=== PATIENT | female | born 1985 | race Caucasian/White ===

== ENCOUNTER 2019-09-18 12:24 | Emergency (ER) | payer BC, SELFPAY ==
[2019-09-18 12:31] VITALS: BP 122/66; PULSE 93; RESP 24; TEMP 36.8; O2SAT 99
--- NOTE | 2019-09-18 12:44 | ED.GENADULT ---
HPI - General Adult General Chief complaint: Upper Respiratory Infection Stated complaint: sore throat and head kennedi Time Seen by Provider: 09/18/19 12:44 Source: patient Mode of arrival: ambulatory Limitations: no limitations History of Present Illness HPI narrative: 34-year-old female patient presents to the [facility] with complaints of cold symptoms for the past 4 weeks. Patient states she does have a history of asthma and has went through an inhaler already and is currently out. Patient states that she is currently also 14 weeks . Patient states that she did call her OB today and they state that they could not treat her for her cold symptoms and recommended that she go to an urgent care to be seen. Patient states that she did follow-up with her primary doctor about 3 weeks ago but he was refusing to treat her because she was . Patient's primary doctor did refer her to a auto glass worker which she has not yet seen. Patient states that she is an active smoker but is trying to cut down. Patient denies any fevers that she is aware of but states she has had a cough, sore throat with some shortness of breath at times. Related Data Home Medications Medication Instructions Recorded Confirmed metoclopramide HCl [Reglan] 10 mg PO Q6H PRN 09/18/19 09/18/19 ondansetron HCl [Zofran] 4 mg PO Q6H 09/18/19 09/18/19 ranitidine HCl [Zantac Maximum 150 mg PO DAILY 09/18/19 09/18/19 Strength] Allergies Allergy/AdvReac Type Severity Reaction Status Date / Time nickel Allergy Mild Rash Verified 09/18/19 12:38 acetaminophen AdvReac Unknown N/V, Verified 09/18/19 12:38 DIZZINESS oxycodone AdvReac Unknown N/V, Verified 09/18/19 12:38 DIZZINESS tramadol AdvReac Unknown N/V, Verified 09/18/19 12:38 DIZZINESS Review of Systems Review of Systems: Narrative: CONSTITUTIONAL: Denies fever, chills, or sweats. EYES: Denies visual changes, redness, or discharge. ENT: Denies rhinorrhea, congestion, positive sore throat, denies otalgia. CARDIOVASCULAR: Denies chest pain, palpitations, or edema. RESPIRATORY: Positive cough with dyspnea. GASTROINTESTINAL: Denies abdominal pain, nausea, vomiting, or diarrhea. GENITOURINARY: Denies dysuria or hematuria. SKIN: Denies rash or itching. MUSCULOSKELETAL: Denies back pain, joint pain, or myalgia. NEUROLOGIC: Denies headache, numbness, or weakness. PSYCHIATRIC: Denies anxiety or depression. PMFSH Comments At the time of my signature I agree with nursing past medical history, surgical, social, and family history. There is no relevant family history pertinent to the presenting complaint. Exam Narrative: Exam Narrative: GENERAL: Well-appearing, well-nourished, and in no acute distress. HEAD: Normocephalic, atraumatic. EYES: PERRLA and EOMI. ENT: Nares with erythema and edema noted bilaterally, no rhinorrhea or epistaxis. Mucous membranes moist. Posterior pharynx with some erythema and 2+ tonsil enlargement. No exudates or lesions present. NECK: Supple. No lymphadenopathy CHEST: Patient does have some inspiratory and expiratory wheezing noted to the right lower lobe. No respiratory distress. No tripoding noted. Patient able is able to talk in clear complete sentences. HEART: Regular rate and rhythm. No murmur heard. Normal peripheral pulses. ABDOMEN: Soft, nontender, nondistended, normal active bowel sounds. EXTREMITIES: Normal range of motion. No edema. SKIN: Warm, dry, no rash. NEURO: No focal deficits. Alert and oriented x3. Course Reevaluation(s) Reevaluation #1: Reevaluated patient after her DuoNeb was completed. Patient states that she is feeling much better. Patient's lung sounds are clear to bilateral upper lower lobes. Discussed with patient that her strep today is negative. Discussed with patient she most likely has an his asthma about his exacerbation from a virus recently. Discussed with patient I am going to go ahead and discharge her home with a few DuoNeb vials t
[2019-09-18] MEDS: ALBUTEROL SULFATE NEB 2.5 MG/3 ML INH INHALATION (12:59)
[2019-09-18] MEDS: IPRATROPIUM BR 0.02% INH SOLN 0.5 MG/2.5 ML VIAL INHALATION (13:00)
== END 2019-09-18 13:53 | disposition home or self-care (01) ==
PROVIDERS: Emergency Provider Nurse Practitioner Family
DX: O99.512 Diseases of the respiratory system complicating pregnancy, second trimester (principal); Z3A.14 14 weeks gestation of pregnancy; J06.9 Acute upper respiratory infection, unspecified; R05 Cough; J45.31 Mild persistent asthma with (acute) exacerbation
CPT/HCPCS: 87081; 87880; 94640; 99213; G0463

== ENCOUNTER 2019-10-21 10:59 | Outpatient (CLI) | payer BC, SELFPAY ==
--- NOTE | ~2019-10-21 | US_ITS ---
EXAMINATION: US OB /maternal detail DATE: 10/21/2019 12:53 INDICATION: Second trimester anatomic survey TECHNIQUE: Real-time ultrasound of the pelvis was performed. COMPARISON: None. FINDINGS: There is a single living fetus in variable presentation. The placenta is anterior and covers the inte rnal cervical os. heart rate is 150 beats per minute (bpm). cardiac activity and m ovement are noted. The amniotic fluid index is normal. The outflow tracts of the heart and kidneys are not demonstrated. The following anatomy was emily ntified as normal: 4 chamber heart 3 vessel cord cord insertion urinary bladder stomach spine diaphragm ventricles cisterna magna cerebellum The following biometric data were obtained: Biparietal diameter (BPD): 4.3 cm; head circumference (HC): 16.3 cm; abdominal circumference (AC): 16 .4 cm; femur length (FL): 3.0 cm. The head circumference to abdominal circumference ratio is greater than two standard deviations below the mean. These measurements are concordant. Estimated weight is 349 g +/- 52 g, which correlates with the >97th percentile when 03/21/2020 i s used as estimated date of delivery. As single measurements, these parameters are each equal to the following estimated gestational ages w ith ranges of +/- 2 standard deviations: BPD: 19 weeks 1 days +/- 1 weeks 5 days. HC: 19 weeks 1 days +/- 1 weeks 3 days. AC: 21 weeks 4 days +/- 2 weeks 0 days. FL: 19 weeks 3 days +/- 1 weeks 6 days. estimated gestational age based solely on measurements from this exam is 19 weeks 6 days +/- 1 weeks 3 days. IMPRESSION: 1. Single living fetus in variable presentation. 2. Estimated weight is 349 g +/- 52 g, which correlates with the >97th percentile when 0 is used as estimated date of delivery. 3. Complete placenta previa. These findings were discussed with Demi in Dr. Vivar's office at 13 03 hours on 10/21/2019. Reviewed, dictated and finalized at location B. IMPRESSION: 1. Single living fetus in variable presentation. 2. Estimated weight is 349 g +/- 52 g, which correlates with the >97th pe rcentile when 03/21/2020 is used as estimated date of delivery. 3. Complete placenta previa. These findings were discussed with Demi in Dr. Vivar's office at 1303 hours on 10/21/2019.
== END 2019-10-21 11:00 | disposition home or self-care (01) ==
PROVIDERS: Visit Provider Obstetrics & Gynecology Gynecology
DX: Z36.89 Encounter for other specified antenatal screening (principal); O44.02 Complete placenta previa NOS or without hemorrhage, second trimester
CPT/HCPCS: 76805

== ENCOUNTER 2019-11-21 10:51 | Outpatient (CLI) | payer BC, SELFPAY ==
--- NOTE | ~2019-11-21 | US_ITS ---
EXAMINATION: US OB follow up DATE: 11/21/2019 11:33 INDICATION: Placenta previa, second trimester TECHNIQUE: Real-time ultrasound of the pelvis was performed. The interpreting radiologist was not pre sent for the study. COMPARISON: 10/21/2019 FINDINGS: There is a single living fetus in transverse lie. The placenta completely covers the inter nal cervical os. cardiac activity and movement are noted. heart rate is 157 beats p er minute (bpm). The amniotic fluid index is subjectively normal. The following biometric data were obtained: Biparietal diameter (BPD): 5.9 cm; head circumference (HC): 22.1 cm; abdominal circumference (AC): 19 .7 cm; femur length (FL): 4.3 cm. These measurements are concordant. Estimated weight is 679 g +/- 101 g, which correlates with the greater than 97th percentile whe n 03/21/2020 is used as estimated date of delivery. As single measurements, these parameters are each equal to the following estimated gestational ages w ith ranges of +/- 2 standard deviations: BPD: 24 weeks 2 days ( 22 weeks 1 days - 26 weeks 4 days). HC: 24 weeks 1 days ( 22 weeks 1 days - 26 weeks 2 days). AC: 24 weeks 3 days ( 22 weeks 2 days - 26 weeks 4 days). FL: 24 weeks 0 days ( 22 weeks 0 days - 26 weeks 1 days). estimated gestational age based solely on measurements from this exam is 24 weeks 2 days +/- 1 weeks 5 days. IMPRESSION: 1. Persistent complete placenta previa. 2. Estimated weight is 679 g +/- 101 g, which correlates with the greater than 97th percentile when 03/21/2020 is used as estimated date of delivery. Reviewed, dictated and finalized at location A.
== END 2019-11-21 10:52 | disposition home or self-care (01) ==
LOC: ANHIMG 10:58
PROVIDERS: Visit Provider Obstetrics & Gynecology Gynecology
DX: O44.02 Complete placenta previa NOS or without hemorrhage, second trimester (principal); O36.62X0 Maternal care for excessive fetal growth, second trimester, not applicable or unspecified
CPT/HCPCS: 76816

== ENCOUNTER 2019-12-21 14:19 | Observation (INO) | payer BC, SELFPAY ==
[2019-12-21] VITALS (7 sets, daily range): BP systolic 97–126; BP diastolic 60–71; PULSE 91–104
--- NOTE | ~2019-12-21 | US_ITS ---
EXAMINATION: US OB limited EXAM DATE: 12/21/2019 15:42 INDICATION: Second trimester, placenta previa with vaginal bleeding.. TECHNIQUE: Pelvic obstetrical transabdominal sonogram was performed by a technologist. There are mu ltiple grayscale and Doppler images available for interpretation. Comparison is made to prior examina tion from 11/21/2019. FINDINGS: There is a single fetus identified in transverse presentation with a heart rate of 154 beat s per minute. The placenta is completely covering the internal cervical os. There is no sonographic evidence of retroplacental hemorrhage identified. The amniotic fluid index is 23.2 centimeters, which is elevated (The 5th -- 95th percentile range is 9.5-22.6). IMPRESSION: 1. Single fetus in transverse presentation with heart rate 154 beats per minute. 2. Complete placental previa without sonographic evidence of retroplacental hemorrhage. 3. Polyhydramnios, CHARLIE 23.2 cm. Reviewed, dictated and finalized at location A. IMPRESSION: 1. Single fetus in transverse presentation with heart rate 154 beats per minut e. 2. Complete placental previa without sonographic evidence of retroplacental he morrhage. 3. Polyhydramnios, CHARLIE 23.2 cm.
[2019-12-21 15:07] LABS: INR 0.9; Prothrombin Time 11.8 Seconds (11.1-14.7)
[2019-12-21 15:08] LABS: Partial Thromboplastin Time 26.9 SECONDS (22.3-36.8)
[2019-12-21 15:16] LABS: Hemoglobin 10.8 g/dL (12.0-15.0); Mean Corpuscular HGB Conc 32.7 g/dl (32-36); Mean Corpuscular Hemoglobin 30.2 pg (26-34); Mean Corpuscular Volume 92.2 fl (80-100); Mean Platelet Volume 11.1 fl (7.4-10.4); Platelet Count Result 255 k/mm3 (150-375); Red Blood Count 3.58 M/mm3 (4.2-5.4); Red Cell Distribution Width 13.6 % (11.5-14.5); White Blood Count 11.5 K/mm3 (4.5-10.0)
--- NOTE | 2019-12-21 17:04 | OBADM ---
This patient, Dior Hart, admitted to the OB room OB Post 116 for observation. Patient/family oriented to hospital policies and general routines including ID bracelet, bed and alarms, visiting hours, pain management, procedures, bathroom and other care routines, personal items, smoking policy, room service/diet, and visiting hours. Patient/Family are encouraged to report perceived risks to care and to ask questions if they do not understand what they are told or what they should do.
[2019-12-21] MEDS: BETAMETHASONE SOD PHOS/ACETATE 30 MG/5 ML VIAL 12 MG IM (17:50)
[2019-12-21 18:04] LABS: Glucose 1 Hour PP 50gm Dose 154 mg/dL
--- NOTE | 2020-01-08 09:56 | PM.OBTRLD ---
OB - Triage/Final Diagnosis Evaluation Laboratory results: Laboratory Tests 12/21/19 12/21/19 12/21/19 14:41 14:49 14:49 WBC 11.5 H RBC 3.58 L Hgb 10.8 L Hct 33.0 L MCV 92.2 MCH 30.2 MCHC 32.7 RDW 13.6 Plt Count 255 MPV 11.1 H PT 11.8 INR 0.9 APTT 26.9 Glucose 1 Hr 50 gm Blood Type O Positive Antibody Screen Negative KB Hemoglobin 12/21/19 12/21/19 14:49 17:42 WBC RBC Hgb Hct MCV MCH MCHC RDW Plt Count MPV PT INR APTT Glucose 1 Hr 50 gm 154 H Blood Type Antibody Screen KB Hemoglobin Negative Final Diagnosis (1) Placenta previa in second trimester: Code(s): O44.02 - Complete placenta previa NOS or without hemorrhage, second trimester Status: Acute (2) Third trimester bleeding: Code(s): O46.93 - Antepartum hemorrhage, unspecified, third trimester Status: Acute
== END 2019-12-21 18:09 | disposition home health service (06) ==
PROVIDERS: Admitting Provider Obstetrics & Gynecology Gynecology; Visit Provider Obstetrics & Gynecology
DX: O44.12 Complete placenta previa with hemorrhage, second trimester (principal); Z3A.00 Weeks of gestation of pregnancy not specified; O40.2XX0 Polyhydramnios, second trimester, not applicable or unspecified
CPT/HCPCS: 36415; 76815; 82947; 85027; 85460; 85610; 85730; 86850; 86900; 86901; 96372; G0378; G0379; J0702

== ENCOUNTER 2019-12-22 17:40 | Outpatient (CLI) | payer BC, SELFPAY ==
[2019-12-22] MEDS: BETAMETHASONE SOD PHOS/ACETATE 30 MG/5 ML VIAL 12 MG IM (17:56)
== END 2019-12-22 18:00 | disposition home or self-care (01) ==
LOC: ANHOBOP 17:49 → ANHLDR 17:50
PROVIDERS: Visit Provider Obstetrics & Gynecology Gynecology
DX: O36.8990 Maternal care for other specified fetal problems, unspecified trimester, not applicable or unspecified (principal); Z3A.00 Weeks of gestation of pregnancy not specified
CPT/HCPCS: 96372; 99199; J0702

== ENCOUNTER 2020-02-09 08:21 | Observation (INO) | payer BC, MEDICAID, SELFPAY ==
[2020-02-09] VITALS (27 sets, daily range): BP systolic 105–132; BP diastolic 61–82; PULSE 74–116; TEMP 36.6–37.2; O2SAT 98–100; BMI 30.4
--- NOTE | ~2020-02-09 | US_ITS ---
EXAMINATION: US OB follow up DATE: 02/09/2020 10:23 INDICATION: Bleeding. Third trimester. TECHNIQUE: Real-time ultrasound of the pelvis was performed. COMPARISON: Ultrasound 12/21/2019, 07/27/2019 FINDINGS: There is a single living fetus in transverse lie. The placenta covers the internal cervical os. Feta l heart rate is 130 beats per minute (bpm). The amniotic fluid index is 17.9 cm, which is normal. The following biometric data were obtained: Biparietal diameter (BPD): 9.0 cm; head circumference (HC): 32.9 cm; abdominal circumference (AC): 32 .7 cm; femur length (FL): 7.0 cm. These measurements are concordant. Estimated weight is 2954 g +/- 443 g, which correlates with 96th percentile when 03/21/20 is use d as estimated date of delivery. As single measurements, these parameters are each equal to the following estimated gestational ages: BPD: 36 weeks 3 days. HC: 37 weeks 3 days. AC: 36 weeks 4 days. FL: 35 weeks 6 days. estimated gestational age based solely on measurements from this exam is 36 weeks 4 days +/- 2 weeks 4 days. IMPRESSION: 1. Single living fetus in transverse lie. 2. Large for gestational age. Estimated weight is 2954 g +/- 443 g, which correlates with 96th percentile when 03/21/20 is used as estimated date of delivery. Note that the first ultrasound on demonstrated an estimated gestational age of 803/16/2020. 3. Placenta previa. Reviewed, dictated and finalized at location A. IMPRESSION: 1. Single living fetus in transverse lie. 2. Large for gestational age. Estimated weight is 2954 g +/- 443 g, whic h correlates with 96th percentile when 03/21/20 is used as estimated date of del tor. Note that the first ultrasound on 07/27/2019 demonstrated an estimated g estational age of 803/16/2020. 3. Placenta previa.
[2020-02-09 09:11] LABS: Basophils Percent Auto 0.2 % (0.2-1.2); Eosinophils Absolute Auto 0.2 K/mm3 (0-0.3); Eosinophils Percent Auto 2.4 % (0-4.4); Hematocrit 30.5 % (37.0-47.0); Hemoglobin 9.9 g/dL (12.0-15.0); Immature Granulocyte Absolute 0.06 K/mm3 (0.00-0.031); Immature Granulocyte Percent A 0.6 % (0-0.5); Lymphocytes Absolute Auto 2.03 K/mm3 (0.9-3.2); Lymphocytes Percent Auto 20.9 % (18.3-44.2); Mean Corpuscular HGB Conc 32.5 g/dl (32-36); Mean Corpuscular Volume 89.4 fl (80-100); Mean Platelet Volume 11.4 fl (7.4-10.4); Monocytes Absolute Auto 0.8 K/mm3 (0.1-0.6); Monocytes Percent Auto 7.7 % (2.6-8.5); Neutrophils Absolute Auto 6.6 K/mm3 (1.3-6.7); Neutrophils Percent Auto 68.2 % (45.5-73.1); Platelet Count Result 258 k/mm3 (150-375); Red Blood Count 3.41 M/mm3 (4.2-5.4); Red Cell Distribution Width 13.3 % (11.5-14.5); White Blood Count 9.7 K/mm3 (4.5-10.0)
[2020-02-09 09:21] LABS: INR 0.9; Prothrombin Time 12.1 Seconds (11.1-14.7)
[2020-02-09 09:22] LABS: Partial Thromboplastin Time 25.8 SECONDS (22.3-36.8)
[2020-02-09 09:52] LABS: Fibrinogen 311 mg/dl (215-510)
[2020-02-09] MEDS: NIFEdipine 10 MG CAPSULE 20 MG PO ×3 (10:22→21:38)
--- NOTE | 2020-02-09 10:34 | OBADM ---
This patient, Dior Hart, admitted to the OB room Labor/Delivery/Recovery 120 for observation. Patient/family oriented to hospital policies and general routines including ID bracelet, bed and alarms, visiting hours, pain management, procedures, bathroom and other care routines, personal items, smoking policy, room service/diet, and visiting hours. Patient/Family are encouraged to report perceived risks to care and to ask questions if they do not understand what they are told or what they should do.
--- NOTE | 2020-02-09 11:32 | PC.NURSE ---
1125--Pt up to bathroom. reports no bleeding
--- NOTE | 2020-02-09 11:38 | PC.NURSE ---
1005--US at bedside
--- NOTE | 2020-02-09 11:38 | PC.NURSE ---
0850--Pt arrives with towel between legs and walnut-sized blood clot. Dr. Leos notified and enroute.
--- NOTE | 2020-02-09 14:21 | PC.NURSE ---
1420--Dr. Leos updated-no new orders received.
[2020-02-10] VITALS (8 sets, daily range): BP systolic 106–122; BP diastolic 51–72; PULSE 78–92; TEMP 36.6–36.9
[2020-02-10] MEDS: NIFEdipine 10 MG CAPSULE 20 MG PO ×3 (03:39→16:02)
[2020-02-10 07:07] LABS: Rapid Plasma Reagin Non-Reactive (NonReactive)
--- NOTE | 2020-02-10 08:12 | PM.IMHP ---
H&P: HPI History of Present Illness Chief complaint: bleeding Narrative: Dior Hart is a 34 year old female @ 34 weeks admittd for bleeding with placenta previa. Patient reported bleeding with wiping and then increased over nite. with clots PMFSH Past Medical History Medical History (Updated 01/08/20 @ 09:57 by Addy Leos MD) Placenta previa in second trimester Third trimester bleeding Meds Home Medications and Allergies Home Medications Medication Instructions Recorded Confirmed Type albuterol sulfate [ProAir HFA] 2 puff INHALATION QID PRN #18 gm 09/18/19 02/09/20 Rx famotidine [Pepcid] 20 mg PO DAILY 02/09/20 02/09/20 History pantoprazole 40 mg PO DAILY 02/09/20 02/09/20 History Allergies Allergy/AdvReac Type Severity Reaction Status Date / Time nickel Allergy Mild Rash Verified 09/18/19 12:38 Vital Signs Vital Signs - 24 hr 02/09/20 08:46 02/09/20 08:51 02/09/20 08:56 Temperature Pulse Rate Blood Pressure Pulse Oximetry 100 99 99 02/09/20 09:00 02/09/20 09:01 02/09/20 09:06 Temperature 36.6 C Pulse Rate 116 H Blood Pressure 132/68 Pulse Oximetry 98 99 02/09/20 09:11 02/09/20 09:16 02/09/20 09:21 Temperature Pulse Rate 99 Blood Pressure 111/70 Pulse Oximetry 99 99 99 02/09/20 10:22 02/09/20 11:21 02/09/20 11:31 Temperature Pulse Rate 92 74 87 Blood Pressure 113/70 117/69 116/67 Pulse Oximetry 02/09/20 11:46 02/09/20 12:01 02/09/20 12:16 Temperature Pulse Rate 88 86 86 Blood Pressure 114/65 115/75 121/65 Pulse Oximetry 02/09/20 12:31 02/09/20 16:26 02/09/20 16:31 Temperature Pulse Rate 79 91 88 Blood Pressure 121/67 126/78 118/82 Pulse Oximetry 02/09/20 16:46 02/09/20 17:01 02/09/20 17:16 Temperature Pulse Rate 88 85 89 Blood Pressure 132/72 124/61 105/70 Pulse Oximetry 02/09/20 17:31 02/09/20 18:19 02/09/20 19:32 Temperature 36.6 C Pulse Rate 95 94 Blood Pressure 115/71 121/76 Pulse Oximetry 02/09/20 21:36 02/09/20 22:01 02/09/20 23:01 Temperature 37.2 C Pulse Rate 84 87 83 Blood Pressure 118/71 117/77 113/67 Pulse Oximetry 02/10/20 00:01 02/10/20 00:44 02/10/20 01:01 Temperature 36.9 C Pulse Rate 87 84 Blood Pressure 113/58 L 112/51 L Pulse Oximetry 02/10/20 02:55 02/10/20 03:37 02/10/20 04:01 Temperature 36.8 C Pulse Rate 81 78 Blood Pressure 106/59 L 106/54 L Pulse Oximetry Exam : Other: blood clot in vault no active bleeding. cvx closed by visualizaition. Reactive baby AGA no decels contractions every 3-7 minutes. H&P: Results Labs Labs: Short CBC 02/09/20 Range/Units 09:06 WBC 9.7 (4.5-10.0) K/mm3 Hgb 9.9 L (12.0-15.0) g/dL Hct 30.5 L (37.0-47.0) % Plt Count 258 (150-375) k/mm3 Assessment and Plan Assessment and plan (1) Third trimester bleeding: Code(s): O46.93 - Antepartum hemorrhage, unspecified, third trimester Status: Acute Assessment and Plan: patient started on Procardia q 6 for contractions. s/p steroids from first bleeding episode. start iron supplements. complete bedrest. ultrasound for Tony and placenta (2) Placenta previa in second trimester: Code(s): O44.02 - Complete placenta previa NOS or without hemorrhage, second trimester Status: Acute
--- NOTE | 2020-02-10 11:58 | PM.OBPNVD ---
OB - PN: Subj Subjective Date/time seen: 02/10/20 11:58 S: doing okay no bleeding noted contraction less with procardia tolerating okay noticed mild headache with last dose. OB - PN: Obj Data Labs CBC & Chem 7: 02/09/20 09:06 Labs: Laboratory Results - last 24 hr 02/09/20 09:06 RPR Non-reactive OB - PN A/P Assessment and Plan (1) Third trimester bleeding: Code(s): O46.93 - Antepartum hemorrhage, unspecified, third trimester Status: Acute Assessment and Plan: placenta previa stable continue with procardia for contractions.d/c home on pelvic and bedrest. f/u 02/12/20 for ultrasound. (2) Placenta previa in second trimester: Code(s): O44.02 - Complete placenta previa NOS or without hemorrhage, second trimester Status: Acute Time Spent With Patient Time: Total time spent is greater than 50% in coordination of care (as documented) at patient's floor/unit and/or counseling patient: Exam GI: Other: Gravid nontender
== END 2020-02-10 16:58 | disposition home or self-care (01) ==
LOC: ANHLDR 08:48 → ANHOBPP 11:14
PROVIDERS: Admitting Provider Obstetrics & Gynecology; Visit Provider Obstetrics & Gynecology
DX: O44.13 Complete placenta previa with hemorrhage, third trimester (principal); Z3A.34 34 weeks gestation of pregnancy
CPT/HCPCS: 36415; 76816; 85025; 85384; 85610; 85730; 86592; 86850; 86900; 86901; A9270; G0378; G0379

== ENCOUNTER 2020-02-14 08:55 | Outpatient (CLI) | payer BC, SELFPAY ==
[2020-02-14 09:40] VITALS: BP 123/78; PULSE 81
[2020-02-14 09:54] LABS: Hematocrit 28.5 % (37.0-47.0); Hemoglobin 9.2 g/dL (12.0-15.0); Mean Corpuscular HGB Conc 32.3 g/dl (32-36); Mean Corpuscular Hemoglobin 28.6 pg (26-34); Mean Corpuscular Volume 88.5 fl (80-100); Mean Platelet Volume 10.9 fl (7.4-10.4); Platelet Count Result 249 k/mm3 (150-375); Red Blood Count 3.22 M/mm3 (4.2-5.4); Red Cell Distribution Width 13.2 % (11.5-14.5); White Blood Count 10.8 K/mm3 (4.5-10.0)
[2020-02-14 10:46] LABS: HIV 1/2 Ab P24 Ag Result Negative (Negative)
[2020-02-14 10:50] VITALS: BP 123/78; PULSE 81
== END 2020-02-14 11:00 | disposition home or self-care (01) ==
LOC: ANHOBOP 09:05 → ANHOBPP 09:05
PROVIDERS: Obstetrics & Gynecology; Visit Provider Obstetrics & Gynecology Gynecology
DX: O99.413 Diseases of the circulatory system complicating pregnancy, third trimester (principal); Z3A.00 Weeks of gestation of pregnancy not specified
CPT/HCPCS: 36415; 59025; 85027; 86703; 99199; G0432

== ENCOUNTER 2020-05-15 01:58 | Outpatient (CLI) | payer BC, SELFPAY ==
[2020-05-15 18:25] LABS: SARS-CoV-2 RNA PCR Negative
== END 2020-05-15 01:59 | disposition home or self-care (01) ==
LOC: ANHCOVIDDT 01:58
PROVIDERS: Visit Provider Obstetrics & Gynecology Gynecology
DX: Z01.812 Encounter for preprocedural laboratory examination (principal); Z20.828 Contact with and (suspected) exposure to other viral communicable diseases
CPT/HCPCS: 87635; C9803; U0003

== ENCOUNTER 2020-05-18 02:40 | Day surgery (SDC) | payer BC, SELFPAY ==
[2020-05-05 15:37] VITALS: BMI 27.3
[2020-05-18] VITALS (11 sets, daily range): BP systolic 110–146; BP diastolic 65–92; PULSE 53–87; RESP 12–20; TEMP 36.3; O2SAT 94–100
[2020-05-18] MEDS: ACETAMINOPHEN 500 MG TABLET 1000 MG PO (06:41)
[2020-05-18] MEDS: LACTATED RINGERS 1,000 ML 30 ML IV CONT ×2 (06:55→09:27)
[2020-05-18] MEDS: KETOROLAC 15 MG/ML VIAL (*BKC) IV PUSH (07:00)
--- NOTE | 2020-05-18 07:03 | P.PNAN_ITS ---
Anes - Initial Pre Proc Eval Procedure: Operation Date: 05/18/20 07:30 Proposed Procedures p Laparoscopic Bilateral Tubal Ligation With Fallopian Rings - Krista Vivar MD Date/Time: 05/18/20 07:03 Surgeon: Krista Vivar MD Pre Op Diagnosis: Desires Sterilization Patient Data Age: 34 Gender: F Height: 1.7 m Weight: 81.4 kg Allergies Allergy/AdvReac Type Severity Reaction Status Date / Time nickel Allergy Mild Rash Verified 05/05/20 15:23 Home Medications Medication Instructions Recorded Confirmed Type albuterol sulfate [ProAir HFA] 2 puff INHALATION QID PRN #18 gm 09/18/19 05/18/20 Rx famotidine [Pepcid] 20 mg PO DAILY 02/09/20 05/18/20 History pantoprazole 40 mg PO DAILY 02/09/20 05/18/20 History duloxetine 60 mg PO DAILY 05/05/20 05/18/20 History Patient hx anesthesia problems: none Family hx anesthesia problems: none [facility] Past Medical History Medical History (Updated 05/18/20 @ 07:04 by Slim Ortega MD) Asthma Chronic GERD Overweight (BMI 25.0-29.9) Placenta previa in second trimester Smoker Third trimester bleeding Social History Social History Smoking packs per day: 0.5 Smoking cigarettes per day: 10.0 Years smoked: 16 Smoking pack-years: 8.00 Smoking status: Current every day smoker Tobacco type: cigarettes Second hand tobacco smoke exposure: Yes Alcohol intake: former Substance use: former Substance use type: marijuana Last use: 2016 Living arrangements: with family Spiritual care concerns: No Anes - Eval Final PreProcedure Day of Procedure 05/18/20 07:03 Patient weight: overweight Heart: regular rate and rhythm Lungs: clear to auscultation and normal air movement Airway: Mallampati scale class II Neurological: alert and oriented Last oral intake: >/= 8 hours ASA classification: II Emergent: no Anesthetic plan: proceed Anesthesia type and monitoring: general ETT Informed Consent: The patient's anesthetic plan and its attendant risks and benefits were discussed with the patient/family/POA. Questions were solicited and answers provided to the satisfaction of the patient/family/POA.
--- NOTE | 2020-05-18 07:21 | PM.HPGS ---
History of Present Illness History of Present Illness Consent: Risks, benefits, and alternatives have been discussed and questions answered. Patient agrees to proceed with procedure. Chief complaint: Desires Sterilization Narrative: Dior Hart is a 34 year old female who has completed her childbearing and wishes to proceed with sterilization. Reviewed risks of infection, bleeding, injury to internal organs, and tubal failure with increased ectopic risk. Patient voiced understanding and agrees to proceed. [facility] Past Medical History Medical History (Updated 05/18/20 @ 07:25 by Krista Vivar MD) Anxiety Asthma delivery delivered x 2 Chronic GERD Depression (normal spontaneous vaginal delivery) x 1 Overweight (BMI 25.0-29.9) Smoker Spontaneous x 4 Social History Social History Smoking packs per day: 0.5 Smoking cigarettes per day: 10.0 Years smoked: 16 Smoking pack-years: 8.00 Smoking status: Current every day smoker Tobacco type: cigarettes Second hand tobacco smoke exposure: Yes Alcohol intake: former Substance use: former Substance use type: marijuana Last use: 2016 Living arrangements: with family Spiritual care concerns: No Meds Home Medications and Allergies Home Medications Medication Instructions Recorded Confirmed Type albuterol sulfate [ProAir HFA] 2 puff INHALATION QID PRN #18 gm 09/18/19 05/18/20 Rx famotidine [Pepcid] 20 mg PO DAILY 02/09/20 05/18/20 History pantoprazole 40 mg PO DAILY 02/09/20 05/18/20 History duloxetine 60 mg PO DAILY 05/05/20 05/18/20 History Allergies Allergy/AdvReac Type Severity Reaction Status Date / Time nickel Allergy Mild Rash Verified 05/05/20 15:23 Vital Signs Vital Signs - 24 hr 05/18/20 06:46 Temperature 97.3 F L Pulse Rate 87 Respiratory Rate 20 Blood Pressure 120/83 Pulse Oximetry 98 Exam Const: General: healthy appearing and alert Orientation/consciousness: patient oriented x3 Resp: Effort & Inspection: normal respiratory effort Auscultation: clear to auscultation bilaterally Cardio: Rate: regular rate Rhythm: regular rhythm GI: GI Palp: Yes Soft to palpation, No Tenderness to palpation present (GI) and No Palpable mass present : External Female Exam: normal external appearance Speculum Exam - Vagina: normal appearance of the vagina and normal vaginal discharge Speculum Exam - Cervix: normal appearance of the cervix Bimanual exam- vagina & uterus: uterine size normal and consistency normal Bimanual Exam- Adnexa, other: normal adnexae and No adnexal tenderness Neuro: General: patient oriented x3 Assessment and Plan Assessment and plan (1) Encounter for sterilization: Code(s): Z30.2 - Encounter for sterilization Status: Acute Assessment and Plan: plan to proceed with laparoscopic BTL with falope rings
--- NOTE | 2020-05-18 07:25 | WPDHPUPDATE1 ---
History and Physical Update Update Date/Time: 05/18/20 07:25 History and Physical has been reviewed, including an updated exam of the patient. There are NO changes in the patient's condition. Risks, benefits, and alternatives have been discussed and questions answered. Patient agrees to proceed with procedure.
--- NOTE | 2020-05-18 08:28 | P.OP_ITS ---
Procedure Note - Detailed Date of procedure: 05/18/20 Pre-op diagnosis: Desires Sterilization Post-op diagnosis: same Procedure performed: laparoscopic BTL with falope rings Description of procedure: The patient was taken to the operating room and placed under general anesthesia in the dorsal lithotomy position. She was prepped and draped in the usual sterile fashion. The bladder is drained with a red rubber catheter and the bivalve speculum placed. The cervix is grasped on the posterior lip with a tenaculum and the acorn manipulator placed and the speculum is removed. The attention is turned to the abdomen where a vertical skin in cision is made at the base of the umbilicus. The abdomen is tented with towel clamps and the Veress needle is placed. Opening patient pressure is 4mmHg and the water drop test is normal. Pneumoperitoneum was obtained to a patient pressure of 15mmHg. The Veress needle is removed the 5mm trocar is placed with the Optiview and intra-abdominal placement was confirmed with the laparoscoped. The pelvis is inspected with the stated findings. The 2nd trocar is placed 2cm above the symphysis pubis under direct visualization. The blunt probe was used to bring the tubes into view and the ring applicator is used to place a ring on each tube. A good loop of tube is noted within the ring on each side and picture documentation is taken. The pneumoperitoneum is reduced and the instruments are removed. Vaginal instruments are removed. Sponge instrument and needle counts are correct per the OR staff. Anesthesia: GETA Surgeon: Krista Vivar MD Estimated blood loss (mL): 5 Drains: No Packing: No Pathology: none sent Complications: No immediate complications Condition: stable Disposition: PACU Findings: normal appearing tubes, ovaries, and uterus; omental scarring to anterior abdominal wall to left of umbilicus
[2020-05-18] MEDS: fentaNYL CITRATE INJ (*CRX) 100 MCG/2 ML VIAL 25 MCG IV PUSH ×4 (08:31→08:45)
[2020-05-18] MEDS: HYDROmorphone HCL INJ (*CRX) 1 MG/ML SYR 0.25 MG IV PUSH ×2 (08:55→09:07)
[2020-05-18] MEDS: oxyCODONE HCL (*CRX) 5 MG TAB IR PO (09:58)
== END 2020-05-18 10:49 | disposition home or self-care (01) ==
PROVIDERS: Visit Provider Obstetrics & Gynecology Gynecology
PROC: (CPT 58671; principal; 2020-05-18 07:30)
DX: Z30.2 Encounter for sterilization (principal); J45.909 Unspecified asthma, uncomplicated; K21.9 Gastro-esophageal reflux disease without esophagitis; F17.210 Nicotine dependence, cigarettes, uncomplicated
CPT/HCPCS: 58671; A4264; A9270; J0330; J1100; J1170; J1885; J2250; J2405; J2704; J3010; J7120

== ENCOUNTER 2022-10-05 12:01 | Emergency (ER) | payer BC, SELFPAY ==
[2022-10-05 12:07] VITALS: BP 134/85; PULSE 93; RESP 16; TEMP 36.6; O2SAT 98
--- NOTE | 2022-10-05 12:15 | ED.URI ---
HPI - URI/Sore Throat General Chief Complaint: Upper Respiratory Infection Stated Complaint: Cough/Headache Time Seen by Provider: 10/05/22 12:02 Source: patient and RN notes reviewed History of Present Illness HPI Narrative: Patient is a 37-year-old female who presents to urgent care with complaints of sore throat, hoarseness, cough, headache, shortness of breath, wheezing and subjective fevers. Patient states symptoms started 2 weeks ago and she has also had nausea. Patient has missed work due to her illness. States she has been taking Tylenol, ibuprofen and using her albuterol inhaler. Patient states that her asthma has gotten worse since her insurance has denied her Dulera inhaler. No other acute complaints. No acute distress noted. Patient aware of the plan of care. Some parts of this dictation were generated by voice recognition software and may contain typographical and/or grammatical inaccuracies. Related Data Home Medications Medication Instructions Recorded Confirmed albuterol sulfate 90 mcg/actuation See Rx Instructions .Route 10/05/22 10/05/22 aerosol inhaler .COMPLEX PRN sob zolpidem 10 mg tablet 10 mg PO HS 10/05/22 10/05/22 Allergies Allergy/AdvReac Type Severity Reaction Status Date / Time nickel Allergy Mild Rash Verified 10/05/22 12:38 Review of Systems Review of Systems: CONSTITUTIONAL: Denies fever, chills, or sweats. EYES: Denies visual changes, redness, or discharge. ENT: Reports of congestion, hoarseness and sore throat CARDIOVASCULAR: Denies chest pain, palpitations, or edema. RESPIRATORY: Reports of nonproductive cough, wheezing and intermittent dyspnea GASTROINTESTINAL: Denies abdominal pain, nausea, vomiting, or diarrhea. GENITOURINARY: Denies dysuria or hematuria. SKIN: Reports of rash to the face MUSCULOSKELETAL: Denies back pain, joint pain, or myalgia. NEUROLOGIC: Reports of headache All other systems reviewed are negative, except as documented in HPI. [facility] Past Medical History Medical History (Updated 10/05/22 @ 12:42 by PATRICIO Bailey) Anxiety Asthma delivery delivered x 2 Chronic GERD Depression (normal spontaneous vaginal delivery) x 1 Overweight (BMI 25.0-29.9) Smoker Spontaneous x 4 Social History Social History Smoking packs per day: 0.5 Smoking cigarettes per day: 10.0 Years smoked: 16 Smoking pack-years: 8.00 Smoking status: Current every day smoker Tobacco type: cigarettes Second hand tobacco smoke exposure: Yes Alcohol intake: former Substance use: former Substance use type: marijuana Last use: 2016 Living arrangements: with family Spiritual care concerns: No Comments At the time of my signature, I reviewed and agree with the nursing past medical, surgical, social, and family history. There is no relevant family history pertinent to the patient complaint. Exam Narrative: GENERAL: This is a well-nourished, well-developed patient, in no apparent distress. HEAD: normocephalic, atraumatic. EYES: PERRL. Sclera clear/white. Vision is grossly intact. EARS: External ears normal, auditory canals clear and without drainage, mild bilateral eustachian tube dysfunction. TMs normal without perforation. Hearing grossly intact. NOSE: External nose normal with no obvious nasal discharge, nares without redness, clear rhinorrhea. THROAT: Mucous membranes moist, mild erythema to posterior pharynx with moderate postnasal drainage. Notable hoarseness NECK: Neck supple, non-tender without lymphadenopathy CARDIOVASCULAR: Regular rate and rhythm RESPIRATORY: Tight inspiratory and expiratory wheezes SKIN: warm, intact with no suspicious lesions or rash, good texture and turgor. NEURO: awake, alert, and oriented to person, place and time. There were no obvious focal neurologic abnormalities. EXTREMITIES: No clubbing, cyanosis, or edema. Course Course Chris
[2022-10-05] MEDS: ALBUTEROL SULFATE NEB 2.5 MG/3 ML INH INHALATION (12:31)
[2022-10-05] MEDS: IPRATROPIUM BR 0.02% INH SOLN 0.5 MG/2.5 ML VIAL INHALATION (12:32)
== END 2022-10-05 13:00 | disposition home or self-care (01) ==
PROVIDERS: Emergency Provider Nurse Practitioner Family; PCP Nurse Practitioner Family
DX: J45.20 Mild intermittent asthma, uncomplicated (principal); L01.00 Impetigo, unspecified; J32.9 Chronic sinusitis, unspecified; F41.9 Anxiety disorder, unspecified; F17.210 Nicotine dependence, cigarettes, uncomplicated
CPT/HCPCS: 87081; 87880; 94640; 99213; G0463

== ENCOUNTER 2022-12-13 11:31 | Outpatient (CLI) | payer BC, SELFPAY ==
--- NOTE | ~2022-12-13 | US_ITS ---
EXAMINATION: US pelvic complete DATE: 12/13/2022 11:57 INDICATION: Menorrhagia Comparison:No prior studies for comparison. TECHNIQUE: Multiple transabdominal sonographic images of the pelvis performed. FINDINGS: The uterus measures 9.2 x 4.4 x 6.3 cm. The endometrial complex measures 5 mm. The right ovary measures 2.5 x 2.2 x 2.3 cm and the left ovary measures 2.9 x 2.7 x 2.3 cm. There ar e small follicles in each ovary. Normal doppler signal in both ovaries. There is no free fluid in the pelvis. There are no abnormal masses seen on either side. IMPRESSION: 1. Unremarkable pelvic ultrasound. Reviewed, dictated and finalized at location L.
== END 2022-12-13 11:32 ==
PROVIDERS: PCP Nurse Practitioner Family; Visit Provider Obstetrics & Gynecology Gynecology
DX: N93.8 Other specified abnormal uterine and vaginal bleeding (principal)
CPT/HCPCS: 76856

== ENCOUNTER 2023-10-23 17:02 | Outpatient (CLI) | payer BC, SELFPAY ==
--- NOTE | ~2023-10-23 | CT_ITS ---
EXAMINATION: CT knee RT wo con DATE: 10/23/2023 17:45 INDICATION: Right knee pain. TECHNIQUE: Computed tomography (CT) of the right knee was performed without intravenous contrast. Aut omated exposure control and iterative reconstruction technique were employed. The dose-length product was 673.68 mGy-cm. COMPARISON: Right knee radiographs 10/18/2023 FINDINGS: Bone alignment is normal. No fracture. There is mild tricompartmental osteoarthritis charac terized by tiny osteophytes. No joint space narrowing. No knee joint effusion. There is hypodensity i n medial head of gastrocnemius muscle. IMPRESSION: 1. Mild right knee osteoarthritis. 2. Hypodensity in medial head of gastrocnemius muscle, likely a muscle strain. Reviewed, dictated and finalized at location E.
== END 2023-10-23 17:03 | disposition home or self-care (01) ==
PROVIDERS: PCP Nurse Practitioner Family; Visit Provider Nurse Practitioner Family
DX: M17.11 Unilateral primary osteoarthritis, right knee (principal)
CPT/HCPCS: 73700

== ENCOUNTER 2024-03-12 10:46 | Outpatient (CLI) | payer BC, SELFPAY ==
[2024-03-12 19:29] LABS: Hematocrit 41.9 % (37.0-47.0); Hemoglobin 13.1 g/dL (12.0-15.0); Mean Corpuscular HGB Conc 31.3 g/dl (32-36); Mean Corpuscular Hemoglobin 29.5 pg (26-34); Mean Corpuscular Volume 94.4 fl (80-100); Mean Platelet Volume 11.7 fl (7.4-10.4); Platelet Count Result 235 k/mm3 (150-375); Red Blood Count 4.44 M/mm3 (4.2-5.4); White Blood Count 6.1 K/mm3 (4.5-10.0)
[2024-03-12 19:34] LABS: Alanine Aminotransferase 13 U/L (6-35); Albumin Level 3.9 g/dL (3.5-5.1); Alkaline Phosphatase 62 U/L (38-126); Anion Gap 6 mmol/L (4-12); Aspartate Amino Transferase 33 U/L (14-36); Bilirubin,Total 0.4 mg/dL (0.2-1.3); Blood Urea Nitrogen 15 mg/dL (7-17); Calcium 8.3 mg/dL (8.4-10.2); Carbon Dioxide 26 mmol/L (22-30); Chloride 106 mmol/L (98-107); Cholesterol 149 mg/dL (0-200); Estimated Glomerular Filt Rate > 60; Glucose 101 mg/dL (65-110); HDL Direct 38 mg/dL; Potassium 4.1 mmol/L (3.4-5.0); Sodium 138 mmol/L (137-145); Triglycerides 38 mg/dL (<150)
[2024-03-12 19:46] LABS: LDL Cholesterol Direct 89 mg/dL
[2024-03-12 20:22] LABS: Hemoglobin A1C 5.4 % (<5.7)
[2024-03-12 21:28] LABS: Vitamin D 25 Hydroxy 14.3 ng/mL
[2024-03-12 21:48] LABS: Thyroid Stimulating Hormone Reflex 0.967 uIU/mL (0.465-4.68)
== END 2024-03-12 10:47 | disposition home or self-care (01) ==
PROVIDERS: PCP Nurse Practitioner Family; Visit Provider Nurse Practitioner Family
DX: H90.41 Sensorineural hearing loss, unilateral, right ear, with unrestricted hearing on the contralateral side (principal); H93.11 Tinnitus, right ear
CPT/HCPCS: 36415; 80053; 80061; 82306; 82607; 83036; 84443; 85027; 92557; 92567

== ENCOUNTER 2024-05-13 00:57 | Day surgery (SDC) | payer BC, SELFPAY ==
[2024-05-01 18:27] VITALS: BMI 25.5
--- NOTE | 2024-05-01 18:36 | PC.NURSE ---
Report to the Outpatient Waiting Room, entrance under the green pavilion located off [facility], at time 0615 on date 05/13/24. Planned Procedure Time: 0815.? Time changes happen often and if your time is changed the preop area will call you the afternoon before. - You and your visitor will be asked to self-screen and do not enter if you have any COVID symptoms. Please call surgeon if you need to reschedule. - A mask is optional within the hospital at this time. Patients may have clear liquids (water, carbonated beverages, clear teas, apple juice) until 3 hours prior to surgery with a maximum of 20 ounces. - No food from midnight until time of surgery and no smoking - Infants may have breast milk until 4 hours before surgery, formula 6 hours prior to surgery. - Children will be allowed to drink immediately following surgery.? If applicable, please bring a bottle or sippy cup to assist with drinking. Juice, water, soda, and popsicles are readily available.? For infants on formula, please bring formula the day of surgery.? Pacifiers are allowed. Take only the following medications with a SIP of water on the morning of surgery: ___n/a__ bring inhaler DO NOT STOP ANY OF YOUR OTHER PRESCRIPTION MEDICATIONS PRIOR TO SURGERY EXCEPT THE FOLLOWING Medications to discontinue per physician n/a Date to take last dose Please no make-up, nail sami, hairspray, perfume, deodorant, or body powder the day of surgery.? No jewelry (including any body piercings) or valuables the day of surgery, leave them at home.? Please take a shower or bath the night before, or the morning of, surgery with an antibacterial soap.? Wear comfortable, loose fitting clothing.? Children are encouraged to wear pajamas. - Jewelry must be removed prior to entering the operating room.? Rings and piercings that are not removed may be cut off. - The hospital will not accept responsibility for valuables.? - Please leave all valuables, including medications, at home the day of surgery. If you are going home after surgery, a licensed regional tanker truck driver must drive you home.? - NO public transportation without another adult if you receive anesthesia. - We recommend that an adult stay with you for 24 hours following discharge. - We also recommend that you do not drive, make important decision, drink alcoholic beverages, or take any drugs that were not prescribed by your health care provider for at least 24 hours after your discharge time. For Pediatric surgeries, we recommend two adults accompany the child home. Follow any additional instructions given to you from your surgeon. Telephone instructions given to _patient_and asked if any additional questions and then verbalized understanding. Patient advised to call surgeon office or pre surgery nurse liaison [phone] if any additional questions.
--- NOTE | 2024-05-13 07:19 | P.HP_ITS ---
History of Present Illness History of Present Illness Consent: Risks, benefits, and alternatives have been discussed and questions answered. Patient agrees to proceed with procedure. Chief complaint: menorrhagia Narrative: Dior Hart is a 38 year old female with prolonged bleeding episodes. Patient bled for 17 days. Some days were heavy and some days were collected. Patient has had irregular bleeding over the past 3 months. It was recommended to undergo D&C hysteroscopy to further evaluate. Risks infection, bleeding, perforation, and possible pathology are discussed. Patient voices understanding and agrees to proceed. Review of Systems Review of Systems: not repeated day of surgery; patient states no changes in status [facility] Past Medical History Medical History (Updated 05/13/24 @ 07:22 by Krista Vivar MD) Anxiety Asthma Chronic GERD Depression Eczema Insomnia (normal spontaneous vaginal delivery) x 1 Smoker Spontaneous x 4 Surgical History Surgical History (Updated 05/13/24 @ 07:22 by Krista Vivar MD) H/O tubal ligation History of X2 History of nasal surgery Family History Family History Father Alcoholism Cancer Cerebrovascular accident Mother Cancer Hypertension Social History Social History Smoking packs per day: 0.5 Smoking cigarettes per day: 10.0 Years smoked: 16 Smoking pack-years: 8.00 Smoking status: Current every day smoker Tobacco type: cigarettes Second hand tobacco smoke exposure: Yes Additional smoking assessment comments: 4-6 cigarettes per day Alcohol intake: former Substance use: former Substance use type: marijuana Last use: 2017 Do You Feel Safe in your Home?: Yes Lack of Transportation: No Lack of Food: Never True Current Housing: I Have Housing Concerned About Future Housing: No Difficulty Paying Gas/Electric Bills: No Difficulty Paying for Meds: No Currently Unemployed: No Education: High School Diploma/GED Difficulty w/ Childcare or Family Care: No Living arrangements: with family Occupation/Education: occupation Additional occupation/education comments: [employer] Spiritual care concerns: No Agree to blood products: Yes Meds Home Medications and Allergies Home Medications Medication Instructions Recorded Confirmed Type albuterol sulfate 2.5 mg/3 mL 2.5 mg (3 mL) inhalation Q6H #75 mL 10/05/22 05/01/24 Rx (0.083 %) solution for nebulization albuterol sulfate 90 mcg/actuation 2 puff inhalation PRN PRN sob 10/05/22 05/01/24 History aerosol inhaler Allergies Allergy/AdvReac Type Severity Reaction Status Date / Time nickel Allergy Mild Rash Verified 05/01/24 18:38 oxycodone AdvReac Intermediate Nausea Verified 05/01/24 18:39 tramadol AdvReac Intermediate Nausea Verified 05/01/24 18:38 Exam Const: General: healthy appearing and alert Orientation/consciousness: patient oriented x3 Resp: Effort & Inspection: normal respiratory effort : External Female Exam: normal external appearance Speculum Exam - Vagina: normal appearance of the vagina and normal vaginal discharge Speculum Exam - Cervix: normal appearance of the cervix Bimanual exam- vagina & uterus: uterine size normal and consistency normal Bimanual Exam- Adnexa, other: normal adnexae and No adnexal tenderness Neuro: General: patient oriented x3 Assessment and Plan Assessment and plan (1) Menorrhagia: Code(s): N92.0 - Excessive and frequent menstruation with regular cycle Status: Acute Assessment and Plan: plan to proceed with D&C hysteroscopy
--- NOTE | 2024-05-13 07:19 | WPDHPUPDATE1 ---
History and Physical Update Update Date/Time: 05/13/24 07:19 History and Physical has been reviewed, including an updated exam of the patient. There are NO changes in the patient's condition. Risks, benefits, and alternatives have been discussed and questions answered. Patient agrees to proceed with procedure.
--- NOTE | 2024-05-13 07:26 | P.PNAN_ITS ---
Anes - Initial Pre Proc Eval Procedure: Operation Date: 05/13/24 08:15 Proposed Procedures p Hysteroscopy Dilation and Curettage - Krista Vivar MD Date/Time: 05/13/24 07:26 Surgeon: Krista Vivar MD Pre Op Diagnosis: menorrhagia Patient Data Age: 38 Gender: F Height: 1.7 m Weight: 73.94 kg Allergies Allergy/AdvReac Type Severity Reaction Status Date / Time nickel Allergy Mild Rash Verified 05/01/24 18:38 oxycodone AdvReac Intermediate Nausea Verified 05/01/24 18:39 tramadol AdvReac Intermediate Nausea Verified 05/01/24 18:38 Home Medications Medication Instructions Recorded Confirmed Type albuterol sulfate 2.5 mg/3 mL 2.5 mg (3 mL) inhalation Q6H #75 mL 10/05/22 05/01/24 Rx (0.083 %) solution for nebulization albuterol sulfate 90 mcg/actuation 2 puff inhalation PRN PRN sob 10/05/22 05/01/24 History aerosol inhaler Patient hx anesthesia problems: none Family hx anesthesia problems: none Results Review: All pre-operative results and documents have been reviewed as part of the pre- operative evaluation. PMFSH Past Medical History Medical History Anxiety Asthma Chronic GERD Depression Eczema Insomnia (normal spontaneous vaginal delivery) x 1 Smoker Spontaneous x 4 Surgical History Surgical History H/O tubal ligation History of X2 History of nasal surgery Family History Family History Father Alcoholism Cancer Cerebrovascular accident Mother Cancer Hypertension Social History Social History Smoking packs per day: 0.5 Smoking cigarettes per day: 10.0 Years smoked: 16 Smoking pack-years: 8.00 Smoking status: Current every day smoker Tobacco type: cigarettes Second hand tobacco smoke exposure: Yes Additional smoking assessment comments: 4-6 cigarettes per day Alcohol intake: former Substance use: former Substance use type: marijuana Last use: 2017 Do You Feel Safe in your Home?: Yes Lack of Transportation: No Lack of Food: Never True Current Housing: I Have Housing Concerned About Future Housing: No Difficulty Paying Gas/Electric Bills: No Difficulty Paying for Meds: No Currently Unemployed: No Education: High School Diploma/GED Difficulty w/ Childcare or Family Care: No Living arrangements: with family Occupation/Education: occupation Additional occupation/education comments: [employer] Spiritual care concerns: No Agree to blood products: Yes Anes - Eval Final PreProcedure Day of Procedure 05/13/24 07:26 Patient weight: overweight Heart: regular rate and rhythm Lungs: clear to auscultation Airway: Mallampati scale class II Neurological: alert and oriented Last oral intake: >/= 8 hours ASA classification: II Emergent: no Anesthetic plan: proceed Anesthesia type and monitoring: general GIVS and standard monitoring Results Review: All pre-operative results and documents have been reviewed as part of the pre- operative evaluation. Informed Consent: The patient's anesthetic plan and its attendant risks and benefits were discussed with the patient/family/POA. Questions were solicited and answers provided to the satisfaction of the patient/family/POA.
[2024-05-13 07:29] VITALS: BP 102/60; PULSE 76; TEMP 36.7; O2SAT 97; BMI 25.8
[2024-05-13] MEDS: LACTATED RINGERS 1,000 ML 30 ML IV CONT (07:31)
[2024-05-13] MEDS: ACETAMINOPHEN 500 MG TABLET 1000 MG PO (07:31)
[2024-05-13 07:32] LABS: BEDSIDEPREGUCG Negative (Negative)
--- NOTE | 2024-05-13 08:29 | W.PM.PROC2 ---
Procedure Note - Detailed Date of Procedure 05/13/24 Pre-op Diagnosis menorrhagia Post-op Diagnosis Same Procedure Performed D&C hysteroscopy Surgeon Krista Vivar MD Anesthesia MAC Findings uterus sounds to 8cm and appears grossly normal Description of Procedure The patient was taken to the operating room and placed under anesthesia in the dorsal lithotomy position. She was prepped and draped in the usual sterile fashion. [place] speculum was placed in the vagina and the cervix grasped on the anterior lip with a tenaculum. The uterus is sounded to 8cm. The diagnostic hysteroscope was placed and with no abnormalities noted it is removed. The uterus is sharply curetted with a sharp OO curette until a good uterine cry was noted all areas. All instruments are removed. The patient was awakened from anesthesia and taken to recovery in stable condition. Sponge, needle, and instrument counts are correct per the OR staff. Estimated Blood Loss 5 Drains No Packing No Pathology Yes ( Endometrial curettings) Complications No immediate complications Condition Stable Disposition PACU
[2024-05-13 08:32] VITALS: BP 102/75; PULSE 56; RESP 20
[2024-05-13 09:00] VITALS: BP 118/67; PULSE 50; RESP 20
[2024-05-13 09:25] VITALS: BP 110/76; PULSE 52; RESP 20
== END 2024-05-13 09:40 | disposition home or self-care (01) ==
PROVIDERS: PCP Nurse Practitioner Family; Visit Provider Obstetrics & Gynecology Gynecology
PROC: 0U5B8ZZ Destruction of Endometrium, Via Natural or Artificial Opening Endoscopic (ICD-10-PCS; CPT 58563; principal; 2024-05-13 08:15)
DX: N92.0 Excessive and frequent menstruation with regular cycle (principal); J45.909 Unspecified asthma, uncomplicated; Z79.51 Long term (current) use of inhaled steroids; F17.210 Nicotine dependence, cigarettes, uncomplicated
CPT/HCPCS: 58558; 88305; A9270; J1100; J2003; J2250; J2405; J2704; J3010; J7030; J7120

== ENCOUNTER 2024-07-13 14:06 | Emergency (ER) | payer BC, SELFPAY ==
[2024-07-13 14:11] VITALS: BP 126/69; PULSE 73; RESP 18; TEMP 36.7; O2SAT 100
--- NOTE | 2024-07-13 14:18 | ED.URI ---
HPI - URI/Sore Throat General Chief Complaint: Upper Respiratory Infection Stated Complaint: headache/congestion/nausea/fever History of Present Illness HPI Narrative: Patient presents with nasal congestion bilateral ear pain and postnasal drainage. Patient is not taking thing [id number] for symptoms. She denies any shortness of breath no chest pain no fever no body aches. Patient states all 3 of her kids have has similar symptoms and have all recovered in the past 7-10 days. Related Data Allergies Allergy/AdvReac Type Severity Reaction Status Date / Time nickel Allergy Mild Rash Verified 05/01/24 18:38 oxycodone AdvReac Intermediate Nausea Verified 05/01/24 18:39 tramadol AdvReac Intermediate Nausea Verified 05/01/24 18:38 Review of Systems Review of Systems: CONSTITUTIONAL: Denies chills, or sweats. Reports fever and generalized body aches EYES: Denies visual changes, redness, or discharge. ENT: Denies otalgia. Reports nasal congestion runny nose and sore throat CARDIOVASCULAR: Denies chest pain, palpitations, or edema. RESPIRATORY: Denies dyspnea. Reports occasional cough GASTROINTESTINAL: Denies abdominal pain, nausea, vomiting, or diarrhea. GENITOURINARY: Denies dysuria or hematuria. SKIN: Denies rash or itching. MUSCULOSKELETAL: Denies back pain, joint pain, or myalgia. Reports generalized body aches NEUROLOGIC: Denies headache, numbness, or weakness. PSYCHIATRIC: Denies anxiety or depression. FORMERLY [facility] Past Medical History Medical History Anxiety Asthma Chronic GERD Depression Eczema Insomnia (normal spontaneous vaginal delivery) x 1 Smoker Spontaneous x 4 Surgical History Surgical History H/O tubal ligation History of X2 History of nasal surgery Family History Family History Father Alcoholism Cancer Cerebrovascular accident Mother Cancer Hypertension Social History Social History Smoking packs per day: 0.5 Smoking cigarettes per day: 10.0 Years smoked: 16 Smoking pack-years: 8.00 Smoking status: Current every day smoker Tobacco type: cigarettes Second hand tobacco smoke exposure: Yes Additional smoking assessment comments: 4-6 cigarettes per day Alcohol intake: former Substance use: former Substance use type: marijuana Last use: 2017 Do You Feel Safe in your Home?: Yes Lack of Transportation: No Lack of Food: Never True Current Housing: I Have Housing Concerned About Future Housing: No Difficulty Paying Gas/Electric Bills: No Difficulty Paying for Meds: No Currently Unemployed: No Education: High School Diploma/GED Difficulty w/ Childcare or Family Care: No Living arrangements: with family Occupation/Education: occupation Additional occupation/education comments: [employer] care concerns: No Agree to blood products: Yes Comments At time of signature, agree with nursing past medical, surgical, social and family history. There is no relevant family history pertinent to the presenting complaint Exam Narrative: The patient is a well-developed, well-nourished in no acute distress. SKIN: Skin is warm and dry without erythema, swelling or exudate. There is good turgor. No tenting. HEAD: Atraumatic. Normocephalic. No temporal or scalp tenderness. EYES: Moist and bright. Sclera and conjunctivae normal. No discharge. PERRLA. Extraocular motions intact. Gross visual acuity intact. EARS: Pinna is normal shape and contour. Clear external auditory canals. TM pearly bauman with good cone of light, no erythema or suppuration. Bilateral cerumen noted no gross hearing deficit. NOSE: pink, moist mucosa with good air movement. Clear rhinorrhea without nasal flaring. Septum midline. Mouth: moist mucous membranes. THROAT; mild erythema noted to posterior oropharynx with moderate postnasal drainage. Without exudate or ulceration.. Uvula midline. Normal movement of soft palate. NECK: Supple and nontender with full range of motion without discomfort. No meningeal signs. LUNGS: Equal and bilateral breath sounds without wheezes, rales or rhonchi. CHEST: The chest wall is without retractions or use of accessory muscles. HEART: Has a regular rate and rhythm without murmur, gallops, click or rub. ABDOMEN: Soft, nontender with positive active bowel sounds. No rebound tenderness. EXTREMITIES: Without cyanosis, clubbing or edema. Equal 2+ distal pulses and 2 second capillary refill noted. NEUROLOGIC: alert, active, . The patient moves all extremities with normal muscle strength. Normal muscle tone is noted. Normal coordination is noted. NO focal neurological findings noted. Course Course Level of Care: Express Care Visit Vital Signs Vital signs: Vital Signs Temperature 36.7 C 07/13/24 14:11 Pulse Rate 73 07/13/24 14:11 Respiratory Rate 18 07/13/24 14:11 Blood Pressure 126/69 07/13/24 14:11 Pulse Oximetry 100 07/13/24 14:11 Oxygen Delivery Room Air 07/13/24 14:11 Temperature 36.7 C 07/13/24 14:11 Pulse Rate 73 07/13/24 14:11 Respiratory Rate 18 07/13/24 14:11 Blood Pressure 126/69 07/13/24 14:11 Pulse Oximetry 100 07/13/24 14:11 Oxygen Delivery Room Air 07/13/24 14:11 Discharge Plan Discharge Clinical Impression: Upper respiratory infection, Viral infection Patient Disposition: Home, Self-Care Condition: Stable Instructions: Cold Symptoms (ED) Additional Instructions: *Throw away your current toothbrush and begin using a new toothbrush in 48 hours in order to prevent re-infection. If anyone else's toothbrush is stored near yours, they should also throw away their current toothbrush and begin using a new one. *Sanitize all reusable water bottles. *Do not share items with others. *Wash your hands often. Supportive care/Soothing measures/Pain relief: *Avoid cigarette smoke (including secondhand smoke) *Avoid acidic foods and beverages *Eat a soft diet for the next 3-4 days *Salt water gargles may alleviate some of the throat discomfort. Most recipes call for ? to ? teaspoon of salt per 8 ounces (approximately 240 mL) of warm water. *You can take tylenol or ibuprofen per the package instructions for pain/fever. *Sipping cold or warm beverages (eg, tea with honey or lemon) *Eat cold or frozen desserts (eg, ice cream, popsicles) *Sucking on ice *Sucking on hard candy Viruses are everywhere and can spread like wildfire. Sx can last up to 3-4 weeks. Treatment is aimed toward your specific symptoms. You must treat your symptoms in order to feel better while the virus runs it's course. Increase fluids especially water. Do not share items with others. You can take Tylenol or ibuprofen per the package instructions for pain/fever. Wash your hands as often as possible. Purchase and begin using an over the counter antihistamine/decongestant combo such as Zyrtec D, Carlie D, Claritin D as well as Flonase nasal spray per the package instructions. Salt water gargles may alleviate some of your throat discomfort. Go to the ER if your symptoms become worse of if ANY new symptoms develop Patient Language: Lao Prescriptions: New prednisone 20 mg tablet 40 mg PO DAILY 5 Days Qty: 10 0RF fluticasone propionate [Flonase Allergy Relief] 50 mcg/actuation spray,suspension 2 spray NASAL BID Qty: 9.9 0RF Rx Instructions: administer into each nostril Zyrtec 10 mg capsule 10 mg PO DAILY 14 Days Qty: 14 0RF No Action albuterol sulfate 2.5 mg /3 mL (0.083 %) solution for nebulization 2.5 mg inhalation Q6H Qty: 75 0RF Breztri Aerosphere 160-9-4.8 mcg/actuation HFA aerosol inhaler 2 inh inhalation BID Qty: 10.7 5RF Rx Instructions: rinse mouth after each use albuterol sulfate 90 mcg/actuation HFA aerosol inhaler 2 puff inhalation PRN PRN (Reason: sob) Qty: 8.5 1RF Rx Instructions: as prescribed Follow-up/Referrals: Rand Ballard APRN [Primary Care Provider] - Stand Alone Forms: Work/School Release IP
--- OUTSIDE RECORDS SUMMARY | 2024-07-17 18:30 | XMS_ITS | Referral Summary ---
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 This disclosure is being madepursuant to the Care Everywhere program and may not contain all information available regarding this patient. Last updated [employer] Allergies Active Allergy Reactions Criticality Noted Date Comments Oxycodone-Acetaminophen Unknown 01/10/2020 Tramadol Unknown 01/10/2020 Medications * Be aware that medications may not be up to date on this document. Alwaysverify current medications with the patient. Medication Sig Dispensed Refills Start Date End Date Status ondansetron (ZOFRAN) 4 MG tablet Take 4 mg by mouth every 6 hours as needed for Nausea/Vomiting Active omeprazole (PRILOSEC) 20 MG capsuleIndications:He artburn Take 20 mg by mouth daily before breakfast Reasons: Heartburn Active Vit-Fe Fumarate-FA ( VITAMIN) 28-0.8 MG tabletIndications:Pre gnancy Take 1 tablet by mouth once daily Reasons: Active albuterol HFA (RELION VENTOLIN) 108 (90 BASE) MCG/ACT inhalerIndications:As thma Inhale 2 puffs by mouth every 6 hours as needed Reasons: Asthma Active NIFEdipine (PROCARDIA) 20 MG capsuleIndications:Pr emature Labor Take 20 mg by mouth every 4 hours as needed Reasons: Early Labor Active Active Problems Problem Noted Date Diagnosed Date Previous delivery affecting , antepartum 01/22/2020 Assessment & Plan (01/22/2020 2:52 PM CDT): Incomplete records available for consultation. No operative report from the delivery in 2019 available. notes report a T incision on the skin however the uterine incision is not specified. Maternal Medicine recommendations: 1. please submit a copy of the operative report from 2019 delivery for review Placenta previa without hemorrhage, antepartum 0 01/10/2020 Assessment & Plan (01/22/2020 3:21 PM CDT): There is a complete posterior placenta previa confirmed on today's ultrasound. The placental thickness overlying the internal cervical os is greater than 10 mm. I discussed that this placenta previa is unlikely to resolve prior to delivery. For this complication of this is an indication for late delivery by . We discussed the increased risk of antepartum hemorrhage leading to an unscheduled/ earlier than anticipated delivery. Placental thickness overlying the cervix has also been used as a predictor of antepartum bleeding. A thickness greater than 10 millimeters, which is the case for Dior, was associated with a higher rate of antepartum bleeding compared to a thickness less than 10 millimeters. We discussed the potential for her to warrant antepartum inpatient care if she has further significant vaginal bleeding. We also discussed our maternal transport system. We also discussed the potential for there to be placenta accreta. The ultrasound today demonstrate only 1 finding with increased concern for placenta accreta--it is unclear at this time if this is a true or false-positive finding. For now I believe the estimated a priori baseline risk of placenta accreta should be approximately 11 percent given her prior history. Given that she has already received a course of corticosteroids for lung maturity she is not a candidate for late (after 34 weeks) corticosteroids. Should she be found to be at risk for eminent delivery prior to 34 week she is a candidate for a rescue course of corticosteroids for lung maturity. Maternal Medicine recommendations: 1. pelvic precautions 2. 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 hospital for delivery should be determined and should have adequate resources due to high potential for antepartum and immediate maternal hemorrhage 1. please let our Maternal- Medicine consult group know if you require or desire assistance with performing the repeat delivery 4. IS a candidate for a single rescue course of corticosteroids if signs of imminent delivery are present prior to 34 weeks 5. NOT a candidate for corticosteroids at 34 weeks or later 6. Repeat ultrasound evaluation of placenta in 3 weeks 7. Recommend delivery between 36-37 weeks by repeat Polyhydramnios, antepartum complication 01/10/20 20 Assessment & Plan (01/22/2020 3:01 PM CDT): Please correlate with the results of glucose tolerance test. If the glucose tolerance test is abnormal she should be treated as a gestational diabetic and at a minimum should follow a diabetic diet and monitor blood glucose values. Social History Tobacco Use Types Packs/Day Years Used Date Smoking Tobacco: Every Day Cigarettes 0.3 15 Smokeless Tobacco: Never Alcohol Use Standard Drinks/Week Comments Not Currently 0 (1 standard drink = 0.6 oz pur e alcohol) Sex and Gender Information Value Date Recorded Sex Assigned at Not on file Gender Identity Not on file Sexual Orientation Not on file Last Filed Vital Signs Vital Sign Reading Time Taken Comments Blood Pressure 120/75 02/12/2020 11:34 AM CDT Pulse 104 02/12/2020 11:34 AM CDT Temperature 36.6 ??C (97.9 ??F) 02/12/2020 11:34 AM C DT Respiratory Rate - - Oxygen Saturation - - Inhaled Oxygen Concentration - - Weight 87.8 kg (193 lb 9.6 oz) 02/12/2020 11:34 AM CDT Height 170.2 cm (5' 7 ) 01/22/2020 11:19 AM CDT Body Mass Index 30.32 01/22/2020 11:19 AM CDT Plan of Treatment Not on file Dior Hart Personal/Family Self 1985
--- OUTSIDE RECORDS SUMMARY | 2024-07-17 18:30 | XMS_ITS | Patient Health Record ---
Author Organization [facility] Address [address] [place] [address] Care Team Providers Care Pipe Stem Sawyer Name Role Phone Rand Brasher Primary Care Provider Brittany Rosa Murray Unavailable [phone] Mary Mcgrath Unavailable Unavailable Allergies Allergen (clinical drug ingredient) Drug/Non Drug Allergy documented on EMR Reaction Allergy Type Onset Date Status percocets (uncoded) nausea and vomiting Allergy Active tramadol Tramadol (uncoded) nausea and vomiting Allergy Active Results Component Value Reference Range Notes Spirometry Reviewed date: Interpretation:Normal Performing Lab: Notes/Report: Normal SpiroPreBronchodilator_FVC 3.19 SpiroPostBronchodilator_FEF25_75 2.13 SpiroPreBronchodilator_FEF25_75 2.23 SpiroPreBronchodilator_FEV1 2.47 SpiroPrecentPredictionPost_FEF25_75 67.4 SpiroPrecentPredictionPost_FEV1 110.4 SpiroPrecentPredictionPost_FEV1_OVER_FVC 83.4 SpiroPrecentPredictionPost_FVC 134.1 SpiroPrecentPredictionPre_FEF25_75 70.6 SpiroPrecentPredictionPre_FEV1 102.9 SpiroPrecentPredictionPre_FEV1_OVER_FVC 88.2 SpiroPrecentPredictionPre_FVC 118.1 SpiroPredicted_FEF25_75 3.16 SpiroPreBronchodilator_FEV1_OVER_FVC 77.44 SpiroPreBronchodilator_PEF 4.7 SpiroPostBronchodilator_FVC 3.62 SpiroPostBronchodilator_FEV1 2.65 SpiroPostBronchodilator_FEV1_OVER_FVC 73.23 SpiroPostBronchodilator_PEF 4.3 SpiroPredicted_FVC 2.7 SpiroPredicted_FEV1 2.4 SpiroPredicted_FEV1_OVER_FVC 87.76 SpiroPredicted_PEF 5.41 Reason For Referral No Information Medications Medication SIG (Take, Route, Frequency, Duration) Notes Start Date End Date Status Zolpidem Tartrate 10 MG TAKE 1 TABLET BY MOUTH AT BEDTIME Oral for 90 Days Not-Taking Triamcinolone Acetonide 0.1 % 1 application Externally Two times a Week for 30 days 05/29/2024 Active Zolpidem Tartrate 10 MG Oral for 90 Days Not-Taking Breztri Aerosphere 160-9-4.8 MCG/ACT 2 puffs Inhalation Twice a day for 30 days Active Singulair 10 MG 1 tablet Orally Once a day for 90 days Active ZyrTEC Allergy 10 MG 1 tablet Orally Onc e a day Active Vitamin D3 1.25 MG (44876 UT) TAKE 1 CAPSULE BY MOUTH ONCE WEEKLY Oral for 84 Days Active buPROPion HCl ER (SR) 150 MG Oral for 30 Days Active Albuterol Sulfate HFA 108 (90 Base) MCG/ACT 2 puffs as needed Inhalation every 4 hrs for 30 days Active Dupixent 300 MG/2ML as directed Subcutaneous 05/23/2024 Active Zolpidem Tartrate 10 MG Oral for 90 Days Active Social History Tobacco Use: Social History Observation Description Date Details (start date - stop date) Current Smoker NA - NA Tobacco Control (Standard) Question Answer Notes Tobacco use: Current smoker Problems Problem Type SNOMED Code ICD Code Onset Dates Problem Status W/U Status Risk Notes Problem Chronic allergic conjunctivitis (28109810) Other chronic allergic conjunctivitis (H10.45) Active confirmed Problem Allergic rhinitis caused by pollen (disorder) (80204521) Allergic rhinitis due to pollen (J30.1) Active confirmed Problem Allergic rhinitis (74565093) Other allergic rhinitis (J30.89) Active confirmed Problem Uncomplicated severe persistent asthma (333744224) Severe persistent asthma, uncomplicated (J45.50) Active confirmed Problem Allergic rhinitis caused by animal hair and dander (235832577530955) Allergic rhinitis due to animal (cat) (dog) hair and dander (J30.81) Active confirmed Problem Acute severe exacerbation of severe persistent asthma (983910950) Severe persistent asthma with (acute) exacerbation (J45.51) Active confirmed Vital Signs Oximetry 99 % 06/18/2024 Blood pressure diastolic 74 mm Hg 06/18/2024 Height 67 in 06/18/2024 Blood pressure systolic 116 mm Hg 06/18/2024 Weight 173.0 lbs 06/18/2024 BMI 27.09 kg/m2 06/18/2024 Encounters Encounter Location Date Provider Diagnosis [facility] [address] [place] [id number] 04/10/2024 Rosa Dorsey Allergic rhinitis du e to pollen J30.1 ; Severe persistent asthma with (acute) exacerbation J45.51 ; Allergic rhinitis due to animal (cat) (dog) hair and dander J30.81 ; Other allergic rhinitis J30.89 and Other chronic allergic conjunctivitis H10.45 [facility] [address] [place] [phone] 05/21/2024 Rosa Dorsey Allergic rhinitis du e to pollen J30.1 ; Severe persistent asthma, uncomplicated J45.50 ; Allergic rhinitis due to animal (cat) (dog) hair and dander J30.81 ; Other allergic rhinitis J30.89 and Other chronic allergic conjunctivitis H10.[address] [address] 06/18/2024 Rosa Dorsey Allergic rhinitis du e to pollen J30.1 ; Severe persistent asthma, uncomplicated J45.50 ; Allergic rhinitis due to animal (cat) (dog) hair and dander J30.81 ; Other allergic rhinitis J30.89 and Other chronic allergic conjunctivitis H10.[address] [address] 05/09/2024 Rosa Dorsey [address] [address] 05/09/2024 Rosa Dorsey [address] [address] 05/28/2024 Rosa Dorsey [facility] [address] [place] [address] 06/17/2024 Rosa Sunita Assessments Encounter Date Diagnosis (ICD Code) Assessment Notes Treatment Notes Treatment Clinical Notes Section Notes 04/10/2024 Allergic rhinitis due to pollen (ICD-10 - J30.1) Given the history and symptoms, skin testing was performed to common aeroallergens to determine atopic status. Dior clearly suffers from atopic disease based upon our skin testing and clinical history. Accordingly, we have introduced a new, aggressive medication regimen, discussed nasal washes and allergy-specific avoidance measures. We also discussed adjunctive therapies including subcutaneous, specific allergen immunotherapy as relates to the treatment and prevention of atopic disease. She is currently considering the risks, benefits and alternatives to this care. Risks: bleeding, infection, allergic reaction, anaphylaxis; Benefits: reduced need for medications, improved symptoms, disease modification. Alternatives: watch/wait, change medication regimen, improve allergy avoidance measures. Follow-up in 1 month for interval evaluation and management 04/10/2024 Severe persistent asthma with (acute) exacerbation (ICD-10 - J45.51) Persistent asthma and ACT 5. Spirometry today is normal. Given history of prednisone 2-3 times in the last year despite Breztri recommend restarting Dupixent. History is consistent with large local reactions and plan to restart Dupixent and give injections in the abdomen. No improvement with Tezspire and Nucala. For now, continue Breztri and prn albuterol. Instructed to start prednisone prescribed by her PCP. A copy of this consultation report was sent to the requesting physician. 05/21/2024 Allergic rhinitis due to pollen (ICD-10 - J30.1) Dior clearly suffers from atopic disease based upon our skin testing and clinical history. Accordingly, we have introduced a new, aggressive medication regimen, discussed nasal washes and allergy-specific avoidance measures. We also discussed adjunctive therapies including subcutaneous, specific allergen immunotherapy as relates to the treatment and prevention of atopic disease. She is currently considering the risks, benefits and alternatives to this care. Risks: bleeding, infection, allergic reaction, anaphylaxis; Benefits: reduced need for medications, improved symptoms, disease modification. Alternatives: watch/wait, change medication regimen, improve allergy avoidance measures. 05/21/2024 Severe persistent asthma, uncomplicated (ICD-10 - J45.50) Persistent asthma and ACT 6. Spirometry normal last month. Given history of prednisone 2-3 times in the last year despite Breztri recommend restarting Dupixent. History is consistent with large local reactions and plan to restart Dupixent and give injections in the abdomen. No improvement with Tezspire and Nucala. For now, continue Breztri and prn albuterol. We discussed Dupixent including side effects of conjunctivitis and instruction to avoid live vaccines while receiving the medication. She tolerated the injections today and no local reactions 06/18/2024 Allergic rhinitis due to pollen (ICD-10 - J30.1) Dior clearly suffers from atopic disease based upon our skin testing and clinical history. Accordingly, we have introduced a new, aggressive medication regimen, discussed nasal washes and allergy-specific avoidance measures. We also discussed adjunctive therapies including subcutaneous, specific allergen immunotherapy as relates to the treatment and prevention of atopic disease. Plan to start a biologic first 06/18/2024 Severe persistent asthma, uncomplicated (ICD-10 - J45.50) Persistent asthma and ACT 15. Spirometry normal at last check. Given history of prednisone 2-3 times in the last year despite Breztri she started Dupixent. No improvement in the past with Tezspire and Nucala. Due to continued large local reactions similar to what occcurred 2 years ago, plan to switch to Xolair or Fasenra. Labs ordered as above for further evaluation. For now, continue Breztri and prn albuterol. 06/18/2024 Allergic rhinitis due to animal (cat) (dog) hair and dander (ICD-10 - J30.81) Follow allergen avoidance, meds and consider SCIT as an adjunctive treatment to current regimen 05/21/2024 Allergic rhinitis due to animal (cat) (dog) hair and dander (ICD-10 - J30.81) Follow allergen avoidance, meds and consider SCIT as an adjunctive treatment to current regimen 04/10/2024 Allergic rhinitis due to animal (cat) (dog) hair and dander (ICD-10 - J30.81) Follow allergen avoidance, meds and consider SCIT as an adjunctive treatment to current regimen 04/10/2024 Other allergic rhinitis (ICD-10 - J30.89) Follow allergen avoidance, meds and consider SCIT as an adjunctive treatment to current regimen 05/21/2024 Other allergic rhinitis (ICD-10 - J30.89) Follow allergen avoidance, meds and consider SCIT as an adjunctive treatment to current regimen 06/18/2024 Other allergic rhinitis (ICD-10 - J30.89) Follow allergen avoidance, meds and consider SCIT as an adjunctive treatment to current regimen 06/18/2024 Other chronic allergic conjunctivitis (ICD-10 - H10.45) Given ocular signs and symptoms I encouraged allergy avoidance measures and meds as above. If symptoms persist, consider adding additional medications including intraocular antihistamine/mast cell stabilizer, PRN 05/21/2024 Other chronic allergic conjunctivitis (ICD-10 - H10.45) Given ocular signs and symptoms I encouraged allergy avoidance measures and meds as above. If symptoms persist, consider adding additional medications including intraocular antihistamine/mast cell stabilizer, PRN 04/10/2024 Other chronic allergic conjunctivitis (ICD-10 - H10.45) Given ocular signs and symptoms I encouraged allergy avoidance measures and meds as above. If symptoms persist, consider adding additional medications including intraocular antihistamine/mast cell stabilizer, PRN 05/21/2024 Other 06/18/2024 Other Plan Of Treatment Pending Test Test Name Order Date -Immunoglobulin E, Total 06/18/2024 -CBC With Differential/Platelet 06/18/20 24 Insurance Providers Payer Name Payer Address Payer Phone Subscriber Number Group Number Insured Name Patient Relationship to Insured Coverage Start Date Coverage End Date [facility] [address] [place] [address] [id number] Dior Hart Self - patient is the insured Medical (General) History Medical History History ICD Code Unspecified contact dermatitis, unspecif ied cause L25.9 Insomnia, unspecified G47.00 Depression, unspecified F32.A Severe persistent asthma, uncomplicated J45.50 Surgical History Surgery Date(Month/Year) Septoplasty 09/22/2018 02/18/2022 tubal ligation
--- OUTSIDE RECORDS SUMMARY | 2024-07-17 18:30 | XMS_ITS ---
Author Organization [facility] Address [address] [place] [address] Care Team Providers Care Dye Expert Name Role Phone Rand Brasher Primary Care Provider Brittany vailable Rosa Dorsey Unavailable [phone] Mary Mcgrath Unavailable Unavailable REASON FOR VISIT DUPIXENT Encounters Encounter Location Date Provider Diagnosis [facility] [address] [place] [address] 07/02/2024 Rosa Dorsey Plan Of Treatment No Information Progress Notes * Jessica DEL ANGELaDOB: 6 (38 yo F)Acc No.[id number]:07/02/2024 DUPIXENT in-office dosing Patient:?Dior DEL ANGEL Provider:?Rosa Dorsey MD :1985???Age:38 Y???Sex:Female D ate:07/02/2024 Address:[address] [place] [id number] Pcp:TICO Caballero Subjective: * Chief Complaints: * ???1. DUPIXENT. * Medical History:? Objective: * Vitals:? Assessment: Plan: * Treatment: * Billing Information: * Visit Code:? * Procedure Codes:? * Electronic signature of Cyn Dorsey MD on 07/17/2024 at 06:29 PM [employer]HE[employer]ATION Sign off status: Pending * Provider:?Rosa Dorsey MD Date:?09/2023 Generated for Kole miranda/Van/Vladislav on:?07/17/2024 06:29 PM RADIOGRAPHER CARDIAC CATHETERIZATION
--- OUTSIDE RECORDS SUMMARY | 2024-07-17 18:30 | XMS_ITS | Data Portability ---
Author Organization [place] [employer] Main Office Address [address] [place] [address] Care Team Providers Care Mounter Automatic Name Role Phone RAND RINCON Primary Care Provider RAND RINCON Referring Provider [phone] RAND RINCON Primary Care Provider FILEMON BENSON Locomotive Switch Operator [phone] Assessment Encounter Date Assessment Date Assessment LastModified by Organization Details LastModified Time 03/30/2023 03/30/2023 D/w pt about her findings and further plan of care. Will do x-ray. Pt declined for HCG. Meds as directed. Ice pack as directed prn. JAVIER explained in detail. Advised to avoid any strenuous activities/lifti ng-pushing until cleared. Educated pt about alarming symptoms to monitor at home and call us back or get checked in ED. F/u as directed. [email or web address] Not available 03/30/2023 16:33:01 04/04/2023 04/04/2023 The patient gave verbal consent using TelePhonic services and the consent is documented in the medical record prior to using the service. The patient has been informed of what a TeleMedicine visit is. Patient is located at home. Provider is located at office. Names and roles of persons in addition to the patient and provider participating in telemedicine services include staff. The patient had a 11 minute TeleMedicine consultation via phone call to discuss the following: [email or web address] Not available 04/04/2023 14:39:46 04/25/2023 04/25/2023 D/w pt about her findings and further plan of care. Paperwork filled out and given to pt. Pt doesn't want any paperwork to be filled for her 03/30/23 visit. F/u with PCP as directed. [email or web address] Not available 04/25/2023 14:47:39 11/01/2023 11/01/2023 38 yo patient presents today for right posterior calf pain that has been going on since 10/14/23. She denies any injury. She states the pain feels like a burning/pulling muscle strain. She presented to the urgent care where xrays were taken and she was told there was no fracture. Her PCP ordered a CT scan which showed a strain of the gastroc. She was told to return to work today but does not feel like she can, as she works at [employer] and has to lift at least 50 pounds. For treatment she has tried crutches, heat, tylenol, and ibuprofen. Review of systems per patient questionnaire. Imaging: Xrays and CT were reviewed showing no acute bony abnormality or fracture. Physical exam: Pain with palpitation over proximal posterior calf. No pain elsewhere around lower leg or knee. No issues with knee ROM. Sensation intact. We will start with a course or physical therapy and meloxicam for anti-inflammator y therapy. She can also try using Voltaren gel on the area. We will give her work restrictions of no lifting over 10 lbs until we see her back after therapy in 4-6 weeks. [email or web address] Not available 11/01/2023 13:25:50 12/27/2023 12/27/2023 38-year-old female presents for follow-up of her right calf strain. She reports feeling better, currently rates her pain as 2/10. She has been taking meloxicam and using Voltaren. She stopped going to PT because of the expense. Overall she is doing okay and wants to return to work. She still has some soreness over the calf. Full knee range of motion. She has 5/5 strength. She is able to go up on her tiptoes without difficulty. Neurovascular intact. At this point, she is cleared to return to full duty. She may be activities as tolerated. She says she can take breaks as needed. She may continue taking anti-inflammator ies, follow up as needed. [email or web address] Not available 12/28/2023 14:26:27 Plan of Treatment Reminders Order Date Submit Date Provider Last Modified By Organization Details Last Modified Time Details Appointments None recorded. Lab None recorded. Referral physical therapist referral 2023 024 [facility], [address] [place], [address], 4 16:50:38 Procedures None recorded. Surgeries None recorded. Imaging XR, foot, 3 or more view 2022 023 56 [facility], [address] , [place], [address], 3 09:26:08 Medication Orders phentermin e 37.5 mg tablet 2022 023 [id number], [address], [place], [place], [id number], 3 16:27:11 diclofenac sodium 75 mg tablet,del ayed release 2022 023 [id number], [address], [place], [place], [id number], 3 16:27:07 ondansetro n 4 mg disintegra ting tablet [address] [facility]240, [address], [place], [place], [id number], 3 14:25:58 Paxlovid 300 mg (150 mg x 2)-100 mg tablets in a dose pack 2022 023 [facility], [address], [place], [place], [id number], 3 14:26:00 Medrol (Dipesh) 4 mg tablets in a dose pack 2022 023 [email or web address] [facility] #[facility], [address], [place], [place], [id number], 3 14:25:50 benzonatat e 200 mg capsule 2022 023 [email or web address] [facility] #74594, [address], [place], [place], [id number], 3 14:25:37 Mobic 15 mg tablet 2023 024 [email or web address] [facility] #82523, [address], [place], [place], [id number], 4 13:14:51 Patient TargetsNo targets recorded. Patient Instructions Encounter Date Encounter Id Patient Instructions Last Modified By Organization Details Last Modified Time 04/04/2023 [id number] D/w pt about her findings and further plan of care. Meds as directed. OTC symptomatic Rx explained in detail. Very good liquid intake explained. Proper hand hygiene explained. Educated about alarming symptoms to monitor at home and call us back Or get checked in ED if any concerns. F/u as directed. [email or web address] Not available 04/04/2023 15:18:40 Due to the COVID-19 (Novel Coronavirus) pandemic, it is within this context (and with the understanding that this method of patient encounter is in the patient? s best interest as well as the health and safety of other patients and the public) that ? telehealth? is being provided for this patient encounter rather than a [id number] visit. This patient encounter is appropriate at this time. This patient has been advised of the potential risks and limitations of this mode of treatment (including, but not limited to, the absence of in-person examination) and has agreed to be treated in a remote fashion despite these risks. Any and all of the patient? s/patient? s family? s questions on this issue have been answered, and I have made no promises or guarantees to the patient. The patient has also been advised to contact this office for worsening conditions or problems, and seek emergency medical treatment and/or call 911 if the patient deems either necessary. HPI and/or vitals, if listed, were provided by the patient. [email or web address] Not available 04/04/2023 14:39:17 Reason for Referral Physical Therapist Referral for Pain of right knee joint Referring Physician: Brenda Loredo, Orthopedic Surgery, Encounter Date: 11/01/2023 Results Created Date Observation Date Name Description Value Unit Range Abnormal Flag Note LastModifiedBy Organization Detail LastModifiedTime 11/01/19 24 10/23/2023 CT, knee, w/o contr ast No observ ation record ed. [email or web address] Not Available 09/2023 13:59:37 11/02/19 24 10/18/2023 XR, knee No observ ation record ed. [email or web address] Not Available 2023 13:04:42 11/02/19 24 10/23/2023 CT, knee, w/o contr ast No observ ation record ed. [email or web address] Not Available 2023 13:05:18 Result Notes None recorded. Problems Name Problem SNOMED Code Status Onset Date Resolution Date Notes Provider Name and Address Organization Details Recorded Time Chronic back pain 595039203 Active 2018 Not Available [facility] 3 18:03:48 Persisten t insomnia 710254831 Completed 201806/03/2021 Not Available [facility] 3 18:03:48 Insomnia 512959071 Active 2021 Not Available [facility] 3 18:03:48 Insomnia 916374995 Completed 201603/23/2020 Not Available [facility] 3 18:03:48 Asthma 377973544 Active 2016 Not Available [facility] 3 18:03:48 Anxiety disorder 793711251 Completed 201806/03/2021 Not Available [facility] 3 18:03:48 Gastroeso phageal reflux disease 710185975 Active 2016 Not Available [facility] 3 18:03:48 Overweigh t 372586304 Active 2019 Not Available [facility] 3 18:03:48 Allergic contact dermatiti s 053075250 Active 2019 Not Available [facility] 3 18:03:48 Seasonal allergic rhinitis 308610137 Active 2019 Not Available [facility] 3 18:03:48 Migraine 24869971 Active 2021 Not Available [facility] 3 18:03:48 Allergic bronchiti s 100371701 Active 2017 Not Available [facility] 3 18:03:48 Obese 763480288 Active 2021 Not Available [facility] 3 18:03:48 Obesity 624283777 Completed 201803/23/2020 Not Available [facility] 3 18:03:49 Loss of voice 07695934 Active 2019 Not Available [facility] 3 18:03:49 Pain of right knee joint 06915236734 4100 Active 2021 Not Available [facility] 3 18:03:49 Anxiety 85166447 Active 2020 Not Available [facility] 3 18:03:49 Upper respirato ry infection 62463862 Completed 201602/15/2018 Rand Rincon NP [address], [address] , [facility] 3 12:04:06 Postpartu m depressio n 08541664 Active 2019 Not Available [facility] 3 18:03:49 Chronic cough 43227804 Active 2019 Not Available [facility] 3 18:03:49 Exacerbat ion of moderate persisten t asthma 910089315 Active 2021 Not Available [facility] 3 18:03:49 Chronic insomnia 170718289 Active 2019 Not Available [facility] 3 18:03:49 57862596 Completed 201903/23/2020 Not Available [facility] 3 18:03:49 Herpes labialis 5032406 Active 2022 Rand Rincon NP [address], [address], [place], [address] , [place] [facility] 3 11:45:29 Upper respirato ry infection 87536123 Active 2022 Rand Rincon NP [address], [address], [place], [address] , [place] [facility] 3 12:04:06 Acute sinusitis 69973377 Active 2022 Rand Rincon NP [address], [address], [place], [address] , [place] [facility] 3 15:55:56 Allergic rhinitis 36805753 Active 2022 Rand Rincon NP [address], [address], [place], [address] , [place] [facility] 3 14:14:10 Cough 24845564 Active 2022 Rand Rincon NP [address], [address], [place], [address] , [place] [facility] 3 07:53:47 Cigarette smoker 10472749 Active 2022 Alvin Moon MD [address], [address], [place], [address] , [place] [facility] 3 15:06:10 Hyperglyc emia 53909413 Active 2022 Rand Rincon NP [address], [address], [place], [address] , [place] [facility] 3 10:14:21 Nausea and vomiting 52057981 Active 2022 Rand Rincon NP [address], [address], [place], [address] , [place] [facility] 3 10:31:38 Deviated nasal septum 836963093 Active 2022 Roverto Benjamin MD [address], [address], [place], [address] , [place] [facility] 3 11:55:29 Hypertrop hy of nasal turbinate s 50282515 Active 2022 Roverto Benjamin MD [address], [address], [place], [address] , [facility] [place] [facility] 3 11:55:38 Vocal cord dysfuncti on 041810520 Active 2022 Perri Gonzalez RN null, [place] - [facility] 3 11:55:39 Singers' nodes 03323470 Active 2022 Roverto Benjamin MD [address], [address], [place], [address] , [facility] [place] [facility] 3 11:55:49 Chronic sinusitis 16124797 Active 2022 Perri Gonzalez RN null, [facility] 3 17:32:32 Pain in right foot 48490986480 9107 Active 2022 Alvin Moon MD [address], [address], [place], [address] , [facility] [place] [facility] 3 16:22:26 Contusion of right foot 18769051410 951491 Active 2022 Alvin Moon MD [address], [place], [address] , [facility] [place] [facility] 3 16:33:36 COVID-19 502705603 Active 2022 Alvin Moon MD [address], [address], [place], [address] , [facility] 3 15:17:43 Fatigue 11201094 Active 2022 Alvin Moon MD [address], [place], [address] , [facility] [place] [facility] 3 17:09:11 Notes:Medical History: Anxie ty/Depression Rhinitis to cat and dog with postnasal drip Eosinophils 294/uL IgE 523 IU/mL Mild persistent asthma Nicotine dependence Alpha-1 antitrypsin PiMM Obesity ALISON RLS Vit D deficiency Low back pain Problem Notes None recorded. Procedures Surgical History Date Name Laterality Status Provider Name and Address Organization Details Recorded Time 10/08/19 Nebulizer Treatment completed Rand Rincon NP [address] [facility], [address], [place], [address], [facility] 10/07/2022 11:57:53 delivery completed Not Available [facility] 09/28/2022 18:02:50 reduction of nasal turbinate completed Perri Gonzalez RN [facility] 03/08/2023 10:30:15 SEPTOPLASTY (SURG) completed Perri Gonzalez RN [facility] 03/01/2023 13:00:16 Imaging Results Imaging Date Name Status LastModified by Organiz ation Details LastModified Time 10/23/2023 CT, knee, w/o contrast completed [email or web address] Information not available 11/01/2023 13:59:37 10/18/2023 XR, knee completed [email or web address] Information no t available 11/02/2023 13:04:42 10/23/2023 CT, knee, w/o contrast completed [email or web address] Information not available 11/02/2023 13:05:18 Procedure Notes None recorded. Medical Equipment None Reported. Allergies Allergen ID Allergen Name Allergen Category Reaction Reaction Severity Criticality Documentation Date Start Date Code Code System Note Provider Name and Address Organization Details Recorded Time 77161 tramadol medicatio n vomiting Not available Not available 09/28/2022 00162 RxNorm Not Available [facility] 3 18:05:04 15462 acetamino phen / oxycodone medicatio n vomiting Not available Not available 09/28/2022 41424 3 RxNorm Not Available [facility] 3 18:05:05 Medications Name Sig Start Date Stop Date Status Note LastModified by Organization Details LastModified Time cyclobenza avni 10 mg tablet TAKE 1 TABLET BY MOUTH EVERY NIGHT AT BEDTIME NEEDED 10/20 completed Not Available Not Available Not Available amoxicilli n 500 mg capsule TAKE 1 CAPSULE BY MOUTH EVERY 12 HOURS FOR 10 DAYS active Not Available Not Available No t Available buspirone 5 mg tablet TK 1 T PO BID 03/24 completed Not Available Not Available Not Available prednisone 10 mg tablet Take 1 tablet every day by oral route as directed for 7 days. active Not Available Not Available No t Available ipratropiu m 0.5 mg-albuter ol 3 mg (2.5 mg base)/3 mL nebulizati on soln USE 3 ML VIA NEBULIZE R FOUR TIMES DAILY NEEDED 2022 active Not Available Not Available Not Avai lable clindamyci n HCl 300 mg capsule TAKE 1 CAPSULE BY MOUTH THREE TIMES A DAY 04/09 completed Not Available Not Available Not Available albuterol sulfate 2.5 mg/3 mL (0.083 %) solution for nebulizati on USE 1 VIAL VIA NEBULIZE R EVERY 6 HOURS 12/11 completed Not Available Not Available Not Available desoximeta sone 0.05 % topical cream APPLY TOPICALL Y TO THE AFFECTED AREA TWICE DAILY NEEDED active Not Available Not Available No t Available divalproex 250 mg tablet,del ayed release TAKE 1 TABLET BY MOUTH EVERY DAY AT BEDTIME FOR 14 DAYS 06/29 completed Not Available Not Available Not Available trazodone 50 mg tablet Take 1 tab po qhs as directed . 10/02 completed Not Available Not Available Not Available cetirizine 10 mg tablet TAKE 1 TABLET BY MOUTH EVERY DAY 2022 active Not Available Not Available Not Avai lable L-Lysine 500 mg tablet Take 1 tablet twice a day by oral route. 08/26 completed Not Available Not Available Not Available Stool Softener 100 mg capsule TK ONE C PO BID 03/24 completed Not Available Not Available Not Available azithromyc in 250 mg tablet TAKE 2 TABLETS BY MOUTH FOR 1 DAY THEN TAKE 1 TABLET BY MOUTH DAILY FOR 4 DAYS 01/24 completed Not Available Not Available Not Available nifedipine 20 mg capsule TK 1 C PO Q 4 H 03/23 completed Not Available Not Available Not Available fluconazol e 150 mg tablet active Not Available Not Available Not Available benzonatat e 200 mg capsule TAKE 1 CAPSULE BY MOUTH THREE TIMES DAILY NEEDED FOR COUGH 04/25 completed Not Available Not Available Not Available ranitidine 300 mg tablet TK 1 T PO QD 11/17 completed Not Available Not Available Not Available albuterol sulfate 1.25 mg/3 mL solution for nebulizati on INHALE 3 ML (1 VIAL) 3 TIMES A DAY BY INHALATI ON ROUTE VIA NEBULIZE R NEEDED. active Not Available Not Available No t Available cephalexin 250 mg capsule TAKE ONE CAPSULE BY MOUTH EVERY 6 HOURS 09/25 completed Not Available Not Available Not Available hydrocodon e 5 mg-acetami nophen 325 mg tablet TAKE 1 TABLET BY MOUTH EVERY 6 HOURS NEEDED FOR PAIN 03/23 completed Not Available Not Available Not Available ondansetro n HCl 8 mg tablet TAKE ONE HALF TO 1 TABLET BY MOUTH EVERY 6 HOURS 04/09 completed Not Available Not Available Not Available metronidaz ole 0.75 % (37.5 mg/5 gram) vaginal gel INSERT 1 APPLICAT ORFUL VAGINALL Y AT BEDTIME FOR 5 DAYS 01/24 completed Not Available Not Available Not Available ondansetro n HCl 4 mg tablet TK 1 T PO Q 6 H PRN 03/23 completed Not Available Not Available Not Available prednisone 20 mg tablet TAKE 2 TABLETS BY MOUTH EVERY DAY FOR 5 DAYS THEN TAKE 1 TABLET BY MOUTH EVERY DAY FOR 5 DAYS active Not Available Not Available No t Available Ferrex 150 mg iron capsule 08/26 completed Not Available Not Available Not Available terconazol e 0.8 % vaginal cream INSERT 1 APPLICAT ORFUL VAGINALL Y AT BEDTIME FOR 3 DAYS 09/25 completed Not Available Not Available Not Available phentermin e 15 mg capsule TAKE 1 CAPSULE BY MOUTH EVERY DAY active Not Available Not Available No t Available hydroxyzin e pamoate 50 mg capsule TAKE 1 CAPSULE BY MOUTH THREE TIMES DAILY NEEDED 10/31 completed Not Available Not Available Not Available promethazi ne 6.25 mg-codeine 10 mg/5 mL syrup Take 5 mL every 6 hours by oral route as needed. 01/24 completed Not Available Not Available Not Available metronidaz ole 500 mg tablet active Not Available Not Available Not Available hydroxyzin e HCl 50 mg tablet Take 1 tablet 3 times a day by oral route as needed. 10/07 completed Not Available Not Available Not Available phentermin e 37.5 mg tablet Take 1 tablet every day by oral route in the morning. 2022 active Not Available Not Available Not Avai lable acyclovir 400 mg tablet TAKE 1 TABLET BY MOUTH TWICE DAILY NEEDED FOR 10 DAYS 10/20 completed Not Available Not Available Not Available sulfametho xazole 800 mg-trimeth oprim 160 mg tablet TAKE 1 TABLET BY MOUTH TWICE A DAY FOR 2 WEEKS 09/25 completed Not Available Not Available Not Available omeprazole 40 mg capsule,de layed release Take 1 capsule every day by oral route. 02/15 completed Not Available Not Available Not Available tramadol 50 mg tablet active Not Available Not Available Not Available triamcinol one acetonide 0.1 % topical cream active Not Available Not Available Not Available amoxicilli n 500 mg tablet TAKE 1 TABLET BY MOUTH EVERY 12 HOURS FOR 10 DAYS 09/12 completed Not Available Not Available Not Available acyclovir 800 mg tablet active Not Available Not Available Not Available ondansetro n 8 mg disintegra ting tablet 04/09 completed Not Available Not Available Not Available ketorolac 0.5 % eye drops Instill 1 drop every day by ophthalm ic route PRN for 25 days. active Not Available Not Available No t Available terconazol e 80 mg vaginal suppositor y INSERT 1 SUPPOSIT ORY INTO VAGINA AT BEDTIME FOR THREE NIGHTS 04/09 completed Not Available Not Available Not Available meloxicam 7.5 mg tablet TK ONE T PO QD PC PRN ONLY 10/02 completed Not Available Not Available Not Available Mobic 15 mg tablet Take 1 tablet every day by oral route. 2023 active Not Available Not Available Not Avai lable famotidine 20 mg tablet Take 1 tablet twice a day by oral route. 11/24 completed Not Available Not Available Not Available prednisolo ne acetate 1 % eye drops,susp ension active Not Available Not Available Not Available trazodone 100 mg tablet Take 1 tablet(s ) every day by oral route at bedtime for 30 days. 08/26 completed Not Available Not Available Not Available benzonatat e 100 mg capsule Take 2 capsules 3 times a day by oral route as needed. 10/20 completed Not Available Not Available Not Available doxycyclin e monohydrat e 100 mg capsule TAKE 1 CAPSULE BY MOUTH TWICE DAILY 10/20 completed Not Available Not Available Not Available hydrocodon e 7.5 mg-acetami nophen 325 mg tablet TAKE 1 TABLET BY MOUTH EVERY 4 HOURS NEEDED active Not Available Not Available No t Available cephalexin 500 mg capsule TAKE ONE CAPSULE BY MOUTH THREE TIMES A DAY FOR SEVEN DAYS 04/09 completed Not Available Not Available Not Available pantoprazo le 40 mg tablet,del ayed release Take 1 tablet every day by oral route in the morning for 90 days. active Take [address] Not Available Not Available Not Available oseltamivi r 75 mg capsule active Not Available Not Available Not Available nystatin 100,000 unit/gram topical cream DAB ON AFFECTED AREA TWO TIMES A DAY 09/25 completed Not Available Not Available Not Available buspirone 10 mg tablet Take 1 tablet every 12 hours by oral route as needed for 30 days. active Not Available Not Available No t Available polymyxin B sulfate 10,000 unit-trime thoprim 1 mg/mL eye drops INSTILL 2 DROPS INTO RIGHT EYE EVERY 6 HOURS 02/20 completed Not Available Not Available Not Available Qvar 40 mcg/actuat ion Metered Aerosol oral inhaler Inhale 2 puffs twice a day by inhalati on route for 30 days. active Not Available Not Available No t Available nicotine 21 mg/24 hr daily transderma l patch active Not Available Not Available Not Available betamethas one dipropiona te 0.05 % topical cream APPLY TO AFFECTED AREA TWO TIMES A DAY 09/25 completed Not Available Not Available Not Available omeprazole 20 mg capsule,de layed release Take 1 capsule every day by oral route. 01/06 completed Not Available Not Available Not Available diclofenac sodium 75 mg tablet,del ayed release Take 1 tablet every 12 hours by oral route as needed for 15 days. active Not Available Not Available No t Available hydrocorti sone 2.5 % topical cream TAMMY THIN LAYER EXT AA BID active Not Available Not Available No t Available montelukas t 10 mg tablet TAKE 1 TABLET BY MOUTH EVERY DAY 01/24 completed Not Available Not Available Not Available mupirocin 2 % topical ointment APPLY TOPICALL Y TO THE AFFECTED AREA TWICE DAILY 04/25 completed Not Available Not Available Not Available zolpidem 5 mg tablet TAKE ONE TABLET BY MOUTH AT BEDTIME NEEDED active Not Available Not Available No t Available permethrin 1 % topical liquid active Not Available Not Available Not Available ergocalcif monie (vitamin D2) 1,250 mcg (50,000 unit) capsule TK 1 C PO WEEKLY active Not Available Not Available No t Available clobetasol 0.05 % topical ointment APPLY A THIN LAYER TO AFFECTED AREAS ON THE BODY TWICE A DAY NEEDED. AVOID FACE. 10/20 completed Not Available Not Available Not Available alclometas one 0.05 % topical ointment 10/07 completed Not Available Not Available Not Available azelastine 137 mcg (0.1 %) nasal spray [place] 2 sprays twice a day by intranas al route. 01/24 completed Not Available Not Available Not Available Cheratussi n AC 10 mg-100 mg/5 mL oral liquid TAKE 10ML BY MOUTH EVERY 6 TO 8 HOURS PRN FOR 10 DAYS 08/23 completed Not Available Not Available Not Available ibuprofen 600 mg tablet TAKE ONE TABLET BY MOUTH TWO TIMES A DAY FOR THREE DAYS 03/23 completed Not Available Not Available Not Available zolpidem 10 mg tablet TAKE 1 TABLET BY MOUTH AT BEDTIME active Not Available Not Available No t Available methylpred nisolone 4 mg tablets in a dose pack FOLLOW PACKAGE DIRECTIO NS active Not Available Not Available No t Available albuterol sulfate HFA 90 mcg/actuat ion aerosol inhaler INHALE 2 PUFFS BY MOUTH EVERY 4 TO 6 HOURS NEEDED active Not Available Not Available No t Available ondansetro n 4 mg disintegra ting tablet DISSOLVE 1 TABLET ON THE TONGUE EVERY 6 TO 8 HOURS FOR 5 DAYS NEEDED 04/25 completed Not Available Not Available Not Available cefdinir 300 mg capsule Take 1 capsule every 12 hours by oral route. 04/25 completed Not Available Not Available Not Available fluticason e propionate 50 mcg/actuat ion nasal spray,susp ension SHAKE LQ AND U 2 SPRAYS NASALLY QD UTD FOR 30 DAYS 01/24 completed Not Available Not Available Not Available sertraline 50 mg tablet Take 1 tablet every day by oral route in the morning for 30 days. active Not Available Not Available No t Available doxycyclin e hyclate 100 mg tablet Take 1 tablet twice a day by oral route for 10 days. 08/26 completed Not Available Not Available Not Available loratadine 10 mg tablet TK 1 T PO QD UTD 03/23 completed Not Available Not Available Not Available ipratropiu m bromide 0.02 % solution for inhalation INHALE 1 VIAL VIA NEBULIZE R 4 TIMES A DAY NEEDED. active Not Available Not Available No t Available naproxen 500 mg tablet TAKE 1 TABLET BY MOUTH EVERY 12 HOURS. DO NOT TAKE ANY OTHER NSAIDS WITH THIS MEDICATI ON 10/07 completed Not Available Not Available Not Available metoclopra mide 10 mg tablet TK 1 T PO Q 6 H PRN 03/23 completed Not Available Not Available Not Available amoxicilli n 875 mg-potassi um clavulanat e 125 mg tablet TAKE 1 TABLET BY MOUTH TWICE DAILY FOR 7 DAYS active Not Available Not Available No t Available amoxicilli n 500 mg-potassi um clavulanat e 125 mg tablet TAKE 1 TABLET BY MOUTH EVERY 12 HOUR FOR 10 DAYS. 09/15 completed Not Available Not Available Not Available etonogestr el 0.12 mg-ethinyl estradiol 0.015 mg/24 hr vaginal ring INSERT ONE RING VAGINALL Y LEAVE IN THREE WEEKS REMOVE FOR ONE WEEK 10/02 completed Not Available Not Available Not Available bupropion HCl XL 150 mg 24 hr tablet, extended release TAKE 1 TABLET BY MOUTH EVERY DAY 02/20 completed Not Available Not Available Not Available Junel FE 08/19 (28) 1 mg-20 mcg (21)/75 mg (7) tablet TAKE 1 TABLET BY MOUTH EVERY DAY 09/25 completed Not Available Not Available Not Available nitrofuran toin monohydrat e/macrocry stals 100 mg capsule active Not Available Not Available N ot Available duloxetine 30 mg capsule,de layed release TK ONE C PO QD 03/24 completed Not Available Not Available Not Available duloxetine 60 mg capsule,de layed release TK ONE C PO QD 03/24 completed Not Available Not Available Not Available vareniclin e tartrate 0.5 mg (11)-1 mg (42) tablets in a dose pack 0.5 mg PO qd x3 days, then 0.5 mg PO bid x4 days and then to 1 mg po daily dose 10/31 completed Not Available Not Available Not Available Chantix 1 mg tablet TAKE 1 TABLET BY MOUTH TWICE A DAY 08/26 completed Not Available Not Available Not Available quetiapine 50 mg tablet TAKE 1 TABLET BY MOUTH EVERY DAY AT BEDTIME 10/20 completed Not Available Not Available Not Available Symbicort 160 mcg-4.5 mcg/actuat ion HFA aerosol inhaler INHALE 2 PUFFS BY MOUTH TWICE DAILY 10/31 completed Not Available Not Available Not Available Symbicort 80 mcg-4.5 mcg/actuat ion HFA aerosol inhaler INHALE 2 PUFFS BY MOUTH TWICE A DAY active Not Available Not Available No t Available omeprazole 20 mg tablet,del ayed release TAKE 1 TABLET BY MOUTH EVERY DAY. 02/15 completed Not Available Not Available Not Available ProChamber 03/24 completed Not Available Not Available Not Available Dulera 200 mcg-5 mcg/actuat ion HFA aerosol inhaler Inhale 2 puffs twice a day by inhalati on route. 11/24 completed Not Available Not Available Not Available Dulera 100 mcg-5 mcg/actuat ion HFA aerosol inhaler INHALE 2 PUFFS BY MOUTH TWICE A DAY 10/02 completed Not Available Not Available Not Available Vitamin D3 50 mcg (2,000 unit) capsule Take 1 capsule every day by oral route. 09/09 completed Not Available Not Available Not Available 28 mg iron-800 mcg tablet 04/09 completed Not Available Not Available Not Available Latuda 20 mg tablet TAKE 1 TABLET BY MOUTH EVERY DAY AT DINNER TIME WITH AT LEAST 350 CALORIES 10/20 completed Not Available Not Available Not Available TRUEplus Lancets 30 gauge 03/24 completed Not Available Not Available Not Available My Way 1.5 mg tablet U UTD 03/24 completed Not Available Not Available Not Available True Metrix Glucose Test Strip 03/24 completed Not Available Not Available Not Available Breo Ellipta 200 mcg-25 mcg/dose powder for inhalation INHALE 1 PUFF BY MOUTH EVERY DAY 05/27 completed Not Available Not Available Not Available Trelegy Ellipta 100 mcg-62.5 mcg-25 mcg powder for inhalation INHALE 1 PUFF BY MOUTH EVERY DAY 05/27 completed Not Available Not Available Not Available Wixela Inhub 500 mcg-50 mcg/dose powder for inhalation INHALE 1 PUFF BY MOUTH TWICE DAILY 10/20 completed Not Available Not Available Not Available Nucala 100 mg/mL subcutaneo us auto-injec tor active Not Available Not Available Not Available Rinvoq 15 mg tablet,ext ended release active Not Available Not Available Not Available Dupixent 300 mg/2 mL subcutaneo us pen injector active Not Available Not Available Not Available Dupixent Pen 03/08 completed Not Available Not Available Not Available Breztri Aerosphere 160 mcg-9mcg-4 .8mcg/actu ation HFA aerosol inhaler INHALE 2 PUFFS BY MOUTH TWICE DAILY active Not Available Not Available No t Available Trelegy Ellipta 200 mcg-62.5 mcg-25 mcg powder for inhalation INHALE 1 PUFF BY MOUTH EVERY DAY 05/27 completed Not Available Not Available Not Available Paxlovid 300 mg (150 mg x 2)-100 mg tablets in a dose pack TK 2 NIRMATRE LVIR TS AND 1 RITONAVI R T TOGETHER PO 04/25 completed Not Available Not Available Not Available Tezspire 210 mg/1.91 mL (110 mg/mL) subcutaneo us pen injector active Not Available Not Available Not Available Vitals Date Recorded Body height Body mass index (BMI) Body weight Body temperature Heart rate Respiratory rate Oxygen saturation Oxygen saturation in Arterial blood by Pulse oximetry Systolic blood pressure Diastolic blood pressure Provider Name and Address Organization Details Last Updated DateTime 3 170.18 cm 30.4 kg/m2 43789.6 2 g 97.3 [degF] 88 /min 16 /min 99 % 99 % 122 mm[Hg] 84 mm[Hg] Keven Solis [employer] [facility] [employer] 3 16:19:01 Date Recorded Body height Body mass index (BMI) Body weight Body temperature Heart rate Respiratory rate Oxygen saturation Oxygen saturation in Arterial blood by Pulse oximetry Systolic blood pressure Diastolic blood pressure Provider Name and Address Organization Details Last Updated DateTime 3 170.18 cm 31 kg/m2 13633.6 4 g 97.2 [degF] 86 /min 16 /min 98 % 98 % 126 mm[Hg] 80 mm[Hg] Keven Solis [employer] [facility] [employer] [facility] 3 14:31:46 Date Recorded Body height Body mass index (BMI) Body weight Provider Name and Address Organization Details Last Updated DateTime 11/01/2023 170.18 cm 28.8 kg/m2 83721 g KARYNA Daniels [facility] [employer] 11/01/2023 11:17:28 Date Recorded Body height Body mass index (BMI) Body weight Provider Name and Address Organization Details Last Updated DateTime 12/27/2023 170.18 cm 27.9 kg/m2 11468.44 g Madhuri Hartmann, [facility] [employer] [facility] 12/27/2023 14:34:22 Social History Question Answer Notes LastModified by Organizat ion Details LastModified Time Tobacco Smoking Status Current Every Day Smoker Rand Lange RN null, [facility] [employer] 01/24/2023 10:05:35 Do You Have An Advance Directive? No [id number] Information not available 09/28/2022 What Is Your Level Of Alcohol Consumption? None MIGRATION.47334 [id number] Information not available 09/28/2022 Do You Wear A Helmet When Biking? No MIGRATION.25585 93822 Information not available 09/28/2022 Is Blood Transfusion Acceptable In An Emergency? Yes Information not available 10/20/2022 What Is Your Level Of Caffeine Consumption? Heavy MIGRATION.[id number] Information not available 09/28/2022 What Is Your Code Status? Full Code Information not available 10/20/2022 In The 14 Days Before Symptom Onset, Have You Had Close Contact With A Laboratory-confi rmed COVID-19 While That Case Was Ill? No MIGRATION.[id number] Information not available 09/28/2022 In The 14 Days Before Symptom Onset, Have You Had Close Contact With A Person Who Is Under Investigation For COVID-19 While That Person Was Ill? No MIGRATION.82502 [id number] Information not available 09/28/2022 Are You Currently Employed? Yes Information not available 10/20/2022 What Type Of Diet Are You Following? REGULAR MIGRATION.[id number] Information not available 09/28/2022 What Is The Highest Grade Or Level Of School You Have Completed Or The Highest Degree You Have Received? [id number] MIGRATION.95099 85711 Information not available 09/28/2022 What Is Your Occupation? [employer] Information not available 10/20/2022 Have There Been Any Changes To Your Family Or Social Situation? No MIGRATION.56551 46164 Information not available 09/28/2022 What Is The Fluoride Status Of Your Home? Unknown MIGRATION.69081 [id number] Information not available 09/28/2022 Do You Use Insect Repellent Routinely? No MIGRATION.71647 [id number] Information not available 09/28/2022 Where Do You Live? [facility] MIGRATION.15782 68899 Information not available 09/28/2022 Do You Have A Medical Power Of Stretcher And Drier? No MIGRATION.77891 40023 Information not available 09/28/2022 What Was The Date Of Your Most Recent Tobacco Screening? 11/01/2023 [email or web address] Information not available 11/01/2023 How Many Children Do You Have? 3 Information not available 10/20/2022 Do You Have Any Pets? Yes Dogs MIGRATION.12915 75559 Information not available 09/28/2022 What Is Your Relationship Status? Single MIGRATION.11122 83114 Information not available 09/28/2022 Do You Use Your Seat Belt Or Car Seat Routinely? Yes MIGRATION.61854 92560 Information not available 09/28/2022 Do You Have Smoke And Carbon Monoxide Detectors In Your Home? Yes MIGRATION.48309 28822 Information not available 09/28/2022 At What Age Did You Start Smoking Tobacco? 16 MIGRATION.36869 08960 Information not available 09/28/2022 Are You Passively Exposed To Smoke? No MIGRATION.04232 28720 Information not available 09/28/2022 Are There Any Smokers In Your House? No MIGRATION.38549 91645 Information not available 09/28/2022 How Much Tobacco Do You Smoke? 0.5 PPD Information not available 01/24/2023 Do You Participate In Social Media? Yes MIGRATION.57509 11491 Information not available 09/28/2022 Do You Feel Stressed (tense, Restless, Nervous, Or Anxious, Or Unable To Sleep At Night)? [id number] MIGRATION.08004 92880 Information not available 09/28/2022 Do You Use Any Illicit Or Recreational Drugs? No MIGRATION.56125 04531 Information not available 09/28/2022 Do You Use Sunscreen Routinely? No MIGRATION.61783 60646 Information not available 09/28/2022 How Many Years Have You Smoked Tobacco? 20 MIGRATION.53867 22290 Information not available 09/28/2022 Have You Recently Traveled Abroad? No MIGRATION.49187 41562 Information not available 09/28/2022 Do You Have Any Dietary Restrictions? No MIGRATION.46368 36108 Information not available 09/28/2022 Do You Or Have You Ever Used Any Other Forms Of Tobacco Or Nicotine? No MIGRATION.16117 14051 Information not available 09/28/2022 Sex: Female Functional Status Question Answer Note LastModified by Organizat ion Details LastModified Time What is your exercise level? Occasional Asthma Information not available 01/24/2023 Mental Status None recorded. Family History Relationship Description Onset Age of this Age Resolved Age Notes LastModified by Organization Details LastModified Time Father No current problems or disability [email or web address] Not available 03/08 10:29:46 Mother No current problems or disability [email or web address] Not available 03/08 10:29:46 Notes:both sides of family h ave cancer in the family Medical History Condition Response BLINDNESS N RHEUMATIC FEVER N BLADDER PROBLEMS N KIDNEY STONES N MRSA N OTHER # 1 Y POLIO N LUNG DISEASE/DISORDER N HISTORY OF DRUG ABUSE N RADIATION / CHEMOTHERAPY N COPD N Other # 2 N BLOOD DISEASES N SURGERY N EAR OR HEARING PROBLEMS N MUMPS N SHINGLES N BOWEL PROBLEMS N DEPRESSION (INCLUDING POST ) N FEMALE PROBLEMS / INFECTIONS N STROKE/TIA N THYROID DISEASE N ULCERS N BENIGN PROSTATIC HYPERPLASIA N MEASLES N CERVICALGIA N TB SKIN TEST N HYPOTENSION N MYOCARDIAL INFARCTION N PARAPELGIA N OBESITY N GERD/NAUSEA N ANEURYSM N URINARY/BLADDER/KIDNEY PROBLEMS N CORONARY ARTERY DISEASE (CAD) N MENIERE'S DISEASE N ADDICTION CONCERNS N ENDOMETRIOSIS N USE OF BLOOD THINNERS N SKIN PROBLEMS N EMPHYSEMA N GASTROINTESTINAL DISORDER N MUSCLE,JOINT OR BONE PROBLEMS N GASTROINTESTINAL BLEEDING N BLOOD CLOTS N ASTHMA Y CATARACTS N ERECTILE DYSFUNCTION N GI PROBLEMS N CHF N Low Testosterone N NEUROPATHY N INFERTILITY N AIDS/HIV N FRACTURES N CHEMOTHERAPY / RADIATION N VISION/EYE PROBLEMS N LIVER DISEASE N MALE HYPOGONADISM N HYPERTENSION N TOURETTE'S N ANXIETY DISORDER N BLOOD TRANSFUSION N ANEMIA/BLOOD DISORDER N CHRONIC EAR INFECTIONS N BRONCHITIS N TUBERCULOSIS N GLAUCOMA N FOOT PROBLEM N DIVERTICULITIS N SLEEP APNEA N CHICKENPOX N ALLERGIES/HAYFEVER N INFECTIOUS DISEASE N PROSTATE N HEART ARRHYTHMIA N INSOMNIA N HIGH CHOLESTEROL / HYPERLIPIDEMIA N EYE PROBLEMS N HYPERTHYROIDISM N EATING DISORDER N EDEMA N CHRONIC PAIN SYNDROME N CAROTID BLOCKAGE N CONSTIPATION N BACK / NECK PROBLEMS N HAVE YOU BEEN HOSPITALIZED OR SEEN IN TH E ER IN THE PAST YEAR ? N ATHEROSCLEROSIS N BREAST PROBLEMS N DIALYSIS N ECZEMA N FIBROMYALGIA N OSTEOPOROSIS N ARTHRITIS N NO SIGNIFICANT PAST MEDICAL HISTORY N APPENDICITIS N DIABETES, TYPE Y BAD TEETH N HEARTBURN / REFLUX N ADD/ADHD N AUTISM SPECTRUM DISORDER (ASD) N HEPATITIS / LIVER DISEASE N PULMONARY DISEASE N GOUT N SLEEP DISORDER N ALZHEIMER'S DISEASE N PAIN N DEMENTIA N HERPES N SEIZURES/EPILEPSY N HEADACHES/MIGRAINES N VASCULAR DISEASE N PACEMAKER N DIZZINESS N HEART DISEASE/HEART PROBLEMS N KIDNEY DISEASE N SCARLET FEVER N MULTIPLE SCLEROSIS N DEVELOPMENTAL OR BEHAVIORAL DISORDERS N MENTAL DISORDER/ILLNESS N CANCER: SPECIFY N CARDIAC ARRHYTHMIA N PNEUMONIA N ATRIAL FIBRILLATION N Gall Stones N PULMONARY EMBOLISM N AUTOIMMUNE DISEASE N Gynecological History Statement/Question Response Flow Moderate Date of LMP 12/10/2022 STIs/STDs Y Dislike of Light during Menstrual Headac he Y Do your menstrual headaches get severe Y Duration of Flow (days) 4 Most Recent Mammogram Current Control Method None Age at Menarche 12 Breast Problems None How many live births 2 Date of Last Colonoscopy Frequency of Cycle (Q days) Most Recent Bone Density Sexually Active? Y Do you get headaches during your period N Menses Monthly Y Date of Last Pap Smear Discharge None Obstetrics History GPAL:G 3 P 3 0 0 0 Type Value Full Term 3 Total 3 Immunizations Vaccine Type Date Status Note Provider Nam e and Address Organization Details Recorded Time Tdap 07/31/2014 completed Not Available [facility] 09/28/2022 18:05:01 Influenza, split virus, quadrivalent, PF 05/24/2022 completed Not Available [facility] 18:05:01 Past Encounters Encounter ID Performer Location Encounter Start Date Encounter Closed Date Diagnosis/Indication Diagnosis SNOMED-CT Code Diagnosis ICD10 Code [id number] [facility] [place] [address] [place] [address] 03/24/2021 00:00:00 03/24/2021 12:23:45 [id number] [facility]_[address] [address] 05/20/2021 00:00:00 05/20/2021 16:32:35 [id number] [facility] Pulmonolo gy [address] [address] 06/07/2021 00:00:00 06/07/2021 14:54:54 [id number] [facility] [address] [address] 09/09/2021 00:00:00 09/09/2021 17:27:56 [id number] [facility] [place] [address] [place] [address] 09/17/2021 00:00:00 09/17/2021 10:47:41 [id number] [facility] [place] [address] [place] [address] 10/20/2021 00:00:00 10/20/2021 12:55:52 [id number] [facility] [place] [address] [place] [address] 11/24/2021 00:00:00 11/24/2021 11:17:03 [id number] [facility] [place] [address] [place] [address] 02/24/2022 00:00:00 02/24/2022 17:24:58 [id number] [facility] [place] [address] [place] [address] 05/24/2022 00:00:00 05/24/2022 14:36:30 [id number] [facility] [place] [address] [place] [address] 06/21/2022 00:00:00 06/21/2022 11:11:36 [id number] [facility] [place] [address] [place] [address] 06/29/2022 00:00:00 06/29/2022 18:11:23 [id number] [facility] [address] [place] [address] 11/04/2021 00:00:00 11/04/2021 18:12:52 [id number] [facility] [address] [place] [address] [place] [address] 12/02/2021 00:00:00 12/02/2021 10:27:08 [id number] [facility] [address] [place] Maria Elena [address] [address] 01/10/2022 00:00:00 01/10/2022 14:17:19 [id number] [facility] [address] [address] 03/29/2022 00:00:00 03/29/2022 11:16:07 [id number] Rand Rincon NP [address] [address] 10/07/2022 11:12:38 10/07/2022 12:20:34 Asthma 521270941 J45.909 Herpes labialis 1047079 B00.1 Upper resp iratory infection 62669936 J06.9 [id number] Rand Rincon NP [address] [address] 10/20/2022 15:23:50 10/20/2022 16:04:56 Acute sinusitis 52549511 J01.90 Exacerbati on of moderate persistent asthma 726651700 J45.41 [id number] Rand Rincon NP [address] [address] 01/24/2023 09:48:04 01/24/2023 10:46:07 Hyperglycemia 40327833 R73.9 Nausea and vomiting 1693 1999 R11.2 [id number] Roverto Benjamin MD [facility] [place] [address] [place] [address] 01/24/2023 11:06:10 01/24/2023 12:06:45 Deviated nasal septum 038698233 J34.2 Hypertroph y of nasal turbinates 38586126 J34.3 Singers' nodes 45993331 J38.2 [id number] Roverto Benjamin MD [facility] [place] [address] [place] [address] 03/09/2023 10:56:46 03/09/2023 15:25:05 Deviated nasal septum 535449127 J34.2 [id number] Alvin Moon MD [address] [address] 03/30/2023 16:11:45 03/30/2023 16:34:21 Pain in right foot 7012044711 67625 M79.671 Obese 012683299 E66.9 Contusion of right foot 1920928453 5058333 S90.31XA [id number] Alvin Moon MD [address] [address] 04/04/2023 14:37:30 04/04/2023 17:14:20 COVID-19 959568570 U07.1 Nausea and vomiting 1693 2000 R11.2 Cough 98758252 R05.9 Fatigue 21466982 R53.83 [id number] Alvin Moon MD [address] [address] 04/25/2023 14:24:16 04/25/2023 14:51:49 History of SARS-CoV-2 2911835595 86254415 Z86.16 Obese 894908228 E66.9 Seasonal a llergic rhinitis 331674656 J30.2 Chronic back pain 779604 002 G89.29 [id number] Brenda Loredo NP [facility] [place] [address] [place] [address] 11/01/2023 10:56:15 11/01/2023 11:42:16 Pain of right knee joint 4949401709 07327 M25.683 [id number] Aly Santana MD [facility] [place] [address] [place] [address] 12/27/2023 14:22:46 12/27/2023 14:51:41 Pain of right knee joint 3757279937 06086 M25.561 Health Concerns Section Related Observation LastModified by Organization Detai ls LastModified Time None Recorded Concern Status LastModified by Organization Details LastModified Time None Recorded Advance Directives Directive N: Payers Encounter Date Sequence Insurance Name Policy Number Policy Le Covered Member ID Le Member ID Guarantor Name 03/30/2023 1 [place] [id number] Dior Hart [id number] Dioreden Hart 04/04/2023 1 [place] [id number] Dior Hart [id number] Dior Hart 04/25/2023 1 [place] [id number] Dior Hart [id number] Dior Hart 11/01/2023 1 [place] [id number] Dior Hart [id number] Dior Hart 12/27/2023 1 [place] [id number] Dior Hart [id number] Dior Hart Notes Date Note Type Note Provider Name and Address Organization Details Recorded Time 03/30/2023 text/html ACV: C/o Rt distal foot area pain for last 2 days. Pt was walking in her living room and her kids had few Lego pieces on the floor and she accidentally stepped on it and since than, she has this pain. Pt is not able to walk on it. Denies any other injury/fall. Pt works at [employer] and he needs to do constant standing, walking and lifting upto 50 lbs boxes all day. So she is requesting couple days off work note. No other area pain. Pt is needing refill on Phentermine. Pt denies any problem with it. Alvin Moon MD [address] [place] [address], [place], [address], [facility] [employer] [facility] 03/30/2023 16:34:00 04/04/2023 text/html Telephone visit.ACV. C/o cough, congestion, headache, chills, nausea, vomiting, fatigue since yesterday night. Pt says her 3 kids at home are sick since last week and they were positive for covid. Pt did her test today and she is also positive. Pt had 2 doses of vaccine, last couple years ago. Denies any chance of . Pt is requesting work off note. Alvin Moon MD [address], [facility] [address], [place], [address], [employer] [facility] [employer] 04/04/2023 17:11:51 04/25/2023 text/html ACV: Pt has a paperwork from her work to be filled out due to her covid illness. Doing overall well now and she is back to her normal. No more concern with it. No other concern. Pt was seen on 04/04/23 via telephone visit and she had covid +. So pt was given Rx meds and pt was advised to be off work for next 5 days due to her illness. Pt was advised to RTW from 04/10/23. Alvin Moon MD [address], [facility] [address], [place], [address], [employer] 04/25/2023 14:49:22 OBGyn Episode No OBEpisode recorded.
--- OUTSIDE RECORDS SUMMARY | 2024-07-17 18:30 | XMS_ITS | Data Portability ---
Author Organization [facility] Address [address] [place] [address] Assessment No assessment recorded. Plan of Treatment Reminders Order Date Submit Date Provider Last Modified By Organization Details Last Modified Time Details Appointments None recorded . Lab animal allergen panel, serum 2014 015 dbogue [facility], [address], [address], [place], [address], 16:47:31 grass allergen panel, serum 2014 015 dbogue [facility], [address], [place], [address], 16:47:31 mold allergen panel, serum 2014 015 dbogue [facility], [address], [address], [place], [address], 16:47:31 tree allergen panel, serum 2014 015 dbogue [facility], [address] [facility], [place], [address], 16:47:31 dog dander ige, serum 2014 015 dbogue [facility], [address], [place], [address], 16:47:31 dog fennel ige, serum 2014 015 [employer] [facility], [address], [address], [place], [address], 5 16:47:31 core respirat ory allergen s panel, serum 2014 015 dbogue [facility], [address], [address], [place], [address], 5 16:47:31 Referral orthoped ic referral - has apt monday10/05/[address] Gould 2015 Precious dyer Not available 6 10:45:06 Procedures None recorded . Surgeries None recorded . Imaging x-ray, finger(s ) - RIght hand 5th finger. Dyer pop 1 week ago when dog leash wrapped around finger and pulled. 2014 Manolo dyer Not available 5 09:48:17 Medication Orders Ventolin HFA 90 mcg/actu ation aerosol inhaler 2014 015 karuna [facility]armacy #[id number], [address] [place], [address], 5 16:47:31 hydrocod one 7.5 mg-aceta minophen 325 mg tablet 2014 Manolo [email or web address] [facility]/Pharmacy #[id number], [address] [place], [address], 6 16:44:44 Zithroma x Z-Dipesh 250 mg tablet 2015 016 [facility] #[id number], [address] [place], [address], 6 16:27:05 prometha zine 6.25 mg-codei ne 10 mg/5 mL syrup 2015 016 [employer] [facility]armacy #[id number], [address] [place], [address], 6 16:27:05 Bactrim DS 800 mg-160 mg tablet 2015 016 [email or web address] [facility]armacy #[id number], [address] [place], [address], 6 15:35:54 hydrocod one 7.5 mg-aceta minophen 325 mg tablet 2015 016 [email or web address] [facility]armacy #[id number], [address] [place], [address], 6 15:35:54 acyclovi r 800 mg tablet 2015 016 dbogue [facility]armacy #[id number], [address] [place], [address], 6 16:10:50 acyclovi r 400 mg tablet 2015 016 dbogue [facility] #[id number], [address] [place], [address], 6 16:10:50 Patient TargetsNo targets recorded. Patient Instructions Encounter Date Encounter Id Patient Instructions Last Modified By Organization Details Last Modified Time 05/29/2015 [id number] wheezing or bronchoconstricti on: care instructions dbogue Not available 05/29/2015 16:47:31 08/04/2015 [id number] controlling your asthma: care instructions dbogue Not available 08/04/2015 17:23:35 learning about asthma dbogue Not available 08/04/2015 17:23:35 carpal tunnel syndrome: care instructions dbogue Not available 08/04/2015 17:23:35 carpal tunnel syndrome: exercises dbogue Not available 08/04/2015 17:23:35 upper respirator y infection (cold): care instructions [email or web address] Not available 08/05/2015 09:43:59 cough: care instructions dbogue Not available 08/04/2015 17:23:34 Reason for Referral Orthopedic Referral for Frac ture of great toe Left great toe fracture has apt monday10/05/[address] Gould Referring Physician: Rand Ballard, Family Medicine, Encounter Date: 10/01/2015 Problems Name Problem SNOMED Code Status Onset Date Resolution Date Notes Provider Name and Address Organization Details Recorded Time Gingivostomati tis 29901951 Active Rand Ball[place] null, [place] - [facility] 5 16:48:50 Standard chest X-ray abnormal 565945057 Active [place] [facility] 5 10:41:07 Bronchitis 01904225 Active Rand Elio [place] [facility] 5 10:28:37 Pediculosis capitis 76466397 Active [place] [facility] 5 13:53:01 Fracture of rib 50501236 Active [place] [facility] 5 17:38:23 Contusion 480061915 Active Rand Elio [place] [facility] 5 17:38:23 Asthma 815785886 Active [place] [facility] 6 17:23:34 Pain in finger 23649797 Active [place] [facility] 5 16:47:31 Wheezing 63884324 Active [place] [facility] 5 16:47:31 Carpal tunnel syndrome 61246815 Active [place] [facility] 6 17:23:34 Abscess 056040279 Active Eder Pepper [place] [facility] 6 17:07:56 Fracture of great toe 007282559 Active [place] [facility] 6 16:12:08 On examination - herpes labialis-cold sore Active [place] [facility] 6 16:10:50 Complaining of - cough Active [place] [facility] 6 17:23:34 Tobacco user 578842754 Active [place] [facility] 6 16:20:43 Acute exacerbation of chronic asthmatic bronchitis 219112599 Active Rand henderson [facility] 5 16:36:18 Acute asthma 430385171 Active Rand henderson, [facility] 5 10:28:37 Upper respiratory infection 67529137 Active Rand henderson, [facility] 6 17:23:34 Problem Notes None recorded. Procedures Surgical History Date Name Laterality Status Provider Name and Address Organization Details Recorded Time 09/16/2015 I&D completed Eder Pepper [facility] 17:04:01 Imaging Results None recorded. Procedure Notes None recorded. Medical Equipment None Reported. Allergies No known drug allergies Medications Name Sig Start Date Stop Date Status Note LastModified by Organization Details LastModified Time amoxicillin 500 mg capsule active Not Available Not Available Not Available nicotine 14 mg/24 hr daily transdermal patch active Not Available Not Available Not Available ipratropium 0.5 mg-albutero l 3 mg (2.5 mg base)/3 mL nebulizatio n soln active Not Available Not Available Not Available albuterol sulfate 2.5 mg/3 mL (0.083 %) solution for nebulizatio n INHALE I VIAL BY NEBULIZAT ION ROUTE EVERY 4 TO 6 HOURS NEEDED active Not Available Not Available No t Available trazodone 50 mg tablet active Not Available Not Available Not Available cetirizine 10 mg tablet active Not Available Not Available Not Available azithromyci n 250 mg tablet TAKE 2 TABLETS (500 MG) BY ORAL ROUTE ONCE DAILY FOR 1 DAY THEN 1 TABLET (250 MG) BY ORAL ROUTE ONCE DAILY FOR 4 DAYS active Not Available Not Available No t Available fluconazole 150 mg tablet active Not Available Not Available Not Available benzonatate 200 mg capsule Take 1 capsule 3 times a day by oral route. 2013 active Not Available Not Available Not Avai lable ranitidine 300 mg tablet active Not Available Not Available Not Available albuterol sulfate 1.25 mg/3 mL solution for nebulizatio n active Not Available Not Available Not Available hydrocodone 5 mg-acetamin ophen 325 mg tablet Take 1 tablet twice a day by oral route as needed. active Not Available Not Available No t Available ondansetron HCl 8 mg tablet active Not Available Not Available Not Available metronidazo le 0.75 % (37.5 mg/5 gram) vaginal gel active Not Available Not Available Not Available prednisone 20 mg tablet Take 2 tabs po bid for 3 days, then 1 tab po bid for 3 days, then 1 tab daily for 2 days. active Not Available Not Available No t Available prednisone 5 mg tablet 01/01 completed Not Available Not Available Not Available promethazin e 6.25 mg-codeine 10 mg/5 mL syrup Take 5 mL every day by oral route as needed. active Not Available Not Available No t Available acyclovir 400 mg tablet TAKE 1 TABLET(S) TWICE A DAY BY MOUTH. active Not Available Not Available No t Available sulfamethox azole 800 mg-trimetho prim 160 mg tablet Take 1 tablet every 12 hours by oral route. active Not Available Not Available No t Available hydrocodone 10 mg-acetamin ophen 325 mg tablet active Not Available Not Available No t Available tramadol 50 mg tablet Take 1 tablet every 6 hours by oral route. active Not Available Not Available No t Available triamcinolo ne acetonide 0.1 % topical cream active Not Available Not Available Not Available acyclovir 800 mg tablet TAKE 2 TABLET(S) TWICE A DAY BY MOUTH FOR 2 DAYS. active Not Available Not Available No t Available ketorolac 0.5 % eye drops active Not Available Not Available Not Available prednisolon e acetate 1 % eye drops,suspe nsion active Not Available Not Available Not Available malathion 0.5 % lotion APPLY TO DRY HAIR , RUB GENTLY UNTIL SCALP IS MOISTENED DRY , SHAPOO 8-12 HRS , MAY REPEAT 7 - 9 DAYS active Not Available Not Available No t Available hydrocodone 7.5 mg-acetamin ophen 325 mg tablet Take 1 tablet every 6 hours by oral route as needed. active Not Available Not Available No t Available nystatin 100,000 unit/gram topical cream active Not Available Not Available Not Available polymyxin B sulfate 10,000 unit-trimet hoprim 1 mg/mL eye drops active Not Available Not Available Not Available Qvar 40 mcg/actuati on Metered Aerosol oral inhaler Inhale 2 puffs twice a day by inhalatio n route. active Not Available Not Available No t Available nicotine 21 mg/24 hr daily transdermal patch Apply 1 patch every day by transderm al route for 42 days. active Not Available Not Available No t Available betamethaso ne dipropionat e 0.05 % topical cream active Not Available Not Available Not Available zolpidem 5 mg tablet active Not Available Not Available No t Available permethrin 1 % topical liquid APPLY A SUFFICIEN T AMOUNT OF SHAMPOO BY TOPICAL ROUTE ONCE ALLOW TO REMAIN ON HAIR FOR 10 MINUTES BEFORE RINSING OFF WITH WATER active Not Available Not Available No t Available ergocalcife rol (vitamin D2) 1,250 mcg (50,000 unit) capsule Take 1 capsule every week by oral route for 28 days. active Not Available Not Available No t Available Cheratussin AC 10 mg-100 mg/5 mL oral liquid TAKE 10ML BY MOUTH EVERY 6 TO 8 HOURS PRN FOR 10 DAYS active Not Available Not Available No t Available prednisone 5 mg tablets in a dose pack Take by oral route as directed 01/01 completed Not Available Not Available Not Available methylpredn isolone 4 mg tablets in a dose pack Take Medrol dose by oral route as directed. active Not Available Not Available No t Available ipratropium bromide 0.02 % solution for inhalation active Not Available Not Available N ot Available metoclopram emily 10 mg tablet active Not Available Not Available Not Available amoxicillin 875 mg-potassiu m clavulanate 125 mg tablet active Not Available Not Available Not Available amoxicillin 500 mg-potassiu m clavulanate 125 mg tablet active Not Available Not Available Not Available Ventolin HFA 90 mcg/actuati on aerosol inhaler INHALE 1-2 PUFFS INHALED EVERY 4 HOURS NEEDED FOR SHORTNESS OF BREATH active Not Available Not Available No t Available azithromyci n 500 mg tablet 01/01 completed Not Available Not Available Not Available bupropion HCl XL 150 mg 24 hr tablet, extended release active Not Available Not Available Not Available Chantix 0.5 mg tablet TAKE 1 TABLET BY MOUTH EVERY DAY FOR 3 DAYS. active Not Available Not Available No t Available Chantix 1 mg tablet TAKE 1 TABLET BY MOUTH TWICE A DAY active Not Available Not Available No t Available omeprazole 20 mg tablet,dhruv yed release active Not Available Not Available Not Available Dulera 100 mcg-5 mcg/actuati on HFA aerosol inhaler active Not Available Not Available Not Available 28 mg iron-800 mcg tablet active Not Available Not Available N ot Available Vitals Date Recorded Body weight Oxygen saturation Oxygen saturation in Arterial blood by Pulse oximetry Body height Body mass index (BMI) Body temperature Heart rate Systolic blood pressure Diastolic blood pressure Provider Name and Address Organization Details Last Updated DateTime 5 15457.0 90004 g 98 % 98 % 170.18 cm 22 kg/m2 97.8 [degF] 104 /min 108 mm[Hg] 70 mm[Hg] Mallory Hernandez [place] - [facility] 5 16:26:20 Date Recorded Body weight Heart rate Body mass index (BMI) Body height Oxygen saturation Oxygen saturation in Arterial blood by Pulse oximetry Body temperature Systolic blood pressure Diastolic blood pressure Provider Name and Address Organization Details Last Updated DateTime 6 92740.3 84115 g 83 /min 22 kg/m2 170.18 cm 100 % 100 % 97.6 [degF] 100 mm[Hg] 62 mm[Hg] Mallory Hernandez MA [facility] 6 16:44:43 Date Recorded Respiratory rate Heart rate Oxygen saturation Oxygen saturation in Arterial blood by Pulse oximetry Body mass index (BMI) Body height Body temperature Body weight Systolic blood pressure Diastolic blood pressure Provider Name and Address Organization Details Last Updated DateTime 6 16 /min 96 /min 99 % 99 % 21.1 kg/m2 170.18 cm 97.7 [degF] 96096.9 6995 g 100 mm[Hg] 60 mm[Hg] Lindsay crane [place] - [facility] 6 16:27:05 Date Recorded Oxygen saturation Oxygen saturation in Arterial blood by Pulse oximetry Body height Body temperature Body weight Heart rate Body mass index (BMI) Systolic blood pressure Diastolic blood pressure Provider Name and Address Organization Details Last Updated DateTime 6 95 % 95 % 170.18 cm 97.2 [degF] 22631.3 44667 g 117 /min 21.2 kg/m2 100 mm[Hg] 60 mm[Hg] Mallory Hernandez [place] - [facility] 6 15:26:28 Date Recorded Oxygen saturation Oxygen saturation in Arterial blood by Pulse oximetry Heart rate Body mass index (BMI) Body temperature Body height Body weight Systolic blood pressure Diastolic blood pressure Provider Name and Address Organization Details Last Updated DateTime 6 100 % 100 % 113 /min 21.8 kg/m2 98.1 [degF] 170.18 cm 95560.7 58804 g 104 mm[Hg] 60 mm[Hg] Mallory Hernandez MA [facility] 6 15:35:53 Social History Question Answer Notes LastModified by Organizat ion Details LastModified Time Tobacco Smoking Status Current Some Day Smoker Xena Pantoja LPN null, [place] - [facility] 03/26/2015 16:51:33 Do You Have An Advance Directive? No Information not available 03/26/2015 What Is Your Level Of Alcohol Consumption? Occasional 5/6 Shots [email or web address] Information not available 06/20/2014 What Is Your Level Of Caffeine Consumption? Occasional Information not available 03/26/2015 How Much Tobacco Do You Chew? None Information not available 03/26/2015 What Type Of Diet Are You Following? REGULAR [email or web address] Information not available 06/20/2014 Which Illicit Or Recreational Drugs Have You Used? Denies Information not available 03/26/2015 Are There Any Guns Present In Your Home? No Information not available 03/26/2015 Hard Of Hearing Or Deaf In One Or Both Ears? No Information not available 03/26/2015 Legally Blind In One Or Both Eyes? No Information not available 03/26/2015 Performs Monthly Self-breast Exam? Yes Information not available 03/26/2015 Seat Belts Used Routinely Yes Information not available 03/26/2015 Smoke Alarm In Home Yes Information not available 03/26/2015 How Much Tobacco Do You Smoke? 1 PPW 4-5 A Day Information not available 03/26/2015 General Stress Level High Information not available 06/20/2014 Do You Use Sunscreen Routinely? No Information not available 03/26/2015 Sex: Unknown Functional Status Question Answer Note LastModified by Organization D etails LastModified Time What is your exercise level? None [email or web address] Information not available 06/20/2014 Mental Status None recorded. Family History Relationship Description Onset Age of this Age Resolved Age Notes LastModified by Organization Details LastModified Time Mother History of hypertension [email or web address] Not available 09/2014 16:31:41 Mother Migraine Not available 09/30/2014 16:31:41 Father Alcohol abuse [email or web address] Not available 2014 16:31:41 Father Essential hypertension [email or web address] Not available 09/2014 16:31:41 Father Viral hepatitis C [email or web address] Not available 09/2014 16:31:41 Father Liver finding [email or web address] Not available 2014 16:31:41 Medical History Condition Response Coronary Artery Disease N Other N Atrial Fibrillation N High Blood Pressure N Thyroid Problems N Kidney or Bladder Problems N Depression Y COPD N Blood Clots N GI Problems N Skin Problems N Anemia N Heart Attack (SC) N Diabetes N Anxiety Disorder N Muscle, Joint, or Bone Problems N Seizures/Epilepsy N Acid Reflux (GERD) Y Cancer N Stroke N Allergies N Asthma Y High Cholesterol N Hepatitis N Liver Disease N Headaches N Osteoporosis N Heart Failure N Gynecological History Statement/Question Response Duration of Flow (days) 5 Current Control Method None Flow Moderate LMP Approximate Frequency of Cycle (Q days) 20 Obstetrics History GPAL:G 0 P 0 0 0 0 Past Encounters Encounter ID Performer Location Encounter Start Date Encounter Closed Date Diagnosis/Indication Diagnosis SNOMED-CT Code Diagnosis ICD10 Code [id number] Rand Bolton (Adult Med) [address] [place] [address] 06/20/2014 14:24:59 06/20/2014 17:27:06 Acute asthma 337876734 Upper resp iratory infection 95792033 [id number] Rand Bolton (Adult Med) [address] [place] [address] 08/01/2014 15:32:39 08/01/2014 17:01:28 Acute exacerbation of chronic asthmatic bronchitis 260737495 [id number] PASCUAL Harding (Adult Med) [address] [place] [address] 09/30/2014 16:20:19 09/30/2014 17:02:08 Gingivostomatitis 51801404 [id number] Rand Bolton (Adult Med) [address] [place] [address] 10/31/2014 14:38:54 10/31/2014 15:54:55 Acute asthma 449645518 [id number] PASCUAL Harding [facility] (Adult Med) [address] [place] [address] 01/01/2015 16:00:46 01/01/2015 17:06:17 Acute exacerbation of chronic asthmatic bronchitis 804348238 [id number] Carlotta Tianna Bolton (Adult Med) [address] [place] [address] 03/26/2015 16:23:22 03/27/2015 08:28:33 Fracture of rib 13742665 Contusion 847224780 [id number] Rand Bolton (Adult Med) [address] [place] [address] 05/29/2015 16:08:03 06/01/2015 09:48:16 Pain in finger 67225247 M79.644 Wheezing 11745103 R06.2 [id number] Rand Bolton (Adult Med) [address] [place] [address] 08/04/2015 16:31:19 08/05/2015 17:00:04 Complaining of - cough 840903894 R05 Upper resp iratory infection 05796089 J06.9 Asthma 430377434 J45.90 9 Carpal mary grace nelsy syndrome 47246495 G56.01 [id number] Eder Shantelle Bolton (Adult Med) [address] [place] [address] 09/16/2015 15:30:16 09/17/2015 13:54:07 Abscess 504601473 L02.214 [id number] Rand Bolton (Adult Med) [address] [place] [address] 10/01/2015 15:15:39 10/02/2015 10:45:06 Fracture of great toe 756875507 S92.405A [id number] Rand Bolton (Adult Med) [address] [place] [address] 11/10/2015 15:29:20 11/10/2015 16:36:27 On examination - herpes labialis-cold sore 481451749 B00.1 Health Concerns Section Related Observation LastModified by Organization Detai ls LastModified Time None Recorded Concern Status LastModified by Organization Details LastModified Time None Recorded Advance Directives Directive N: Payers Encounter Date Sequence Insurance Name Policy Number Policy Le Covered Member ID Le Member ID Guarantor Name 05/29/2015 1 [facility] PRIOR TO 01/28/2021 (MEDICAID REPLACEMENT - HMO) Dior Hart [id number] Dior Hart 08/04/2015 1 [facility] PRIOR TO 01/28/2021 (MEDICAID REPLACEMENT - HMO) Dior Hart [id number] Dior Hart 09/16/2015 1 [facility] PRIOR TO 01/28/2021 (MEDICAID REPLACEMENT - HMO) Dior Hart [id number] Dior Hart 10/01/2015 1 [facility] PRIOR TO 01/28/2021 (MEDICAID REPLACEMENT - HMO) Dior Hart [id number] Dior Hart 11/10/2015 1 [facility] PRIOR TO 01/28/2021 (MEDICAID REPLACEMENT - HMO) Dior Hart [id number] Dior Hart Notes Date Note Type Note Provider Name and Address Organization Details Recorded Time 05/29/2015 text/html Hurt right hand 5th finger when dog leash wrapped around finger. Had swelled and turned blue next morning. Did hear a pop when incident happened. Unable to bend distal end of right hand pinky. Believes she is allergic to dogs. Right eyelid flare up, wheezing on and off. Would like allergy testing. DARRYL Mclaughlin 05/29/2015 16:47:53 08/04/2015 text/html Right arm pain shooting from first 3 fingers right hand up middle of wrist to elbow. Pain worse with pressure to middle of wrist joint. Better if pressure applied to base of thumb. DARRYL Mclaughlin 08/04/2015 17:23:46 08/04/2015 text/html InsomniaReported bypatient.Quality:symp toms worse in the evening (coughing so much she can't sleep.) Duration:present for 1 weekNotes:Since being sick- asthma flare with recent water/floodingUpper Respiratory SymptomsReported bypatient.[facility] Quality:productive cough Onset/Timing:gradual Modifying Factors:OTC medicationNotes:Using nebulizer and inhaler nightly and daily. 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 DARRYL Mclaughlin SILynne 08/04/2015 17:23:46 09/16/2015 text/html Rash/Skin LesionReported bypatient.Location:[facility] Quality:painful;red;lo calized;single Duration:has noted for <1 week Onset/Timing:abrupt onset Eder Pepper DARRYL henderson [facility] 09/16/2015 17:08:08 10/01/2015 text/html Patient wasn't w earing shoes when wind caught house door and slammed on her Left great toe last night. Pain and bruising instantly. Pain 10/10 now and unable to bend left great toe. Went to ER and xray confirmed fracture. Toes are ken taped currently and has apt with Dr. Gould on monday. Ultram per ER is making stomach sick- patient up vomiting from it. DARRYL Mclaughlin SI 10/01/2015 16:12:19 11/10/2015 text/html Several cold sor es for past 6 weeks. when one goes away, the next comes. 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 Vivar. Was on acyclovir in the past, but believed it was causing hair to fall out, so patient eventually stopped it. Has tried otc options but nothing working well to prevent cold sores. Painful. Ugly. and embarrasing. DARRYL Mclaughlin SI 11/10/2015 16:11:00 OBGyn Episode No OBEpisode recorded.
--- OUTSIDE RECORDS SUMMARY | 2024-07-17 18:30 | XMS_ITS ---
Author Organization [facility] Address [address] [place] [address] Care Team Providers Care Food Sampler Name Role Phone Rand Brasher Primary Care Provider Brittany Rosa Murray Unavailable [phone] Mary Mcgrath Unavailable Unavailable Allergies Allergen (clinical drug ingredient) Drug/Non Drug Allergy documented on EMR Reaction Allergy Type Onset Date Status percocets (uncoded) nausea and vomiting Allergy Active tramadol Tramadol (uncoded) nausea and vomiting Allergy Active REASON FOR VISIT Asthma follow-up - large local reactions with Dupixent Medications Medication SIG (Take, Route, Frequency, Duration) Notes Start Date End Date Status Zolpidem Tartrate 10 MG Oral for 90 Days Not-Taking Breztri Aerosphere 160-9-4.8 MCG/ACT 2 puffs Inhalation Twice a day for 30 days Active Singulair 10 MG 1 tablet Orally Once a day for 90 days Active ZyrTEC Allergy 10 MG 1 tablet Orally Onc e a day Active Albuterol Sulfate HFA 108 (90 Base) MCG/ACT 2 puffs as needed Inhalation every 4 hrs for 30 days Active Zolpidem Tartrate 10 MG TAKE 1 TABLET BY MOUTH AT BEDTIME Oral for 90 Days Not-Taking Triamcinolone Acetonide 0.1 % 1 application Externally Two times a Week for 30 days 05/29/2024 Active Vitamin D3 1.25 MG (50725 UT) TAKE 1 CAPSULE BY MOUTH ONCE WEEKLY Oral for 84 Days Active Dupixent 300 MG/2ML as directed Subcutaneous 05/23/2024 Active Zolpidem Tartrate 10 MG Oral for 90 Days Active buPROPion HCl ER (SR) 150 MG Oral for 30 Days Active Social History Tobacco Use: Social History Observation Description Date Details (start date - stop date) Current Smoker NA - NA Tobacco Control (Standard) Question Answer Notes Tobacco use: Current smoker Vital Signs Blood pressure systolic 116 mm Hg 06/18/20 24 Blood pressure diastolic 74 mm Hg 024 Height 67 in 06/18/2024 Weight 173.0 lbs 06/18/2024 BMI 27.09 kg/m2 06/18/2024 Oximetry 99 % 06/18/2024 Encounters Encounter Location Date Provider Diagnosis [facility] [address] [place] [address] 06/18/2024 Rosa Sunita Allergic rhinitis du e to pollen J30.1 ; Severe persistent asthma, uncomplicated J45.50 ; Allergic rhinitis due to animal (cat) (dog) hair and dander J30.81 ; Other allergic rhinitis J30.89 and Other chronic allergic conjunctivitis H10.45 Assessments Encounter Date Diagnosis (ICD Code) Assessment Notes Treatment Notes Treatment Clinical Notes Section Notes 06/18/2024 Allergic rhinitis due to pollen (ICD-10 [...] persist, consider adding additional medications including intraocular antihistamine/mas t cell stabilizer, PRN 06/18/2024 Other Plan Of Treatment Medication Medication Name Sig Start Date Stop Date Notes Breztri Aerosphere 160-9-4.8 MCG/ACT 2 puffs Inhalation Twice a day for 30 days Singulair 10 MG 1 tablet Orally Once a day for 90 days ZyrTEC Allergy 10 MG 1 tablet Orally Once a day Albuterol Sulfate HFA 108 (9 0 Base) MCG/ACT 2 puffs as needed Inhalation every 4 hrs for 30 days Treatment Notes Assessment Notes Allergic rhinitis due to pollen Dior clearly suffers from atopic disease based upon our skin testing and clinical history. Accordingly, we have introduced a new, aggressive medication regimen, discussed nasal washes and allergy-specific avoidance measures. We also discussed adjunctive therapies including subcutaneous, specific allergen immunotherapy as relates to the treatment and prevention of atopic disease. Plan to start a biologic first Severe persistent asthma, uncomplicated Persistent asthma and ACT 15. Spirometry normal [...] For now, continue Breztri and prn albuterol. Allergic rhinitis due to ani mal (cat) (dog) hair and dander Follow allergen avoidance, meds and consider SCIT as an adjunctive treatment to current regimen Other allergic rhinitis Follow allergen avoidance, meds and consider SCIT as an adjunctive treatment to current regimen Other chronic allergic conjunctivitis Gi adriane ocular signs and symptoms I encouraged allergy avoidance measures and meds as above. If symptoms persist, consider adding additional medications including intraocular antihistamine/mast cell stabilizer, PRN Pending Test Test Name Order Date -Immunoglobulin E, Total 06/18/2024 -CBC With Differential/Platelet 06/18/20 24 Next Appt Details Follow Up: 6 Months, Reason: Evaluation and Management Progress Notes * Shaneka DEL ANGELB: 6 (38 yo F)Acc No.[id number]:06/18/2024 Progress Notes Patient:Dior CORRALES Provider:?Rosa Dorsey MD :1985???Age:38 Y???Sex:Female D ate:06/18/2024 Address:[address] [place], [place] [id number] [facility] Subjective: * Chief Complaints: * ???Asthma follow-up - large local reactions with Dupixent * HPI: ???*Introduction:?I had the pleasure of seeing?Dior Del Angel, a 38 year old with allergic rhinitis, asthma/COPD presenting for evaluation of reactions to Dupixent. She is alone for today's visit.? She was last evaluated 05-21-2024. Since last visit, asthma is under good control.? She started Dupixent and developed a large local reaction several inches in size.? Reaction occurred a few hours after receiving the injection and lasted about 2 weeks.? No systemic symptoms.? Pictures are attached to the chart.? Similar reaction 2 years ago with Dupixent. Dior has a long history of asthma which was diagnosed in her 20s.? She is currently taking Breztri.? She last required steroids .? Over the years, she has been treated with multiple inhalers including Trelegy, Advair, Symbicort and Dulera. She prefers Dulera but not covered by insurance. She was treated with Dupixent 2 years ago with improvement in asthma after the first dose. She initially tolerated Dupixent well for a few months, but then developed large local reactions on her arm sometimes baseball size. No history of urticaria respiratory symptoms or angioedema associated with Dupixent. She was receiving Dupixent in her arm. She then tried Tezspire and Nucala for a few months and discontinued because no change in asthma control. ImmunoCAPs in the past showed sensitivity to dust mite, mold, dog and cats. She has requierd steroids 3-4 times in the last year. She requires ER visits about once a year. No history of hospitalization for asthma. 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 She has not been evaluated by speech therapy. Sinus surgery was performed in the past for deviated septum. She has a history of eczema on her hands and follows with Dr. Lorin Ruiz. Improvement in eczema with Dupixent. They discussed starting another biologic but Dior was concerned about side effects. She works in the [employer] and performs heavy lifting. Dogs are outside the house in the garage. Today, she reports no fevers, chills, night sweats or other constitutional symptoms.? * ROS:?ALLERGY:?runny nose?Yes.?scratchy throat?Yes.?itchy eyes?Yes.?ear fullness?Yes.?sinus congestion?Yes.?Positive?per the HPI and history, otherwise unremarkable.?SPECIAL SENSES:?Positve for?none.?cataracts?No.?glaucoma?No.?loss of hearing?Yes.?itching in ears?Yes.?ringing in ears?Yes.?loss of balance?No.?loss of smell?No.?dry eyes?No.?excessive tearing?No.?itching eyes?Yes.?loss of taste?No.?conjunctivitis?No.?ear infections?No.?CONSTITUTIONAL:?weight gain?Yes.?loss of appetite?No.?fever?Yes,No.?weakness?Yes.?weight loss?Yes.?fatigue?Yes.?night sweats?Yes.?Positive for?none.?ENT:?cold?Yes.?cough?Yes.?epistaxis?No.?hearing loss?Yes.?change in voice?Yes.?sore throat?Yes.?ringing in ears?Yes.?sinus pain?Yes.?Positive?per the HPI and history, otherwise unremarkable.?RESPIRATORY:?shortness of breath?Yes.?chest pain?Yes.?chest congestion?Yes.?cough?Yes.?Positive?per the HPI and history, otherwise unremakable.?OPHTHALMOLOGY:?diminished vision?No.?eye irritation?Yes.?drainage from eyes?Yes.?blurring of vision?Yes.?seasonal eye sx?Yes.?Positive for?per the HPI and history, otherwise unremarkable.?itching?Yes.?sensitivity to light?Yes.?discharge?Yes.?watering?Yes.?swelling of the eyelids?Yes.?redness?Yes.?ENDOCRINOLOGY:?fatigue?Yes.?polydipsia?Yes.?polyuria?No.?weight loss?Yes.?sleep disturbance?Yes.?cold intolerance?Yes.?heat intolerance?Yes.?diabetes?No.?Positive for?none.?CARDIOLOGY:?chest pain?Yes.?palpitations?No.?leg edema?No.?dizziness?Yes.?shortness of breath?Yes.?Positive for?none.?GASTROENTEROLOGY:?dysphagia?No.?abdominal pain?No.?nausea?No.?vomiting?No.?constipation?Yes.?diarrhea?No.?blood in stool?No.?indigestion?Yes.?hemorrhoids?No.?Positive for?none.?UROLOGY:?difficulty urinating?No.?blood in urine?No.?frequent urination?Yes.?urinary incontinence?No.?recurrent UTI?No.?Positive for?none.?DERMATOLOGY:?rash?Yes.?mole?Yes.?lumps?No.?dry or sensitive skin?Yes.?hives (urticaria)?No.?acne?No.?skin cancer?No.?Positive for?per the HPI and history, otherwise unremakable.?NEUROLOGY:?headache?Yes.?tingling numbness?No.?seizures?No.?insomnia?Yes.?memory loss?Yes.?dizziness?Yes.?gait abnormality?No.?Positive for?none.?HEMATOLOGY/LYMPH:?Positive for?none.?MUSCULOSKELETAL:?joint swelling?No.?joint pain?Yes.?leg cramps?Yes.?joint stiffness?Yes.?sciatica?Yes.?osteoporosis?No.?fracture?Yes.?carpal tunnel?No.?gout?No.?Positive for?none.?PSYCHOLOGY:?high stress level?Yes.?depression?Yes.?sleep disturbances?Yes.?suicidal ideation?No.?eating disorder?No.?mental or physical abuse?No.?anxiety?Yes.?Positive for?none.?FEMALE REPRODUCTIVE:?heavy periods?Yes.?hot flashes?Yes.?abnormal vaginal discharge?Yes.?sexually active?No.?infertility?No.?frequent yeat infections?No.?pelvic pain?No.?breast pain?Yes.?nipple discharge No.?Are you ??No.?Are you planning on a future pregancy??No.?All other review of systems per the HPI and history, otherwise unremarkable. * Medical History:? * Surgical History:?Septoplast y 09/22/2018c-section 02/18/2022tubal ligation * Hospitalization/Major Diagno stic Procedure:?Denies Past Hospitalization * Family History:?Father: Yes, diagnosed with Cancer, Hypertension.?Mother: Yes, diagnosed with Cancer, Hypertension.?Paternal Grand Father: No.?Paternal Grand Mother: No.?Maternal Grand Father: No.?Maternal Grand Mother: No.?Siblings: Yes.?Children: Yes.? * Social History:?Marital Status?What is your marital status??single ???Alcohol Screening?Do you ever drink alcoholic beverages??Yes ?Number of drinks per occasion:?2 ?Frequency??Every other month ???Smoking?Have you ever smoked tobacco:?current smoker ?Additional Findings: Tobacco User?Light cigarette smoker ((1-9 cigs/day) ?How old were you when you started smoking??14 ?How often do you smoke cigarettes??every day ?How soon after you wake up do you smoke your first cigarette??after 60 minutes ?How many cigarettes do you smoke per day??5 or less ?Are you interested in quitting??Thinking about quitting ?Are you a :?light tobacco smoker ???Recreational drug use?Have you ever used recreational drugs??Yes ?What kind of drugs??marijuana ???Details on consumption of certain products?Do you regularly consume products with artificial coloring??Yes ?Have you ever noticed worsening of your rash with these food items??No ???Exercise?What kind(s) of exercise do you perform regularly??walking,age-appropriate participation in physical activites ?How often do you perform this exercise??weekly ???Are any of the following personal care products containing fragrance, dye or preservatives used regularly?Shampoo:?Yes ?Conditioner:?Yes ?Soap:?Yes ?Laundry Detergent:?Yes ?Fabric Softener:?Yes ?Deodorant:?Yes ?Perfume, cologne, after shave:?Yes ?Air freshners or other scented products:?Yes ?Hair coloring dyes or rinses:?Yes ?Other:?No ???Occupation?Are you currenly employed??Yes ?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 number of years?4 ?Do you believe that your current or previous occupation has any bearing on your illness??Yes ?How much work have you missed due to breathing difficulty within the past year??more than 1 month ?Please describe the effect of your illness on your job?decreased enjoyment,loss of work,loss of income ?Do you have any pending or planned legal action against your current or former employer which pertains to your medical illness??No ?Do you anticipate that your evaluation will be used in any legal action against your current employer or former employer??No ?Have you had any job with high exposure to fumes, chemicals, dust or other noxious substances??Yes ?Are you currently a student??No ???Environmental History?Living environment:?with relatives ?Where [place] the [place] ?Age of home:?1950 ?How long have you lived there??5 years or more ?How many people live in the home??6 ???Home description?Basement:?Yes ?Any water damage in basement??No ?Smokers in the home??No ?Smokers outside the home??Yes ?Air Conditioning??Yes ?Central Air??Yes ?Forced air heating??No ?Fireplace??No ?Wood burning stove??No ?Do you vacuum the home??Yes ?Air purification systems??No ?Pillow and mattress dust-proof encasings??Yes ?Do you use a humidifier??No ?Do you own any pets??Yes ?What kind(s)? (click all that apply)?cats,dog ?Where do your pets sleep??other room in home,garage ?Fabric softeners used??Yes ?Plants in the home??Yes ?How many??1 ?Where are they kept??kitchen ?Is there carpeting in your bedroom??Yes ?Age of carpet??10 ?Do you have dadj-ny-wloi carpeting??Yes ?What is the age of your carpeting??10 ?What is the age of your mattress (years)??1 ?What material(s) are used to manufacture your bedding and pillow??other ?What is the age of your pillow (years)??1 ?Do you sleep with quilts or blankets or a duvet??Yes ?What material??natural fiber (e.g. cotton),other ?How many cats??1 ?How many dogs??8 ???Tobacco Control (Standard)?Tobacco use:?Current smoker * Medications:?TakingSingulair 10 MG Tablet 1 tablet Orally Once a day ZyrTEC Allergy 10 MG Tablet 1 tablet Orally Once a day Breztri Aerosphere 160-9-4.8 MCG/ACT Aerosol 2 puffs Inhalation Twice a day Albuterol Sulfate HFA 108 (90 Base) MCG/ACT Aerosol Solution 1 puff as needed Inhalation every 4 hrs buPROPion HCl ER (SR) 150 MG Tablet Extended Release 12 Hour Oral Vitamin D3 1.25 MG (14287 UT) Capsule TAKE 1 CAPSULE BY MOUTH ONCE WEEKLY Oral Zolpidem Tartrate 10 MG Tablet Oral Dupixent 300 MG/2ML Solution Prefilled Syringe as directed Subcutaneous Triamcinolone Acetonide 0.1 % Cream 1 application Externally Two times a Week Taking Singulair 10 MG Tablet 1 tablet Orally Once a day Taking ZyrTEC Allergy 10 MG Tablet 1 tablet Orally Once a day Taking Breztri Aerosphere 160-9-4.8 MCG/ACT Aerosol 2 puffs Inhalation Twice a day Taking Albuterol Sulfate HFA 108 (90 Base) MCG/ACT Aerosol Solution 1 puff as needed Inhalation every 4 hrs Taking buPROPion HCl ER (SR) 150 MG Tablet Extended Release 12 Hour Oral Taking Vitamin D3 1.25 MG (41979 UT) Capsule TAKE 1 CAPSULE BY MOUTH ONCE WEEKLY Oral Taking Zolpidem Tartrate 10 MG Tablet Oral Taking Dupixent 300 MG/2ML Solution Prefilled Syringe as directed Subcutaneous Taking Triamcinolone Acetonide 0.1 % Cream 1 application Externally Two times a Week Not-Taking/PRNZolpidem Tartrate 10 MG Tablet TAKE 1 TABLET BY MOUTH AT BEDTIME Oral Zolpidem Tartrate 10 MG Tablet Oral Medication List reviewed and reconciled with the patientNot-Taking/PRN Zolpidem Tartrate 10 MG Tablet TAKE 1 TABLET BY MOUTH AT BEDTIME Oral Not-Taking/PRN Zolpidem Tartrate 10 MG Tablet Oral Medication List reviewed and reconciled with the patient * Allergies:?percocets: nausea and vomitingTramadol: nausea and vomitingno[Allergies Verified] Objective: * Vitals:?BP:116/74mm Hg, HR:7 7/min, Pulse Oximetry:99%, ACT:15, Ht: 67 in, Wt: 173.0 lbs, BMI:27.09Index. * Examination: ???General examination: ?General appearance:?pleasant, well-developed, well-nourished.?HEENT:?conjunctiva are clear bilaterally, no tenderness to palpation of the sinuses, TM's without evidence of acute infection, turbinates 2+ swollen and pale inferiorly bilaterally, clear rhinorrhea is present, no polyps noted, no septal perforation, posterior oropharynx is clear, no exudates, no tongue swelling, and uvula is midline.?Oral cavity:?normal, no lesions.?Neck, thyroid :?supple, non-tender, no anterior cervical lymphadenopathy.?Breasts :?not performed.?Heart:?RRR, S1-S2, no murmurs, no rubs, no gallops.?Lungs:?normal, clear to auscultation in all lung del real.?Neurologic exam:?unremarkable.?Skin:?normal, no rash, dermatographism, urticaria, angioedema.?Peripheral pulses:?normal (2+) bilaterally.?Back:?normal.?Extremities:?normal ROM, no clubbing, no cyanosis, no edema.?Genitalia:?not performed.? Assessment: * Assessment: 1.?Severe persistent asthma, uncomplicated - J45.50 (Primary)???2.?Allergic rhinitis due to pollen - J30.1???3.?Allergic rhinitis due to animal (cat) (dog) hair and dander - J30.81???4.?Other allergic rhinitis - J30.89?? 5.?Other chronic allergic conjunctivitis - H10.45??? Plan: * Treatment: 2.?Allergic rhinitis due to pollen? Notes: Dior clearly suffers from atopic disease based upon our skin testing and clinical history. Accordingly, we have introduced a new, aggressive medication regimen, discussed nasal washes and allergy-specific avoidance measures. We also discussed adjunctive therapies including subcutaneous, specific allergen immunotherapy as relates to the treatment and prevention of atopic disease. Plan to start a biologic first?? 3.?Allergic rhinitis due to animal (cat) (dog) hair and dander? Notes: Follow allergen avoidance, meds and consider SCIT as an adjunctive treatment to current regimen?? 4.?Other allergic rhinitis? Notes: Follow allergen avoidance, meds and consider SCIT as an adjunctive treatment to current regimen?? 5.?Other chronic allergic co njunctivitis? Notes: Given ocular signs and symptoms I encouraged allergy avoidance measures and meds as above. If symptoms persist, consider adding additional medications including intraocular antihistamine/mast cell stabilizer, PRN ?? * Procedure Codes:?48261 PT-FO CUSED [facility] RISK [id number] DOC MEDS VERIFIED W/PT OR RE * Preventive Medicine:? ??Counseling:?Medication instruction:?Watch for side effects of prescribed medications, Nasal steroid/antihistamine instruction: avoid septum.?Education:?GENERAL EDUCATION: Our staff spent an additional 30 minutes in direct contact with the patient educating them on their current diagnoses and proper treatment and prevention of symptoms and the proper use of medications.?Education 2:?ARC EDUCATION: Our staff discussed the appropriate allergen avoidance measures and medication utilization including upper airway hygiene with daily nasal washes given the patient's clinical status and diagnoses. SCIT EDUCATION: Discussed allergy immunotherapy including the relative risks, benefits and alternatives to this treatment as an adjunctive measure to current therapy, Allergy Immunotherapy: Risks: bleeding, infection, allergic reaction, anaphylaxis = severe allergic reaction that can cause ; Benefits: reduced need for medications, improved symptoms, disease modification. Alternatives: watch/wait, change medication regimen, improve allergy avoidance measures, Our staff discussed the warning signs of anaphylaxis and the indications to use self-injectable epinephrine and seek urgent or emergent care.?Patient education material?sent to portal??Yes ?Care goal follow up plan?BMI management provided?Yes ?Above Normal BMI Follow-up?Dietary management education, guidance, and counseling * Follow Up:?6 Months (Reason: Evaluation and Management) * Billing Information: * Visit Code:? 66395 Office Visit, Est Pt., Level 4. Modifiers: 25 * Procedure Codes:? 62392 PT-FOCUSED HLTH RISK ASSMT. G8427 DOC MEDS VERIFIED W/PT OR RE. * OPALEONTOLOGIST Sign off status: Completed true * Provider:?Rosa Dorsey MD Date:?05/31 Generated for Kole miranda/Van/eTransmitting on:?07/17/2024 06:29 PM MICROPALEONTOLOGIST History and Physical Notes * HPI (History of Present Illness) Category Sub-Category Detail Notes Category Not es *Introduction I had the pleasure o f seeing Dior Del Angel, a 38 year old with allergic rhinitis, asthma/COPD presenting for evaluation of reactions to Dupixent. She is alone for today's visit. She was last evaluated 05-21-2024. Since last visit, asthma is under good control. She started Dupixent and developed a large local reaction several inches in size. Reaction occurred a few hours after receiving the injection and lasted about 2 weeks. No systemic symptoms. Pictures are attached to the chart. Similar reaction 2 years ago with Dupixent. Dior has a long history of asthma which was diagnosed in her 20s. She is currently taking Breztri. She last required steroids . Over the years, she has been treated with multiple inhalers including Trelegy, Advair, Symbicort and Dulera. She prefers Dulera but not covered by insurance. She was treated with Dupixent 2 years ago with improvement in asthma after the first dose. She initially tolerated Dupixent well for a few months, but then developed large local reactions on her arm sometimes baseball size. No history of urticaria respiratory symptoms or angioedema associated with Dupixent. She was receiving Dupixent in her arm. She then tried Tezspire and Nucala for a few months and discontinued because no change in asthma control. ImmunoCAPs in the past showed sensitivity to dust mite, mold, dog and cats. She has requierd steroids 3-4 times in the last year. She requires ER visits about once a year. No history of hospitalization for asthma. 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 She has not been evaluated by speech therapy. Sinus surgery was performed in the past for deviated septum. She has a history of eczema on her hands and follows with Dr. Lorin Ruiz. Improvement in eczema with Dupixent. They discussed starting another biologic but Dior was concerned about side effects. She works in the [employer] and performs heavy lifting. Dogs are outside the house in the garage. Today, she reports no fevers, chills, night sweats or other constitutional symptoms Examination Category Sub-Category Detail Notes Category Not es General examination HEENT: conjunctiva are clear bilaterally, no tenderness to palpation of the sinuses, TM's without evidence of acute infection, turbinates 2+ swollen and pale inferiorly bilaterally, clear rhinorrhea is present, no polyps noted, no septal perforation, posterior oropharynx is clear, no exudates, no tongue swelling, and uvula is midline Neck, thyroid : supple, non-tender, no anterior cervical lymphadenopathy Heart: RRR, S1-S2, no murmu rs, no rubs, no gallops Lungs: normal, clear to aus cultation in all lung del real Abdomen: Extremities: normal ROM, no clubb ing, no cyanosis, no edema General appearance: pleasant, well-devel oped, well-nourished Skin: normal, no rash, ben matographism, urticaria, angioedema Neurologic exam: unremarkable Oral cavity: normal, no lesions Breasts : not performed Peripheral pulses: normal (2+) bilatera lly Back: normal Genitalia: not performed
--- OUTSIDE RECORDS SUMMARY | 2024-07-17 18:30 | XMS_ITS ---
Author Organization [facility] Address [address] [place] [address] Care Team Providers Care Clock And Watch Hands Dipper Name Role Phone Rand Brasher Primary Care Provider Brittany vailable Rosa Dorsey Unavailable [phone] Mary Mcgrath Unavailable Unavailable REASON FOR VISIT Message Encounters Encounter Location Date Provider Diagnosis [facility] [address] [place] [address] 06/17/2024 Rosa Dorsey Plan Of Treatment No Information Progress Notes * Shaneka DEL ANGELB: 6 (38 yo F)Acc No.[id number]:06/17/2024 Patient:?Dior DEL ANGEL :1985???Age:38 Y???Sex:Female Address:[address] [place] [address], [id number] * true * Date:? Generated for Printi ng/Van/eTransmitting on:?07/17/2024 06:29 PM ARMED GUARD
--- OUTSIDE RECORDS SUMMARY | 2024-07-17 18:30 | XMS_ITS | Clinical Summary ---
Author Organization [facility] [employer] Address [address] [place] [address] Care Team Providers Care Block Handler Name Role Phone Unavailable Primary Care Provider Unavailabl e Source Comments [facility] [employer],non-owned Affiliates and Associated Physician Practices is amultiple site organization consisting of ambulatory clinics and hospital sitesin [place], [place], [place] and [place]. This disclosure is being madepursuant to the Care Everywhere program and may not contain all information available regarding this patient. Last updated 18.[employer] Allergies Active Allergy Reactions Criticality Noted Date [...] should report any vaginal bleeding to her sternman and present to the nearest Hospital with [...] diabetic diet and monitor blood glucose values. Family History Medical History Relation Name Comments Hypertension Father Hypertension Mother Thyroid Disease Sister 1 Relation Name Status Comments Brother 1 Alive Brother 2 Alive Brother 3 Alive Father Alive Maternal Grandfather Maternal Grandmother Mother Alive Paternal Grandfather Paternal Grandmother Sister 1 Alive Sister 2 Alive Social History Tobacco Use Types Packs/Day Years [...] 01/22/2020 11:19 AM CDT Plan of Treatment Health Maintenance Due Date Last Done Comments PAP SMEAR 1985 PNEUMOCOCCAL VACCINE (1 of 2 - PCV) 1991 HIV SCREENING 2000 HEPATITIS C SCREENING 08/23/2003 DTAP/TDAP/TD VACCINES (1 - Tdap) 2004 HEPATITIS B VACCINE (1 of 3 - 19+ 3-dose series) 2004 DEPRESSION SCREENING 07/31/2023 COVID-19 VACCINE (2023-2 5 season) 2024 INFLUENZA VACCINE (#1) 2024 ZOSTER VACCINE (1 of 2) 2035 HIB VACCINE Aged Out No longer eligi ble based on patient's age to complete this topic HPV VACCINE Aged Out No longer eligi ble based on patient's age to complete this topic MENINGOCOCCAL VACCINE Aged Out No dean robyn eligible based on patient's age to complete this topic Dior Hart Personal/Family Self 1985
--- OUTSIDE RECORDS SUMMARY | 2024-07-17 18:31 | XMS_ITS | Encounter Summary ---
Author Organization [facility] Care Team Providers Care Infusion Therapy Nurse Name Role Phone Rand Ballard APRN, CNP Primary Care Pro vider Encounter Details Date Type Department Care Team (Latest Contact Info) Description 05/22/2023 Travel Social History Tobacco Use Types Packs/Day Years Used Date Smoking Tobacco: Never Assessed Comments Unknown Sex and Gender Information Value Date Recorded Sex Assigned at Not on file Legal Sex Female 9:58 PM CDT Gender Identity Not on file Sexual Orientation Not on file COVID-19 Exposure Response Date Recorded In the last 10 days, have yo u been in contact with someone who was confirmed or suspected to have Coronavirus/COVID-19? No / Unsure 05/22/2023 9:16 AM CDT documented as of this encounter Plan of Treatment Not on file documented as of this encounter Visit Diagnoses Not on filedocumented in this encounter Care Teams Infusion Therapy Nurse Relationship Specialty Start Date End Date Rand Blalard APRN, CNP [address] [place] [address] PCP - General Certified Nurse Practitioner 04/18/23 documented as of this encounter
--- OUTSIDE RECORDS SUMMARY | 2024-07-17 18:31 | XMS_ITS | Encounter Summary ---
Author Organization [facility] Address [address] [place] [address] Care Team Providers Care Performing Artist Name Role Phone Unavailable Primary Care Provider Unavailabl e Reason for Referral * Consult, Test & Treat (Routine) - Closed Specialty Diagnoses / Procedures Referred By Contac t Referred To Contact Diagnoses Previous delivery affecting , antepartum (HCC) Polyhydramnios, antepartum, single or unspecified fetus (HCC) Procedures MATERNAL MEDICINE CONSULT Krista Vivar MD [address] [place] [address] [place] [address] Referral ID Status Reason Start Date Expiration Date Visits Re quested Visits Authorized [id number] Closed 02/10/2020 02/09/2021 1 1 Reason for Visit * Reason Comments Ultrasound Consultation Encounter Details Date Type Department Care Team (Late Contact Info) Description 02/12/2020 10:30 AM CDT - 02/12/2020 11:59 PM CDT Hospital Encounter [facility]aternal [facility] [address] [place], [place] [id number] Sherwin Pina MD [facility] [address] Discharge Disposition: Home or Self Care Social History Tobacco Use Types Packs/Day Years Used Date Smoking Tobacco: Every Day Cigarettes 0.3 15 Smokeless Tobacco: Never Alcohol Use Standard Drinks/Week Comments Not Currently 0 (1 standard drink = 0.6 oz pur e alcohol) Comments Yes Sex and Gender Information Value Date Recorded Sex Assigned at Not on file Gender Identity Not on file Sexual Orientation Not on file documented as of this encounter Last Filed Vital Signs Vital Sign Reading Time Taken Comments Blood Pressure 120/75 02/12/2020 11:34 AM CDT Pulse 104 02/12/2020 11:34 AM CDT Temperature 36.6 ??C (97.9 ??F) 02/12/2020 11:34 AM C DT Respiratory Rate - - Oxygen Saturation - - Inhaled Oxygen Concentration - - Weight 87.8 kg (193 lb 9.6 oz) 02/12/2020 11:34 AM CDT Height - - Body Mass Index 30.32 01/22/2020 11:19 AM CDT documented in this encounter Medications at Time of Discharge Medication Sig Dispensed Refills Start Date End Date albuterol HFA (RELION VENTOLIN) 108 (90 BASE) MCG/ACT inhalerIndications:Asthm a Inhale 2 puffs by mouth every 6 hours as needed Reasons: Asthma NIFEdipine (PROCARDIA) 20 MG capsuleIndications:Arleth ture Labor Take 20 mg by mouth every 4 hours as needed Reasons: Early Labor omeprazole (PRILOSEC) 20 MG capsuleIndications:Heart burn Take 20 mg by mouth daily before breakfast Reasons: Heartburn ondansetron (ZOFRAN) 4 MG tablet Take 4 mg by mouth every 6 hours as needed for Nausea/Vomiting Vit-Fe Fumarate-FA ( VITAMIN) 28-0.8 MG tabletIndications:Pregna ncy Take 1 tablet by mouth once daily Reasons: documented as of this encounter Progress Notes * Linda Basilio RN - 02/12/2020 10:30 AM CDT Patient here for follow up visit with Dr. Pina for placental previa with hx of vertical scar.. Patient reports positive movement. Denies leakage of fluid. Patient went to hospital on Mondayfor contractions and bleeding. Patient reports she was started on procardia 20mg q 4 hours until delivery. Patient states Dr. Vivar Plans on delivery 03/09/20 unless MFM recommends sooner. Patient denies headache, epigastric pain and visual changes. VS per flowsheet. Please see note/letter per . Linda Basilio RN 02/12/2020 11:38 AM documented in this encounter Consult Notes * Sherwin Pina MD - 02/12/2020 10:30 AM CDTAssociated Order(s): AMB CONSULT TO MATERNAL MEDICNE Maternal- Medicine Follow-Up Consultation Note Patient: Laila Del Angel Referral physician: Dr. Krista Vivar (OBGYN) Date: 02/12/2020 GA: 34w5d Estimated Date of Delivery: 03/20/20 Reason for Consultation: complete placenta previa, h/o with T-incision Dear Dr. Vivar, I had the pleasure of seeing Laila Del Angel in consultation today at our [facility] office at [facility] in [place], [place]. As you may recall, Laila is a 34 year old at 34w5d who was referred to our office for complete placenta previa. Her last delivery was complicated by section for breech presentation. Laila reports that the low-transverse hysterotomy had to be extended up in the midline for an inverted T-incision to effect delivery. She was recently admitted at [facility] for her 2nd bleed in this . She reports shewas given procardia for contractions and was discharged home after a couple of days. She is still taking Procardia 20 mg q4 hours. Today, she reports still feeling regular contractions, but that has been occurring for a month. No VB today. No LOF. +FM. - - OB History Para Term AB Living 3 2 1 1 2 SAB TAB Ectopic Multiple Live Births 2 # Outcome Date GA Lbr Eb/2nd Weight Sex Delivery Anes PTL Lv 3 Current 2 Term 2019 38w0d 3317 g (7 lb 5 oz) M CS-LVertical FADI Comments: Pt states low transverse & low vertical d/t MD couldn't get baby out he was stuck in right rib cage area Complications: Breech presentation 1 2010 36w3d 2472 g (5 lb 7.2 oz) M Vag-Spont FADI Obstetric Comments G2: breech presentation known prior to delivery. Never offered version. Went into labor and had Past Surgical History: Procedure Laterality Date ??? Section 2019 breech delivery Allergies Allergen Reactions ??? Tramadol Unknown ??? Percocet [Oxycodone-Acetaminophen] Unknown Current Outpatient Medications on File Prior to Encounter Medication Sig Dispense Refill ??? albuterol HFA (RELION VENTOLIN) 108 (90 BASE) MCG/ACT inhaler Inhale 2 puffs by mouth every 6 hours as needed Reasons: Asthma ??? NIFEdipine (PROCARDIA) 20 MG capsule Take 20 mg by mouth every 4 hours as needed Reasons: EarlyLabor ??? omeprazole (PRILOSEC) 20 MG capsule Take 20 mg by mouth daily before breakfast Reasons: Heartburn ??? ondansetron (ZOFRAN) 4 MG tablet Take 4 mg by mouth every 6 hours as needed for Nausea/Vomiting ??? Vit-Fe Fumarate-FA ( VITAMIN) 28-0.8 MG tablet Take 1 tablet by mouth once daily Reasons: No current facility-administered medications on file prior to encounter. - Review of Systems: General ROS: Negative - Exam: BP 120/75 Pulse 104 Temp 97.9 ??F (36.6 ??C) (Temporal) Wt 193 lb 9.6 oz (87.8 kg) BMI 30.32 kg/m2 General: Alert, cooperative, No acute distress HEENT - Normocephalic, atraumatic; EOMI Lungs - Non-labored respirations Heart: Regular rate Abd - Soft and nontender; gravid Neuro - CN 2-12 Grossly intact, no gross deficits Skin: Dry and intact Psych: appropriate mood and affect Ultrasound (today, 02/12/20): Cruz, Cephalic, complete previa, no sonographic evidence of PAS,BPP 10/10, LGA size (EFW: 3070g, >97%ile), CHARLIE 29 Please see separate report for further details Assessment: IUP at 34w5d gestation 1. Complete placenta previa without sonographic evidence of placenta accreta spectrum; 2 sentinel bleeds so far in , most recent was 02/09/2020 2. H/o - inverted T-incision (low transverse then extended superior in the midline to effect delivery); likely through the contractile portion of the uterus 3. Mild polyhydramnios 4. LGA size Counseling - Discussed the findings of mild polyhydramnios, LGA size and the persistent placenta previa.No sonographic evidence of abnormal placental invasion but there is a baseline risk of ~10% based on the presence of a previa with a history of 1 prior . Reviewed the increased risk of hemorrhage, possible need for blood products, and hysterectomy, which she is aware of. Advised that if she has any labor, worrisome symptoms, or new vaginal bleeding that delivery is recommended given her gestational age and prior administration of ANCS. Also advised to report any vaginal bleeding to her glass embosser and present to the nearest Hospitalwith an obstetric levy She voiced understanding of the recommendations and agreed with the plan of care. I believe all herquestions were answered. Recommendations: - Recommended delivery at 36.0-36.6 weeks gestation or sooner as indicated - should be delivered at any time now given her current gestation for any new vaginal bleeding or evidence of labor (advised against any conservative management at this time) - not a candidate for late steroids - warnings reviewed extensively -hospital for delivery should have adequate resources ([facility]) due to high potential for antepartum and immediate maternal hemorrhage -please let our Maternal- Medicine consult group know if you require or desire assistance withperforming the repeat delivery at [facility] She will continue to see you for routine care and emergencies, including delivery as indicated. If you have any questions or concerns in the interim, please contact myself, our office or oneof my partners. Thank you again for referring Laila Del Angel to our office for consultation. Note that more than 50% of today's 40 minute follow-up consultation was devoted to [id number] counseling and coordination of care, separate from any additional procedures. Sincerely, Sherwin Pina MD Division of Maternal- Medicine Department of Obstetrics, Gynecology, and Women's Health [facility] documented in this encounter Plan of Treatment Not on file documented as of this encounter Procedures Procedure Name Priority Date/Time Associated Diagnosis Comments SONOGRAM - COMPLETE Routine 02/12/2020 1 0:51 AM CDT Previous delivery affecting , antepartum (HCC) Polyhydramnios, antepartum, single or unspecified fetus (HCC) documented in this encounter Results * SONOGRAM - COMPLETE (02/12/2020 10:51 AM CDT) Anatomical Region Laterality Modality Other 02/12/2020 10:5 1 AM CDT Narrative 02/12/2020 3:34 PM CDT ? [facility] Maternal Medicine ? Maternal & Care Center ?PHONE: ??FAX: Pat. Name: ?LAILA DEL ANGEL. No: ?[id number] Study Date: ?? 02/12/2020 ??10:51am , Age: ? 1985, 34 Pregnancies: ?? 7, Para 2, Ab 4 Height: ? 67 in Weight: ? 186 lb LMP: ?06/14/2019 GA by LMP: ?34w5d GA by Base: ?? 34w5d ?? ZEKE: 03/20/2020 GA by US: ? 36w2d ?? ZEKE: 03/09/2020 GA Selected: ??34w5d (From [facility]) ZEKE: ?03/20/2020 Referring MD: Krista Vivar MD Chain Saw Mechanic: ??Rand Cook RDMS, ALEXANDRA CPT4: ? [id number] BMI: ?29.13 Hist/Ind: ? Complete placenta previa ?Hx T-incision ?Vaginal bleeding 02/09/2020 MEASUREMENTS & AGE ? GROWTH EVALUATION Measurement ??GA ? Range ? Srce %for GA Ratios ----- ---- ------- BPD ??9.0 cm 36w3d (82i3g-45r9r) Hadl BPD 89% FL/BPD 0.77 (0.71 - 0.87) HC ??33.2 cm 37w6d (28a0d-94o9w) Hadl HC ??89% FL/AC ??0.21 (0.20 - 0.24) AC ??33.5 cm 37w3d (18f0m-32y3d) Hadl AC ??98% HC/AC ??0.99 (0.94 - 1.13) FL ?? 7.0 cm 35w5d (40t4g-41s7t) Hadl FL ??66% CI ? 0.76 (0.70 - 0.86) HL ?? 6.1 cm 35w3d (40c6a-72b1c) Pepe HL ??62% GA for sonogram 36w2d (25u5x-83b0f) ?? Weight Estimate: based on (BPD,HC,AC,FL) Hadlock ?Weight: 3070 gm (2622-3519gm) Had ? : 6lbs, 12oz ? Normal: 2533 gm (1899- 3166gm) Had ? Wt% ? 95% for 34w5d Heart Rate: 148 bpm Amniotic Fluid Index: 29.8cm (08.0-24.9)* Q1: 8.2cm ??Q2: 5.3cm ??Q3: 9.1cm ??Q4: 7.3cm ?? Biophysical Profile: 05/09 Breathin ?? Tone: 2 ?? NST: 2 Movement: ??2 ?? AFV: ??2 EVAL, PLACENTA Presentation: cephalic Placenta: posterior Previa: complete previa Heart Rate: 148 bpm Amniotic Fluid Volume: polyhydramnios Anatomy!Normal!Abnormal!Suboptimal!Prev. Seen!Comments Cranium ?! ?! ?! ?! ? x ?! Mdl (CSP/Thal! ?! ?! ?! ? x ?! Ventricles ?? ! ?! ?! ?! ? x ?! Choroid Plexu! ?! ?! ?! ? x ?! Cerebellum ?? ! ?! ?! ?! ? x ?! Cisterna M. ??! ?! ?! ?! ? x ?! Profile ?! ?! ?! ?! ? x ?! Nasal Bone ?? ! ?! ?! ?! ? x ?! Lip ?! ?! ?! ?! ? x ?! Spine ?! ?! ?! ?! ? x ?! Lungs ?! ?! ?! ?! ? x ?! 4 Chamber Hea! ?! ?! ?! ? x ?! LVOT ? ! ?! ?! ? x ?! ?! RVOT ? ! ?! ?! ? x ?! ?! 3 Vessel View! ?! ?! ?! ? x ?! Cross-over ?? ! ?! ?! ?! ? x ?! Ductal Arch ??! ?? x ??! ?! ?! ?! Aortic Arch ??! ?! ?! ?! ? x ?! Caval View ?? ! ?? x ??! ?! ?! ?! Situs ?! ?! ?! ?! ? x ?! Diaphragm ?! ?! ?! ?! ? x ?! Stomach ?! ?? x ??! ?! ?! ? x ?! Bowel ?! ?! ?! ?! ? x ?! Kidneys ?! ?? x ??! ?! ?! ? x ?! Bladder ?! ?? x ??! ?! ?! ? x ?! 3 Vessel Cord! ?! ?! ?! ? x ?! Cord In! ?! ?! ?! ? x ?! Upper Extremi! ?! ?! ?! ? x ?! Hands ?! ?! ?! ?! ? x ?! Lower Extreme! ?! ?! ?! ? x ?! Feet ? ! ?! ?! ?! ? x ?! External Jaina! ?! ?! ?! ? x ?! Placental Cor! ?! ?! ?! ? x ?! CLINICAL SUMMARY Study Number: 3 ?? A single fetus is seen in cephalic presentation. ??The measurements today are consistent with greater than expected growth. ??The ZEKE is based on LMP and prior ultrasound examination. ??The amniotic fluid volume is increased. ?? NST Reviewed: baseline 130 bpm, moderate variability, appropriate accels, no decelerations; Reactive NST [place]: Ctxs q4-8 minutes A complete, posterior placenta previa is again seen today. There is a clear delineation between the placenta and the uterus. ??There are no bridging vessels and no placental lakes are appreciated. IMPRESSION: Single, live, intrauterine at 34w5d ?? LGA size with appropriate interval growth Mild polyhydramnios Reassuring testing No major malformations seen today Complete, posterior placenta previa without sonographic evidence of placenta accreta spectrum RECOMMEND: Follow- up ultrasound as clinically indicated Delivery at 36.0-36.6 WGA for complete previa with history of prior inverted T incision on the uterus (or sooner as clinically indicated) Please be advised that these recommendations are being made in the best interest of our patients during the COVID 19 Pandemic. Thank you for allowing us the opportunity to care for your patient. ?? Chet Pina MD <Electronic Signature> ??02/12/2020 03:11pm Krista Vivar MD [facility] ORDERABLES documented in this encounter Visit Diagnoses Diagnosis Previous delivery affecting , antepartum (HCC) Previous delivery, antepartum condition or complication Placenta previa without hemorrhage, antepartum (HCC) Placenta previa without hemorrhage, antepartum Polyhydramnios, antepartum, single or unspecified fetus (HCC) Placenta previa in third trimester (HCC) Polyhydramnios in third trimester complication, single or unspecified fetus (HCC) Excessive growth affecting management of in third trimester, single or unspecified fetus (HCC) 34 weeks gestation of (HCC) state, incidental documented in this encounter
--- OUTSIDE RECORDS SUMMARY | 2024-07-17 18:31 | XMS_ITS | Patient Health Summary ---
Author Organization [facility] [employer] Address [address] [place] [address] Care Team Providers Care Third Helper Name Role Phone Unavailable Primary Care Provider Unavailabl e Note from [facility],non-owned Affiliates and Associated Physician Practices is amultiple site organization consisting of ambulatory clinics and hospital sitesin [place], [place], [place] and [place]. This disclosure is being madepursuant to the Care Everywhere program and may not contain all information available regarding this patient. Last updated 18.[facility] Allergies * Oxycodone-Acetaminophen(Unknown) * Tramadol(Unknown) Medications * Be aware that medications may not be up to date on this document. Alwaysverify current medications with the patient. * ondansetron (ZOFRAN) 4 MG tablet Take 4 mg by mouth every 6 hours as needed for Nausea/Vomiting * omeprazole (PRILOSEC) 20 MG capsule Take 20 mg by mouth daily before breakfast Reasons: Heartburn * Vit-Fe Fumarate-FA ( VITAMIN) 28-0.8 MG tablet Take 1 tablet by mouth once daily Reasons: * albuterol HFA (RELION VENTOLIN) 108 (90 BASE) MCG/ACT inhaler Inhale 2 puffs by mouth every 6 hours as needed Reasons: Asthma * NIFEdipine (PROCARDIA) 20 MG capsule Take 20 mg by mouth every 4 hours as needed Reasons: Early Labor Active Problems Problem Noted Date Diagnosed Date Previous delivery affecting , antepartum 01/22/2020 Placenta previa without hemorrhage, antepartum 0 01/10/2020 Polyhydramnios, antepartum complication 01/10/20 20 Social History Tobacco Use Types Packs/Day Years [...] Mass Index 30.32 01/22/2020 11:19 AM CDT Procedures * SONOGRAM - COMPLETE(Performed 02/12/2020) Performed for Previous delivery affecting , antepartum (HCC), Polyhydramnios, antepartum, single or unspecified fetus (HCC) * SONOGRAM - COMPLETE(Performed 01/22/2020) Performed for Placenta previa without hemorrhage, antepartum (HCC), Polyhydramnios, antepartum, single or unspecified fetus (HCC) * SONOGRAM - COMPLETE(Performed 01/10/2020) Performed for Polyhydramnios, antepartum, single or unspecified fetus (HCC), Placenta previa without hemorrhage, antepartum (HCC) Results * SONOGRAM - COMPLETE (02/12/2020 10:51 AM CDT) Only the most recent of3 resultswithin the time period is included. Anatomical Region Laterality Modality Other 02/12/2020 10:5 1 AM CDT Narrative 02/12/2020 3:34 PM CDT ? [facility] ? M[facility] & Care Center ?PHONE: ??FAX: Pat. Name: ?LAILA DEL ANGEL Kristy. No: ?[id number] Study Date: ?? 02/12/2020 ??10:51am , Age: ? 1985, 34 Pregnancies: ?? 7, Para 2, Ab 4 Height: ? 67 in Weight: ? 186 lb LMP: ?06/14/2019 GA by LMP: ?34w5d GA by Base: ?? 34w5d ?? ZEKE: 03/20/2020 GA by US: ? 36w2d ?? ZEKE: 03/09/2020 GA Selected: ??34w5d (From [facility]) ZEKE: ?03/20/2020 Referring MD: Krista Vivar MD Furnace Packer: ??Rand Cook, HUMBLE, RDFOZIA CPT4: ? [id number] BMI: ?29.13 Hist/Ind: ? Complete placenta previa ?Hx T-incision ?Vaginal bleeding 02/09/2020 MEASUREMENTS & AGE ? GROWTH EVALUATION Measurement ??GA ? Range ? Srce %for GA Ratios ----- ---- ------- BPD ??9.0 cm 36w3d (75d7t-54x0n) Hadl BPD 89% FL/BPD 0.77 (0.71 - 0.87) HC ??33.2 cm 37w6d (75h7i-74t7j) Hadl HC ??89% FL/AC ??0.21 (0.20 - 0.24) AC ??33.5 cm 37w3d (70o1i-78w9i) Hadl AC ??98% HC/AC ??0.99 (0.94 - 1.13) FL ?? 7.0 cm 35w5d (60t3i-80s8f) Hadl FL ??66% CI ? 0.76 (0.70 - 0.86) HL ?? 6.1 cm 35w3d (64u0a-84n0t) Pepe HL ??62% GA for sonogram 36w2d (70s8s-96t3j) ?? Weight Estimate: based on (BPD,HC,AC,FL) Hadlock [...] ?! ?! ?! ? x ?! External Jania! ?! ?! ?! ? x ?! Placental [...] variability, appropriate accels, no decelerations; Reactive NST [place]: Ctxs q4-8 minutes A complete, posterior placenta [...] <Electronic Signature> ??02/12/2020 03:11pm Krista Vivar MD [facility] ORDERABLES
--- OUTSIDE RECORDS SUMMARY | 2024-07-17 18:31 | XMS_ITS | Encounter Summary ---
Author Organization [facility] Address [address] [place] [address] Care Team Providers Care Executive Personal Assistant Name Role Phone Unavailable Primary Care Provider Unavailabl e Reason for Referral * Consult, Test & Treat (Routine) - Closed Specialty Diagnoses / Procedures Referred By Contac t Referred To Contact Diagnoses Placenta previa without hemorrhage, antepartum (HCC) Polyhydramnios, antepartum, single or unspecified fetus (HCC) Procedures MATERNAL MEDICINE CONSULT Krista Vivar MD [address] [facility] [address] [place] [address] Referral ID Status Reason Start Date Expiration Date Visits Re quested Visits Authorized [id number] Closed 01/21/2020 01/20/2021 1 1 Reason for Visit * Reason Comments Ultrasound Consultation Encounter Details Date Type Department Care Team (Latest Contact Info) Description 01/22/2020 10:30 AM CDT - 01/22/2020 11:59 PM CDT Hospital Encounter [facility] Maternal & Care [address] [place] [address] Cyndee Leslie MD [address] [place] [id number] Discharge Disposition: Home or Self Care Social [...] Sign Reading Time Taken Comments Blood Pressure 116/73 01/22/2020 11:19 AM CDT Pulse 92 01/22/2020 11:19 AM CDT Temperature 36.9 ??C (98.5 ??F) 01/22/2020 11:19 AM C DT Respiratory Rate - - Oxygen Saturation - - Inhaled Oxygen Concentration - - Weight 88.1 kg (194 lb 3.2 oz) 01/22/2020 11:19 AM CDT Height 170.2 cm (5' 7 ) 01/22/2020 11:19 AM CDT Body Mass Index 30.42 01/22/2020 11:19 AM CDT documented in this encounter Medications at Time of Discharge Medication Sig Dispensed Refills Start Date End Date albuterol HFA (RELION VENTOLIN) 108 (90 BASE) MCG/ACT inhalerIndications:Asthm a Inhale 2 puffs by mouth every 6 hours as needed Reasons: Asthma omeprazole (PRILOSEC) 20 MG capsuleIndications:Heart burn Take 20 mg by mouth daily before breakfast Reasons: Heartburn ondansetron (ZOFRAN) 4 MG tablet Take 4 mg by mouth every 6 hours as needed for Nausea/Vomiting Vit-Fe Fumarate-FA ( VITAMIN) 28-0.8 MG tabletIndications:Pregna ncy Take 1 tablet by mouth once daily Reasons: documented as of this encounter Progress Notes * Linda Basilio RN - 01/22/2020 10:30 AM CDT New patient here for consult with Dr. Leslie to placenta previa & polyhydramnios. Patient reports she is scheduled on 03/09/20 for a repeat C/S. Patient reports positive movement. Denies cramping, contractions, bleeding, and leakage of fluid. Patient denies headache, epigastric pain and v isual changes. VS per flow sheet. See note/letter per Dr. Leslie. Linda Basilio RN 01/22/2020 2:12 PM documented in this encounter Consult Notes * Cyndee Leslie MD - 01/22/2020 10:30 AM CDTAssociated Order(s): AMB CONSULT TO MATERNAL MEDICNE Images from the original note were not included. Dear Dr. Vivar, I had the pleasure of seeing your patient, Laila Del Angel for consultation today. Maternal Medicine Consult Note Date of Consult: 01/22/2020 Physician Requesting Consult: Krista Vivar MD Name: Laila Del Angel Age: [age] year old Race: Reason for requesting consultation: Laila Del Angel is a 34 year [id number], female at 31w5d weeks gestation by Estimated Date of Delivery: 03/20/20. I have been asked by Dr. Vivar to consult for previous delivery and placentaprevia. HPI: Failed 1 hr GCT which was given during an ED visit, at [facility], for VB [2-3 weeks ago]. That episode preserved 1st and only a vaginal bleeding. She reports that she only stayed in the emergency department for a few hours. She was given corticosteroids for lung maturity and discharged to home. She returned the next day to complete the course of steroids. She did not require blood transfusion. She recently performed a 3 hr glucose tolerance test but has not yet received the results. She has discussed having a tubal ligation performed at the time of her repeat with her managed care coordinator. summary: Allergies Allergen Reactions ??? Tramadol Unknown ??? Percocet [Oxycodone-Acetaminophen] Unknown Past Medical History: Diagnosis Date ??? Asthma in adult since age 20 years ??? Polyhydramnios, antepartum complication 01/10/2020 ??? depression 2010 meds for 2 yrs. Past Surgical History: Procedure Laterality Date ??? Section 2019 breech delivery Social History Socioeconomic History ??? Marital status: Single Spouse name: Not on file ??? Number of children: 2 ??? Years of education: Not on file ??? Highest education level: Not on file Occupational History ??? Not on file Social Needs ??? Financial resource strain: Not on file ??? Food insecurity Worry: Not on file Inability: Not on file ??? Transportation needs Medical: Not on file Non-medical: Not on file Tobacco Use ??? Smoking status: Current Every Day Smoker Packs/day: 0.25 Years: 15.00 Pack years: 3.75 Types: Cigarettes ??? Smokeless tobacco: Never Used Substance and Sexual Activity ??? Alcohol use: Not Currently ??? Drug use: Not Currently ??? Sexual activity: Yes Partners: Male Lifestyle ??? Physical activity Days per week: Not on file Minutes per session: Not on file ??? Stress: Not on file Relationships ??? Social connections Talks on phone: Not on file Gets together: Not on file Attends confucianist service: Not on file Active member of club or organization: Not on file Attends meetings of clubs or organizations: Not on file Relationship status: Not on file ??? Intimate partner violence Fear of current or ex partner: Not on file Emotionally abused: Not on file Physically abused: Not on file Forced sexual activity: Not on file Other Topics Concern ??? Not on file Social History Narrative ??? Not on file Family History Problem Relation Name Age of Onset ??? Hypertension Father ??? Hypertension Mother ??? Thyroid Disease Sister OB History Para Term AB Living 3 [...] offered version. Went into labor and had Reports that she had some minor complications of superficial skin closing after her delivery. 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 albuterol HFA (RELION VENTOLIN) 108 (90 BASE) MCG/ACT inhaler Inhale 2 puffs by mouth every 6 hours as needed Reasons: Asthma ??? omeprazole (PRILOSEC) 20 MG capsule Take 20 mg by mouth daily before breakfast Reasons: Heartburn ??? ondansetron (ZOFRAN) 4 MG tablet Take 4 mg by mouth every 6 hours as needed for Nausea/Vomiting ??? Vit-Fe Fumarate-FA ( VITAMIN) 28-0.8 MG tablet Take 1 tablet by mouth once daily Reasons: Review of Systems: Constitutional: Negative for fevers Eyes: Negative for visual changes Respiratory: Negative for shortness of breath Cardiovascular: Negative for chest pain Gastrointestinal: reports heart burn Genital:Negative for abnormal vaginal discharge Urinary: Negative for dysuria Hematologic/lymphatic: Negative for vaginal bleeding Musculoskeletal:Negative for significant back pain Neurological: headaches since stopping heavy caffeine drinks; dizzyness Endocrine: recent epsiode of sweating and feeling like she was gong to pass out Integument: Denies skin changes Obstetric: movement appreciated, denies leakage of fluid , no cramping but some abd tightening Exam: BP 116/73 (BP SITE: LEFT ARM) Pulse 92 Temp 98.5 ??F (36.9 ??C) (Temporal) Ht 5' 7 (1.702 m) Wt 194 lb 3.2 oz (88.1 kg) BMI 30.42 kg/m2 Gen: no acute distress Mental: appropriate mood, behavior and speech Cranial Nerves 2-12 intact Chest: nonlabored breathing Abdomen: gravid, no epigastric tenderness Trunk: no costovertebral angle tenderness Extremities: no pedal edema; symmetric extremities Skin: No rash observed; inverted T skin incision Labs: Alb/Glu/K/N/L Albumin: Trace Glucose: Negative Urine Ketones: Negative. US: (See detailed report) Impression: IUP at 31w5d Patient Active Problem List Diagnosis Date Noted ??? Previous delivery affecting , antepartum 01/22/2020 Priority: Not Prioritized ??? Placenta previa without hemorrhage, antepartum 01/10/2020 Priority: Not Prioritized ??? Polyhydramnios, antepartum complication 01/10/2020 Priority: Not Prioritized RECOMMENDATIONS: Previous delivery affecting , antepartum Incomplete records available for consultation. No operative report from the delivery in 2019 available. notes report a T incision on the skin however the uterine incision is not specified. Maternal Medicine recommendations: 1. please submit a copy of the operative report from 2019 delivery for review Placenta previa without hemorrhage, antepartum There is a complete posterior placenta previa [...] 10 millimeters, which is the case for Patel ocampo, was associated with a higher rate of [...] corticosteroids for lung maturity. Maternal Medicine recommendations: 2. pelvic precautions 3. should report any vaginal bleeding to her managed care coordinator and present to the nearest Hospital with an obstetric levy 4. hospital for delivery should be determined and should have adequate resources due to high potential for antepartum and immediate maternal hemorrhage 1. please let our Maternal- Medicine consult group know if you require or desire assistance with performing the repeat delivery 5. IS a candidate for a single rescue course of corticosteroids if signs of imminent delivery are present prior to 34 weeks 6. NOT a candidate for corticosteroids at 34 weeks or later 7. Repeat ultrasound evaluation of placenta in 3 weeks 8. Recommend delivery between 36-37 weeks by repeat Polyhydramnios, antepartum complication Please correlate with the results of glucose tolerance test. If the glucose tolerance test is abnormal she should be treated as a gestational diabetic and at a minimum should follow a diabetic diet and monitor blood glucose values. I recommend a follow-up consultation in 2-3 weeks. Laila is to follow up with her primary Obstetrical care provider for her routine care and acute OB concerns, including delivery as clinically indicated. Once again, we appreciate the opportunity to assist you in the care of Ms. Del Angel. If issues arise for which I can be of help before her next visit here, please contact me directly, or contact one of my partners if I am unavailable. She will continue seeing you for care. Sincerely, Cyndee Leslie MD Division of Maternal- Medicine Department of Obstetrics, Gynecology, and Women's Health [facility] of Medicine documented in this encounter Plan of Treatment Not on file documented as of this encounter Procedures Procedure Name Priority Date/Time Associated Diagnosis Comments SONOGRAM - COMPLETE Routine 01/22/2020 1 0:47 AM CDT Placenta previa without hemorrhage, antepartum (HCC) Polyhydramnios, antepartum, single or unspecified fetus (HCC) documented in this encounter Results * SONOGRAM - COMPLETE (01/22/2020 10:47 AM CDT) Anatomical Region Laterality Modality Other 01/22/2020 10:4 7 AM CDT Narrative 01/22/2020 7:21 PM CDT ? [facility] ?PHONE: ??FAX: Pat. Name: ?LAILA DEL ANGEL. No: ?[id number] Study Date: ?? 01/22/2020 ??10:47am , Age: ? 1985, 34 Pregnancies: ?? 7, Para 2, Ab 4 Height: ? 67 in Weight: ? 186 lb LMP: ?06/14/2019 GA by LMP: ?31w5d GA by Base: ?? 31w5d ?? ZEKE: 03/20/2020 GA Selected: ??31w5d ([facility]) ZEKE: ?03/20/2020 Referring MD: Krista Vivar MD Video Player Mechanic: ??Rand Cook, JANICEMS, RDCS CPT4: ? 30004,22021,03020 BMI: ?29.13 Hist/Ind: ? Placenta previa on outside scan ?Hx vertical scar ?Polyhydramnios on outside scan Cervix: ??Length: 4 cm ??Approach: transvaginal ??Funneling: not present Heart Rate: 153 bpm Amniotic Fluid Index: 26.6cm (08.7-24.1)* Q1: 9.3cm ??Q2: 5.7cm ??Q3: 4.9cm ??Q4: 6.6cm ?? Biophysical Profile: 03/07 Breathin ?? Tone: 2 ?? Movement: ??2 ?? AFV: ??2 EVAL, PLACENTA Presentation: breech Placenta: posterior Previa: complete previa Heart Rate: 153 bpm Amniotic Fluid Volume: polyhydramnios Anatomy!Normal!Abnormal!Suboptimal!Prev. Seen!Comments Cranium ?! ?! ?! ?! ? x ?! Mdl (CSP/Thal! ?! ?! ?! ? x ?! Ventricles ?? ! ?? x ??! ?! ?! ?! Choroid Plexu! ?! ?! ?! ? [...] ?! ? x ?! Ductal Arch ??! ?! ?! ? x ?! ?! Aortic Arch ??! ?! ?! ?! ? x ?! Caval View ?? ! ?! ?! ? x ?! ?! Situs ?! ?! ?! ?! [...] ! ?! ?! ?! ? x ?! Placental Cor! ?! ?! ?! ? x ?! CLINICAL SUMMARY Study Number: 2 ?? A follow up exam was performed due to placental previa. ?? Assessment of the placenta was performed a truck transabdominally and transvaginally. ??The placenta is posterior. ??There is a complete posterior previa. ??The placental thickness overlying the internal cervical os is greater than 28 mm, which is significant. ??Color Doppler evaluation demonstrates only 1 area of a bridging vessel between what appears to be the anterior lip of the cervix and the bladder. ??This vessel has a maternal pulse rate and does not appear to connect to the retroplacental space. ??There is no interruption of the bladder line nor loss of the retroplacental space appreciated. ?? There are no concerning placental lakes observed. IMPRESSION: Single, live, IUP 31w5d. ?? Reassuring testing. ?? Mild polyhydramnios No major malformations demonstrated within the limitations of today's exam survey incomplete to date Complete posterior previa Reassuring transvaginal cervical length At risk for antepartum hemorrhage given placental thickness over the internal cervical os Only 1 ultrasound finding with increased concern for placenta ask accreta spectrum See separate consultation note. RECOMMEND: Please correlate amniotic fluid levels with diabetes screening result No indication for weekly testing for the sole indication of mild polyhydramnios Re-evaluate placenta and growth in 2 to 3 weeks Attempt completion of survey at next exam Thank you for the opportunity to participate in the care of your patient. Cyndee Leslie MD <Electronic Signature> ??01/22/2020 07:21pm Krista Vivar MD [facility] ORDERABLES documented in this encounter Visit Diagnoses Diagnosis Placenta previa without hemorrhage, antepartum (HCC) Placenta previa without hemorrhage, antepartum Polyhydramnios, antepartum, single or unspecified fetus (HCC) Maternal care for scar from previous delivery, unspecified prior delivery type (HCC) Placenta previa, third trimester (HCC) Polyhydramnios in third trimester complication, single or unspecified fetus (HCC) 31 weeks gestation of (HCC) state, incidental * Assessment & Plan Note - Cyndee Leslie MD - 01/22/2020 3:00 PM CDT Associated Problem(s): Polyhydramnios, antepartum complication (HCC) Please correlate with the results of glucose tolerance test. If the glucose tolerance test is abnormal she should be treated as a gestational diabetic and at a minimum should follow a diabetic diet and monitor blood glucose values. * Assessment & Plan Note - Cyndee Leslie MD - 01/22/2020 2:52 PM CDT Associated Problem(s): Placenta previa without hemorrhage, antepartum (HCC) There is a complete posterior placenta previa [...] 10 millimeters, which is the case for Patel ocampo, was associated with a higher rate of [...] should report any vaginal bleeding to her managed care coordinator and present to the nearest Hospital with [...] Recommend delivery between 36-37 weeks by repeat * Assessment & Plan Note - Cyndee Leslie MD - 01/22/2020 2:51 PM CDT Associated Problem(s): Previous delivery affecting , antepartum (HCC) Incomplete records available for consultation. No operative report from the delivery in 2019 available. notes report a T incision on the skin however the uterine incision is not specified. Maternal Medicine recommendations: 1. please submit a copy of the operative report from 2019 delivery for review documented in this encounter
--- OUTSIDE RECORDS SUMMARY | 2024-07-17 18:31 | XMS_ITS | Encounter Summary ---
Author Organization [facility] Address [address] [place] [address] Care Team Providers Care Saute Chef Name Role Phone Unavailable Primary Care Provider Unavailabl e Encounter Details Date Type Department Care Team (Late st Contact Info) Description 01/10/2020 10:30 AM CDT - 01/10/2020 11:59 PM CDT Hospital Encounter [facility] Maternal & Care [address] [place] [id number] Emerson Fajardo MD Buchanan, Christopher Q, MD [address] [place] [address] Discharge Disposition: Home or Self Care Social History Tobacco Use Types Packs/Day Years Used Date Smoking Tobacco: Never Assessed Comments Yes Sex and Gender Information Value Date Recorded Sex Assigned at Not on file Gender Identity Not on file Sexual Orientation Not on file documented as of this encounter Last Filed Vital Signs Vital Sign Reading Time Taken Comments Blood Pressure - - Pulse - - Temperature 36.3 ??C (97.3 ??F) 01/10/2020 10:37 AM C DT Respiratory Rate - - Oxygen Saturation - - Inhaled Oxygen Concentration - - Weight - - Height - - Body Mass Index - - documented in this encounter Plan of Treatment Not on file documented as of this encounter Procedures Procedure Name Priority Date/Time Associated Diagnosis Comments SONOGRAM - COMPLETE Routine 01/10/2020 1 0:47 AM CDT Polyhydramnios, antepartum, single or unspecified fetus (HCC) Placenta previa without hemorrhage, antepartum (HCC) documented in this encounter Results * SONOGRAM - COMPLETE (01/10/2020 10:47 AM CDT) Anatomical Region Laterality Modality Other 01/10/2020 10:4 7 AM CDT Narrative 01/10/2020 11:46 AM CDT ? [facility] ?PHONE: ??FAX: Pat. Name: ?LAILA DEL ANGEL Pat. No: ?[id number] Study Date: ?? 01/10/2020 ??10:47am , Age: ? 1985, 34 Pregnancies: ?? 7, Para 2, Ab 4 Height: ? 67 in Weight: ? 186 lb LMP: ?Unknown GA by LMP: ?30w0d GA by US: ? 31w4d ?? ZEKE: 03/09/2020 GA Selected: ??30w0d (LMP) ZEKE: ?03/20/2020 Referring MD: Krista Vivar MD Intern Retail: ??Rand Cook, HUMBLE, ALEXANDRA CPT4: ? [id number] BMI: ?29.13 Hist/Ind: ? Placenta previa on outside scan ?Hx vertical scar ?Polyhydramnios on outside scan MEASUREMENTS & AGE ? GROWTH EVALUATION Measurement ??GA ? Range ? Srce %for GA Ratios ----- ---- ------- BPD ??7.9 cm 31w6d (17r0m-01d8f) Hadl BPD 87% FL/BPD 0.77 (0.71 - 0.87) HC ??29.1 cm 32w1d (31o2c-85w4o) Hadl HC ??76% FL/AC ??0.21 (0.20 - 0.24) AC ??28.6 cm 32w4d (12d0u-02a6e) Hadl AC ??97% HC/AC ??1.02 (0.97 - 1.16) FL ?? 6.1 cm 31w5d (43n0z-35v1c) Hadl FL ??80% CI ? 0.76 (0.70 - 0.86) HL ?? 5.5 cm 32w1d (10j1q-20k4z) Pepe HL ??86% Cere 4.0 cm 32w1d (31d7e-51u1s) Hill Cere90% GA for sonogram 31w4d (96s3h-44k6u) ?? Weight Estimate: based on (BPD,HC,AC,FL) Hadlock ?Weight: 1929 gm (1647-2210gm) Had ? : 4lbs, 4oz ? Normal: 1559 gm (1169- 1949gm) Had ? Wt% ? 97% for 30w0d Cervix: ??Length: 4.6 cm ??Approach: transvaginal ??Funneling: not present Heart Rate: 150 bpm Amniotic Fluid Index: 21.6cm (09.0-23.4) Q1: 4.8cm ??Q2: 5.1cm ??Q3: 6.5cm ??Q4: 5.2cm ?? EVAL, PLACENTA Presentation: transverse MaternalSide: head maternal right Umbilical Cord: 3 Vessels Previa: complete previa Heart Rate: 150 bpm Amniotic Fluid Volume: normal Anatomy!Normal!Abnormal!Suboptimal!Prev. Seen!Comments Cranium ?! ?? x ??! ?! ?! ?! Mdl (CSP/Thal! ?? x ??! ?! ?! ?! Ventricles ?? ! ?! ?! ? x ?! ?! Choroid Plexu! ?? x ??! ?! ?! ?! Cerebellum ?? ! ?? x ??! ?! ?! ?! Cisterna M. ??! ?? x ??! ?! ?! ?! Nuchal Fold ??! ?! ?! ? x ?! ?! Profile ?! ?? x ??! ?! ?! ?! Nasal Bone ?? ! ?? x ??! ?! ?! ?! Lip ?! ?? x ??! ?! ?! ?! Spine ?! ?? x ??! ?! ?! ?! Lungs ?! ?? x ??! ?! ?! ?! 4 Chamber Hea! ?? x ??! ?! ?! ?! LVOT ? ! ?! ?! ? x ?! ?! RVOT ? ! ?! ?! ? x ?! ?! 3 Vessel View! ?? x ??! ?! ?! ?! Cross-over ?? ! ?? x ??! ?! ?! ?! Ductal Arch ??! ?! ?! ? x ?! ?! Aortic Arch ??! ?? x ??! ?! ?! ?! Caval View ?? ! ?! ?! ? x ?! ?! Situs ?! ?? x ??! ?! ?! ?! Diaphragm ?! ?? x ??! ?! ?! ?! Stomach ?! ?? x ??! ?! ?! ?! Bowel ?! ?? x ??! ?! ?! ?! Kidneys ?! ?? x ??! ?! ?! ?! Bladder ?! ?? x ??! ?! ?! ?! 3 Vessel Cord! ?? x ??! ?! ?! ?! Cord In! ?? x ??! ?! ?! ?! Upper Extremi! ?? x ??! ?! ?! ?! Hands ?! ?? x ??! ?! ?! ?! Lower Extreme! ?? x ??! ?! ?! ?! Feet ? ! ?? x ??! ?! ?! ?! External Jania! ?! ?! ?! ?!Female Placental Cor! ?? x ??! ?! ?! ?! CLINICAL SUMMARY Study Number: 1 ?? A single fetus is seen in transverse presentation. ??The measurements today are consistent with greater than expected size for the ZEKE provided. ??The ZEKE is based on LMP and a prior ultrasound. ??The amniotic fluid volume is within normal limits. ?? The anatomy was limited by movement and gestational age. A complete placenta previa is noted today. ??There is a clear distinction between the placenta and myometrial tissue throughout. ?? There are no placental lakes or bridging vessels seen today. ??There is no sonographic evidence of placenta accreta today. IMPRESSION: Single, live, intrauterine at 30w0d ?? LGA size for reported ZEKE Amniotic fluid volume: within normal limits ?? Complete placenta previa No sonographic evidence of placenta accreta spectrum No major malformations were seen within the limitations of ultrasound ?? Normal ??transvaginal cervical length ?? RECOMMEND: Ultrasound in 2-3 weeks to reassess the placenta and complete the anatomic survey MFM consultation at that time (previously requested) Please be advised that these recommendations are being made in the best interest of our patients during the COVID 19 Pandemic. Thank you for allowing us they opportunity to care for your patient. ?? Chet Pina MD <Electronic Signature> ??01/10/2020 11:46am Krista Vivar MD [facility] ORDERABLES documented in this encounter Visit Diagnoses Diagnosis Polyhydramnios, antepartum, single or unspecified fetus (HCC)- Primary Placenta previa without hemorrhage, antepartum (HCC) Placenta previa without hemorrhage, antepartum Excessive growth affecting management of in third trimester, single or unspecified fetus (HCC) Placenta previa antepartum in third trimester (HCC) 30 weeks gestation of (HCC) state, incidental Polyhydramnios, antepartum complication (HCC) Polyhydramnios, antepartum complication documented in this encounter
--- OUTSIDE RECORDS SUMMARY | 2024-07-17 18:31 | XMS_ITS | Encounter Summary ---
Author Organization [facility] Address [address] [facility] [place] [address] Phone Care Team Providers Care Heel Sander Name Role Phone Charles Rincon FE, [place] Primary Care Pro vider Reason for Visit * Auth/Cert (Routine) Specialty Diagnoses / Procedures Referred By Mleba santoyo Referred To Contact Referral ID Status Reason Start Date Expiration Date Visits Re quested Visits Authorized [id number] 1 1 Encounter Details Date Type Department Care Team (Latest Contact Info) Description 05/23/2023 9:30 AM CDT [facility] [address] [place] [address] Haydee Urbano LCSW [address] [place] [address] Adjustment disorder (Primary Dx); Anxiety Discharge Disposition: Discharged to home or Selfcare Social History Tobacco Use Types Packs/Day Years [...] AM CDT documented as of this encounter Patient Instructions * Patient Instructions* Haydee Urbano LCSW - 05/23/2023 9:30 AM CDT Images from the original note were not included. Suicide Hotlines - Crisis Intervention 20/02 Intervention Team [facility] Crisis Intervention Team?[phone] ([place]) [facility] Crisis Intervention Team?.. [phone] ([place]) [facility] Can be used by individual, PD, Hospitals, family, friend etc. for in-home assessment of concerns for someone's mental health Local Numbers - Behavioral Health Response (BHR)?[phone] / [phone] ([place]) [facility]?.117-835- HELP (0978) ([place]) CARES Line (Medicaid patients up to age 21)???[phone] If non-Medicaid patient, still need tocall Cares Line and if screened out will be sent to Katya or Thom for follow up Crisis Intervention Team National Numbers - National Suicide Prevention Hotline: ?.988 or 8-812-107-TALK (1697) Sexual Assault Hotline?9-844-564-HOPE (7597) Domestic Violence Hotline?.5-760-218-SAFE (7537) [facility] Lifeline? Trans Lifeline?1-147- 540-8827 LGBTQ Partner Abuse & Sexual Assault Line?.1-982.624.6520 Crisis Text Line?Text help to 800411 Warm Lines [place] Warmline?0-701-061-79 [facility] Warmline? 9a-9p/7 days a week [facility]ionate [facility] Warmline?..8-773-300-9921 MENTAL HEALTH EMERGENCY- Assessment for Crisis/or/ED's with Inpatient Units Behavioral Health Urgent Care [facility] Behavioral Health Urgent Care [phone] (5yrs old to Adult) [address] [address] Monday - Monday 9:00am - 7:00pm *Last patient seen at 6:00pm Walk-In Crisis or Telehealth for age 18+ Crisis Walk In: Call for Help's Living Room: Monday-Monday 8:30am-5pm [address] [place] [address] Crisis Telehealth: Monday, Monday, Monday 8:30am-5:00pm and Monday, 12:00pm-8:00pm. Must have good internet connection. To access telehealth go to ???Talk to Someone Now?? or call [phone] ext. 109. No cost and no insurance necessary. Emergency Department diversion program. [facility] (Intake Adult Acute) [phone] [place] [address]. https://[facility].org/services/gdrzeclxch-ibuhmr-iyj-wellness [facility] [phone] (Intake Adult 18+-Used by clinician to alert that patient will be coming in through the emergency room) [address] [place] [address] Behavioral Health Center (20/02 - emergency services for children age 4+, adolescent, adult) [phone] [place] [address]. Adult Inpatient Facility. http://[facility].org/ [facility] Sexual Assault Victims Care Unit. (Children, adolescent, adult) 20/02 crisis intervention: [phone] Hotline Number and Main Office. Community Stabilization (Homeless adults with Mental Illness) 961.378.7266. http://callforhelpinc.org/ [facility] 200-680-9400985.323.2251 (children, adolescent, adult) [address] [place] [address] http://[facility].com/admission-informationfaqs/ [facility] Behavioral Health [phone] Option #1 (adult) [address] [place] [address] https://www.[facility]/service/mental-health Inpatient evaluations conducted in Intake office on the ground floor 8am-4pm [facility] (children, adolescent, adult) http://www.[facility].com/behavioralhealth [facility] [phone] (Adult only) https://www.[facility]/psychiatry/gjofx-evhrjffdwk-znjicirj.php [facility] Behavioral Health. [phone] (children, adolescent, adult) http://www.[facility] system[facility].[employer]/medical-services/behavioral-health documented in this encounter Progress Notes * Haydee Urbano LCSW - 05/23/2023 9:30 AM CDT [facility] INITIAL EVALUATION Name: Dior Hart Age: 37 y.o. Date of : 1985 Date of service: 05/23/2023 Start time: 9:35 am End time: 10:30 am DIAGNOSIS: 1. Adjustment disorder 2. Anxiety PRIMARY CARE PHYSICIAN: CHARLES RINCON APRN, CNP CHIEF COMPLAINT/PRESENTING PROBLEM: What are the main concerns which brought you to treatment at this time?: Anxiety: avoidance difficulties concentrating irritability nervousness stress worry Recent examples of current difficulty include: MENTAL STATUS EXAMINATION: Orientation: Oriented to person, place, time and situation Appearance: Well groomed Behavior: open Speech: Communicative, spoke clearly in sentences Mood: anxious Affect: within normal range Thought Process: Clear and well linked Thought Content: No evidence of perceptual distortion and/or psychosis Perception: No hallucinations Memory: Reported: Short and longterm memory intact Attention: Able to focus during the interview Insight/Judgement: Normal insight and judgement FUNCTIONAL ASSESSMENT: Can the patient perform Activities of Daily Living (ADL'S)?: Patient is able to complete ADL's independently Does patient have the ability and the capacity to respond to treatment?: Yes RISK ASSESSMENT: Suicidal Ideation: There is no current suicidal ideation.. -[place]- Suicide Severity Rating Scale: Risk Stratification: Risk Assessment: Homicidal Ideation: There is no current homicidal ideation.. Self Harm: No. PSYCHIATRIC/PSYCHOLOGICAL HISTORY: (include any history of behavioral health difficulties, behavioral health treatment, or inpatient hospitalizations) In the past, as a teen Previous mental health treatment: Yes. as a teen SOCIAL HISTORY: Current relationship status: In strained relationship Currently living with Self, Significant other and Child Will family be involved in treatment? No Social supports, hobbies, and activities: Are there any languages other than Romanian spoken in the home? No Are there any Advent or Cultural Considerations that may impact treatment in any way? No FAMILY OF ORIGIN: Parent(s)/Caregiver(s): bio parents Place of /where raised. Sibling(s): Yes- Family mental health and substance abuse history: Significant mental and substance abuse history onfathers side, including father DEVELOPMENTAL HISTORY: Pertinent neurodevelopmental considerations: None COMMUNICATION: Are there any barriers to communication: None Identified EDUCATIONAL/EMPLOYMENT HISTORY: Currently in school? No, highest level of education completed: High school diploma Currently employed? Yes [employer] HISTORY OF TRAUMA/ABUSE: Are you a current victim or perpetrator of abuse, trauma, or exploitation? Current: Past: PAST AND CURRENT SUBSTANCE USE: Tobacco: No Alcohol: No Other substances: No Substance use treatment?: No. LEGAL HISTORY: Pertinent legal history: No Does patient have access to firearms?: No FINANCIAL STATUS: The following financial stressors were identified: None SERVICE HISTORY: No DAILY ROUTINE: Sleep: unable to assess approximate hours of sleep per night?: varies Appetite/Meals: Balanced diet Exercise: Never TREATMENT RECOMMENDATIONS: Recommendations for initial treatment plan: Initiate individual therapy as needed for support and guidance Initiate family therapy as needed for support and guidance Educate patient regarding diagnosis Treatment plan will be discussed and finalized during the next scheduled follow appointment group sessions MEDICAL HISTORY: Allergies: Not on File Current medications: No current outpatient medications on file. No current facility-administered medications for this visit. Medical History: No past medical history on file. Surgical History: No past surgical history on file. History of Head injury? No Any other medical concerns? Asthma Labs: No results found for: WBC, RBC, HEMOGLOBIN, HEMATOCRIT, MCV, MCH, MCHC, PLATELETCNT, RDW, DIFF, LYMPHOCYTES, RELEOS, RELBAS, ANC, LYMPHOCYTES, MONOCYTES, EOSINOPHILS, BASOPHILS No results found for: SODIUM, POTASSIUM, CHLORIDE, CO2VEN, ANIONGAP, GLUCOSE, BUN, CREATININE, TOTALPROTEIN, ALBUMIN, CALCIUM, TBIL, BILIRUBIN, AST, SGPTALT, ALKALINEPHO, GFRNA, GFRA No results found for: RPR No results found for: TSH, T3, T4, T4FREE, TPOAB No results found for: ETHANOL No results found for: SALICYLATE No results found for: ACETAMINOPHE HAYDEE URBANO LCSW documented in this encounter Plan of Treatment Not on file documented as of this encounter Goals Goal Patient Goal Type Associated Problems Recent Progress Patient-Stated? Author support with stressors Behavioral Health Yes aHydee Urbano LCSW documented as of this encounter Visit Diagnoses Diagnosis Adjustment disorder- Primary Unspecified adjustment reaction Anxiety Anxiety state, unspecified documented in this encounter Care Teams Heel Sander Relationship Specialty Start Date End Date Charles Rincon APRN, GAS TENDER [address] [place] [address] PCP - General Certified Nurse Practitioner 04/18/23 documented as of this encounter
--- OUTSIDE RECORDS SUMMARY | 2024-07-17 18:31 | XMS_ITS | Clinical Summary ---
Author Organization [facility] Address [address] [place] [address] Phone Care Team Providers Care Poultry Offal Worker Name Role Phone ElioRand Bea BLADE GRINDER, [place] Primary Care Pro vider Social History Tobacco Use Types Packs/Day Years Used Date Smoking Tobacco: Never Assessed Comments Unknown Sex and Gender Information Value Date Recorded Sex Assigned at Not on file Legal Sex Female 9:58 PM CDT Gender Identity Not on file Sexual Orientation Not on file Plan of Treatment Health Maintenance Due Date Last Done Comments Hepatitis C Virus (HCV) Screening 1985 Hepatitis B Immunization (1 of 3 - 19+ 3-dose series) 2004 Pap Smear 2006 Cervical Cancer Screening (CCS) 2015 HPV/Cotest 2015 Influenza Immunization (#1) 03/31/202405/01, 04/01/2020 SARS-COV-2 Immunization ( season) 2024 08/08/2021, 06/27/2021 Respiratory Syncytial Virus (RSV) Immunization (Adult) (1 - 1-dose 75+ series) 2060 DTaP/Tdap/Td Immunization Discontinued 07/31/2014 TdaP Immunization Completed 07/31/2014 Meningococcal Immunization (ACWY) Aged Out No longer eligible based on patient's age to complete this topic Pneumococcal Immunization Combined Aged Out No longer eligible based on patient's age to complete this topic Rotavirus Immunization Aged Out No lo nger eligible based on patient's age to complete this topic Goals Goal Patient Goal Type Associated Problems Recent Progress Patient-Stated? Author support with stressors Behavioral Health Yes Haydee Urbano, POWER BALLAST MACHINE OPERATOR Insurance MEDICAID [facility] Care Teams Poultry Offal Worker Relationship Specialty Start Date End Date Rand Ballard APRN, HEATING ENGINEER [address] [place] [address] PCP - General Certified Nurse Practitioner 04/18/23
--- OUTSIDE RECORDS SUMMARY | 2024-07-17 18:32 | XMS_ITS | Encounter Summary ---
Author Organization [facility] Address [address] [place] [address] Care Team Providers Care Resource Manager Forester Name Role Phone Mary Mcgrath AIRPLANE WOODWORKER Unavailable [phone] Rand Ballard AIRPLANE WOODWORKER Primary Care Provider + Encounter Details Date Type Department Care Team (Late st Contact Info) Description 10/21/2022 1:05 PM CDT Lab [address] [address] Social History Tobacco Use Types Packs/Day Years Used Date Smoking Tobacco: Former Cigarettes 0.5 20 0 07/31/2000 - 07/30/2020 Smokeless Tobacco: Never Alcohol Use Standard Drinks/Week Comments Not Currently 0 (1 standard drink = 0.6 oz pur e alcohol) PHQ-2 Answer Date Recorded PHQ-2 Total Score (If total score is 3 or more points, staff should administer the PHQ-9) 2 05/13/2020 Comments No Sex and Gender Information Value Date Recorded Sex Assigned at Not on file Legal Sex Female 8:20 AM STAPLE LASTER Gender Identity Not on file Sexual Orientation Not on file documented as of this encounter Plan of Treatment Not on file documented as of this encounter Procedures Procedure Name Priority Date/Time Associated Diagnosis Comments DIFFERENTIAL AUTO Routine 10/21/2022 1:1 4 PM CDT CBC WITH AUTO DIFFERENTIAL Routine 10/21/2022 1:14 PM CDT documented in this encounter Results * (ABNORMAL) Differential, auto (10/21/2022 1:14 PM CDT) Neutrophil abs 7.7(H) 1.7 - 6.5 K/cumm CERNER Imm gran abs 0.0 0.0 - 0.1 K/cumm [facility] Lymphocyte abs 1.7 0.8 - 3.3 K/cumm [facility] Monocyte abs 0.5 0.2 - 0.8 K/cumm [facility] Eosinophil abs 0.2 0.0 - 0.5 K/cumm [facility] Basophil abs 0.0 0.0 - 0.1 K/cumm [facility] Neutrophil pct 75.8 % [facility] Comment: Interpretive Data Percent cell count reference ranges are not reported, since discordance with absolute values may lead to misinterpretation of CBC data. Current Interpretive Data was last revised on 2017. Imm gran pct 0.4 % [facility] Comment: Interpretive Data Percent cell count reference ranges are not reported, since discordance with absolute values may lead to misinterpretation of CBC data. Current Interpretive Data was last revised on 2017. Lymphocyte pct 16.7 % [facility] Comment: Interpretive Data Percent cell count reference ranges are not reported, since discordance with absolute values may lead to misinterpretation of CBC data. Current Interpretive Data was last revised on 2017. Monocyte pct 5.0 % [facility] Comment: Interpretive Data Percent cell count reference ranges are not reported, since discordance with absolute values may lead to misinterpretation of CBC data. Current Interpretive Data was last revised on 2017. Eosinophil pct 1.9 % [facility] Comment: Interpretive Data Percent cell count reference ranges are not reported, since discordance with absolute values may lead to misinterpretation of CBC data. Current Interpretive Data was last revised on 2017. Basophil pct 0.2 % [facility] Comment: Interpretive Data Percent cell count reference ranges are not reported, since discordance with absolute values may lead to misinterpretation of CBC data. Current Interpretive Data was last revised on 2017. Blood 10/21/2022 1:14 PM CDT 10/21/2022 1:14 PM CDT Petey Guevara MD LAB BLOOD ORDERABLES Fi nal Result Performing Organization Address City/State/[facility] Co de Phone Number OLGA [address] [address] [place] [address] * (ABNORMAL) CBC with auto differential (10/21/2022 1:14 PM CDT) WBC 10.1(H) 3.8 - 9.9 K/cumm [facility] CH Hgb 13.8 11.9 - 15.5 g/dL [facility] CH Hct 42.7 35.6 - 45.5 % [facility] Plt 293 150 - 400 K/cumm [facility] CH MPV 10.5 9.1 - 12.3 fL [facility] RBC 4.77 3.90 - 5.20 M/cumm [facility] CH MCV 89.5 81.3 - 96.4 fL [facility] MCH 28.9 27.1 - 33.3 pg [facility] MCHC 32.3 32.3 - 35.7 g/dL [facility] RDW CV 12.3 11.1 - 14.9 % [facility] RDW SD 41.0 35.7 - 48.1 fL [facility] NRBC abs 0.00 0.00 - 0.01 K/cumm [facility] Blood 10/21/2022 1:14 PM CDT 10/21/2022 1:14 PM CDT us Petey Guevara MD LAB BLOOD ORDERABLES Fi nal Result Performing Organization Address [facility] Co de Phone Number OLGA RODRIGUEZ [address] [place] [address] documented in this encounter Visit Diagnoses Not on filedocumented in this encounter Care Teams Resource Manager Forester Relationship Specialty Start Date End Date Rand Ballard NP [address] [place] [address] PCP - General 06/02/21 [place] [address] [address] [facility] [address] [place] [address] Nurse Practitioner Internal Medicine 09/24/20 documented as of this encounter
--- OUTSIDE RECORDS SUMMARY | 2024-07-17 18:32 | XMS_ITS | Encounter Summary ---
Author Organization [facility] Address [address] [place] [address] Care Team Providers Care Crop Nutrition Scientist Name Role Phone Mary Mcgrath DOCTOR OF NATUROPATHIC MEDICINE Unavailable [phone] Rand Ballard DOCTOR OF NATUROPATHIC MEDICINE Primary Care Provider + Encounter Details Date Type Department Care Team (Late st Contact Info) Description 05/15/2023 Telephone [facility] [address] [place] [address] Anna Izaguirre, RT Social History Tobacco Use Types Packs/Day Years [...] on file Legal Sex Female 8:20 AM FUR LINER Gender Identity Not on file Sexual Orientation Not on file documented as of this encounter Miscellaneous Notes * Telephone Encounter - Anna Izaguirre RT - 05/15/2023 11:31 AM CDT NA @ 11:31 documented in this encounter Plan of Treatment Not on file documented as of this encounter Visit Diagnoses Not on filedocumented in this encounter Care Teams Crop Nutrition Scientist Relationship Specialty Start Date End Date Rand Ballard, ARTI [address] [place] [address] PCP - General 06/02/21 [place] [address] [facility] [address] [place] [address] Nurse Practitioner Internal Medicine 09/24/20 documented as of this encounter
--- OUTSIDE RECORDS SUMMARY | 2024-07-17 18:32 | XMS_ITS | Encounter Summary ---
Author Organization [facility] Address [address] [place] [address] Care Team Providers Care Upscale Security Officer Name Role Phone Mary Mcgrath NP Unavailable Rand Ballard NP Primary Care Provider + Reason for Referral * Diagnostic Imaging (Routine) - Closed Specialty Diagnoses / Procedures Referred By Contac t Referred To Contact Diagnoses Asthma, mild intermittent, poorly controlled Procedures XR Chest PA Lateral 2 [place]ath [place] [id number] [place] [address] Phone: tel: fax: [address] [phone] Referral ID Status Reason Start Date Expiration Date Visits Re quested Visits Authorized [id number] Closed 10/22/2021 11/21/2022 1 1 Reason for Visit * Diagnostic Imaging (Routine) - Closed Specialty Diagnoses / Procedures Referred By Contac t Referred To Contact Diagnoses Asthma, mild intermittent, poorly controlled Procedures XR Chest PA Lateral 2 [place] [address] [place] [address] Phone: tel: fax: [address] [phone] Referral ID Status Reason Start Date Expiration Date Visits Re quested Visits Authorized [id number] Closed 10/22/2021 11/21/2022 1 1 Encounter Details Date Type Department Care Team (Latest Contact Info) Description 10/26/2021 9:15 AM CDT - 10/26/2021 11:59 PM CDT Hospital Encounter [facility] Diagnostic Imaging [address] [place] [address] [place] [address] [facility] [address] [place] [address] [place] [address] [facility] [address] [place] [address] Asthma, mild intermittent, poorly controlled Discharge Disposition: Discharge to home or self care Social History Tobacco Use Types Packs/Day Years [...] on file Legal Sex Female 8:20 AM VENEER SLICING MACHINE OPERATOR Gender Identity Not on file Sexual Orientation Not on file documented as of this encounter Medications at Time of Discharge albuterol 2.5 mg /3 mL (0.083 %) nebulizer solution Take 3 mL (2.5 mg total) by nebulization every 4 (four) hours as needed for wheezing 75 mL 1 08/20/2020 albuterol 2.5 mg /3 mL (0.083 %) nebulizer solution Take 3 mL (2.5 mg total) by nebulization every 6 (six) hours as needed for wheezing 75 mL 10/18/2021 albuterol HFA (PROVENTIL HFA,VENTOLIN HFA,PROAIR HFA) 90 mcg/actuation inhalerIndications :Viral upper respiratory tract infection Inhale 2 puffs every 6 (six) hours as needed for wheezing or shortness of breath 1 Inhaler 07/28/2020 albuterol HFA (PROVENTIL HFA,VENTOLIN HFA,PROAIR HFA) 90 mcg/actuation inhaler Inhale 2 puffs every 4 (four) hours as needed for wheezing 8.5 g 10/18/2021 budesonide-formote roL (Symbicort) 160-4.5 mcg/actuation inhaler Inhale 2 puffs 2 (two) times a day Rinse mouth with water after use. Do not swallow. busPIRone (BUSPAR) 10 mg tabletIndications: Generalized Anxiety Disorder Take 1 tablet (10 mg total) by mouth 2 (two) times a day 60 tablet 1 09/24/2020 cholecalciferol (VITAMIN D-3) 97839 unit tabletIndications: Vitamin D Deficiency Take 1 tablet (10,000 Units total) by mouth once a week 12 tablet 3 08/03/2020 docusate sodium (COLACE) 100 mg capsuleIndications :constipation,Stoo l Softener Take 1 capsule (100 mg total) by mouth 2 (two) times a day as needed for constipation 60 capsule 3 05/13/2020 famotidine (PEPCID) 40 mg tablet Take 1 tablet (40 mg total) by mouth daily 90 tablet 3 08/20/2020 hydrOXYzine (ATARAX) 25 mg tablet Take 1/2-1 tablet tid prn anxiety 60 tablet 1 08/26/2020 ipratropium-albute roL (DUO-NEB) 0.5-2.5 mg/3 mL nebulizer solutionIndication s:Chronic Obstructive Pulmonary Disease with Bronchospasms Take by nebulization every 6 (six) hours pantoprazole DR (PROTONIX) 40 mg EC tablet TK 1 T PO QD UTD 01/23/2020 sertraline (ZOLOFT) 100 mg tablet Take 1.5 tablets (150 mg total) by mouth daily 135 tablet 1 09/24/2020 tiotropium bromide (SPIRIVA RESPIMAT) 2.5 mcg/actuation inhalerIndications :Maintenance Therapy for Asthma Inhale 2 puffs daily 1 Inhaler 1 05/13/2020 zinc 50 mg tablet Take 1 tablet by mouth daily 60 each 08/03/2020 documented as of this encounter Discharge Disposition Disposition Code Departure Means Destination Discharge to home or self care documented in this encounter Plan of Treatment Not on file documented as of this encounter Procedures Procedure Name Priority Date/Time Associated Diagnosis Comments XR CHEST PA LATERAL 2 VIEWS Schedule Routine, Read Routine (OP Routine) 10/26/2021 9:18 AM CDT Asthma, mild intermittent, poorly controlled documented in this encounter Results * XR Chest PA Lateral 2 Views (10/26/2021 9:18 AM CDT) Anatomical Region Laterality Modality Body, Chest N/A Computed Radiogr aphy 10/26/2021 9:38 AM CDT Impressions 10/26/2021 9:38 AM CDT SUSPECT AIR TRAPPING. NO INFILTRATES Electronically signed by: Alli Gray M.D. Narrative 10/26/2021 9:38 AM CDT EXAMINATION: XR CHEST PA LATERAL 2 VIEWS HISTORY: 36-year-old woman asthma FINDINGS: 2 view chest compared with the study of 07/26/2021. Heart size normal. Hyperinflated lungs. No infiltrates, fluid failure or pneumothorax. Procedure Note Alli Gray MD - 10/26/2021 EXAMINATION: XR CHEST PA LATERAL 2 VIEWS HISTORY: 36-year-old woman asthma FINDINGS: 2 view chest compared with the study of 07/26/2021. Heart size normal. Hyperinflated lungs. No infiltrates, fluid failure or pneumothorax. IMPRESSION: SUSPECT AIR TRAPPING. NO INFILTRATES Electronically signed by: Alli Gray M.D. Mary Mcgrath LIBRARY MONITOR IMG XR PROCEDURES Final Result documented in this encounter Visit Diagnoses Diagnosis Asthma, mild intermittent, poorly controlled Unspecified asthma documented in this encounter Care Teams Upscale Security Officer Relationship Specialty Start Date End Date Rand Ballard NP [address] [place] [address] PCP - General 06/02/21 [place] [address] [facility] [address] [place] [address] Nurse Practitioner Internal Medicine 09/24/20 documented as of this encounter
--- OUTSIDE RECORDS SUMMARY | 2024-07-17 18:32 | XMS_ITS | Encounter Summary ---
Author Organization [facility] Address [address] [place] [address] Care Team Providers Care Supervisor Dehydrogenation Name Role Phone Gopal July ARTI Primary Care Provider [phone] Encounter Details Date Type Department Care Team (Latest Contact Info) Description 07/29/2020 11:07 AM VOCATIONAL TRAINING TEACHER - 07/29/2020 11:30 AM VOCATIONAL TRAINING TEACHER Hospital Encounter [facility] Discharge Disposition: Discharge to home or self care Social History Tobacco Use Types Packs/Day Years Used Date Smoking Tobacco: Every Day Cigarettes 0.5 24 Started: 07/31/2000 Smokeless Tobacco: Never Alcohol Use Standard Drinks/Week Comments Not Currently 0 (1 standard drink = 0.6 oz pur e alcohol) PHQ-2 Answer Date Recorded PHQ-2 Total Score (If total score is 3 or more points, staff should administer the PHQ-9) 2 05/13/2020 Comments No Sex and Gender Information Value Date Recorded Sex Assigned at Not on file Legal Sex Female 8:20 AM VOCATIONAL TRAINING TEACHER Gender Identity Not on file Sexual Orientation Not on file documented as of this encounter Medications at Time of Discharge albuterol HFA (PROVENTIL HFA,VENTOLIN HFA,PROAIR HFA) 90 mcg/actuation inhalerIndications :Viral upper respiratory tract infection Inhale 2 puffs every 6 (six) hours as needed for wheezing or shortness of breath 1 Inhaler 07/28/2020 budesonide-formote roL (Symbicort) 160-4.5 mcg/actuation inhaler Inhale 2 puffs 2 (two) times a day Rinse mouth with water after use. Do not swallow. docusate sodium (COLACE) 100 mg capsuleIndications :constipation,Stoo l Softener Take 1 capsule (100 mg total) by mouth 2 (two) times a day as needed for constipation 60 capsule 3 05/13/2020 ipratropium-albute roL (DUO-NEB) 0.5-2.5 mg/3 mL nebulizer solutionIndication s:Chronic Obstructive Pulmonary Disease with Bronchospasms Take by nebulization every 6 (six) hours pantoprazole DR (PROTONIX) 40 mg EC tablet TK 1 T PO QD UTD 01/23/2020 tiotropium bromide (SPIRIVA RESPIMAT) 2.5 mcg/actuation inhalerIndications :Maintenance Therapy for Asthma Inhale 2 puffs daily 1 Inhaler 1 05/13/2020 inhalational spacing device (Aerochamber with Flowsignal) spacer Use as directed with inhalers 1 each 05/13/2020 05/13/20 21 benzonatate (TESSALON) 200 mg capsuleIndications :Viral upper respiratory tract infection Take 1 capsule (200 mg total) by mouth 3 (three) times a day as needed for cough 21 capsule 07/28/2020 08/14/19 21 busPIRone (BUSPAR) 5 mg tabletIndications: Generalized Anxiety Disorder Take 5 mg by mouth 2 (two) times a day 09/24/19 21 famotidine (PEPCID) 40 mg tablet Take 40 mg by mouth daily 08/20/19 21 methylPREDNISolone (Medrol, Dipesh,) 4 mg DosepackIndication s:Viral upper respiratory tract infection follow package directions 1 packet 07/28/2020 08/03/19 21 sertraline (ZOLOFT) 100 mg tablet Take 1 tablet (100 mg total) by mouth daily 90 tablet 05/13/2020 09/24/19 21 documented as of this encounter Discharge Disposition Disposition Code Departure Means Destination Discharge to home or self care documented in this encounter Plan of Treatment Not on file documented as of this encounter Visit Diagnoses Not on filedocumented in this encounter Additional Health Concerns Infection Onset Date Last Indicated Resolved Time COVID: Suspected 07/28/2020 07/28/2020 07/29/2020 1:22 PM VOCATIONAL TRAINING TEACHER documented as of this encounter Care Teams Supervisor Dehydrogenation Relationship Specialty Start Date End Date July Herron NP PCP - General Family Medicine 05/13/20 06/01/21 documented as of this encounter
--- OUTSIDE RECORDS SUMMARY | 2024-07-17 18:32 | XMS_ITS | Encounter Summary ---
Author Organization 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 SHEARER * Telephone Encounter - Jeannie Gay MA - 07/28/2020 2:31 PM CST Sx's started This past thus cough, sinus drainage down back of throat, no fever, SOB Pt dose have asthma, vomiting this am 1 time but it was due to coughing , Pt gets to coughing so hard and cant stop it sends her into asthma attacks, No cp, Sore throat ear pain, Pt was tested the day she started to show signs which was last Mon07/22/20 test [facility] neg [facility] 07[facility]23/20 neg results. Pt n eeds a note saying that she needs to be off work or she needs to be seen and retested. SHEARER documented in this encounter Plan of Treatment Not on file documented as of this encounter Visit Diagnoses Not on filedocumented in this encounter Care Teams Quantitative Research Analyst Relationship Specialty Start Date End Date July Herron NP PCP - General Family Medicine 05/13/20 06/01/21 documented as of this encounter
--- OUTSIDE RECORDS SUMMARY | 2024-07-17 18:32 | XMS_ITS | Encounter Summary ---
Author Organization [facility] Address [address] [place] [address] Care Team Providers Care Color Dipper Name Role Phone July Herron APRON MAN Primary Care Provider [phone] Encounter Details Date Type Department Care Team (Late st Contact Info) Description 08/26/2020 Telephone [facility] [address] [place] [address] July Herron, ARTI [address] [place] [id number] Social History Tobacco Use Types Packs/Day Years [...] on file Legal Sex Female 8:20 AM REGISTERED DIETICIAN Gender Identity Not on file Sexual Orientation Not on file documented as of this encounter Miscellaneous Notes * Telephone Encounter - Kirstin Duvall MA - 2020 3:00 PM CST Dior was informed. STERED DIETICIAN * Telephone Encounter - Monica Madrid MA - 2020 11:12 AM REGISTERED DIETICIAN L/m for patient to call office STERED DIETICIAN * Telephone Encounter - July Herron NP - 08/26/2020 5:33 PM REGISTERED DIETICIAN Sent in script for hydroxyzine for patient. STERED DIETICIAN * Telephone Encounter - Jeannie Gay MA - 08/26/2020 4:39 PM CST Pt had a few episodes of either panic attack's or Asthma. She said all of a sudden it felt like shewas hit in the chest , stated to have chest pain , SOB , But She said that both Sx of a panic attack and asthma are very much a like she was able to lay on her bed and focus on something else and it starts to help her relax a little. But as soon as she got up and the feeling started to come back. She took a dose of a med she has from a previous provider Hydroxyzine she took one of those and afterabout 20 min she started to feel better and 30 min after that her Sx were gone. Wants to know what she is to do if she is to take the Hydroxyzine for these Sx because she has been using the inhalers and breathing Tx and they are no longer helping. STERED DIETICIAN documented in this encounter Plan of Treatment Not on file documented as of this encounter Visit Diagnoses Not on filedocumented in this encounter Care Teams Color Dipper Relationship Specialty Start Date End Date July Herron NP PCP - General Family Medicine 05/13/20 06/01/21 documented as of this encounter
--- OUTSIDE RECORDS SUMMARY | 2024-07-17 18:32 | XMS_ITS | Encounter Summary ---
Author Organization [facility] Address [address] [place] [address] Care Team Providers Care Breakfast Attendant Name Role Phone July Herron NP Primary Care Provider [phone] Encounter Details Date Type Department Care Team (Late st Contact Info) Description 08/18/2020 Telephone [facility] [address] [place] [address] July Herron NP [address] [place] [id number] Social History Tobacco Use Types Packs/Day Years [...] on file Legal Sex Female 8:20 AM BRAID CUTTER Gender Identity Not on file Sexual Orientation Not on file documented as of this encounter Miscellaneous Notes * Telephone Encounter - Kirstin Duvall MA - 08/18/2020 4:35 PM CST Dior was informed. D CUTTER * Telephone Encounter - July Herron NP - 08/18/2020 2:58 PM BRAID CUTTER Have patient recheck to her eye doctor to be seen. D CUTTER * Telephone Encounter - Maria Guadalupe Zhang MA - 08/18/2020 2:53 PM CST Pt notified. Pt states its been 3 days and keeps getting a little bigger each day. Pt states she isusing a hot compress all day long every time it starts to hurt. She said its throbbing. D CUTTER * Telephone Encounter - July Herron NP - 08/18/2020 10:28 AM BRAID CUTTER Hot compresses to the eye, lots of handwashing D CUTTER * Telephone Encounter - Jeannie Gay MA - 08/18/2020 9:10 AM CST Pt woke up w/ a pimple like sore on the bottom of her eye lid , painful Looks to be a sty Pt wanting to know if there are any drops ar anything she can do for this Please advise D CUTTER documented in this encounter Plan of Treatment Not on file documented as of this encounter Visit Diagnoses Not on filedocumented in this encounter Care Teams Breakfast Attendant Relationship Specialty Start Date End Date July Herron NP PCP - General Family Medicine 05/13/20 06/01/21 documented as of this encounter
--- OUTSIDE RECORDS SUMMARY | 2024-07-17 18:32 | XMS_ITS | Clinical Summary ---
Author Organization [facility] Address [address] [place] [address] Care Team Providers Care Power Sweeper Operator Name Role Phone Mary Coronado SHIRT OPERATOR Unavailable [phone] Rand Ballard NP Primary Care Provider + Allergies Active Allergy Reactions Criticality Noted Date Comments Oxycodone-Acetaminophen Nausea & Vomiting Low 01/09 Tramadol Nausea & Vomiting Low 01/10/[address] (PROTONIX) 40 mg EC tablet TK 1 T PO QD UTD 01/23/20 20 Active budesonide-formot Claudia (Symbicort) 160-4.5 mcg/actuation inhaler Inhale 2 puffs 2 (two) times a day Rinse mouth with water after use. Do not swallow. Active ipratropium-albut Claudia (DUO-NEB) 0.5-2.5 mg/3 mL nebulizer solutionIndicatio ns:Chronic Obstructive Pulmonary Disease with Bronchospasms Take by nebulization every 6 (six) hours Active tiotropium bromide (SPIRIVA RESPIMAT) 2.5 mcg/actuation inhalerIndication s:Maintenance Therapy for Asthma Inhale 2 puffs daily 1 Inhaler 1 05/13/20 20 Active docusate sodium (COLACE) 100 mg capsuleIndication s:constipation,St ool Softener Take 1 capsule (100 mg total) by mouth 2 (two) times a day as needed for constipation 60 capsule 3 05/13/20 20 Active albuterol HFA (PROVENTIL HFA,VENTOLIN HFA,PROAIR HFA) 90 mcg/actuation inhalerIndication s:Viral upper respiratory tract infection Inhale 2 puffs every 6 (six) hours as needed for wheezing or shortness of breath 1 Inhaler 07/28/20 20 Active cholecalciferol (VITAMIN D-3) 57711 unit tabletIndications :Vitamin D Deficiency Take 1 tablet (10,000 Units total) by mouth once a week 12 tablet 3 08/03/19 21 Active zinc 50 mg tablet Take 1 tablet by mouth daily 60 each 08/03/19 21 Active Additional Information Patient not taking.Reported on 08/12/2020 albuterol 2.5 mg /3 mL (0.083 %) nebulizer solution Take 3 mL (2.5 mg total) by nebulization every 4 (four) hours as needed for wheezing 75 mL 1 08/20/19 21 Active famotidine (PEPCID) 40 mg tablet Take 1 tablet (40 mg total) by mouth daily 90 tablet 3 08/20/19 21 Active hydrOXYzine (ATARAX) 25 mg tablet Take 1/2-1 tablet tid prn anxiety 60 tablet 1 08/26/19 21 Active sertraline (ZOLOFT) 100 mg tablet Take 1.5 tablets (150 mg total) by mouth daily 135 tablet 1 09/24/19 21 Active busPIRone (BUSPAR) 10 mg tabletIndications :Generalized Anxiety Disorder Take 1 tablet (10 mg total) by mouth 2 (two) times a day 60 tablet 1 09/24/19 21 Active albuterol HFA (PROVENTIL HFA,VENTOLIN HFA,PROAIR HFA) 90 mcg/actuation inhaler Inhale 2 puffs every 4 (four) hours as needed for wheezing 8.5 g 10/19/19 22 Active albuterol 2.5 mg /3 mL (0.083 %) nebulizer solution Take 3 mL (2.5 mg total) by nebulization every 6 (six) hours as needed for wheezing 75 mL 10/19/19 22 Active Active Problems Problem Noted Date Diagnosed Date Severe persistent asthma with acute exacerbation 05/13/2020 Assessment & Plan (09/24/2020 11:15 AM PATTERN FITTER): Pt seeing pulmonology MARY CORONADO. Saw her last week. This was the second or third visit she has had. 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 She will be getting a monthly shot. HPI: Condition is Variable from being severe to moderate, having occasional days where she doesn't have trouble at all. Last week she gave pt another inhaler-spiriva to take 2 puffs daily in addition to the symbicort 2 puffs twice daily, duoneb neb solution, she was also given prednisone last week and this week. She was told to get dust mite covers, avoid down pillows. She has been cleaning and washing areas where the dogs go. She has 6 puppies in the house right now, but she is limiting her exposure to them. They will be gone after next week. A&P: Discussed/ordered labs, encouraged healthy, low carbohydrate lifestyle and at least 150min/week of exercise, continue on above meds and await monthly injections. Assessment & Plan (08/20/2020 10:55 AM PATTERN FITTER): HPI: Condition is not at/near goal A&P: Discussed/ordered labs, encouraged healthy, low carbohydrate lifestyle and at least 150min/week of exercise, continue on symbicort and albuterol (use your aerochamber with both) The promethazine with codeine has helped with her cough at night Continue on this and the tessalon perles during the day. Pt still has significant wheezing, she is using the albuterol every 4 hours until she sees pulmonology. She has already had several doses of steroids so we will not repeat that now. We will keep pt off of work until she sees pulmonology on 09/10/2020, then we will let them decide when she can return to work. Pt quit smoking. Assessment & Plan (05/13/2020 5:48 PM CDT): HPI: Condition is worsening pt is uncontrolled. Using rescue inhaler 10 times a day and nebulizer about 2-4 times a night. She is taking the symbicort 2 puffs twice daily. A&P:ACT score today 5; Discussed/ordered labs, encouraged healthy, low carbohydrate lifestyle and at least 150min/week of exercise, pt understands that her asthma is dangerously out of control. Discussed the risks up to and including with patient of the overuse of albuterol. Pt states understanding. We will refer to Dr. Guevara (pulmonology) We will have her continue on symbicort 2 puffs twice daily for maintenance. We will also have her start on spiriva 2 puffs once daily. Encouraged pt to use spacer with inhalers so the medication goes into her lungs instead of the back of her throat. Continue to use the albuterol as needed for rescue only. Discussed with pt that if she is using the albuterol more than 2xwk, her controller medications are not working well enough. But while she is starting on the new controller meds and awating appointment with pulmonology, if she needs the albuterol more, she may take it to prevent hospitalization. We will give prednisone 40mg daily x 5 days to try to break the cycle of inflammation. Side effects discussed. Go to ER if you are having more difficulty breathing. BMI 29.0-29.9,adult 05/13/2020 Assessment & Plan (09/24/2020 11:26 AM PATTERN FITTER): HPI: Condition is worsening A&P: Healthy, low carbohydrate lifestyle and exercise for 150min/week recommended Substitutions: Recommend tracking everything you put in your mouth on an [place] like [employer] carries a zero net carb bread If you are looking for whole potatoes, like to use in soup or new potato shape/flavor, radishes are a great replacement If you are looking for mashed potatoes, riced cauliflower in the frozen bag section are a great replacement For pasta, try using zucchini noodles, lay them out on a cookie sheet and pat dry with a tea towel to try to remove as much moisture as possible. Heat your pasta sauce on the stove and put the noodles in for 30-45 seconds. If you leave them in much longer they will become mushy [place] and/or coconut flour instead of regular flour For pizza dough, try fathead pizza dough recipe online. To get a crispy crust, bake on one side for 8-12 min, then flip over and bake on the other side for 8-12 min, then put toppings on and bake until the cheese on top of pizza melts chaffles recipe online For ice cream, try the brand Enlightened To replace coffee creamer and make it low carb, use heavy creamer with sugar free Torani sweetener For chips, try Whisps or pork rinds For yogurt, try [employer] [place] citizen yogurt Use Pinterest for recipe ideas. Type in low carb... Assessment & Plan (05/13/2020 5:33 PM CDT): HPI: Condition is improving , pt had baby in January. Pre wt was 183. Today is 177 A&P: Healthy, low carbohydrate lifestyle and exercise for 150min/week recommended Substitutions: [employer] carries a zero net carb bread If you are looking for whole potatoes, like to use in soup or new potato shape/flavor, radishes are a great replacement If you are looking for mashed potatoes, riced cauliflower in the frozen bag section are a great replacement For pasta, try using zucchini noodles, lay them out on a cookie sheet and pat dry with a tea towel to try to remove as much moisture as possible. Heat your pasta sauce on the stove and put the noodles in for 30-45 seconds. If you leave them in much longer they will become mushy [place] and/or coconut flour instead of regular flour For pizza dough, try fathead pizza dough recipe online. To get a crispy crust, bake on one side for 8-12 min, then flip over and bake on the other side for 8-12 min, then put toppings on and bake until the cheese on top of pizza melts chaffles recipe online For ice cream, try the brand Enlightened Use Pinterest for recipe ideas. Type in low carb... Moderate episode of recurrent major depressive d isorder 05/13/2020 Assessment & Plan (05/13/2020 5:35 PM CDT): Pt had placenta previa with hemorrhage February 19, 2020. She had a lot of bleeding. Baby lost oxygen. She had a month early. Baby was sent to [facility] and was in a different hospital for 4 days. Then mom was released and they kept pt in [facility] for 14 days. She has a tubal scheduled for 05/18/2020. Pt went into a deep depression. She is taking sertraline 50mg once daily. This is not helping her. We will start with increasing this to 100mg daily and may need to increase from there. Please consider the buspirone as a rescue only medication. If needing it more than 2 x day, please contact office. We will have pt follow up in 4-6 wks Patient reiterated no suicidal thoughts at this time; take medication as directed; contact 911 and go to the ER if becomes suicidal; discussed side effects of medication with patient; encouraged healthy diet and exericise; encouraged patient to see a counselor HPI: Condition is worsening A&P: Discussed/ordered labs, encouraged healthy, low carbohydrate lifestyle and at least 150min/week of exercise Trial back on melatonin 3mg nightly Anxiety 05/13/2020 Assessment & Plan (09/24/2020 11:26 AM PATTERN FITTER): HPI: Condition is worsening having 2-3 anxiety attacks a day A&P: Discussed/ordered labs, encouraged healthy, low carbohydrate lifestyle and at least 150min/week of exercise, We will increase the sertraline to 150mg (1.5 tablets) daily and increase the buspirone to 10mg twice daily. New scripts sent in. We will f/u in 4-6 wks. Assessment & Plan (08/20/2020 9:07 AM PATTERN FITTER): Patient reiterated no suicidal thoughts at this time; take medication as directed; contact 911 and go to the ER if becomes suicidal; discussed side effects of medication with patient; encouraged healthy diet and exericise; encouraged patient to see a counselor HPI: Condition is stable A&P: Discussed/ordered labs, encouraged healthy, low carbohydrate lifestyle and at least 150min/week of exercise, continue on Assessment & Plan (05/13/2020 5:31 PM CDT): Pt had placenta previa with hemorrhage February 19, 2020. She had a lot of bleeding. Baby lost oxygen. She had a month early. Baby was sent to [facility] and was in a different hospital for 4 days. Then mom was released and they kept pt in [facility] for 14 days. She has a tubal scheduled for 05/18/2020. Pt went into a deep depression. She is taking sertraline 50mg once daily. This is not helping her. We will start with increasing this to 100mg daily and may need to increase from there. Please consider the buspirone as a rescue only medication. If needing it more than 2 x day, please contact office. We will have pt follow up in 4-6 wks Patient reiterated no suicidal thoughts at this time; take medication as directed; contact 911 and go to the ER if becomes suicidal; discussed side effects of medication with patient; encouraged healthy diet and exericise; encouraged patient to see a counselor HPI: Condition is worsening A&P: Discussed/ordered labs, encouraged healthy, low carbohydrate lifestyle and at least 150min/week of exercise Chronic constipation 05/13/2020 Assessment & Plan (05/13/2020 5:32 PM CDT): For the constipation, push fluids, for the first 3 days may use Miralax 1 capful three times a day x 3 days along with 1 Ex-Lax chew daily x 3 days, then decrease Miralax to 2-3 times a week. Maintain a high fiber diet with plenty of roughage, and 6-8 large glasses of water daily to avoid constipation in the future. 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 May use docusate as needed. GERD (gastroesophageal reflux disease) 0 Assessment & Plan (08/20/2020 10:53 AM PATTERN FITTER): Refill famotidine given today. Assessment & Plan (05/13/2020 5:33 PM CDT): HPI: Condition is improving Continue on current meds-famotidine as needed, encouraged healthy diet and exercise Avoid trigger foods including: carbonated beverages, caffeine, spicy, fried foods, tomatoes, cucumbers, and mint Avoid eating/drinking anything for at least 2 hours before bed. Sleep with bed propped. HSV (herpes simplex virus) infection 02/20/2020 Assessment & Plan (05/13/2020 5:26 PM CDT): HPI: Condition is worsening , has current outbreak on lower lip. A&P: Discussed/ordered labs, encouraged healthy, low carbohydrate lifestyle and at least 150min/week of exercise, take valacyclovir 2000mg now and again in 12 hours. You can use this as needed for oral breakouts. Pt denies vaginal outbreak at this time. Resolved Problems Problem Noted Date Diagnosed Date Resolved Date Placenta previa with hemorrh age in third trimester 02/20/2020 05/13/2020 Uncomplicated asthma 02/20/2020 020 infant of 35 completed weeks of gestation 02/20/2020 05/13/2020 Immunizations Name Administration Dates Next Due Influenza, Unspecified 04/01/2020 MMR 09/24/2018 Tdap 07/31/2014 Medical History Medical History Date Comments infant of 35 completed weeks of gestation 02/20/2020 Placenta previa with hemorrhage in third trimest er 02/20/2020 Asthma Social History Tobacco Use Types Packs/Day Years Used Date Smoking Tobacco: Former Cigarettes 0.5 20 0 07/31/2000 - 07/30/2020 Smokeless Tobacco: Never Tobacco Cessation:Ready to Q uit: No; Counseling Given: No Alcohol Use Standard Drinks/Week Comments Not Currently 0 (1 standard drink = 0.6 oz pur e alcohol) PHQ-2 Answer Date Recorded PHQ-2 Total Score (If total score is 3 or more points, staff should administer the PHQ-9) 2 05/13/2020 Comments No Sex and Gender Information Value Date Recorded Sex Assigned at Not on file Legal Sex Female 8:20 AM PATTERN FITTER Gender Identity Not on file Sexual Orientation Not on file Obstetrics History Para Term AB IAB SAB Ectopic Multiple Livin g Live Births 7 3 4 0 2 1 Date Outcome GA Total Labor Labor/2nd/3rd Weight Sex Type Anes PTL Kat A1 A5 Name Clin AB AB AB AB 2010 Para Vag-S pont 2019 Para CS-LT ranv 2019 Para 0h 01m 0h 01m 2.8 kg (6 lb 2.8 oz) F CS-LT ranv Genera l Y Livin g 2 2 DEL ANGEL ,GIRL KRIST Gladys Lara MD Complications:Placenta Previ a Delivery Location:[facility] ([facility]) Last Filed Vital Signs Vital Sign Reading Time Taken Comments Blood Pressure 112/96 10/18/2021 2:30 AM CDT Pulse 103 10/18/2021 3:45 AM CDT Temperature 36.5 ??C (97.7 ??F) 10/18/2021 1:49 AM CD T Respiratory Rate 27 10/18/2021 1:49 AM CDT Oxygen Saturation 91% 10/18/2021 3:45 AM CDT Inhaled Oxygen Concentration - - Weight 83.5 kg (184 lb) 10/18/2021 1:49 AM CDT Height 170.2 cm (5' 7 ) 06/02/2021 5:42 PM CDT Body Mass Index 28.82 06/02/2021 5:42 PM CDT Plan of Treatment Health Maintenance Due Date Last Done Comments Cervical Cancer Screening 1985 Hepatitis C Screening 1985 Pneumococcal vaccine <65 (1 of 2 - PCV) 1991 Varicella Vaccines (1 of 2 - 13+ 2-dose series) 1998 Hepatitis B Screening 2003 Regular Well Visit/Exam 18-64 2003 Depression Screening 05/13/2021 05/13/2020, 05/13/2020 Covid-19 Vaccine (3 - 2023-2 5 season) 2024 08/08/2021, 06/27/2021 Influenza Vaccine (#1) 2024 , 04/01/2020 DTaP/Tdap/Td Vaccine (2 - Td or Tdap) 07/31/2024 07/31/2014 HPV Vaccines Aged Out No longer eligi ble based on patient's age to complete this topic Insurance [employer] OOS [employer] Advance Directives For more information, please contact: [phone] * Full Code (Latest Code Status on File) Date Activated Date Inactivated Comments 02/20/2020 1:28 AM 02/21/2020 7:02 PM * Full Code Date Activated Date Inactivated Comments 02/19/2020 11:20 PM 02/20/2020 1:28 AM Full CPR in case of cardiopulmonary arrest Care Teams Power Sweeper Operator Relationship Specialty Start Date End Date Rand Ballard NP [address] [place] [address] PCP - General 06/02/21 [place] [address] [address] [facility] [address] [place] [address] Nurse Practitioner Internal Medicine 09/24/20
--- OUTSIDE RECORDS SUMMARY | 2024-07-17 18:32 | XMS_ITS | Encounter Summary ---
Author Organization [facility] Medical [facility] Address [address] [facility] [address] [place] [id number] Care Team Providers Care Underwriting Sales Representative Name Role Phone July Herron NP Primary Care Provider [phone] Reason for Visit * Reason Comments COVID-19 EVALUATION Symptom onset 07/22. C/o cough, sob, nasal drainage, chills, sore throat, fatigue, pt vomited this morning after a coughing fit, body aches, headaches. States throat pain is present only when coughing. Encounter Details Date Type Department Care Team (Late st Contact Info) Description 07/28/2020 4:00 PM CUSTOM CLOTHIER Office Visit [facility] [address] [place] [address] Sandy Sams, ARTI [address] [address] Viral upper respiratory tract infection (Primary Dx) Social History Tobacco Use Types Packs/Day Years [...] on file Legal Sex Female 8:20 AM CUSTOM CLOTHIER Gender Identity Not on file Sexual Orientation Not on file documented as of this encounter Last Filed Vital Signs Vital Sign Reading Time Taken Comments Blood Pressure 98/62 07/28/2020 4:12 PM CUSTOM CLOTHIER Pulse 95 07/28/2020 4:12 PM CUSTOM CLOTHIER Temperature 37.1 ??C (98.8 ??F) 07/28/2020 4:12 PM CS T Respiratory Rate 24 07/28/2020 4:12 PM CUSTOM CLOTHIER Oxygen Saturation 94% 07/28/2020 4:12 PM CUSTOM CLOTHIER Inhaled Oxygen Concentration - - Weight 81.2 kg (179 lb) 07/28/2020 4:12 PM CUSTOM CLOTHIER Height 170.2 cm (5' 7 ) 07/28/2020 4:12 PM CUSTOM CLOTHIER Body Mass Index 28.04 07/28/2020 4:12 PM CUSTOM CLOTHIER documented in this encounter Patient Instructions * Patient Instructions* Sandy Sams, ARTI - 07/28/2020 4:00 PM CUSTOM CLOTHIER What is the difference between Influenza (Flu) and COVID-19? Influenza (Flu) and COVID-19 are both contagious respiratory illnesses, but they are caused by different viruses. COVID-19 is caused by infection with a new coronavirus (called SARS-CoV-2) and flu is caused by infection with influenza viruses. There are some morales differences between flu and COVID-19. COVID-19 seems to spread more easily than flu and causes more serious illnesses in some people. It can also take longer before people show symptoms and people can be contagious for longer. Another important difference is there is a vaccine to protect again st flu. There is currently no vaccine to prevent COVID-19. The best way to prevent infection is to avoid being exposed to the virus. Because some of the symptoms of flu and COVID-19 are similar, it may be hard to tell the difference between them based on symptoms alone, and testing may be needed tohelp confirm a diagnosis. While more is learned every day, there is still a lot that is unknown about COVID-19 and the virus that causes it. Although you have not been diagnosed with COVID-19, your presenting symptoms could be indicative ofCOVID infection and it is recommended that you stay home for recovery at this time. When will my results be available? - It typically takes 1-3 days to get the results of this test. If you have MyChart, the results will be available to you at the same time as we receive them. Regardless, we will call every patient with positive or negative results. The [facility] will be reaching out to all patients who have a positive test for further discussion and monitoring. If your test results are negative continue to self isolate until at least 10 days have passed since symptom onset, your symptoms have improved, and you have been fever free without the use of fever reducing medications for at least 24 hours. You may use acetaminophen and/or ibuprofen to control pain and fever. If you have chronic liver disease, have ever had a stomach ulcer or gastrointestinal bleeding talk with your healthcare provider before using these medicines. Aspirin should never be given to anyone under 18 years of age who is ill with a viral infection or fever. It may cause severe liver or brain damage. Your appetite may be poor, so a light diet is ok. Stay well hydrated by drinking 6 to 8 glasses of fluids per day (water, soft drinks, juices, tea, or soup). Extra fluids will help loosen secretions in the nose and lungs. Fmej-zlt-nyfqnpr cold medicines will not shorten the length of time you???re sick, but they may be helpful for relieving the following symptoms: headache, cough, sore throat, and nasal and sinus congestion. If you take prescription medicines, ask your healthcare provider or pharmacist which andl-enp-djnvogv medicines are safe to use. (Note: DO NOT use decongestants if you have high blood pressure.) Steps to help prevent the spread of COVID-19 if you are sick If you are sick with COVID-19 or think you might have COVID-19, follow the steps below to care for yourself and to help protect other people in your home and community. Stay home except to get medical care ??? Most people with COVID-19 have mild illness and are able to recover at home without medical care. Do not leave your home, except to get medical care. Do not visit public areas. ??? Take care of yourself. Get rest and stay hydrated. Take eaoe-tir-pxfstxc medicines to help you feel better. ??? Stay in touch with your doctor. Call before you get medical care. Be sure to get care if you have trouble breathing, or have any other emergency warning signs, or if you think it is an emergency. ??? Avoid using public transportation, ride-sharing, or taxis. Monitor your symptoms ??? Symptoms of COVID-19 include fever, cough, shortness of breath or difficulty breathing, fatigue, muscle or body aches, headache, new loss of taste or smell, sore throat, congestion, runny nose, nausea, vomiting, or diarrhea. When to Seek Medical Attention If you develop emergency warning signs for COVID-19 get medical attention immediately. Emergency warning signs include*: ??? Trouble breathing ??? Persistent pain or pressure in the chest ??? New confusion or inability to arouse ??? Bluish lips or face *This list is not all inclusive. Please consult your medical provider for any other symptoms that are severe or concerning. Call 911 if you have a medical emergency: If you have a medical emergency and need to call 911, notify the catering truck operator that you have or think you might have, COVID-19. If possible, put on a facemask before medical help arrives. Separate yourself from other people in your home, this is known as home isolation ??? As much as possible, you should stay away from other people and pets in your home. You should stay in a specific ???sick room?? if possible. Use a separate bathroom, if available. If you need abhi around other people or animals in or outside of the home, wear a mask For more information on sharing close living quarters with someone who is sick visit https://www.cdc .gov/coronavirus/2019-ncov/aebzs-taqs-nczbgc/jgfpmv-ce-zbcoh-quarters.html For more information on COVID-19 and pets visit https://www.cdc.gov/coronavirus/2019-ncov/faq.html Call ahead before visiting your doctor ??? Many medical visits for routine care are being postponed or done by phone or telemedicine. ??? If you have a medical appointment that cannot be postponed, call your doctor???s office, and tell them you have or may have COVID-19. This will help the office protect themselves and other patients. If you are sick wear a face mask over your nose and mouth in the following situations ??? You should wear a face mask over your nose and mouth if you must be around other people or animals, including pets (even at home). ??? You don't need to wear the face mask if you are alone. If you can't put on a face mask (becauseof trouble breathing, for example), cover your coughs and sneezes in some other way (tissue or inner elbow). Try to stay at least 6 feet away from other people. This will help protect the people around you. ??? Face masks should not be placed on children under 2 years old, anyone who has trouble breathing, or anyone who is not able to remove the covering without help. Cover your coughs and sneezes ??? Cover your mouth and nose with a tissue or the inside of your elbow when you cough or sneeze. ??? Throw used tissues in a lined trash can. ??? Immediately wash your hands with soap and water for at least 20 seconds. If soap and water are not available, clean your hands with an alcohol-based hand railroad wheels and axles inspector that contains at least 60% alcohol. Clean your hands often ??? Wash your hands often with soap and water for at least 20 seconds. This is especially importantafter blowing your nose, coughing, or sneezing; going to the bathroom; and before eating or preparing food. ??? Use hand railroad wheels and axles inspector if soap and water are not available. Use an alcohol-based hand railroad wheels and axles inspector with at least 60% alcohol, covering all surfaces of your hands and rubbing them together until they feel dry. ??? Soap and water are the best option, especially if hands are visibly dirty. ??? Avoid touching your eyes, nose, and mouth especially with unwashed hands. Avoid sharing personal household items ??? Do not share dishes, drinking glasses, cups, eating utensils, towels, or bedding with other people in your home. ??? After using these items, wash them thoroughly with soap and water or put them in the health and safety coordinator. Clean all ???high-touch?? surfaces everyday. High-touch surfaces include phones, remote controls, counters, tabletops, doorknobs, bathroom fixtures, toilets, keyboards, tablets, and bedside tables. ??? Clean and disinfect high-touch surfaces in your ???sick room?? and bathroom everyday while wearing disposable gloves. Let someone else clean and disinfect surfaces in common areas, but not your bedroom and bathroom. ??? If a caregiver or other person needs to clean and disinfect a sick person???s bedroom or bathroom, they should do so on an as-needed basis. The caregiver/other person should wear a mask and disposable gloves prior to cleaning.They should wait as long as possible after the sick person has used the bathroom before coming in to clean and use the bathroom. ??? Clean and disinfect areas that may have blood, stool, or body fluids on them. ??? Clean the area or item with soap and water or another detergent if it is dirty. Then, use a household disinfectant. o Be sure to follow the instructions on the label to ensure safe and effective use of the product. Many products recommend keeping the surface wet for several minutes to ensure germs are killed. Manyalso recommend precautions such as wearing gloves and making sure you have good ventilation during use of the product. o Most EPA-registered household disinfectants should be effective. When you can be around others (end home isolation) depends on different factors for different situations. If you think or know you have COVID-19, and you had symptoms you can be with others after ??? 24 hours with no fever (without the use of fever reducing medications) AND ??? Respiratory symptoms have improved (cough, shortness of breath) AND ??? 10 days since symptoms first appeared. ??? Loss of taste and smell may persist for weeks or months after recovery and need not delay the end of isolation If you tested positive for COVID-19 but had no symptoms you can be with others after ??? 10 days have passed since the test. ??? If you develop symptoms after testing positive, follow the guidance above for I think or I know I had COVID, and I had symptoms . If you have a weakened immune system due to a health condition or medication you can be around others ??? People with conditions that weaken their immune system might need to stay home longer than 10 days. Talk to your healthcare provider for more information. If you have been around a person with COVID-19 ??? [facility] Health Care continues to recommend a 14 day quarantine for anyone who has had a close contact exposure to a COVID-19 positive individual. ??? New CDC recommendations include options to reduce quarantine - Reducing the length of quarantine may make it easier for people to quarantine by reducing the time they cannot work. New CDC recommendations suggest you can return to work ??? After day 10 without testing ??? After day 7 after receiving a negative test result (test must occur on day 6 or later accordingto the [place] Department of Public Health - http://[facility].[place].gov/covid19/community-guidance/quarantine-guidance) After stopping quarantine, you should ??? Watch for symptoms until 14 days after exposure. ??? If you have symptoms, immediately self-isolate and contact your local public health authority or healthcare provider. ??? Wear a mask, stay at least 6 feet from others, wash their hands, avoid crowds, and take other steps to prevent the spread of COVID-19. CDC continues to endorse quarantine for 14 days as the safest option based on the time it takes to develop illness/symptoms and recognizes that any quarantine shorter than 14 days balances reduced burden against a small possibility of spreading the virus. CDC will continue to evaluate new information and update recommendations as needed. ??? If you live with someone positive for COVID-19, and you are unable to avoid close contact, you should quarantine for the 7 to 10 days AFTER the person who has COVID-19 meets the criteria to end home isolation. However, anyone who has had close contact with someone with COVID-19 and who: ??? developed COVID-19 illness within the previous 3 months AND ??? has recovered AND ??? remains without COVID-19 symptoms (for example, cough, shortness of breath) does not need to stay home. In all cases, follow the guidance of your healthcare provider and local health department regardingquarantine guidelines. The decision to stop home isolation should be made in consultation with yourhealthcare provider and state and local health departments. Local decisions depend on local circumstances. The above information is from the CDC website on July 06, 2020. Page was last reviewed: July 03, 2020. Additional information and resources about COVID-19 symptoms, testing, self- isolation, how to prevent spread, and more are available at: https://www.cdc.gov/coronavirus OM CLOTHIER documented in this encounter Ordered Prescriptions Prescription Sig Dispense Quantity Refills Last Filled Start Date End Date albuterol HFA (PROVENTIL HFA,VENTOLIN HFA,PROAIR HFA) 90 mcg/actuation inhalerIndications :Viral upper respiratory tract infection Inhale 2 puffs every 6 (six) hours as needed for wheezing or shortness of breath 1 Inhaler 07/28/2020 methylPREDNISolone (Medrol, Dipesh,) 4 mg DosepackIndication s:Viral upper respiratory tract infection follow package directions 1 packet 07/28/2020 1 benzonatate (TESSALON) 200 mg capsuleIndications :Viral upper respiratory tract infection Take 1 capsule (200 mg total) by mouth 3 (three) times a day as needed for cough 21 capsule 07/28/2020 1 documented in this encounter Progress Notes * Sandy Sams NP - 07/28/2020 4:00 PM CST Images from the original note were not included. Patient ID: Dior Hart is a 34 y.o. female followed by July Herron NP Patient was wearing the following PPE: mask. MA was wearing the following PPE: mask, gown, gloves and face shield. Provider was wearing the following PPE: mask, gown, gloves and face shield. Chief Complaint Patient presents with ??? COVID-19 EVALUATION Symptom onset 07/22. C/o cough, sob, nasal drainage, chills, sore throat, fatigue, pt vomited this morning after a coughing fit, body aches, headaches. States throat pain is present only when coughing. Presents to clinic with complaints of nasal congestion/drainage, post nasal drip, sore throat, productive cough, shortness of breath, wheezing, vomiting (x1 after coughing fit), chills, body aches, diaphoresis, headaches, and fatigue. Patient states her symptoms started 07/22/2020 and have gradually worsened. Denies known fever, loss of smell or taste, nausea, and diarrhea. Reports using her Symbicort BID as prescribed and has started using her albuterol inhaler multiple times a day since symptoms started with mild relief. Has also been taking tylenol and ibuprofen with mild relief. Patient states her work has had multiple COVID positive employees. Patient does not know who those employees are so doesn't know if she has had contact with them. Works at [employer]. Tested negative for COVID-19 07/23/2020. Patient presents to clinic for assessment of Chief Complaint Patient presents with ??? COVID-19 EVALUATION Symptom onset 07/22. C/o cough, sob, nasal drainage, chills, sore throat, fatigue, pt vomited this morning after a coughing fit, body aches, headaches. States throat pain is present only when coughing. . Patient reports PRODUCTIVE COUGH, SHORTNESS OF BREATH, SUBJECTIVE FEVER, SORE THROAT, NASAL CONGESTION, NASAL DRAINAGE, VOMITING, HEADACHE, BODY ACHES, FATIGUE and CHILLS Patient reports this has been going on for 7 days. Patient with sick or suspected COVID-19 contacts: No Patient has following risks for COVID-19: Patient has chronic lung disease Asthma Review of Systems Constitutional: Positive for chills, diaphoresis and fatigue. Negative for fever. HENT: Positive for congestion, postnasal drip, rhinorrhea and sore throat. Negative for ear pain, sinus pressure, sinus pain and trouble swallowing. Respiratory: Positive for cough, shortness of breath and wheezing. Cardiovascular: Negative for chest pain. Gastrointestinal: Positive for vomiting. Negative for abdominal pain, diarrhea and nausea. Musculoskeletal: Negative for myalgias. Neurological: Positive for headaches. Current Outpatient Medications Medication Sig Dispense Refill ??? albuterol 2.5 mg /3 mL (0.083 %) nebulizer solution Take 2.5 mg by nebulization every 6 (six) hours as needed for wheezing ??? albuterol HFA (PROVENTIL HFA,VENTOLIN HFA,PROAIR HFA) 90 mcg/actuation inhaler Inhale 2 puffs every 6 (six) hours as needed for wheezing or shortness of breath 1 Inhaler 0 ??? budesonide-formoteroL (Symbicort) 160-4.5 mcg/actuation inhaler Inhale 2 puffs 2 (two) times a day Rinse mouth with water after use. Do not swallow. ??? docusate sodium (COLACE) 100 mg capsule Take 1 capsule (100 mg total) by mouth 2 (two) times a day as needed for constipation 60 capsule 3 ??? inhalational spacing device (Aerochamber with Flowsignal) spacer Use as directed with inhalers 1 each 0 ??? benzonatate (TESSALON) 200 mg capsule Take 1 capsule (200 mg total) by mouth 3 (three) times a day as needed for cough 21 capsule 0 ??? busPIRone (BUSPAR) 5 mg tablet Take 5 mg by mouth 2 (two) times a day ??? famotidine (PEPCID) 40 mg tablet Take 40 mg by mouth daily ??? ipratropium-albuteroL (DUO-NEB) 0.5-2.5 mg/3 mL nebulizer solution Take by nebulization every 6(six) hours ??? methylPREDNISolone (Medrol, Dipesh,) 4 mg Dosepack follow package directions 1 packet 0 ??? pantoprazole DR (PROTONIX) 40 mg EC tablet TK 1 T PO QD UTD ??? sertraline (ZOLOFT) 100 mg tablet Take 1 tablet (100 mg total) by mouth daily (Patient not taking: Reported on 07/28/2020) 90 tablet 0 ??? tiotropium bromide (SPIRIVA RESPIMAT) 2.5 mcg/actuation inhaler Inhale 2 puffs daily (Patient not taking: Reported on 07/28/2020) 1 Inhaler 1 No current facility-administered medications for this visit. Past Medical History: Diagnosis Date ??? Asthma ??? Placenta previa with hemorrhage in third trimester 02/20/2020 ??? infant of 35 completed weeks of gestation 02/20/2020 Immunization History Administered Date(s) Administered ??? Influenza, Unspecified 04/01/2020 ??? MMR 09/24/2018 ??? Tdap 07/31/2014 Social History Tobacco Use Smoking Status Current Every Day Smoker ??? Packs/day: 0.50 ??? Years: 20.00 ??? Pack years: 10.00 ??? Types: Cigarettes ??? Start date: 07/31/2000 Smokeless Tobacco Never Used Vitals: 07/28/20 1612 BP: 98/62 BP Location: Left arm Patient Position: Sitting Pulse: 95 Resp: 24 Temp: 37.1 ??C (98.8 ??F) TempSrc: Oral SpO2: 94% Weight: 81.2 kg (179 lb) Height: 170.2 cm (5' 7 ) Physical Exam Constitutional: General: She is not in acute distress. Appearance: Normal appearance. She is well-developed and well-groomed. She is not ill-appearing. HENT: Right Ear: Tympanic membrane, ear canal and external ear normal. Left Ear: Tympanic membrane, ear canal and external ear normal. Nose: Right Sinus: No maxillary sinus tenderness or frontal sinus tenderness. Left Sinus: No maxillary sinus tenderness or frontal sinus tenderness. Mouth/Throat: Pharynx: Oropharynx is clear. Cardiovascular: Rate and Rhythm: Normal rate and regular rhythm. Heart sounds: Normal heart sounds. Pulmonary: Effort: Pulmonary effort is normal. Breath sounds: Examination of the right-lower field reveals wheezing. Examination of the left-lowerfield reveals wheezing. Wheezing present. Lymphadenopathy: Head: Right side of head: No submental, submandibular or tonsillar adenopathy. Left side of head: No submental, submandibular or tonsillar adenopathy. Cervical: No cervical adenopathy. Skin: General: Skin is warm and dry. Neurological: General: No focal deficit present. Mental Status: She is alert and oriented to person, place, and time. GCS: GCS eye subscore is 4. GCS verbal subscore is 5. GCS motor subscore is 6. Psychiatric: Attention and Perception: Attention normal. Mood and Affect: Mood normal. Speech: Speech normal. Behavior: Behavior normal. Behavior is cooperative. Results for orders placed or performed in visit on 07/28/20 POCT rapid strep A Result Value Ref Range Rapid Strep A, POC Negative POCT rapid influenza Result Value Ref Range Inflenza A Ag, POC Negative Influenza B Ag, POC Negative Lot Number [id number] QC Control Line Acceptable Assessment/Plan Tessalon pearls ordered for cough. Will order oral steroids for persistent wheezing and shortness of breath despite controller and rescue inhaler use. Refill of albuterol inhaler ordered. Swabbed for COVID-19, flu, and strep today in clinic. Rapid flu and strep negative. Patient aware they will be called with the COVID results in 1-3 days. Patient instructed to self isolate until called with results and they will be notified at that timeif they need to continue self isolation and for how long. Discussed home self care, follow up needs and signs and symptoms that warrant immediate medical attention. Diagnoses and all orders for this visit: Viral upper respiratory tract infection (Primary) - POCT rapid strep A - POCT rapid influenza - COVID-19 Coronavirus RNA Nasopharyngeal; Future - benzonatate (TESSALON) 200 mg capsule; Take 1 capsule (200 mg total) by mouth 3 (three) times a day as needed for cough - methylPREDNISolone (Medrol, Dipesh,) 4 mg Dosepack; follow package directions - albuterol HFA (PROVENTIL HFA,VENTOLIN HFA,PROAIR HFA) 90 mcg/actuation inhaler; Inhale 2 puffs every 6 (six) hours as needed for wheezing or shortness of breath Discussed COVID testing reasoning Reviewed isolation/quarantine protocols Discussed symptomatic relief of symptoms Discussed need to return to ER for further evaluation including worsening fevers, shortness of breath, of other concerning symptoms Advised to rest and stay adequately hydrated Advised to stay out of work and excuse given explaining when patient can return to work Orders Placed This Encounter Procedures ??? COVID-19 Coronavirus RNA Nasopharyngeal Standing Status: Future Standing Expiration Date: 07/28/2021 Order Specific Question: Is the patient experiencing any symptoms consistent with COVID (eg. Fever,cough, shortness of breath)? Answer: Yes Order Specific Question: What is the reason for testing? Answer: Symptoms of COVID-19 in high-risk group, without concurrent influenza testing Order Specific Question: Date of symptom onset Answer: 07/22/2020 Order Specific Question: Is the patient hospitalized? Answer: No Order Specific Question: Is the patient admitted to an ICU? Answer: No Order Specific Question: Is this the first COVID-19 test for this patient? Answer: No Order Specific Question: Does the patient currently work in a healthcare facility with direct patient contact? Answer: No Order Specific Question: Is the patient a resident of a congregate care or living setting? Answer: No Order Specific Question: Is the patient ? Answer: No ??? POCT rapid strep A ??? POCT rapid influenza Sandy Sams NP OM CLOTHIER documented in this encounter Plan of Treatment Not on file documented as of this encounter Procedures Procedure Name Priority Date/Time Associated Diagnosis Comments POCT RAPID INFLUENZA Routine 07/28/2020 4:25 PM CUSTOM CLOTHIER Viral upper respiratory tract infection POCT RAPID STREP Routine 07/28/2020 4:24 PM CUSTOM CLOTHIER Viral upper respiratory tract infection documented in this encounter Results * COVID-19 Coronavirus RNA Nasopharyngeal (07/28/2020 4:27 PM CUSTOM CLOTHIER) COVID-19 RNA Not Detected OLGA CH Comment: Interpretive Data Testing performed at [facility]. The 2018-Novel Coronavirus Assay (COVID-19) Real Time RT-PCR assay is for in vitro diagnostic use under FDA emergency use authorization only. A negative RT-PCR result does not preclude infection with COVID-19 and should not be used as the sole basis for treatment or other patient management decisions. Additional sample types have been validated according to CLIA regulations. ?? Current Interpretive Data was last revised on 2019. Testing performed by: [facility], [address] [place] [address]., [id number] First COVID-19 test? No CERNER CH Comment:Testing performed by : [facility], [address] [place] [address], [id number] Employeed in healthcare? No CERNER CH Comment:Testing performed by : [facility], [address] [place] [address], [id number] status? No CERNER CH Comment:Testing performed by : [facility], [address] [place] [address], [id number] Group care resident? No CERNER CH Comment:Testing performed by : [facility], [address] [place] [address], [id number] Hospitalized? No CERNER CH Comment:Testing performed by : [facility], [address] [place] [address], [id number] Is patient in ICU? No CERNER CH Comment:Testing performed by : [facility], [address] [place] [address], [id number] Symptomatic as defined by CDC? Yes CERNER CH Comment:Testing performed by : [facility], [address] [place] [address], [id number] Nasopharyngeal 07/28/2020 4: 27 PM CUSTOM CLOTHIER 07/29/2020 2:19 AM CUSTOM CLOTHIER Narrative OLGA RODRIGUEZ - 07/29/2020 1:20 PM CUSTOM CLOTHIER What is the reason for testing?->Symptoms of COVID-19 in high-risk group, without concurrent influenza testing Date of symptom onset->07/22/20 Sandy Sams NP LAB MICROBIOLOGY - GE NERAL ORDERABLES Final Result OLGA [id number] [place] [address] * POCT rapid influenza (07/28/2020 4:25 PM CUSTOM CLOTHIER) Influenza A Ag, POC Negative Influenza B Ag, POC Negative Lot Number [id number] QC Control Line Acceptable Swab 07/28/2020 4:25 PM CUSTOM CLOTHIER Sandy Sams FLAT SCREEN WORKER POINT OF CARE TEST OR DERABLES Final Result * POCT rapid strep A (07/28/2020 4:24 PM CUSTOM CLOTHIER) Rapid Strep A, POC Negative Swab 07/28/2020 4:24 PM CUSTOM CLOTHIER Sandy Sams NP POINT OF CARE TEST OR DERABLES Final Result documented in this encounter Visit Diagnoses Diagnosis Viral upper respiratory tract infection- Primary Acute upper respiratory infections of unspecified site Viral upper respiratory tract infection Acute upper respiratory infections of unspecified site documented in this encounter Discontinued Medications Medication Sig Discontinue Reason Start Date End Da te albuterol HFA (PROVENTIL HFA,VENTOLIN HFA,PROAIR HFA) 90 mcg/actuation inhaler Inhale 2 puffs every 6 (six) hours as needed Reorder 07/28/2020 documented as of this encounter Additional Health Concerns Infection Onset Date Last Indicated Resolved Time COVID: Suspected 07/28/2020 07/28/2020 07/29/2020 1:22 PM CUSTOM CLOTHIER documented as of this encounter Care Teams Underwriting Sales Representative Relationship Specialty Start Date End Date July Herron NP PCP - General Family Medicine 05/13/20 06/01/21 documented as of this encounter
--- OUTSIDE RECORDS SUMMARY | 2024-07-17 18:32 | XMS_ITS | Encounter Summary ---
Author Organization [facility] Healthcare Address [address] [place] [address] Care Team Providers Care Decoration Checker Name Role Phone Mary Mcgrath WET END HELPER Unavailable Rand Ballard WET END HELPER Primary Care Provider + Reason for Visit * Reason Comments Asthma Exacerbation Encounter Details Date Type Department Care Team ([facility] st Contact Info) Description 10/18/2021 1:47 AM CDT - 10/18/2021 4:35 AM CDT Emergency [facility] Emergency Department [address] [place] [address] Chaitanya Lowry MD [address] [place] [address] Moderate asthma with exacerbation, unspecified whether persistent (Primary Dx) Discharge Disposition: Discharge to home or self [...] on file Legal Sex Female 8:20 AM OVEN UNLOADER Gender Identity Not on file Sexual Orientation [...] (184 lb) 10/18/2021 1:49 AM CDT Height - - Body Mass Index 28.82 06/02/2021 5:42 PM CDT documented in this encounter Discharge Diagnoses Diagnosis Unspecified asthma with (acute) exacerbation - UNSPECIFIED ASTHMA WITH (ACUTE) EXACERBATION Personal history of nicotine dependence - PERSONAL HISTORY OF NICOTINE DEPENDENCE documented in this encounter Discharge Instructions * Discharge Instructions* Chaitanya Lowry MD - 10/18/2021 4:21 AM CDT Take prednisone as directed. Use inhaler and nebulizer as needed. * Attachments The following attachments cannot be sent through Care Everywhere. * Asthma (Discharge Care) ([place]) documented in this encounter Medications at Time [...] 60 tablet 1 09/24/2020 cholecalciferol (VITAMIN D-3) 24568 unit tabletIndications: Vitamin D Deficiency Take 1 [...] tablet by mouth daily 60 each 08/03/2020 predniSONE (DELTASONE) 20 mg tablet Take 2 tablets (40 mg) by mouth daily for 5 days 10 tablet 10/18/2021 10/24/19 22 documented as of this encounter Ordered Prescriptions Prescription Sig Dispense Quantity Refills Last Filled Start Date End Date albuterol 2.5 mg /3 mL (0.083 %) nebulizer solution Take 3 mL (2.5 mg total) by nebulization every 6 (six) hours as needed for wheezing 75 mL 10/18/2021 albuterol HFA (PROVENTIL HFA,VENTOLIN HFA,PROAIR HFA) 90 mcg/actuation inhaler Inhale 2 puffs every 4 (four) hours as needed for wheezing 8.5 g 10/18/2021 predniSONE (DELTASONE) 20 mg tablet Take 2 tablets (40 mg) by mouth daily for 5 days 10 tablet 10/18/2021 2 documented in this encounter Discharge Disposition Disposition Code Departure Means Destination Discharge to home or self care documented in this encounter ED Notes * Chaitanya Lowry MD - 10/18/2021 1:57 AM CDT HPI Chief Complaint Patient presents with ??? Asthma Exacerbation Patient is having an asthma exacerbation. She says she was exposed to dust an hour and a half ago. Her kids dad was cleaning out the garage and there was does cloud. Patient using albuterol without relief. No chest pain. No fever. She was feeling well before this happened. No smoking. Patient History: Patient Active Problem List Diagnosis Date Noted ??? Severe persistent asthma with acute exacerbation 05/13/2020 ??? BMI 29.0-29.9,adult 05/13/2020 ??? Moderate episode of recurrent major depressive disorder (HCC) 05/13/2020 ??? Anxiety 05/13/2020 ??? Chronic constipation 05/13/2020 ??? GERD (gastroesophageal reflux disease) 05/13/2020 ??? HSV (herpes simplex virus) infection 02/20/2020 Past Medical History: Diagnosis Date ??? Asthma ??? Placenta previa with hemorrhage in third trimester 02/20/2020 ??? infant of 35 completed weeks of gestation 02/20/2020 History reviewed. No pertinent surgical history. History reviewed. No pertinent family history. Social History Tobacco Use ??? Smoking status: Former Smoker Packs/day: 0.50 Years: 20.00 Pack years: 10.00 Types: Cigarettes Start date: 07/31/2000 Quit date: 07/30/2020 Years since quittin.2 ??? Smokeless tobacco: Never Used Vaping Use ??? Vaping Use: Never used Substance Use Topics ??? Alcohol use: Not Currently ??? Drug use: Not Currently Social History Social History Narrative ??? Not on file Review of Systems Review of Systems Constitutional: Negative for chills and fever. HENT: Negative for congestion, rhinorrhea and sore throat. Eyes: Negative for pain. Respiratory: Positive for cough, chest tightness and shortness of breath. Cardiovascular: Negative for chest pain and leg swelling. Gastrointestinal: Negative for abdominal pain, diarrhea, nausea and vomiting. Genitourinary: Negative for difficulty urinating. Musculoskeletal: Negative for myalgias. Skin: Negative for rash. Neurological: Negative for dizziness and headaches. Psychiatric/Behavioral: Negative for behavioral problems. Physical Exam ED Triage Vitals Temp Pulse Resp BP SpO2 10/18/21 0149 10/18/21 0149 10/18/21 01410/18/21 01410/18/21 014 36.5 ??C (97.7 ??F) 118 27 (!) 125/101 93 % Temp src Heart Rate Source Patient Position BP Location FiO2 (%) -- -- 10/18/21 0200 -- -- Sitting Physical Exam Vitals and nursing note reviewed. Constitutional: General: She is in acute distress. Appearance: She is well-developed. HENT: Head: Normocephalic and atraumatic. Eyes: Conjunctiva/sclera: Conjunctivae normal. Cardiovascular: Rate and Rhythm: Normal rate and regular rhythm. Heart sounds: Normal heart sounds. No murmur heard. Pulmonary: Effort: Respiratory distress present. Breath sounds: Wheezing present. Abdominal: General: Bowel sounds are normal. There is no distension. Palpations: Abdomen is soft. Tenderness: There is no abdominal tenderness. There is no guarding. Musculoskeletal: Cervical back: Neck supple. Skin: General: Skin is warm and dry. Neurological: Mental Status: She is alert and oriented to person, place, and time. MDM Medical Decision Making Differential Diagnosis or Management Options: Patient presents with asthma exacerbation caused by dust. Summarize previous history: Asthma. Summarize history: Patient given steroids and albuterol treatment. She is much improved. I refilledher MDI, albuterol nebulizers and I put her on some prednisone. Final diagnoses: Moderate asthma with exacerbation, unspecified whether persistent Chaitanya Lowry MD 10/18/21 0502 * Stephen Nguyen RN - 10/18/2021 1:47 AM CDT Patient arrives to the ED via private vehicle with complaints of an asthma exacerbation. Patient states they were cleaning the garage out and she had a flare up. Patient states she has used her albuterol roughly 30 times with minimal short term relief. Patient's respirations are shallow and quick upon arrival. documented in this encounter Plan of Treatment Not on file documented as of this encounter Visit Diagnoses Diagnosis Moderate asthma with exacerbation, unspecified whether persistent- Primary documented in this encounter Administered Medications Inactive Administered Medications - up to 3 most recent administrations Medication Order MAR Action Action Date Dose Rate Site albuterol 2.5 mg/0.5 mL nebulizer solution 10 mg 10 mg, nebulization, Once (correspondence renew clerk), On Mon10/18/21 at 0152, For 1 dose Given 10/18/2021 2:00 AM CDT 10 mg methylPREDNISolone sodium succinate (SOLU-medrol) preservative free injection 125 mg 125 mg, intravenous, Administer over 3 Minutes, Once, On Mon10/18/21 at 0152, For 1 dose New Bag 10/18/2021 1:58 AM CDT 125 mg documented in this encounter Active and Recently Administered Medications Times are shown in CDT. Scheduled Medication Order 10/16/2021 10/17/2021 10/18/2021 albuterol 2.5 mg/0.5 mL nebulizer solution 10 mg (COMPLETED) 10 mg, nebulization, Once (correspondence renew clerk), On Mon10/18/21 at 0152, For 1 dose 0200 (Given - Provid er: Berkley Barriga RRT) methylPREDNISolone sodium succinate (SOLU-medrol) preservative free injection 125 mg (COMPLETED) 125 mg, intravenous, Administer over 3 Minutes, Once, On Mon10/18/21 at 0152, For 1 dose 0158 (New Bag - Prov ider: Isis Tavarez RN)0201 (Stopped - Provider: Isis Tavarez RN) documented in this encounter Care Teams Decoration Checker Relationship Specialty Start Date End Date Rand Ballard NP [address] [place] [address] PCP - General 06/02/21 [place] [address] [address] [facility] [address] [place] [address] Nurse Practitioner Internal Medicine 09/24/20 documented as of this encounter
--- OUTSIDE RECORDS SUMMARY | 2024-07-17 18:32 | XMS_ITS | Encounter Summary ---
Author Organization [facility] Healthcare Address [address] [place] [address] Care Team Providers Care Retort Cooler Name Role Phone Mary Mcgrath HIGHWAY MAINTAINER Unavailable [phone] MAINTAINER Primary Care Provider + Reason for Referral * Diagnostic Imaging (Routine) - Closed Specialty Diagnoses / Procedures Referred By Contac t Referred To Contact Diagnoses Other forms of dyspnea Procedures XR Chest Pa Lateral 2 Views Yadiel Spear MD [address] [employer] [address] [address] Phone: tel: fax: [address] [phone] Referral ID Status Reason Start Date Expiration Date Visits Re quested Visits Authorized [id number] Closed 07/26/2021 08/25/2022 1 1 R CHECKER Reason for Visit * Diagnostic Imaging (Routine) - Closed Specialty Diagnoses / Procedures Referred By Contac t Referred To Contact Diagnoses Other forms of dyspnea Procedures XR Chest Pa Lateral 2 Views Yadiel Spear MD [address] [employer] [address] [address] Phone: tel: fax: [address] [phone] Referral ID Status Reason Start Date Expiration Date Visits Re quested Visits Authorized [id number] Closed 07/26/2021 08/25/2022 1 1 Encounter Details Date Type Department Care Team (Latest Contact Info) Description 07/26/2021 11:14 AM LINER CHECKER - 07/26/2021 11:59 PM LINER CHECKER Hospital Encounter [facility] [address] [place] [address] Yadiel Spear MD [address] [facility] [address] [place] [address] Other forms of dyspnea Discharge Disposition: Discharge to home or self [...] on file Legal Sex Female 8:20 AM LINER CHECKER Gender Identity Not on file Sexual Orientation Not on file documented as of this encounter Medications at Time of Discharge albuterol 2.5 mg /3 mL (0.083 %) nebulizer solution Take 3 mL (2.5 mg total) by nebulization every 4 (four) hours as needed for wheezing 75 mL 1 08/20/2020 albuterol HFA (PROVENTIL HFA,VENTOLIN HFA,PROAIR HFA) 90 [...] 60 tablet 1 09/24/2020 cholecalciferol (VITAMIN D-3) 55390 unit tabletIndications: Vitamin D Deficiency Take 1 [...] VIEWS Schedule Routine, Read Routine (OP Routine) 07/26/2021 11:24 AM LINER CHECKER Other forms of dyspnea documented in this encounter Results * XR Chest Pa Lateral 2 Views (07/26/2021 11:24 AM LINER CHECKER) Anatomical Region Laterality Modality Body, Chest N/A Computed Radiogr aphy 07/26/2021 11:5 6 AM LINER CHECKER Narrative 07/26/2021 11:57 AM LINER CHECKER EXAM DESCRIPTION: ?? XR CHEST PA LATERAL 2 VIEWS REASON FOR STUDY: ? Complaints of SOB, Cough, x 1 month. ?? Smoker. ?? Hx of asthma. ?? No prior injuries/surgery to heart/lungs. ? TECHNIQUE: ?? Frontal ??and lateral radiographic views of the chest acquired. COMPARISON: ?? 08/12/2020 FINDINGS: LUNGS/PLEURA: ?? No focal consolidation or pneumothorax. No pleural effusion. HEART/MEDIASTINUM: ?? Heart size is normal. Normal mediastinal and hilar contours. HARDWARE/LINES/TUBES: ?? None. BONES: ?? No acute findings. OTHER: ?? No other significant finding. IMPRESSION: ??No acute cardiopulmonary abnormality. THIS IS AN ELECTRONICALLY VERIFIED FINAL REPORT 07/26/2021 11:57 AM - Electronically signed by ??Robb MEHTA: TYSON D: ??07/26/2021 11:57 AM T: ??07/26/2021 11:57 AM Report ID: [id number] Reading Location: ??[id number] Procedure Note Robb Talley MD - 07/26/2021 EXAM DESCRIPTION: XR CHEST PA LATERAL 2 VIEWS REASON FOR STUDY: Complaints of SOB, Cough, x 1 month. Smoker. Hx of asthma. No prior injuries/surgery to heart/lungs. TECHNIQUE: Frontal and lateral radiographic views of the chestacquired. COMPARISON: 08/12/2020 FINDINGS: LUNGS/PLEURA: No focal consolidation or pneumothorax. No pleuraleffusion. HEART/MEDIASTINUM: Heart size is normal. Normal mediastinal and hilar contours. HARDWARE/LINES/TUBES: None. BONES: No acute findings. OTHER: No other significant finding. IMPRESSION: No acute cardiopulmonary abnormality. THIS IS AN ELECTRONICALLY VERIFIED FINAL REPORT 07/26/2021 11:57 AM - Electronically signed by Robb MEHTA: TYSON Report ID: [id number] Reading Location: [id number] Yadiel Spear MD IMG XR PROCEDURES Final Result documented in this encounter Visit Diagnoses Diagnosis Other forms of dyspnea documented in this encounter Care Teams Retort Cooler Relationship Specialty Start Date End Date Rand Ballard NP [address] [place] [address] DEPT [place] [address] PCP - General 06/02/21 [place] [address] [address] [facility] [address] [place] [address] Nurse Practitioner Internal Medicine 09/24/20 documented as of this encounter
--- OUTSIDE RECORDS SUMMARY | 2024-07-17 18:32 | XMS_ITS | Encounter Summary ---
Author Organization [facility] Healthcare Address [address] [place] [id number] Care Team Providers Care Inspector Advanced Composite Name Role Phone Mary Mcgrath NP Unavailable [phone] Rand Ballard NP Primary Care Provider + Reason for Referral * Sleep Medicine (Routine) - Closed Specialty Diagnoses / Procedures Referred By Contac t Referred To Contact Diagnoses Obstructive sleep apnea (adult) (pediatric) Procedures Portable/Home Sleep Study Mary Mcgrath NP [address] [place] [address] Phone: tel: fax: [address] [phone] Referral ID Status Reason Start Date Expiration Date Visits Re quested Visits Authorized [id number] Closed 08/02/2022 10/31/2022 1 1 IGERATION REPAIR SUPERVISOR Reason for Visit * Sleep Medicine (Routine) - Closed Specialty Diagnoses / Procedures Referred By Contac t Referred To Contact Diagnoses Obstructive sleep apnea (adult) (pediatric) Procedures Portable/Home Sleep Study Mary Mcgrath NP [address] [place] [address] Phone: tel: fax: [address] [phone] Referral ID Status Reason Start Date Expiration Date Visits Re quested Visits Authorized [id number] Closed 08/02/2022 10/31/2022 1 1 Encounter Details Date Type Department Care Team (Latest Contact Info) Description 08/09/2022 10:30 AM REFRIGERATION REPAIR SUPERVISOR - 08/09/2022 11:59 PM REFRIGERATION REPAIR SUPERVISOR Hospital Encounter [facility] [address] [place] [phone] Obstructive sleep apnea (adult) (pediatric) Discharge Disposition: Discharge to home or self [...] on file Legal Sex Female 8:20 AM REFRIGERATION REPAIR SUPERVISOR Gender Identity Not on file Sexual Orientation [...] 60 tablet 1 09/24/2020 cholecalciferol (VITAMIN D-3) 20123 unit tabletIndications: Vitamin D Deficiency Take 1 [...] or self care documented in this encounter Procedure Notes * Zheng Sheikh MD - 08/09/2022 12:00 AM CSTAssociated Order(s): PORTABLE/HOME SLEEP STUDY ATTENDING PHYSICIAN Referring practitioner Mary Mcgrath. DATE OF STUDY 08/09/2022. 36-year-old 67 inch 188 pound female neck size 12-1/2 inches body mass index 29.35 kg/m2 undergoes a portable home sleep study under the care of Dr. Nitesh Nunez and Mary Mcgrath. RESULTS Total recording time 6 hours 4 minutes, total evaluation time for flow 5 hours 49 minutes, and oxygen saturation evaluation time 5 hours 53 minutes. Data demonstrates a respiratory event index of 8.4. During the course of the study there are 4 obstructive and 45 hypopneas. Saturations as low as 89% recorded. Snoring noted. ASSESSMENT Mild sleep apnea. RECOMMENDATIONS This study demonstrates mild sleep apnea. Therapeutics regarding sleep apnea may be warranted. The patient could be considered for an in-lab titration study. Alternatively, auto CPAP could be considered. Alternative options such as dental appliances or surgical options could also be considered if felt to be clinically appropriate. Job ID/Internal Job ID: [id number] IGERATION REPAIR SUPERVISOR documented in this encounter Plan of Treatment Not on file documented as of this encounter Procedures Procedure Name Priority Date/Time Associated Diagnosis Comments PORTABLE/HOME SLEEP STUDY Routine 08/09/2022 12:00 AM REFRIGERATION REPAIR SUPERVISOR Obstructive sleep apnea (adult) (pediatric) documented in this encounter Results * Portable/Home Sleep Study (08/09/2022 12:00 AM REFRIGERATION REPAIR SUPERVISOR) Narrative Procedure Note Zheng Sheikh MD - 08/09/2022 12:00 AM CST ATTENDING PHYSICIAN Referring practitioner Mary Mcgrath. DATE OF STUDY 08/09/2022. 36-year-old 67 inch 188 pound female neck size 12-1/2 inches body massindex 29.35 kg/m2 undergoes a portable home sleep study under the care ofDr. Nitesh Nunez and Mary Mcgrath. RESULTS Total recording time 6 hours 4 minutes, total evaluation time for flow 5hours 49 minutes, and oxygen saturation evaluation time 5 hours 53minutes. Data demonstrates a respiratory event index of 8.4. During the course ofthe study there are 4 obstructive and 45 hypopneas. Saturations as low as89% recorded. Snoring noted. ASSESSMENT Mild sleep apnea. RECOMMENDATIONS This study demonstrates mild sleep apnea. Therapeutics regarding sleepapnea may be warranted. The patient could be considered for an in-lab titration study.Alternatively, auto CPAP could be considered. Alternative options such as dental appliances or surgical options couldalso be considered if felt to be clinically appropriate. Job ID/Internal Job ID: [id number] Mary Mcgrath [facility] ORDERABLES Final Result documented in this encounter Visit Diagnoses Diagnosis Obstructive sleep apnea (adult) (pediatric) documented in this encounter Care Teams Inspector Advanced Composite Relationship Specialty Start Date End Date Rand Ballard NP [address] [facility] [place] [address] PCP - General 06/02/21 [place] [address] [facility] [address] [place] [address] Nurse Practitioner Internal Medicine 09/24/20 documented as of this encounter
--- OUTSIDE RECORDS SUMMARY | 2024-07-17 18:32 | XMS_ITS | Encounter Summary ---
Author Organization [facility] Address [address] [place] [address] Care Team Providers Care Chainstitch Felled Seam Operator Name Role Phone July Eric NP Primary Care Provider [phone] Reason for Referral * Diagnostic Imaging (Routine) - Closed Specialty Diagnoses / Procedures Referred By Melba t Referred To Contact Diagnoses Severe persistent asthma with acute exacerbation Procedures XR Chest Pa Lateral 2 Views July Eric NP Phone: tel: fax: [address] [phone] Referral ID Status Reason Start Date Expiration Date Visits Re quested Visits Authorized [id number] Closed 08/12/2020 09/11/2021 1 1 NCIAL PLANNER Reason for Visit * Reason Comments Asthma Encounter Details Date Type Department Care Team ([facility] st Contact Info) Description 08/12/2020 9:45 AM FINANCIAL PLANNER Office Visit [facility] [address] [place] [id number] July Eric NP [address] [place] [id number] Severe persistent asthma with acute exacerbation (Primary Dx) Social History Tobacco Use Types [...] on file Legal Sex Female 8:20 AM FINANCIAL PLANNER Gender Identity Not on file Sexual Orientation Not on file documented as of this encounter Last Filed Vital Signs Vital Sign Reading Time Taken Comments Blood Pressure 126/74 08/12/2020 9:53 AM FINANCIAL PLANNER Pulse 74 08/12/2020 9:53 AM FINANCIAL PLANNER Temperature 36.4 ??C (97.6 ??F) 08/12/2020 9:53 AM CS T Respiratory Rate 16 08/12/2020 9:53 AM FINANCIAL PLANNER Oxygen Saturation 96% 08/12/2020 9:53 AM FINANCIAL PLANNER Inhaled Oxygen Concentration - - Weight 81.8 kg (180 lb 6.4 oz) 08/12/2020 9:53 A M FINANCIAL PLANNER Height 170.2 cm (5' 7 ) 08/12/2020 9:53 AM FINANCIAL PLANNER Body Mass Index 28.25 08/12/2020 9:53 AM FINANCIAL PLANNER documented in this encounter Ordered Prescriptions Prescription Sig Dispense Quantity Refills Last Filled Start Date End Date promethazine (PHENERGAN) 1.25 mg/mL syrup Take 10 mL (12.5 mg total) by mouth 4 (four) times a day as needed (cough) 300 mL 1 08/12/2020 1 azithromycin (Zithromax Z-Dipesh) 250 mg tablet Take 2 tablets the first day, then 1 tablet daily for 4 days. 6 tablet 08/12/2020 1 documented in this encounter Progress Notes * July Eric NP - 08/12/2020 9:45 AM CST Images from the original note were not included. Subjective/Objective Patient ID: Dior Hart is a 34 y.o. female. Assessment/Plan Diagnoses and all orders for this visit: Severe persistent asthma with acute exacerbation (Primary) - XR Chest Pa Lateral 2 Views; Future Other orders - azithromycin (Zithromax Z-Dipesh) 250 mg tablet; Take 2 tablets the first day, then 1 tablet daily for 4 days. 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 ER if symptoms worsen. Follow up 1 Week Chief Complaint Asthma Asthma exacerbation started on 07/22/2020-started with sore throat, cold sweats, normal temp-she went to [facility] for COVID test and was negative. She had a spurt where she started feeling better, but then by 07/27 felt like someone was sitting on her chest and choking her. On 07/27 was tested for strep, flu and covid at [facility]-all negative. She was given oral steroids, tessalon perles and inhaler On 07/29 she had a panic attack and had to call 911 and she went to [facility], she had breathing treatments in the ambulance. EMT said she may need to go on vent. She was at the ER and a few hours after being on oxygen she was feeling better. Her oxygen was normal and she was released from the hospital. She was told to continue the steroids given the day before, use nebulizer medications an d stop smoking. On 08/03/2020 she was seen by Nicolette Olivares NP via telemed from our office-pt had just completed steroid1 day prior, repeat round of steroids given and instructed to call pulmonology. The next day she lost her voice and it just started coming back yesterday. She has not called pulmonology yet. Today she feels her breathing is not bad but is not good. She can feel tightness in chest when she breathes in and out. She is still coughing and that makes her feel more tired. She last used her albuterol about 8am. She is needing it every 4 hours right now. Her symptoms are waxing and waning. Shehas been taking her symbicort 160mg 2 puffs twice daily every day for this. She has completed the st eroids she was given by nicolette a couple days ago. The steroids didn't help excessively. Patient having whole body aches and has the most pain between her shoulder blades. Throat hurts from coughing. Voice is raspy. She is having running and stuffy nose, post nasal drainage. During the day most of the coughing is dry, but productive first thing in the am. She feels sweaty a lot. 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 She cannot work at this time. Asthma She complains of chest tightness, cough, frequent throat clearing, hoarse voice, shortness of breath and wheezing (this morning). This is a recurrent problem. The current episode started 1 to 4 weeksago. The problem occurs 2 to 4 times per day. The problem has been gradually improving (better fromthe beginning, but has leveled out without recent improvement). The cough is productive of sputum. A ssociated symptoms include dyspnea on exertion, malaise/fatigue, myalgias, nasal congestion, PND, rhinorrhea, a sore throat and sweats. Exacerbated by: steam, getting hot. Her symptoms are alleviatedby cold air, steroid inhaler, oral steroids and beta-agonist (sits outside in the cold). She reports minimal improvement on treatment. Her past medical history is significant for asthma. Review of Systems Constitutional: Positive for fatigue and malaise/fatigue. HENT: Positive for hoarse voice, rhinorrhea and sore throat. Respiratory: Positive for cough, shortness of breath and wheezing (this morning). Cardiovascular: Positive for dyspnea on exertion and PND. Musculoskeletal: Positive for myalgias. BP 126/74 (BP Location: Left arm, Patient Position: Sitting) Pulse 74 Temp 36.4 ??C (97.6 ??F) (Transdermal) Resp 16 Ht 170.2 cm (5' 7 ) Wt 81.8 kg (180 lb 6.4 oz) LMP 07/15/2020 (Exact Date) SpO2 96% BMI 28.25 kg/m?? Physical Exam Constitutional: General: She is not in acute distress. Appearance: She is well-developed. She is ill-appearing. HENT: Head: Normocephalic. Right Ear: Tympanic membrane normal. Left Ear: Tympanic membrane normal. Nose: Congestion and rhinorrhea present. Mouth/Throat: Mouth: Mucous membranes are moist. Comments: Hoarseness to voice Eyes: Conjunctiva/sclera: Conjunctivae normal. Pupils: Pupils are equal, round, and reactive to light. Neck: Thyroid: No thyroid mass. Cardiovascular: Rate and Rhythm: Normal rate and regular rhythm. Pulses: Normal pulses. Heart sounds: No murmur. Pulmonary: Effort: Pulmonary effort is normal. Breath sounds: Examination of the right-upper field reveals wheezing. Examination of the left-lowerfield reveals rhonchi. Wheezing and rhonchi present. Abdominal: General: Bowel sounds are normal. Palpations: Abdomen is soft. Tenderness: There is no abdominal tenderness. Musculoskeletal: Normal range of motion. Lymphadenopathy: Cervical: No cervical adenopathy. Skin: General: Skin is warm and dry. Capillary Refill: Capillary refill takes less than 2 seconds. Neurological: Mental Status: She is alert and oriented to person, place, and time. Psychiatric: Mood and Affect: Mood normal. July Eric NP Please note: Voice recognition software [employer] was used to dictate and transcribe this document. It Training Specialist variances may occur. Despite proofreading, typographical errors may occur. NCIAL PLANNER documented in this encounter Plan of Treatment Not on file documented as of this encounter Results * XR Chest Pa Lateral 2 Views (08/12/2020 11:11 AM FINANCIAL PLANNER) Anatomical Region Laterality Modality Body, Chest N/A Computed Radiogr aphy 08/12/2020 11:1 8 AM FINANCIAL PLANNER Impressions 08/12/2020 11:19 AM FINANCIAL PLANNER No radiographic evidence of acute cardiopulmonary disease. Electronically signed by: Annemarie Dutton D.O. Narrative 08/12/2020 11:19 AM FINANCIAL PLANNER EXAMINATION: XR CHEST PA LATERAL 2 VIEWS ORDERING HEALTHCARE PROVIDER: JULY ERIC HISTORY: non improving cough Persistent cough since Jul 28 asthma no surger ?? TECHNIQUE: Frontal and lateral radiographs of the chest. COMPARISON: 07/29/2020 FINDINGS: The heart, mediastinum, and pulmonary vasculature are grossly stable. There is no definite evidence of a pneumothorax. ??There is no definite evidence of focal consolidation or pleural effusion. The osseous structures are acutely grossly stable. Procedure Note Annemarie Dutton, - 08/12/2020 EXAMINATION: XR CHEST PA LATERAL 2 VIEWS ORDERING HEALTHCARE PROVIDER: JULY ERIC HISTORY: non improving cough Persistent cough since Jul 28 asthma no surger TECHNIQUE: Frontal and lateral radiographs of the chest. COMPARISON: 07/29/2020 FINDINGS: The heart, mediastinum, and pulmonary vasculature are grossly stable. There is no definite evidence of a pneumothorax. There is no definite evidence of focal consolidation or pleural effusion. The osseous structures are acutely grossly stable. IMPRESSION: No radiographic evidence of acute cardiopulmonary disease. Electronically signed by: Annemarie Dutton D.O. July Eric NP IMG XR PROCEDURES Final Res ult documented in this encounter Visit Diagnoses Diagnosis Severe persistent asthma with acute exacerbation- Primary Severe persistent asthma with acute exacerbation documented in this encounter Discontinued Medications Medication Sig Discontinue Reason Start Date End Da te azithromycin (Zithromax Z-Dipesh) 250 mg tablet Take 2 tablets the first day, then 1 tablet daily for 4 days. Therapy completed 08/03/2020 08/12/2020 predniSONE (DELTASONE) 10 mg tablet 4 tablets x 3 days, then 3 tablets x 3 days, then 2 tablets x 3 days, then 1 tablet x 3 days Therapy completed 08/03/2020 08/12/2020 documented as of this encounter Care Teams Chainstitch Felled Seam Operator Relationship Specialty Start Date End Date July Eric NP PCP - General Family Medicine 05/13/20 06/01/21 documented as of this encounter
--- OUTSIDE RECORDS SUMMARY | 2024-07-17 18:32 | XMS_ITS | Encounter Summary ---
Author Organization [facility] Healthcare Address [address] [place] [address] Care Team Providers Care Spot Washer Name Role Phone Gopal July ARTI Primary Care Provider [phone] Encounter Details Date Type Department Care Team (Late st Contact Info) Description 07/28/2020 6:50 PM CARE MANAGEMENT ASSISTANT Lab [address] [address] Viral upper respiratory tract infection Social History Tobacco Use Types Packs/Day Years [...] on file Legal Sex Female 8:20 AM CARE MANAGEMENT ASSISTANT Gender Identity Not on file Sexual Orientation Not on file documented as of this encounter Miscellaneous Notes * Result Encounter Note - Shivam Kong MA - 07/29/2020 1:50 PM CARE MANAGEMENT ASSISTANT Patient was notified that her Covid-19 test was negative. Patient was informed that she should continue to self isolate until at least 10 days have passed since the onset of her symptoms and she has been fever free without the use of fever reducing medications for at least 24 hours. Patient verbalized understanding. MANAGEMENT ASSISTANT * Result Encounter Note - Elaine Shaw NP - 07/29/2020 1:33 PM CARE MANAGEMENT ASSISTANT Please notify patient of negative covid-19 test. Patient should continue to self isolate until at least 10 days have passed since symptom onset and they have been fever free without the use of fever reducing medications for at least 24 hours MANAGEMENT ASSISTANT documented in this encounter Plan of Treatment Not on file documented as of this encounter Procedures Procedure Name Priority Date/Time Associated Diagnosis Comments COVID-19 CORONAVIRUS RNA Routine 07/28/2020 4:27 PM CARE MANAGEMENT ASSISTANT Viral upper respiratory tract infection documented in this encounter Results * COVID-19 Coronavirus RNA Nasopharyngeal (07/28/2020 4:27 PM CARE MANAGEMENT ASSISTANT) COVID-19 RNA Not Detected CERNER CH Comment: Interpretive Data Testing performed at [facility] Molecular Infectious Disease Laboratory. The 2018-Novel [...] last revised on 2019. Testing performed by: [facility], [address] [place]., [address] First COVID-19 test? No CERNER CH Comment:Testing performed by : [facility], [address] [place]., [address] Employeed in healthcare? No CERNER CH Comment:Testing performed by : [facility], [address] [place]., [address] status? No C[facility]ER CH Comment:Testing performed by : [facility], [address] [place]., [address] Group care resident? No CERNER CH Comment:Testing performed by : [facility], [address] [place]., [address] Hospitalized? No [facility] Comment:Testing performed by : [facility], [address] [facility], [address] Is patient in ICU? No [facility]GA Comment:Testing performed by : [facility], [address] [facility], [address] Symptomatic as defined by CDC? Yes [facility] Comment:Testing performed by : [facility], [address] [facility], [address] Nasopharyngeal 07/28/2020 4: 27 PM CARE MANAGEMENT ASSISTANT 07/29/2020 2:19 AM CARE MANAGEMENT ASSISTANT Narrative [facility] - 07/29/2020 1:20 PM CARE MANAGEMENT ASSISTANT What is the reason for testing?->Symptoms of COVID-19 in high-risk group, without concurrent influenza testing Date of symptom onset->07/22/20 Sandy Sams NP LAB MICROBIOLOGY - [facility] ORDERABLES Final Result [facility] [id number] [address] Department of Laboratories [place], [place] [id number] documented in this encounter Visit Diagnoses Diagnosis Viral upper respiratory tract infection Acute upper respiratory infections of unspecified site documented in this encounter Additional Health Concerns Infection Onset Date Last Indicated Resolved Time COVID: Suspected 07/28/2020 07/28/2020 07/29/2020 1:22 PM CARE MANAGEMENT ASSISTANT documented as of this encounter Care Teams Spot Washer Relationship Specialty Start Date End Date July Herron NP PCP - General Family Medicine 05/13/20 06/01/21 documented as of this encounter
--- OUTSIDE RECORDS SUMMARY | 2024-07-17 18:32 | XMS_ITS | Encounter Summary ---
Author Organization [facility] Healthcare Address [address] [place] [address] Care Team Providers Care Dimension Mill Worker Name Role Phone Mary Mcgrath LEATHER CUTTER Unavailable [phone] Rand Ballard LEATHER CUTTER Primary Care Provider + Reason for Visit * Reason Comments Shortness of Breath Encounter Details Date Type Department Care Team ([facility] st Contact Info) Description 06/02/2021 5:51 PM CDT - 06/02/2021 7:40 PM CDT Emergency [facility] Emergency Department [address] [place] [address] Discharge Disposition: Left without being seen Social History Tobacco Use Types Packs/Day Years [...] on file Legal Sex Female 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 Gender Identity Not on file Sexual Orientation Not on file documented as of this encounter Last Filed Vital Signs Vital Sign Reading Time Taken Comments Blood Pressure 111/68 06/02/2021 5:42 PM CDT Pulse 87 06/02/2021 5:42 PM CDT Temperature 36.5 ??C (97.7 ??F) 06/02/2021 5:42 PM CD T Respiratory Rate 24 06/02/2021 5:42 PM CDT Oxygen Saturation 94% 06/02/2021 5:42 PM CDT Inhaled Oxygen Concentration - - Weight 83 kg (183 lb) 06/02/2021 5:42 PM CDT Height 170.2 cm (5' 7 ) 06/02/2021 5:42 PM CDT Body Mass Index 28.66 06/02/2021 5:42 PM CDT documented in this encounter Discharge Diagnoses Diagnosis Shortness of breath - SHORTNESS OF BREATH Procedure and treatment not carried out due to patient leaving prior to being seen by health care provider - PROCEDURE AND TREATMENT NOT CARRIED OUT DUE TO PATIENT LEAVING PRIOR TO BEING SEEN BY HEALTH CARE DC Other nursing home (current) drug therapy - OTHER PENITENTIARY (CURRENT) DRUG THERAPY Allergy status to narcotic agent - ALLERGY STATUS TO NARCOTIC AGENT documented in this encounter Medications at Time [...] 60 tablet 1 09/24/2020 cholecalciferol (VITAMIN D-3) 37122 unit tabletIndications: Vitamin D Deficiency Take 1 [...] Discharge Disposition Disposition Code Departure Means Destination Left without being seen documented in this encounter ED Notes * Christina Celeste RN - 06/02/2021 5:28 PM CDT Patient arrived to ED via POV with mother with c/o shortness of breath for several days, the patient has been using her inhalers that she has for asthma but not helping. She states that her son had an upper respiratory infections and she had the same symptoms and did not go to the dr because she said there wasn't anything that they do for that' she tried self treating with previous cough medicine she had but ran out of it. She states that she has been having severe panic attacks x3 days. Per the patient her doctor ordered a chest xray, referrals for psychiatrist and applied anthropologist today but she did not get the cxr done today. Per the patient she stopped smoking cigarettes yesterday. documented in this encounter Plan of Treatment Not on file documented as of this encounter Visit Diagnoses Not on filedocumented in this encounter Care Teams Dimension Mill Worker Relationship Specialty Start Date End Date Rand Ballard NP [address] [place] [address] PCP - General 06/02/21 [place] [address] [address] [facility] [address] [place] [address] Nurse Practitioner Internal Medicine 09/24/20 documented as of this encounter
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
--- OUTSIDE RECORDS SUMMARY | 2024-07-17 18:32 | XMS_ITS | Encounter Summary ---
Author Organization [facility] Address [address] [place] [address] Care Team Providers Care Spooling Machine Operator Name Role Phone Gopal July [facility] Primary Care Provider [phone] Encounter Details Date Type Department Care Team (Late st Contact Info) Description 09/10/2020 12:05 PM [place] [address] [place] [address] [facility] [address] [place] [address] [place] [address] [facility] [address] [place] [address] Discharge Disposition: Discharge to home or self [...] on file Legal Sex Female 8:20 AM SOFTWARE INTERN Gender Identity Not on file Sexual Orientation Not on file documented as of this encounter Discharge Disposition Disposition Code Departure Means Destination Discharge to home or self care documented in this encounter Plan of Treatment Not on file documented as of this encounter Procedures Procedure Name Priority Date/Time Associated Diagnosis Comments DIFFERENTIAL AUTO Routine 09/10/2020 12: 01 PM SOFTWARE INTERN REFLEX ALLERGEN EVALUATION Routine 09/10/2020 12:01 PM SOFTWARE INTERN ALLERGEN MO/ILL REGIONAL SCREEN Routine 09/10/2020 12:01 PM SOFTWARE INTERN CBC WITH AUTO DIFFERENTIAL Routine 09/10/2020 12:01 PM SOFTWARE INTERN IGE Routine 09/10/2020 12:01 PM SOFTWARE INTERN documented in this encounter Results * Allergen evaluation (09/10/2020 12:01 PM SOFTWARE INTERN) RAST, allergen name See Interpretive data. OLGA RODRIGUEZ Comment: Interpretive data Rast Class ?Result range (KUnits/L) ?1+ ?0.35 ?- ?? 0.69 ?2+ ?0.70 ?- ?? 3.49 ?3+ ?3.50 ?- ??17.49 ?4+ ? 17.50 ?- ??49.99 ?5+ ? 50.00 ?- 100.00 ?6+ ? >100.00 Current interpretive data was last revised on 09. Testing performed by: [facility], [facility], [place]., [address] Blood specimen (specimen) 09/10/2020 12:01 PM SOFTWARE INTERN 09/11/2020 8:58 AM SOFTWARE INTERN us Mary Mcgrath NP LAB BLOOD ORDERABLES Fin al Result OLGA RODRIGUEZ [id number] Department [place] [address] * Differential, auto (09/10/2020 12:01 PM SOFTWARE INTERN) Neutrophil abs 3.6 1.7 - 6.5 K/cumm [facility] Imm gran abs 0.0 0.0 - 0.1 K/cumm [facility] Lymphocyte abs 1.7 0.8 - 3.3 K/cumm [facility] Monocyte abs 0.5 0.2 - 0.8 K/cumm [facility] Eosinophil abs 0.5 0.0 - 0.5 K/cumm [facility] Basophil abs 0.0 0.0 - 0.1 K/cumm [facility] Neutrophil pct 56.7 % [facility] Comment: Interpretive Data Percent cell count reference ranges are not reported, since discordance with absolute values may lead to misinterpretation of CBC data. Current Interpretive Data was last revised on 2017. Imm gran pct 0.2 % [facility] Comment: Interpretive Data Percent cell count reference ranges are not reported, since discordance with absolute values may lead to misinterpretation of CBC data. Current Interpretive Data was last revised on 2017. Lymphocyte pct 27.3 % [facility] Comment: Interpretive Data Percent cell count reference ranges are not reported, since discordance with absolute values may lead to misinterpretation of CBC data. Current Interpretive Data was last revised on 2017. Monocyte pct 7.1 % [facility] Comment: Interpretive Data Percent cell count reference ranges are not reported, since discordance with absolute values may lead to misinterpretation of CBC data. Current Interpretive Data was last revised on 2017. Eosinophil pct 8.2 % [facility] Comment: Interpretive Data Percent cell count reference ranges are not reported, since discordance with absolute values may lead to misinterpretation of CBC data. Current Interpretive Data was last revised on 2017. Basophil pct 0.5 % [facility] Comment: Interpretive Data Percent cell count reference ranges are not reported, since discordance with absolute values may lead to misinterpretation of CBC data. Current Interpretive Data was last revised on 2017. Blood specimen (specimen) 09/10/2020 12:01 PM SOFTWARE INTERN 09/10/2020 12:02 PM SOFTWARE INTERN Mary Mcgrath BRICK POINTER LAB BLOOD ORDERABLES Fin al Result OLGA RODRIGUEZ [id number] Department of [place] [address] * (ABNORMAL) CBC with auto differential (09/10/2020 12:01 PM SOFTWARE INTERN) WBC 6.4 3.8 - 9.9 K/cumm [facility] Hgb 13.6 11.9 - 15.5 g/dL [facility] Hct 43.4 35.6 - 45.5 % [facility] Plt 279 150 - 400 K/cumm [facility] MPV 11.8 9.1 - 12.[address] [facility] RBC 4.80 3.90 - 5.20 M/cumm [facility] MCV 90.4 81.3 - 96.[address] [facility] MCH 28.3 27.1 - 33.3 pg [facility] MCHC 31.3(L) 32.3 - 35.7 g/dL [facility] RDW CV 14.1 11.1 - 14.9 % [facility] RDW SD 47.3 35.7 - 48.[address] [facility] NRBC abs 0.00 0.00 - 0.01 K/cumm [facility] Blood specimen (specimen) 09/10/2020 12:01 PM SOFTWARE INTERN 09/10/2020 12:02 PM SOFTWARE INTERN Mary Mcgrath BRICK POINTER LAB BLOOD ORDERABLES Fin al Result Performing Organization Address City/[facility]/ZIP Co de Phone Number OLGA RODRIGUEZ [address] Department [place] [address] * (ABNORMAL) IgE (09/10/2020 12:01 PM SOFTWARE INTERN) IgE 478.5(H) 1.0 - 100.0 IUnits/mL [facility] Comment:Testing performed by : [facility], [address] [place]., [address] Blood specimen (specimen) 09/10/2020 12:01 PM SOFTWARE INTERN 09/11/2020 9:08 AM SOFTWARE INTERN Mary Mcgrath BRICK POINTER LAB BLOOD ORDERABLES Fin al Result [facility] [address] Department [place] [address] * (ABNORMAL) MO/ILL regional allergen screen (09/10/2020 12:01 PM SOFTWARE INTERN) Alternaria tenius IgE <0.10 0.00 - 0.34 kUnits/L [facility] Comment:Testing performed by : [place]., [address] Bermuda grass IgE <0.10 0.00 - 0.34 kUnits/L [facility] Comment:Testing performed by : [place]., [address] Cat dander IgE 0.62(H) 0.00 - 0.34 kUnits/L [facility] Comment:Testing performed by : [place]., [address] Cladosporium herbarum IgE <0.10 0.00 - 0.34 kUnits/L [facility] Comment:Testing performed by : [place]., [address] Dermatophyton farinae IgE <0.10 0.00 - 0.34 kUnits/L [facility] Comment:Testing performed by : [place]., [address] Dermatophyton pteronyssinus IgE <0.10 0.00 - 0.34 kUnits/L [facility] Comment:Testing performed by : [place]., [address] Dog dander IgE 47.90(H) 0.00 - 0.34 kUnits/L [facility] Comment:Testing performed by : [place]., [address] Dust house nimo-whitley 5.95(H) 0.00 - 0.34 kUnits/L [facility] Comment:Testing performed by : [facility], [place]., [address] Elm IgE <0.10 0.00 - 0.34 kUnits/L [facility] Comment:Testing performed by : [facility], [place]., [address] Maple/box elder IgE <0.10 0.00 - 0.34 kUnits/L [facility] Comment:Testing performed by : [facility], [place]., [address] Skippack IgE <0.10 0.00 - 0.34 kUnits/L [facility] Comment:Testing performed by : [facility], [place]., [address] Bayonne grass perennial IgE <0.10 0.00 - 0.34 kUnits/L [facility] Comment:Testing performed by : [facility], [place]., [address] Ragweed common IgE 11.50(H) 0.00 - 0.34 kUnits/L [facility] Comment:Testing performed by : [facility], [place]., [address] Sravan grass IgE <0.10 0.00 - 0.34 kUnits/L [facility] Comment:Testing performed by : [place]., [address] Blood specimen (specimen) 09/10/2020 12:01 PM SOFTWARE INTERN 09/11/2020 8:58 AM SOFTWARE INTERN Mary Mcgrath NP LAB BLOOD ORDERABLES Fin al Result OLGA RODRIGUEZ [id number] Department [place] [address] documented in this encounter Visit Diagnoses Not on filedocumented in this encounter Care Teams Spooling Machine Operator Relationship Specialty Start Date End Date July Herrno NP PCP - General Family Medicine 05/13/20 06/01/21 documented as of this encounter
--- OUTSIDE RECORDS SUMMARY | 2024-07-17 18:32 | XMS_ITS | Encounter Summary ---
Author Organization [facility] Healthcare Address [address] [place] [address] Care Team Providers Care Labor Economist Name Role Phone Mary Mcgrath NP Unavailable [phone] Rand Ballard NP Primary Care Provider + Reason for Referral * MRI/CAT/PET Scan (Routine) - Closed Specialty Diagnoses / Procedures Referred By Edwinac t Referred To Contact Radiology Diagnoses Other nonspecific abnormal finding of lung field Procedures [place] [address] [place] [address] Phone: tel: fax: [address] [phone] Referral ID Status Reason Start Date Expiration Date Visits Re quested Visits Authorized [id number] Closed 05/02/2023 06/30/2023 1 1 Reason for Visit * MRI/CAT/PET Scan (Routine) - Closed Specialty Diagnoses / Procedures Referred By Contac t Referred To Contact Radiology Diagnoses Other nonspecific abnormal finding of lung field Procedures CT [place] [address] [place] [id number] Phone: tel: fax: [address] [phone] Referral ID Status Reason Start Date Expiration Date Visits Re quested Visits Authorized [id number] Closed 05/02/2023 06/30/2023 1 1 Encounter Details Date Type Department Care Team (Latest Contact Info) Description 05/16/2023 10:13 AM CDT - 05/16/2023 11:59 PM CDT Hospital Encounter [facility] [address] [place] [address] Other nonspecific abnormal finding of lung field Discharge Disposition: Discharge to home or self [...] on file 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 Gender Identity Not on file Sexual Orientation [...] 60 tablet 1 09/24/2020 cholecalciferol (VITAMIN D-3) 79570 unit tabletIndications: Vitamin D Deficiency Take 1 [...] Procedure Name Priority Date/Time Associated Diagnosis Comments CT CHEST WO CONTRAST Schedule Routine, Read Routine (OP Routine) 05/16/2023 10:30 AM CDT Other nonspecific abnormal finding of lung field documented in this encounter Results * CT Chest WO Contrast (05/16/2023 10:30 AM CDT) Anatomical Region Laterality Modality Body N/A Computed Tomogra phy 05/18/2023 11:3 1 AM CDT Narrative 05/18/2023 11:49 AM CDT EXAM DESCRIPTION: ?? CT CHEST WO CONTRAST REASON FOR STUDY: Pulmonary nodules, F/u TECHNIQUE: CT scan of the chest performed without intravenous contrast using helical scanning technique. Reconstructed coronal and sagittal MPR images reviewed. ??All images stored on PACS. ??Automated exposure control was used as a dose optimization technique for this examination. COMPARISON: ?? Chest CT 11/25/2022 REFERENCE: Per ACR white paper recommendations, unless otherwise specified no follow-up imaging is recommended for incidental renal and adrenal lesions per consensus recommendations based on imaging criteria. Further lab evaluation could be pursued based on clinical findings. FINDINGS: The sensitivity for detection of solid visceral lesions is diminished without the use of intravenous contrast. LUNGS: ?? Trachea and large airways are patent. ??Mild bronchial wall thickening with a small area of new tree-in-bud opacities in the right lower lobe . ?? Unchanged right sided pulmonary nodules. ??Medial right upper lobe nodule measuring 7 mm, series 2 image 34. ??8 mm and adjacent 2 mm medial right upper lobe nodules, image 41. ??The right lower lobe nodule is no longer seen and likely reflected a small reactive lymph node. ??No new or enlarging nodules. PLEURA: ?? No effusion. No pneumothorax. MEDIASTINUM/DOUGLAS: ?? Few mildly prominent mediastinal lymph nodes are unchanged and likely reactive. ??No mediastinal or hilar lymphadenopathy. HEART: ?? Heart size is normal with no pericardial effusion. CORONARY ARTERY CALCIFICATION: ??None. VASCULATURE: ?? No thoracic aortic aneurysm. AXILLA: ?? No adenopathy. CHEST WALL: ?? No masses. ??No subcutaneous air. HARDWARE/LINES/TUBES: ?? None. UPPER ABDOMEN: ?? Unchanged 2.2 cm left splenic hypodensity that slightly expands the overlying splenic capsule. ??Nonspecific but statistically represents a cyst or hemangioma. MUSCULOSKELETAL: ?? No significant abnormality. OTHER: ?? No other significant abnormality. IMPRESSION: Stable right upper lobe pulmonary nodules measuring up to 8 mm. No new or enlarging nodules. Mild bronchial wall thickening with a small area of new tree-in-bud opacities in the right lower lobe, nonspecific infectious or inflammatory. Stable 2.2 cm left splenic hypodensity that slightly expands the overlying splenic capsule. Nonspecific but statistically represents a cyst or hemangioma. Continued attention on follow-up or MRI without and with contrast for further evaluation if clinically indicated. Recent guidelines by the Fleischner Society (Radiology 373516,2017) divides patient into low vs. high risk (for example, patients who smoke are considered high risk) and provides followup recommendations as follows: SOLITARY PULMONARY NODULE: Patients considered LOW RISK for lung cancer and a solitary nodule equal to or larger than 6 mm or equal to or less than 8 mm in diameter require follow-up CT at 6-12 months, then consider CT at 18-24 months. ??In patients at HIGHER RISK require follow-up CT at 6-12 months, then CT at 18-24 months. ?? MULTIPLE PULMONARY NODULES: Patients considered LOW RISK for lung cancer and multiple nodules equal to or larger than 6 mm or equal to or less than 8 mm in diameter require follow-up CT at 3-6 months, then consider CT at 18-24 months. Patients at HIGHER RISK require follow-up CT at 3-6 months, then CT at 18-24 months. Note: These recommendations do not apply to lung cancer screening, patients with immunosuppression, or patients with known primary cancer. http://pubs.rsna.org/doi/pdf/10.1148/radiol.0450489025 THIS IS AN ELECTRONICALLY VERIFIED FINAL REPORT 05/18/2023 11:49 AM - Electronically signed by ??Jose Randhawa M.D. AG: AG D: ??05/18/2023 11:49 AM T: ??05/18/2023 11:49 AM Report ID: [id number] Reading Location: ??[id number] Procedure Note Jose Randhawa MD - 05/18/2023 EXAM DESCRIPTION: CT CHEST WO CONTRAST REASON FOR STUDY: Pulmonary nodules, F/u TECHNIQUE: CT scan of the chest performed without intravenous contrastusing helical scanning technique. Reconstructed coronal and sagittal MPR images reviewed. All images stored on PACS. Automated exposure control was usedas a dose optimization technique for this examination. COMPARISON: Chest CT 11/25/2022 REFERENCE: Per ACR white paper recommendations, unless otherwise specifiedno follow-up imaging is recommended for incidental renal and adrenal lesionsper consensus recommendations based on imaging criteria. Further labevaluation could be pursued based on clinical findings. FINDINGS: The sensitivity for detection of solid visceral lesions is diminishedwithout the use of intravenous contrast. LUNGS: Trachea and large airways are patent. Mild bronchial wallthickening with a small area of new tree-in-bud opacities in the right lower lobe . Unchanged right sided pulmonary nodules. Medial right upper lobe nodule measuring 7 mm, series 2 image 34. 8 mm and adjacent 2 mm medial rightupper lobe nodules, image 41. The right lower lobe nodule is no longer seen and likely reflected a small reactive lymph node. No new or enlargingnodules. PLEURA: No effusion. No pneumothorax. MEDIASTINUM/DOUGLAS: Few mildly prominent mediastinal lymph nodes areunchanged and likely reactive. No mediastinal or hilar lymphadenopathy. HEART: Heart size is normal with no pericardial effusion. CORONARY ARTERY CALCIFICATION: None. VASCULATURE: No thoracic aortic aneurysm. AXILLA: No adenopathy. CHEST WALL: No masses. No subcutaneous air. HARDWARE/LINES/TUBES: None. UPPER ABDOMEN: Unchanged 2.2 cm left splenic hypodensity that slightly expands the overlying splenic capsule. Nonspecific but statistically represents a cyst or hemangioma. MUSCULOSKELETAL: No significant abnormality. OTHER: No other significant abnormality. IMPRESSION: Stable right upper lobe pulmonary nodules measuring up to 8 mm. No new or enlarging nodules. Mild bronchial wall thickening with a small area of new mgsr-gh-wxnfysfqydoe in the right lower lobe, nonspecific infectious or inflammatory. Stable 2.2 cm left splenic hypodensity that slightly expands theoverlying splenic capsule. Nonspecific but statistically represents a cyst or hemangioma. Continued attention on follow-up or MRI without and withcontrast for further evaluation if clinically indicated. Recent guidelines by the Fleischner Society (Radiology 954906,2017)divides patient into low vs. high risk (for example, patients who smoke areconsidered high risk) and provides followup recommendations as follows: SOLITARY PULMONARY NODULE: Patients considered LOW RISK for lung cancerand a solitary nodule equal to or larger than 6 mm or equal to or less than 8 mmin diameter require follow-up CT at 6-12 months, then consider CT at 18-24 months. In patients at HIGHER RISK require follow-up CT at 6-12 months,then CT at 18-24 months. MULTIPLE PULMONARY NODULES: Patients considered LOW RISK for lung cancerand multiple nodules equal to or larger than 6 mm or equal to or less than 8mm in diameter require follow-up CT at 3-6 months, then consider CT at 18-24months. Patients at HIGHER RISK require follow-up CT at 3-6 months, then CT at18-24 months. Note: These recommendations do not apply to lung cancer screening,patients with immunosuppression, or patients with known primary cancer. http://pubs.rsna.org/doi/pdf/10.1148/radiol.2200154002 THIS IS AN ELECTRONICALLY VERIFIED FINAL REPORT 05/18/2023 11:49 AM - Electronically signed by Jose Randhawa M.D. AG: HAI Report ID: [id number] Reading Location: [place] [address] Mary Mcgrath REGULATOR TESTER IMG CT PROCEDURES Final Result documented in this encounter Visit Diagnoses Diagnosis Other nonspecific abnormal finding of lung field documented in this encounter Care Teams Labor Economist Relationship Specialty Start Date End Date Rand Ballard NP [address] [place] [address] PCP - General 06/02/21 [place] [address] [facility] [address] [place] [address] Nurse Practitioner Internal Medicine 09/24/20 documented as of this encounter
--- OUTSIDE RECORDS SUMMARY | 2024-07-17 18:32 | XMS_ITS | Encounter Summary ---
Author Organization [facility] Healthcare Address [address] [place] [address] Care Team Providers Care Brand Lead Name Role Phone Gopal July ARTI Primary Care Provider Reason for Visit * Reason Comments Shortness of Breath Encounter Details Date Type Department Care Team (Late st Contact Info) Description 07/29/2020 11:31 AM BAKERY CLERK - 07/29/2020 1:29 PM BAKERY CLERK Emergency [facility] Emergency Department [address] [place] [address] Maynor Gottlieb Jr., MD [facility] [address] Severe persistent asthma with acute exacerbation (Primary Dx); Anxiety; Viral upper respiratory tract infection Discharge Disposition: Discharge to home or self [...] on file 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 Gender Identity Not on file Sexual Orientation Not on file documented as of this encounter Last Filed Vital Signs Vital Sign Reading Time Taken Comments Blood Pressure 121/71 07/29/2020 1:15 PM BAKERY CLERK Pulse 102 07/29/2020 1:15 PM BAKERY CLERK Temperature 36.8 ??C (98.2 ??F) 07/29/2020 11:[address] Respiratory Rate 13 07/29/2020 1:15 PM BAKERY CLERK Oxygen Saturation 98% 07/29/2020 1:15 PM BAKERY CLERK Inhaled Oxygen Concentration - - Weight 79.4 kg (175 lb) 07/29/2020 11:41 AM BAKERY CLERK Height 170.2 cm (5' 7 ) 07/29/2020 11:41 AM BAKERY CLERK Body Mass Index 27.41 07/29/2020 11:41 AM BAKERY CLERK documented in this encounter Discharge Diagnoses Diagnosis Severe persistent asthma with (acute) exacerbation - SEVERE PERSISTENT ASTHMA WITH (ACUTE) EXACERBATION Anxiety disorder, unspecified - ANXIETY DISORDER, UNSPECIFIED Nicotine dependence, cigarettes, uncomplicated - NICOTINE DEPENDENCE, CIGARETTES, UNCOMPLICATED documented in this encounter Medications at Time [...] with inhalers 1 each 05/13/2020 05/13/20 21 albuterol 2.5 mg /3 mL (0.083 %) nebulizer solution Take 3 mL (2.5 mg total) by nebulization every 6 (six) hours as needed for wheezing 75 mL 07/29/2020 08/20/19 21 benzonatate (TESSALON) 200 mg capsuleIndications :Viral [...] 40 mg by mouth daily 08/20/19 21 hydrOXYzine (VISTARIL) 25 mg capsule Take 1 capsule (25 mg total) by mouth 3 (three) times a day as needed for anxiety 30 capsule 07/29/2020 08/03/19 21 methylPREDNISolone (Medrol, Dipesh,) 4 mg DosepackIndication s:Viral upper respiratory tract infection follow package directions 1 packet 07/28/2020 08/03/19 21 sertraline (ZOLOFT) 100 mg tablet Take 1 tablet (100 mg total) by mouth daily 90 tablet 05/13/2020 09/24/19 21 documented as of this encounter Ordered Prescriptions Prescription Sig Dispense Quantity Refills Last Filled Start Date End Date hydrOXYzine (VISTARIL) 25 mg capsule Take 1 capsule (25 mg total) by mouth 3 (three) times a day as needed for anxiety 30 capsule 07/29/2020 1 albuterol 2.5 mg /3 mL (0.083 %) nebulizer solution Take 3 mL (2.5 mg total) by nebulization every 6 (six) hours as needed for wheezing 75 mL 07/29/2020 1 documented in this encounter Discharge Disposition Disposition Code Departure Means Destination Discharge to home or self care documented in this encounter ED Notes * Maynor Gottlieb Jr., MD - 07/29/2020 12:33 PM CST HPI Chief Complaint Patient presents with ??? Shortness of Breath Patient presents emergency department with a 2 day history of increased dyspnea and wheezing. She has history which includes severe persistent asthma as well as smoking which she says she has not done in last 5 days. She was seen at an urgent care yesterday and given a dose of glucocorticoids and discharged with a prescription for the same, Tessalon Perles, and inhaler therapy. Patient is taking the Tessalon for her coughing but has not filled the prescription for the prednisone. She presented by EMS today with dyspnea and was given inhaled therapy as well as Solu-Medrol prior to arrival in the emergency department. There is no exacerbating or relieving factors identified. While at urgent care yesterday, patient had a rapid test for COVID which was reportedly negative; formal testing/PCR is pending. Patient History: Patient Active Problem List Diagnosis Date Noted ??? Severe persistent asthma with acute exacerbation 05/13/2020 ??? BMI 29.0-29.9,adult 05/13/2020 ??? Moderate episode of recurrent major depressive disorder ([facility]) 05/13/2020 ??? Anxiety 05/13/2020 ??? Chronic constipation [...] Social History Tobacco Use ??? Smoking status: Current Every Day Smoker Packs/day: 0.50 Years: 20.00 Pack years: 10.00 Types: Cigarettes Start date: 07/31/2000 ??? Smokeless tobacco: Never Used Substance Use Topics ??? Alcohol use: Not Currently ??? Drug use: Not Currently Social History Social History Narrative ??? Not on file Review of Systems Review of Systems Constitutional: Negative for chills and fever. HENT: Negative for ear pain and sore throat. Eyes: Negative for pain and visual disturbance. Respiratory: Positive for cough, shortness of breath and wheezing. Cardiovascular: Negative for chest pain and palpitations. Gastrointestinal: Negative for abdominal pain and vomiting. Genitourinary: Negative for dysuria and hematuria. Musculoskeletal: Negative for arthralgias and back pain. Skin: Negative for color change and rash. Neurological: Negative for seizures and syncope. All other systems reviewed and are negative. Physical Exam ED Triage Vitals [07/29/20 1141] Temp Pulse Resp BP SpO2 36.8 ??C (98.2 ??F) (!) 132 16 (!) 139/44 97 % Temp src Heart Rate Source Patient Position BP Location FiO2 (%) Temporal -- -- -- -- Physical Exam Vitals signs and nursing note reviewed. Constitutional: General: She is not in acute distress. Appearance: She is well-developed. She is not ill-appearing or toxic-appearing. HENT: Head: Normocephalic and atraumatic. Eyes: Extraocular Movements: Extraocular movements intact. Conjunctiva/sclera: Conjunctivae normal. Neck: Musculoskeletal: Neck supple. Cardiovascular: Rate and Rhythm: Normal rate and regular rhythm. Heart sounds: Normal heart sounds. No murmur. Pulmonary: Effort: Tachypnea, accessory muscle usage and respiratory distress present. Breath sounds: Examination of the right-upper field reveals wheezing. Examination of the left-upperfield reveals wheezing. Examination of the right- middle field reveals wheezing. Examination of the left-middle field reveals wheezing. Examination of the right-lower field reveals wheezing. Examination of the left-lower field reveals wheezing. Wheezing present. Comments: Mild respiratory distress. Abdominal: General: Bowel sounds are normal. There is no distension. Palpations: Abdomen is soft. Tenderness: There is no abdominal tenderness. There is no guarding. Musculoskeletal: Right lower leg: She exhibits no tenderness. No edema. Left lower leg: She exhibits no tenderness. No edema. Comments: No posterior calf tenderness nor palpable cord bilaterally. Skin: General: Skin is warm and dry. Neurological: General: No focal deficit present. Mental Status: She is alert and oriented to person, place, and time. Cranial Nerves: No cranial nerve deficit. Psychiatric: Mood and Affect: Mood normal. Behavior: Behavior normal. [facility] ED Course as of Jul 29 1314 Time: 07/29 1313 Comment: Patient feeling better after treatment in the emergency department. ED evaluation is negative for an acutely dangerous pathology. I will have her use her home nebulized treatments, take the Medrol Dosepak as previously prescribed yesterday, and continue her efforts to quit smoking. By: Maynor Gottlieb Jr., MD Time: 07/29 131 Comment: She has been feeling panicky at times and was prescribed diffuse bar for anxiety but does not take it. I will give her a short prescription of Vistaril to attempt at symptom abatement regarding her anxiety. By: Maynor Gottlieb Jr., MD Final diagnoses: Severe persistent asthma with acute exacerbation Anxiety Maynor Gottlieb Jr., MD 07/29/20 1314 RY CLERK * Christy Mckeon RN - 07/29/2020 11:37 AM CST 34 y.o. female pt to ED per [facility] EMS with complaint of SOB x2 days. Pt reports hx of asthma. Pt was tested for Covid yesterday and [facility] urgent care, has not yet received results. Pt works at [employer] and believes she has had a + exposure. Pt received 125mg solumedrol and 1 albuterol tx per emspta. RY CLERK * Nicolette Hernandez RN - 07/29/2020 11:31 AM CST Bed: ED15 Expected date: Expected time: Means of arrival: Comments: [facility] [address] Nicolette Hernandez, SANJAY 07/29/20 1131 RY CLERK documented in this encounter Plan of Treatment Not on file documented as of this encounter Procedures Procedure Name Priority Date/Time Associated Diagnosis Comments ECG 12-LEAD STAT 07/29/2020 12:06 PM BAKERY CLERK XR CHEST PA LATERAL 2 VIEWS ED 07/29/2020 12:04 PM BAKERY CLERK documented in this encounter Results * ECG 12 lead (07/29/2020 12:06 PM BAKERY CLERK) 07/29/2020 12:0 6 PM BAKERY CLERK Narrative [facility] - 07/29/2020 12:56 PM BAKERY CLERK Vent Rate: 107 bpm RR Interval: 557 msec GA Interval: 132 msec QRS Duration: 79 msec QT Interval: 323 msec QTC Interval: 386 msec P-R-T [place]: 76 - 86 - 49 degrees SINUS TACHYCARDIA POSSIBLE LEFT ATRIAL ENLARGEMENT ??[-0.1mV P WAVE IN V1/V2] NONSPECIFIC ST \T\ T-WAVE ABNORMALITY ABNORMAL RHYTHM ECG Electronically Signed By: Bassam Strickland MD us Maynor Gottlieb Jr., MD ECG ORDERABLES Fi nal Result [facility] * XR Chest Pa Lateral 2 Views (07/29/2020 12:04 PM BAKERY CLERK) Anatomical Region Laterality Modality Body, Chest N/A Computed Radiogr aphy 07/29/2020 12:0 5 PM BAKERY CLERK Impressions 07/29/2020 12:06 PM BAKERY CLERK No radiographic evidence of acute cardiopulmonary disease. Electronically signed by: Annemarie Dutton D.O. Narrative 07/29/2020 12:06 PM BAKERY CLERK EXAMINATION: XR CHEST PA LATERAL 2 VIEWS ORDERING HEALTHCARE PROVIDER: MAYNOR GOTTLIEB Jr. HISTORY: Shortness of Breath Previous smoker Cough and sob x's 1 week Asthma No heart/lung surgery ?? TECHNIQUE: Frontal and lateral radiographs of the chest. COMPARISON: 06/18/2020 FINDINGS: The heart, mediastinum, and pulmonary vasculature are grossly stable. There is no definite evidence of a pneumothorax. ??There is no definite evidence of a focal consolidation or pleural effusion. The osseous structures are grossly stable. Procedure Note Annemarie Dutton, - 07/29/2020 EXAMINATION: XR CHEST PA LATERAL 2 VIEWS ORDERING HEALTHCARE PROVIDER: MAYNOR GOTTLIEB Jr. HISTORY: Shortness of Breath Previous smoker Cough and sob x's 1 week Asthma No heart/lung surgery TECHNIQUE: Frontal and lateral radiographs of the chest. COMPARISON: 06/18/2020 FINDINGS: The heart, mediastinum, and pulmonary vasculature are grossly stable. There is no definite evidence of a pneumothorax. There is no definite evidence of a focal consolidation or pleural effusion. The osseous structures are grossly stable. IMPRESSION: No radiographic evidence of acute cardiopulmonary disease. Electronically signed by: Annemarie Dutton D.O. 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), On Mon07/29/20 at 1200, For 1 dose 1220 (Given - Provid er: George Hernandez RN) documented in this encounter Orders Medications Ordered That Krsihan ht Not Have Been Administered Count Last Ordered Date First Ordered Date albuterol HFA (PROVENTIL HFA ,VENTOLIN HFA,PROAIR HFA) 90 mcg/actuation inhaler 2 puff 1 07/29/2020 ipratropium-albuteroL (DUO-N EB) 0.5-2.5 mg/3 mL nebulizer solution 3 mL 1 07/29/2020 documented in this encounter Additional Health Concerns Infection Onset Date Last Indicated Resolved Time COVID: Suspected 07/28/2020 07/28/2020 07/29/2020 1:22 PM BAKERY CLERK Respiratory Infection (COURTNEY), contact + droplet Comment:Automatically added due to negative COVID-19 result. 07/29/2020 07/29/2020 08/12/2020 3:0 7 AM BAKERY CLERK documented as of this encounter Care Teams Brand Lead Relationship Specialty Start Date End Date July Herron NP PCP - General Family Medicine 05/13/20 06/01/21 documented as of this encounter
--- OUTSIDE RECORDS SUMMARY | 2024-07-17 18:32 | XMS_ITS | Encounter Summary ---
Author Organization [facility] Address [address] [facility] [address] [place] [address] Care Team Providers Care Retail Greeting Card Merchandiser Name Role Phone July Herron NP Primary Care Provider [phone] Encounter Details Date Type Department Care Team (Late st Contact Info) Description 08/11/2020 Telephone [facility] [address] [place] [address] Verenice Apodaca MA Social History Tobacco Use Types Packs/Day Years [...] on file Legal Sex Female 8:20 AM CASHIER AND SALESPERSON Gender Identity Not on file Sexual Orientation Not on file documented as of this encounter Miscellaneous Notes * Telephone Encounter - Jeannie Gay MA - 08/11/2020 4:37 PM CST Called Pt apt made for 08/12/20 Gave # to Dr Roy informed Pt to call and make an apt to get est W/ the animal attendants and trainers IER AND SALESPERSON * Telephone Encounter - July Herron NP - 08/11/2020 3:29 PM CASHIER AND SALESPERSON Pt needs an appointment if she is not improving. She was supposed to f/u with animal attendants and trainers. When is that appointment? She can see either myself or Nicolette. IER AND SALESPERSON * Telephone Encounter - Verenice Jha MA - 08/11/2020 2:52 PM CASHIER AND SALESPERSON Patient left voicemail stating that she still has some stuff going on at home, still having issues with her asthma, waking at night with panic attacks and is losing her voice. She is wanting to know if she could get paperwork filled out for her to not return to work. She stated that work doesn't want her to return until she is 100% better. IER AND SALESPERSON documented in this encounter Plan of Treatment Not on file documented as of this encounter Visit Diagnoses Not on filedocumented in this encounter Additional Health Concerns Infection Onset Date Last Indicated Resolved Time Respiratory Infection (COURTNEY), contact + droplet Comment:Automatically added due to negative COVID-19 result. 07/29/2020 07/29/2020 08/12/2020 3:0 7 AM CASHIER AND SALESPERSON documented as of this encounter Care Teams Retail Greeting Card Merchandiser Relationship Specialty Start Date End Date July Herron NP PCP - General Family Medicine 05/13/20 06/01/21 documented as of this encounter
--- OUTSIDE RECORDS SUMMARY | 2024-07-17 18:32 | XMS_ITS | Encounter Summary ---
Author Organization [facility] Address [address] [place] [address] Care Team Providers Care Heat Curer Name Role Phone July Herron NP Primary Care Provider [phone] Reason for Referral * Diagnostic Imaging (Routine) - Closed Specialty Diagnoses / Procedures Referred By Contac t Referred To Contact Diagnoses Asthma, unspecified asthma severity, unspecified whether complicated, unspecified whether persistent Procedures XR Chest PA Lateral 2 [place] [address] [place] [address] Phone: tel: fax: [address] [phone] Referral ID Status Reason Start Date Expiration Date Visits Re quested Visits Authorized [id number] Closed 06/17/2020 07/17/2021 1 1 TIES ANALYST Reason for Visit * Diagnostic Imaging (Routine) - Closed Specialty Diagnoses / Procedures Referred By Contac t Referred To Contact Diagnoses Asthma, unspecified asthma severity, unspecified whether complicated, unspecified whether persistent Procedures XR Chest PA Lateral [place] [address] [place] [address] Phone: tel: fax: [address] [phone] Referral ID Status Reason Start Date Expiration Date Visits Re quested Visits Authorized [id number] Closed 06/17/2020 07/17/2021 1 1 Encounter Details Date Type Department Care Team (Latest Contact Info) Description 06/18/2020 11:13 AM EQUITIES ANALYST - 06/18/2020 11:59 PM EQUITIES ANALYST Hospital Encounter [facility] Imaging [address] [id number] [place] [address] [facility] [address] [place] [address] [place] [address] [facility] [address] [place] [address] Asthma, unspecified asthma severity, unspecified whether complicated, unspecified whether persistent Discharge Disposition: Discharge to home or self [...] on file Legal Sex Female 8:20 AM EQUITIES ANALYST Gender Identity Not on file Sexual Orientation Not on file documented as of this encounter Medications at Time of Discharge budesonide-formote roL (Symbicort) 160-4.5 mcg/actuation inhaler Inhale [...] 6 (six) hours as needed for wheezing 07/29/20 20 albuterol HFA (PROVENTIL HFA,VENTOLIN HFA,PROAIR HFA) 90 mcg/actuation inhaler Inhale 2 puffs every 6 (six) hours as needed 07/28/20 20 busPIRone (BUSPAR) 5 mg tabletIndications: Generalized Anxiety Disorder Take 5 mg by mouth 2 (two) times a day 09/24/19 21 famotidine (PEPCID) 40 mg tablet Take 40 mg by mouth daily 08/20/19 21 sertraline (ZOLOFT) 100 mg tablet Take [...] VIEWS Schedule Routine, Read Routine (OP Routine) 06/18/2020 11:33 AM EQUITIES ANALYST Asthma, unspecified asthma severity, unspecified whether complicated, unspecified whether persistent documented in this encounter Results * XR Chest PA Lateral 2 Views (06/18/2020 11:33 AM EQUITIES ANALYST) Anatomical Region Laterality Modality Body, Chest N/A Computed Radiogr aphy 06/18/2020 11:3 6 AM EQUITIES ANALYST Impressions 06/18/2020 11:45 AM EQUITIES ANALYST AIR TRAPPING. NO ACUTE FINDINGS Electronically signed by: Alli Gray M.D. Narrative 06/18/2020 11:45 AM EQUITIES ANALYST EXAMINATION: XR CHEST PA LATERAL 2 VIEWS HISTORY: 34-year-old woman with asthma FINDINGS: 2 view chest compared with the study of 05/01/2017 demonstrates air trapping with hyperaeration of the lungs. No infiltrates, fluid, failure or pneumothorax. Small heart size. Procedure Note Alli Gray MD - 06/18/2020 EXAMINATION: XR CHEST PA LATERAL 2 VIEWS HISTORY: 34-year-old woman with asthma FINDINGS: 2 view chest compared with the study of 05/01/2017 demonstrates air trapping with hyperaeration of the lungs. No infiltrates, fluid, failure or pneumothorax. Small heart size. IMPRESSION: AIR TRAPPING. NO ACUTE FINDINGS Electronically signed by: Alli Gray M.D. Mary Mcgrath RESAW CARRIAGE OPERATOR IMG XR PROCEDURES Final Result documented in this encounter Visit Diagnoses Diagnosis Asthma, unspecified asthma severity, unspecified whether complicated, unspecified whether persistent documented in this encounter Care Teams Heat Curer Relationship Specialty Start Date End Date July Herron NP PCP - General Family Medicine 05/13/20 06/01/21 documented as of this encounter
--- OUTSIDE RECORDS SUMMARY | 2024-07-17 18:32 | XMS_ITS | Encounter Summary ---
Author Organization [facility] Address [address] [facility] [address] [place] [address] Care Team Providers Care Finisher Denture Name Role Phone July Herron NP Primary Care Provider [phone] Encounter Details Date Type Department Care Team (Late st Contact Info) Description 08/13/2020 Orders Only [facility] of [address] [place] [address] [place] [address] [place] [id number] Social History Tobacco Use Types Packs/Day Years [...] on file Legal Sex Female 8:20 AM POLICE LIEUTENANT PRECINCT Gender Identity Not on file Sexual Orientation Not on file documented as of this encounter Plan of Treatment Not on file documented as of this encounter Visit Diagnoses Not on filedocumented in this encounter Care Teams Finisher Denture Relationship Specialty Start Date End Date July Herron NP PCP - General Family Medicine 05/13/20 06/01/21 documented as of this encounter
--- OUTSIDE RECORDS SUMMARY | 2024-07-17 18:32 | XMS_ITS | Encounter Summary ---
Author Organization [facility] Medical [facility] Address [address] [facility] [address] [place] [address] Care Team Providers Care Stamp Clerk Name Role Phone Gopal July [facility] Primary Care Provider [phone] Reason for Visit * Reason Onset Date Comments Test Results 07/29/2020 Encounter Details Date Type Department Care Team (Late st Contact Info) Description 07/29/2020 Telephone [facility] [address] [place] [address] Shivam Kong MA Test Results Social History Tobacco Use Types Packs/Day Years [...] on file Legal Sex Female 8:20 AM ANESTHESIOLOGIST ATTENDING Gender Identity Not on file Sexual Orientation Not on file documented as of this encounter Miscellaneous Notes * Telephone Encounter - Shivam Kong MA - 07/29/2020 1:50 PM CST Patient was notified that her Covid-19 test was negative. Patient was informed that she should continue to self isolate until at least 10 days have passed since the onset of her symptoms and she has been fever free without the use of fever reducing medications for at least 24 hours. Patient verbalized understanding. THESIOLOGIST ATTENDING * Telephone Encounter - Shivam Kong MA - 07/29/2020 1:50 PM CST ----- Message from Elaine Shaw NP sent at 07/29/2020 1:33 PM ANESTHESIOLOGIST ATTENDING ----- Please notify patient of negative covid-19 test. Patient should continue to self isolate until at least 10 days have passed since symptom onset and they have been fever free without the use of fever reducing medications for at least 24 hours THESIOLOGIST ATTENDING documented in this encounter Plan of Treatment Not on file documented as of this encounter Visit Diagnoses Not on filedocumented in this encounter Additional Health Concerns Infection Onset Date Last Indicated Resolved Time COVID: Suspected 07/28/2020 07/28/2020 07/29/2020 1:22 PM ANESTHESIOLOGIST ATTENDING Respiratory Infection (COURTNEY), contact + droplet Comment:Automatically added due to negative COVID-19 result. 07/29/2020 07/29/2020 08/12/2020 3:0 7 AM ANESTHESIOLOGIST ATTENDING documented as of this encounter Care Teams Stamp Clerk Relationship Specialty Start Date End Date July Herron NP PCP - General Family Medicine 05/13/20 06/01/21 documented as of this encounter
--- OUTSIDE RECORDS SUMMARY | 2024-07-17 18:32 | XMS_ITS | Encounter Summary ---
Author Organization [facility] Address [address] [facility] [address] [place] [address] Care Team Providers Care Tunnel Kiln Repairer Name Role Phone July Herron NP Primary Care Provider [phone] Encounter Details Date Type Department Care Team (Late st Contact Info) Description 08/14/2020 Telephone [facility] of [address] [place] [address] July Herron, ARTI [address] [place] [id number] Social History Tobacco Use Types Packs/Day Years [...] on file Legal Sex Female 8:20 AM LEAD BUSINESS SYSTEMS ANALYST Gender Identity Not on file Sexual Orientation Not on file documented as of this encounter Miscellaneous Notes * Telephone Encounter - Jeannie Gay MA - 08/14/2020 2:42 PM CST FMLA papers that were dropped off at our office were filled out and faxed to [employer] at . Called Pt informed of this. Pt also wanted to know what she can take along w/ the cough med thatyou Rx her at her last visit ? Please advise . BUSINESS SYSTEMS ANALYST documented in this encounter Plan of Treatment Not on file documented as of this encounter Visit Diagnoses Not on filedocumented in this encounter Care Teams Tunnel Kiln Repairer Relationship Specialty Start Date End Date July Herron NP PCP - General Family Medicine 05/13/20 06/01/21 documented as of this encounter
--- OUTSIDE RECORDS SUMMARY | 2024-07-17 18:32 | XMS_ITS | Encounter Summary ---
Author Organization [facility] Address [address] [facility] [address] [place] [address] Care Team Providers Care Landscape Supervisor Name Role Phone July Herron LANDSCAPE CREW MEMBER Primary Care Provider Encounter Details Date Type Department Care Team (Late st Contact Info) Description 08/14/2020 Orders Only [facility] of [address] [place] [address] July Herron, ARTI [address] [place] [address] Social History Tobacco Use Types Packs/Day Years [...] on file Legal Sex Female 8:20 AM PLEATING SUPERVISOR Gender Identity Not on file Sexual Orientation Not on file documented as of this encounter Ordered Prescriptions Prescription Sig Dispense Quantity Refills Last Filled Start Date End Date benzonatate (TESSALON) 100 mg capsule Take 2 capsules (200 mg total) by mouth 3 (three) times a day as needed for cough for up to 10 days 60 capsule 1 08/14/2020 1 promethazine-codei ne (PHENERGAN with CODEINE) 1.25-2 mg/mL syrup Take 5-10 mL by mouth every 4 (four) hours as needed for cough 280 mL 08/14/2020 documented in this encounter Plan of Treatment Not on file documented as of this encounter Visit Diagnoses Not on filedocumented in this encounter Discontinued Medications Medication Sig Discontinue Reason Start Date End Da te promethazine (PHENERGAN) 1.25 mg/mL syrup Take 10 mL (12.5 mg total) by mouth 4 (four) times a day as needed (cough) 08/12/2020 08/14/2020 benzonatate (TESSALON) 200 mg capsuleIndications:Viral upper respiratory tract infection Take 1 capsule (200 mg total) by mouth 3 (three) times a day as needed for cough 07/28/2020 08/14/2020 documented as of this encounter Care Teams Landscape Supervisor Relationship Specialty Start Date End Date July Herron NP PCP - General Family Medicine 05/13/20 06/01/21 documented as of this encounter
--- OUTSIDE RECORDS SUMMARY | 2024-07-17 18:32 | XMS_ITS | Encounter Summary ---
Author Organization [facility] Address [address] [facility] [address] [place] [address] Care Team Providers Care Truckman Name Role Phone July Herron NP Primary Care Provider [phone] Mary Mcgrath NP Unavailable [phone] Encounter Details Date Type Department Care Team (Late st Contact Info) Description 02/12/2021 Telephone [facility] of [address] [place] [address] July Herron NP [address] [place], [place] [id number] Social History Tobacco Use Types Packs/Day Years [...] on file Legal Sex Female 8:20 AM SALES REP Gender Identity Not on file Sexual Orientation Not on file documented as of this encounter Miscellaneous Notes * Telephone Encounter - Jeannie Gay MA - 02/12/2021 3:26 PM CDT Pt called and LVM in regards to wanting to discuss her pro air inhaler. Called Pt back there ws N/ALMOM to call the office . documented in this encounter Plan of Treatment Not on file documented as of this encounter Visit Diagnoses Not on filedocumented in this encounter Care Teams Truckman Relationship Specialty Start Date End Date July Herron NP PCP - General Family Medicine 05/13/20 06/01/21 [place] [address] [facility] [address] [place] [address] Nurse Practitioner Internal Medicine 09/24/20 documented as of this encounter
--- OUTSIDE RECORDS SUMMARY | 2024-07-17 18:32 | XMS_ITS | Encounter Summary ---
Author Organization [facility] Medical [facility] Address [address] [facility] [address] [place] [address] Care Team Providers Care Sole Stapler Welt Name Role Phone July Herron NP Primary Care Provider [phone] Reason for Visit * Reason Comments Covid-19 Home Monitoring Tested 07/23 ca me back neg but still symptomatic. Went to [facility] retest covid, strep, flu. Jul 30 called 911 couldnt breath. was hospitalized Encounter Details Date Type Department Care Team (Late st Contact Info) Description 08/03/2020 4:00 PM FRONT WORKER Telemedicine [facility] of [address] [place] [address] Nicolette Olivares NP [address] [facility] [address] [place] [address] Severe persistent asthma with acute exacerbation (Primary Dx); Upper respiratory tract infection, unspecified type; Anxiety; BMI 27.0-27.9,adult Social History Tobacco Use Types Packs/Day Years [...] on file Legal Sex Female 8:20 AM FRONT WORKER Gender Identity Not on file Sexual Orientation Not on file documented as of this encounter Ordered Prescriptions Prescription Sig Dispense Quantity Refills Last Filled Start Date End Date zinc 50 mg tablet Take 1 tablet by mouth daily 60 each 08/03/2020 cholecalciferol (VITAMIN D-3) 33707 unit tabletIndications: Vitamin D Deficiency Take 1 tablet (10,000 Units total) by mouth once a week 12 tablet 3 08/03/2020 azithromycin (Zithromax Z-Dipesh) 250 mg tablet Take 2 tablets the first day, then 1 tablet daily for 4 days. 6 tablet 08/03/2020 1 ascorbate calcium, vitamin C, 500 mg tablet Take 1 tablet by mouth daily 60 each 1 08/03/2020 1 predniSONE (DELTASONE) 10 mg tablet 4 tablets x 3 days, then 3 tablets x 3 days, then 2 tablets x 3 days, then 1 tablet x 3 days 30 tablet 08/03/2020 1 documented in this encounter Progress Notes * Nicolette Olivares, FIRMWARE SOFTWARE VERIFICATION ENGINEER - 08/03/2020 4:00 PM CST Images from the original note were not included. Subjective/Objective Patient ID: Dior Hart is a 34 y.o. female. This was a telemedicine visit with Dior Hart which took place via Real-time video connection (InTouch, Zoom or similar). [place] the [place], [place] and the patient was located [place] The session started at 1618 and ended at 1643. 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 Cont albuterol prn Upper respiratory tract infection, unspecified type Comments: Will empirically tx with azithromycin d/t longevity of sx Anxiety Comments: Stop hydroxyzine, interacts w/ zpak Buspar BID, can take additional pill prn for attack May need to increase maintenance dose BMI 27.0-27.9,adult Comments: Increase water intake, start taking Vitamin C, D3, zinc Other orders - predniSONE (DELTASONE) 10 mg tablet; 4 tablets x 3 days, then 3 tablets x 3 days, then 2 tablets x 3 days, then 1 tablet x 3 days - cholecalciferol (VITAMIN D-3) 72881 unit tablet; Take 1 tablet (10,000 Units total) by mouth oncea week - zinc 50 mg tablet; Take 1 tablet by mouth daily - ascorbate calcium, vitamin C, 500 mg tablet; Take 1 tablet by mouth daily - azithromycin (Zithromax Z-Dipesh) 250 mg tablet; Take 2 tablets the first day, then 1 tablet daily for 4 days. Discussed with patient to go back to ER if sx worsen, pt verbalizes understanding. Work note given to patient via [employer] for at least 10 days. Follow up if not improving Chief Complaint Covid-19 Home Monitoring (Tested 07/23 came back neg but still symptomatic. Went to [facility] retest covid, strep, flu. Jul 30 called 911 couldnt breath. was hospitalized ) Patient was sent home from work 07/22 with sx of cough, sweating, but temp was normal. She was tested for COVID on 07/23 at [facility], she was negative. The next couple days she felt better but then went downhill . She started running intermittent fevers and went to [facility], all testing was negative. 07/29 she had panic attack and had difficulty breathing, called 911 and [facility]. Now, she still complains of intermittent fever, cold sweats, migraine, pain with breathing in on her side/stomach area and a consistent dry cough. She states that she feels like someone is sitting on her chest . She isn't allowed to go back to work until 08/12/20. She was given hydroxyzine in the ER for anxiety prn but doesn't feel it is helping. Review of Systems Constitutional: Positive for chills, fatigue and fever. HENT: Positive for congestion and postnasal drip. Respiratory: Positive for cough, chest tightness, shortness of breath and wheezing. Cardiovascular: Positive for palpitations. Negative for chest pain. Musculoskeletal: Positive for myalgias. Psychiatric/Behavioral: Negative for suicidal ideas. The patient is nervous/anxious. LMP 07/15/2020 (Exact Date) Physical Exam Constitutional: Appearance: She is ill-appearing. Eyes: Extraocular Movements: Extraocular movements intact. Neurological: General: No focal deficit present. Mental Status: She is alert and oriented to person, place, and time. Psychiatric: Mood and Affect: Mood normal. Behavior: Behavior normal. Physical exam limited with zoom. Nicolette Olivares NP Cosigned by Rad Mcclellan MD at 08/06/2020 4:30 PM FRONT WORKER T WORKER T WORKER T WORKER documented in this encounter Plan of Treatment Not on file documented as of this encounter Visit Diagnoses Diagnosis Severe persistent asthma with acute exacerbation- Primary Upper respiratory tract infection, unspecified type Anxiety Anxiety state, unspecified BMI 27.0-27.9,adult documented in this encounter Discontinued Medications Medication Sig Discontinue Reason Start Date End Da te methylPREDNISolone (Medrol, Dipesh,) 4 mg DosepackIndications:Vir al upper respiratory tract infection follow package directions 07/28/2020 08/03/2020 hydrOXYzine (VISTARIL) 25 mg capsule Take 1 capsule (25 mg total) by mouth 3 (three) times a day as needed for anxiety 07/29/2020 08/03/2020 documented as of this encounter Additional Health Concerns Infection Onset Date Last Indicated Resolved Time Respiratory Infection (COURTNEY), contact + droplet Comment:Automatically added due to negative COVID-19 result. 07/29/2020 07/29/2020 08/12/2020 3:0 7 AM FRONT WORKER documented as of this encounter Care Teams Sole Stapler Welt Relationship Specialty Start Date End Date July Herron NP PCP - General Family Medicine 05/13/20 06/01/21 documented as of this encounter
--- OUTSIDE RECORDS SUMMARY | 2024-07-17 18:32 | XMS_ITS | Encounter Summary ---
Author Organization [facility] Address [address] [facility] [address] [place] [address] Care Team Providers Care Baker Biscuit Name Role Phone July Herron WELLNESS INSTRUCTOR Primary Care Provider [phone] Encounter Details Date Type Department Care Team (Late st Contact Info) Description 08/03/2020 Telephone [facility] of [address] [place] [address] July Herron, ARTI [address] [place] [address] Social History Tobacco Use Types Packs/Day Years [...] on file Legal Sex Female 8:20 AM SUPERVISOR RIVETING Gender Identity Not on file Sexual Orientation Not on file documented as of this encounter Miscellaneous Notes * Telephone Encounter - Jeannie Gay MA - 08/03/2020 11:57 AM CST Pt's has a Zoom Visit today @ W/ Nicolette RVISOR RIVETING * Telephone Encounter - Jeannie Gay MA - 08/03/2020 10:28 AM CST Pt called and LVM on my phone in regards to she had an apt W/ Nicolette Olivares this AM for URI Sxs and a ER F/U from last week. Pt still having URI Sx's and she called in to see if she could change her apt to this afternoon Scheduling informed her that she needed cleared from the provider prior to being R/S. I spoke W/ Nicolette Olivares and she would like to do a zoom visit W/ Pt called Pt back VM was full will attempt to call PT again. RVISOR RIVETING documented in this encounter Plan of Treatment Not on file documented as of this encounter Visit Diagnoses Not on filedocumented in this encounter Additional Health Concerns Infection Onset Date Last Indicated Resolved Time Respiratory Infection (COURTNEY), contact + droplet Comment:Automatically added due to negative COVID-19 result. 07/29/2020 07/29/2020 08/12/2020 3:0 7 AM SUPERVISOR RIVETING documented as of this encounter Care Teams Baker Biscuit Relationship Specialty Start Date End Date July Herron NP PCP - General Family Medicine 05/13/20 06/01/21 documented as of this encounter
--- OUTSIDE RECORDS SUMMARY | 2024-07-17 18:32 | XMS_ITS | Referral Summary ---
Author Organization [facility] Address [address] [place] [address] Care Team Providers Care Follow Up Manager Name Role Phone Mary Coronado BRILLIANDEER LOPPER Unavailable [phone] Rand Ballard NP Primary Care Provider + [...] Inhaler 07/28/20 20 Active cholecalciferol (VITAMIN D-3) 89482 unit tabletIndications :Vitamin D Deficiency Take 1 [...] 05/13/2020 Assessment & Plan (09/24/2020 11:15 AM LIFE INSURANCE UNDERWRITER): Pt seeing pulmonology MARY CORONADO. Saw her [...] injections. Assessment & Plan (08/20/2020 10:55 AM LIFE INSURANCE UNDERWRITER): HPI: Condition is not at/near goal A&P: [...] 05/13/2020 Assessment & Plan (09/24/2020 11:26 AM LIFE INSURANCE UNDERWRITER): HPI: Condition is worsening A&P: Healthy, low carbohydrate lifestyle and exercise for 150min/week recommended Substitutions: Recommend tracking everything you put in your mouth on an alexandria like [employer] carries a zero net carb bread [...] in much longer they will become mushy [place] and/or coconut flour instead of regular flour [...] pork rinds For yogurt, try Two Good brazilian yogurt Use Pinterest for recipe ideas. Type [...] in much longer they will become mushy [place] and/or coconut flour instead of regular flour [...] a month early. Baby was sent to [facility] and was in a different hospital for 4 days. Then mom was released and they kept pt in [facility] for 14 days. She has a tubal [...] 05/13/2020 Assessment & Plan (09/24/2020 11:26 AM LIFE INSURANCE UNDERWRITER): HPI: Condition is worsening having 2-3 anxiety attacks a day A&P: Discussed/ordered labs, encouraged healthy, low carbohydrate lifestyle and at least 150min/week of exercise, We will increase the sertraline to 150mg (1.5 tablets) daily and increase the buspirone to 10mg twice daily. New scripts sent in. We will f/u in 4-6 wks. Assessment & Plan (08/20/2020 9:07 AM LIFE INSURANCE UNDERWRITER): Patient reiterated no suicidal thoughts at this [...] a month early. Baby was sent to [facility] and was in a different hospital for 4 days. Then mom was released and they kept pt in [facility] for 14 days. 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 May use docusate as needed. GERD (gastroesophageal reflux disease) 0 Assessment & Plan (08/20/2020 10:53 AM LIFE INSURANCE UNDERWRITER): Refill famotidine given today. Assessment & Plan [...] Influenza, Unspecified 04/01/2020 MMR 09/24/2018 Tdap 07/31/2014 Social History Tobacco Use Types Packs/Day Years [...] on file Legal Sex Female 8:20 AM LIFE INSURANCE UNDERWRITER Gender Identity Not on file Sexual Orientation [...] 06/02/2021 5:42 PM CDT Plan of Treatment Not on file Insurance Fontself OOS [employer] OOS Advance Directives For more information, please contact: [phone] * Full Code (Latest Code Status on File) Date Activated Date Inactivated Comments 02/20/2020 1:28 AM 02/21/2020 7:02 PM * Full Code Date Activated Date Inactivated Comments 02/19/2020 11:20 PM 02/20/2020 1:28 AM Full CPR in case of cardiopulmonary arrest Care Teams Follow Up Manager Relationship Specialty Start Date End Date Rand Ballard NP [address] [facility] [place] [address] PCP - General 06/02/21 [place] [address] [facility] [address] [place] [address] Nurse Practitioner Internal Medicine 09/24/20
--- OUTSIDE RECORDS SUMMARY | 2024-07-17 18:32 | XMS_ITS | Encounter Summary ---
Author Organization [facility] Address [address] 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 Pt went by ambulance to [facility] ER and was seen and released to go back home Pt is stating that she is having sever chest tightness, Pt has tested neg for covid in the past few days and was made aware of that today. Pt made an apt for 08/03/20 for ER visit. Informed the Pt to take all meds as Rx and increase H2O and rest E UNION SECRETARY E UNION SECRETARY documented in this encounter Plan of Treatment Not on file documented as of this encounter Visit Diagnoses Not on filedocumented in this encounter Additional Health Concerns Infection Onset Date Last Indicated Resolved Time COVID: Suspected 07/28/2020 07/28/2020 07/29/2020 1:22 PM TRADE UNION SECRETARY Respiratory Infection (COURTNEY), contact + droplet Comment:Automatically added due to negative COVID-19 result. 07/29/2020 07/29/2020 08/12/2020 3:0 7 AM TRADE UNION SECRETARY documented as of this encounter Care Teams Foreman Or Supervisor And Operator Relationship Specialty Start Date End Date July Herron NP PCP - General Family Medicine 05/13/20 06/01/21 documented as of this encounter
--- OUTSIDE RECORDS SUMMARY | 2024-07-17 18:32 | XMS_ITS | Encounter Summary ---
Author Organization [facility] Address [address] [facility] [address] [place] [address] Care Team Providers Care Wire Galvanizer Name Role Phone July Herron NP Primary Care Provider Mary Coronado VP STRATEGY Unavailable [phone] Reason for Visit * Reason Comments Asthma Encounter Details Date Type Department Care Team ([facility] Contact Info) Description 09/24/2020 10:45 AM FRONT DESK TEAM MEMBER Office Visit [facility] of [address] [place] [phone] July Herron NP [address] [place] [address] Severe persistent asthma with acute exacerbation (Primary Dx); Anxiety; BMI 29.0-29.9,adult Social History Tobacco Use Types Packs/Day Years [...] file Legal Sex Female 8:20 AM FRONT DESK TEAM MEMBER Gender Identity Not on file Sexual Orientation Not on file documented as of this encounter Last Filed Vital Signs Vital Sign Reading Time Taken Comments Blood Pressure 110/70 09/24/2020 11:00 AM FRONT DESK TEAM MEMBER Pulse 79 09/24/2020 11:00 AM FRONT DESK TEAM MEMBER Temperature 36.4 ??C (97.5 ??F) 09/24/2020 11:[address] Respiratory Rate - - Oxygen Saturation 98% 09/24/2020 11:00 AM FRONT DESK TEAM MEMBER Inhaled Oxygen Concentration - - Weight 85 kg (187 lb 6.4 oz) 09/24/2020 11:00 AM FRONT DESK TEAM MEMBER Height 170.2 cm (5' 7 ) 09/24/2020 11:00 AM FRONT DESK TEAM MEMBER Body Mass Index 29.35 09/24/2020 11:00 AM FRONT DESK TEAM MEMBER documented in this encounter Ordered Prescriptions Prescription Sig Dispense Quantity Refills Last Filled Start Date End Date busPIRone (BUSPAR) 10 mg tabletIndications: Generalized Anxiety Disorder Take 1 tablet (10 mg total) by mouth 2 (two) times a day 60 tablet 1 09/24/2020 sertraline (ZOLOFT) 100 mg tablet Take 1.5 tablets (150 mg total) by mouth daily 135 tablet 1 09/24/2020 documented in this encounter Progress Notes * July Herron NP - 09/24/2020 10:45 AM CST Images from the original note were not included. Subjective/Objective Patient ID: Dior Hart is a 35 y.o. female. Assessment/Plan Diagnoses and all orders for this visit: Severe persistent asthma with acute exacerbation (Primary) Assessment & Plan: Pt seeing pulmonology MARY CORONADO. Saw her last week. This was the second or third visit shehas had. She had allergy testing done there [...] on above meds and await monthly injections. Anxiety Assessment & Plan: HPI: Condition is worsening having 2-3 anxiety attacks a day A&P: Discussed/ordered labs, encouraged healthy, low carbohydrate lifestyle and at least 150min/week of exercise, We will increase the sertraline to 150mg (1.5 tablets) daily and increase the buspirone to 10mg twice daily. New scripts sent in. We will f/u in 4-6 wks. BMI 29.0-29.9,adult Assessment & Plan: HPI: Condition is worsening A&P: Healthy, low carbohydrate lifestyle and exercise for 150min/week recommended Substitutions: Recommend tracking everything you put in your mouth on an alexand[place] like [employer] carries a zero net carb bread If you are looking for whole potatoes, like to use in soup or new potato shape/flavor, radishes area great replacement If you are looking for [...] in much longer they will become mushy [place] and/or coconut flour instead of regular flour For pizza dough, try fathead pizza dough recipe online. To get a crispy crust, bake on one side for8-12 min, then flip over and bake on [...] pork rinds For yogurt, try Two Good wolof yogurt Use Saúl for recipe ideas. Type in low carb... Other orders - sertraline (ZOLOFT) 100 mg tablet; Take 1.5 tablets (150 mg total) by mouth daily - busPIRone (BUSPAR) 10 mg tablet; Take 1 tablet (10 mg total) by mouth 2 (two) times a day Thanks for coming in today. My medical csr, Jeannie, and I are thankful you have trusted us with your care, and hope that you received EXCELLENT care today! Please do not hesitate to call if you have any questions or concerns at [phone]. You may receive a phone call or text asking about your care today. We would love to hear your input and again, hope your visit was as EXCELLENT as possible, even if you were not feeling your best! 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 She has been cleaning to try to improve her symptoms. When she has an asthma attack it flares her anxiety. Review of Systems Respiratory: Negative for shortness of breath (not today). Cardiovascular: Negative for chest pain (not today). Psychiatric/Behavioral: The patient is nervous/anxious. Having 2-3 panic attacks that she can't tell what are causing them. Lasting about 45 minutes. The sand mill operator core sand says some of them may be caused from her asthma. Not all of them seem to be happening when she is having trouble breathing, some are out of nowhere. She has been having them since being sick in 06/2020. BP 110/70 (BP Location: Left arm, Patient Position: Sitting) Pulse 79 Temp 36.4 ??C (97.5 ??F) (Transdermal) Ht 170.2 cm (5' 7 ) Wt 85 kg (187 lb 6.4 oz) SpO2 98% BMI 29.35 kg/m?? Physical Exam Constitutional: General: She is [...] Pulmonary effort is normal. Breath sounds: Wheezing (mild throughout, but has good air movement) present. Abdominal: General: Bowel sounds are normal. Palpations: Abdomen is soft. Tenderness: There is no abdominal tenderness. Musculoskeletal: General: Normal range of motion. Lymphadenopathy: Cervical: No cervical adenopathy. Skin: General: Skin is warm and dry. Capillary Refill: Capillary refill takes less than 2 seconds. Neurological: Mental Status: She is alert and oriented to person, place, and time. Psychiatric: Mood and Affect: Mood is anxious. July Herron NP Please note: Voice recognition software [employer] Direct was used to dictate and transcribe this document. Hotel Concierge variances may occur. Despite proofreading, typographical errors may occur. T DESK TEAM MEMBER documented in this encounter Miscellaneous Notes * Assessment & Plan Note - July Herron NP - 09/24/2020 11:26 AM CSTAssociated Problem(s): BMI 29.0-29.9,adult HPI: Condition is worsening A&P: Healthy, low carbohydrate lifestyle and exercise for 150min/week recommended Substitutions: Recommend tracking everything you put in your mouth on an alexand[place] like [employer] carries a zero net carb bread If you are looking for whole potatoes, like to use in soup or new potato shape/flavor, radishes area great replacement If you are looking for [...] in much longer they will become mushy [place] and/or coconut flour instead of regular flour For pizza dough, try fathead pizza dough recipe online. To get a crispy crust, bake on one side for8-12 min, then flip over and bake on [...] pork rinds For yogurt, try Two Good wolof yogurt Use Pinterest for recipe ideas. Type in low carb... T DESK TEAM MEMBER * Assessment & Plan Note - July Herron NP - 09/24/2020 11:21 AM CSTAssociated Problem(s): Anxiety HPI: Condition is worsening having 2-3 anxiety attacks a day A&P: Discussed/ordered labs, encouraged healthy, low carbohydrate lifestyle and at least 150min/week of exercise, We will increase the sertraline to 150mg (1.5 tablets) daily and increase the buspirone to 10mg twice daily. New scripts sent in. We will f/u in 4-6 wks. T DESK TEAM MEMBER * Assessment & Plan Note - July Herron NP - 09/24/2020 11:08 AM CSTAssociated Problem(s): Severe persistent asthma with acute exacerbation Pt seeing pulmonology MARY CORONADO. Saw her last week. This was the second or third visit shehas had. She had allergy testing done there [...] on above meds and await monthly injections. T DESK TEAM MEMBER documented in this encounter Plan of Treatment Not on file documented as of this encounter Visit Diagnoses Diagnosis Severe persistent asthma with acute exacerbation- Primary Anxiety Anxiety state, unspecified BMI 29.0-29.9,adult documented in this encounter Discontinued Medications Medication Sig Discontinue Reason Start Date End Da te ascorbate calcium, vitamin C, 500 mg tablet Take 1 tablet by mouth daily Therapy completed 08/03/2020 09/24/2020 busPIRone (BUSPAR) 5 mg tabletIndications:Genera lized Anxiety Disorder Take 5 mg by mouth 2 (two) times a day 09/24/2020 sertraline (ZOLOFT) 100 mg tablet Take 1 tablet (100 mg total) by mouth daily 05/13/2020 09/24/2020 documented as of this encounter Care Teams Wire Galvanizer Relationship Specialty Start Date End Date July Herron NP PCP - General Family Medicine 05/13/20 06/01/21 [place] [address] [facility] [address] [place] [address] Nurse Practitioner Internal Medicine 09/24/20 documented as of this encounter
--- OUTSIDE RECORDS SUMMARY | 2024-07-17 18:32 | XMS_ITS | Encounter Summary ---
Author Organization [facility] Healthcare Address [address] [place] [address] Care Team Providers Care Decorating Machine Tender Name Role Phone Mary Mcgrath NP Unavailable [phone] Rand Ballard NP Primary Care Provider + Reason for Referral * MRI/CAT/PET Scan (Routine) - Closed Specialty Diagnoses / Procedures Referred By Edwinac t Referred To Contact Radiology Diagnoses Hemoptysis Procedures [place] [address] [place] [address] Phone: tel: fax: [address] [address] Referral ID Status Reason Start Date Expiration Date Visits Re quested Visits Authorized [id number] Closed 11/15/2022 01/13/2023 1 1 Reason for Visit * MRI/CAT/PET Scan (Routine) - Closed Specialty Diagnoses / Procedures Referred By Contac t Referred To Contact Radiology Diagnoses Hemoptysis Procedures [place] [address] [place] [address] Phone: tel: fax: [address] [address] Referral ID Status Reason Start Date Expiration Date Visits Re quested Visits Authorized [id number] Closed 11/15/2022 01/13/2023 1 1 Encounter Details Date Type Department Care Team (Latest Contact Info) Description 11/25/2022 9:18 AM CDT - 11/25/2022 11:59 PM CDT Hospital Encounter [facility] Imaging and Radiology [address] [place] [address] Hemoptysis Discharge Disposition: Discharge to home or self [...] on file 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 ??Several multifocal pulmonary nodules largest of which measures 8 mm in the right upper lobe. ??Suggest short interval follow-up in 1-3 months to evaluate for interval change. ??May consider pulmonary consultation. 2. ??No definitive endobronchial lesions. 3. ??Circumscribed splenic hypodensity measuring 1.8 cm likely represents benign etiology lesion. ??However, attention on follow-up imaging is suggested to ensure stability. Electronically signed by: Aly Mae II, D.O. Narrative 11/25/2022 10:49 AM CDT EXAMINATION: ??Computed tomography of the chest without intravenous contrast HISTORY: Hemoptysis. TECHNIQUE: ??Transaxial computed tomographic images of the chest were obtained without intravenous contrast according to the standard protocol. COMPARISON: None. FINDINGS: ?? Several pulmonary nodules are demonstrated. ??There is a medial right upper lobe 7 mm nodule, table position -1611.4. ??Medial right upper lobe 8 mm nodule, table position -1587.4. ??Adjacent right upper lobe 2 mm nodule, table position 1591.4. ??Peripheral right lower lobe 4 mm nodule, table position -1447.4. ??No endobronchial masses are demonstrated. ??No pleural effusion. Thyroid is unremarkable. ??No mediastinal or hilar lymphadenopathy. No pericardial effusion. ??Small focus of fluid adjacent to the right hepatic lobe. ??Nonspecific circumscribed splenic hypodensity measuring approximately 1.8 cm. ??Mild multilevel endplate changes in the visualized spine. Procedure Note Aly Mae II, DO - 11/25/2022 EXAMINATION: Computed tomography of the chest without intravenous contrast HISTORY: Hemoptysis. TECHNIQUE: Transaxial computed tomographic images of the chest were obtained without intravenous contrast according to the standard protocol. COMPARISON: None. FINDINGS: Several pulmonary nodules are demonstrated. There is a medial right upper lobe 7 mm nodule, table position -1611.4. Medial right upper lobe 8 mm nodule, table position -1587.4. Adjacent right upper lobe 2 mm nodule, table position 1591.4. Peripheral right lower lobe 4 mm nodule, table position -1447.4. No endobronchial masses are demonstrated. No pleural effusion. Thyroid is unremarkable. No mediastinal or hilar lymphadenopathy. No pericardial effusion. Small focus of fluid adjacent to the right hepatic lobe. Nonspecific circumscribed splenic hypodensity measuring approximately 1.8 cm. Mild multilevel endplate changes in the visualized spine. IMPRESSION: 1. Several multifocal pulmonary nodules largest of which measures 8 mm in the right upper lobe. Suggest short interval follow-up in 1-3 months to evaluate for interval change. May consider pulmonary consultation. 2. No definitive endobronchial lesions. 3. Circumscribed splenic hypodensity measuring 1.8 cm likely represents benign etiology lesion. However, attention on follow-up imaging is suggested to ensure stability. Electronically signed by: Aly Mae II, D.O. Mary Mcgrath WOOD SHOP TEACHER IMG CT PROCEDURES Final Result documented in this encounter Visit Diagnoses Diagnosis Hemoptysis documented in this encounter Care Teams Decorating Machine Tender Relationship Specialty Start Date End Date Rand Ballard NP [address] [facility] [place] [address] PCP - General 06/02/21 [place] [address] [facility] [address] [place] [address] Nurse Practitioner Internal Medicine 09/24/20 documented as of this encounter
--- OUTSIDE RECORDS SUMMARY | 2024-07-17 18:32 | XMS_ITS | Encounter Summary ---
Author Organization [facility] Medical [facility] Address [address] [facility] [address] [place] [address] Care Team Providers Care Vp Director Of Finance Name Role Phone July Herron NP Primary Care Provider [phone] Encounter Details Date Type Department Care Team (Late st Contact Info) Description 08/26/2020 Orders Only [facility] of [address] [place] [address] July Herron NP [address] [place] [address] Social History Tobacco Use Types Packs/Day Years [...] on file Legal Sex Female 8:20 AM FILM WAXER Gender Identity Not on file Sexual Orientation Not on file documented as of this encounter Ordered Prescriptions Prescription Sig Dispense Quantity Refills Last Filled Start Date End Date hydrOXYzine (ATARAX) 25 mg tablet Take 1/2-1 tablet tid prn anxiety 60 tablet 1 08/26/2020 documented in this encounter Plan of Treatment Not on file documented as of this encounter Visit Diagnoses Not on filedocumented in this encounter Care Teams Vp Director Of Finance Relationship Specialty Start Date End Date July Herron NP PCP - General Family Medicine 05/13/20 06/01/21 documented as of this encounter
--- OUTSIDE RECORDS SUMMARY | 2024-07-17 18:32 | XMS_ITS | Encounter Summary ---
Author Organization [facility] Healthcare Address [address] [place] [address] Care Team Providers Care Wood Type Finisher Name Role Phone Mary Mcgrath NP Unavailable [phone] Rand Ballard CAR SANDER Primary Care Provider + Encounter Details Date Type Department Care Team (Late st Contact Info) Description 07/26/2021 10:50 AM INJECTION MOLDING MACHINE TENDER [address] [address] Social History Tobacco Use Types Packs/Day Years [...] on file Legal Sex Female 8:20 AM INJECTION MOLDING MACHINE TENDER Gender Identity Not on file Sexual Orientation Not on file documented as of this encounter Plan of Treatment Not on file documented as of this encounter Visit Diagnoses Not on filedocumented in this encounter Care Teams Wood Type Finisher Relationship Specialty Start Date End Date Rand Ballard NP [address] [facility] [place] [address] PCP - General 06/02/21 [place] [address] [address] [facility] [address] [place] [address] Nurse Practitioner Internal Medicine 09/24/20 documented as of this encounter
--- OUTSIDE RECORDS SUMMARY | 2024-07-17 18:32 | XMS_ITS | Encounter Summary ---
Author Organization [facility] Address [address] [place] [address] Care Team Providers Care Lighting Specialist Name Role Phone July Eric NP Primary Care Provider [phone] Reason for Referral * Diagnostic Imaging (Routine) - Closed Specialty Diagnoses / Procedures Referred By Melba t Referred To Contact Diagnoses Severe persistent asthma with acute exacerbation Procedures XR Chest Pa Lateral 2 Views July Eric NP Phone: tel: fax: [address] [phone] Referral ID Status Reason Start Date Expiration Date Visits Re quested Visits Authorized [id number] Closed 08/12/2020 09/11/2021 1 1 TH UNIT CLERK Reason for Visit * Diagnostic Imaging (Routine) - Closed Specialty Diagnoses / Procedures Referred By Melba santoyo Referred To Contact Diagnoses Severe persistent asthma with acute exacerbation Procedures XR Chest Pa Lateral 2 Views July Eric NP Phone: tel: fax: [address] [phone] Referral ID Status Reason Start Date Expiration Date Visits Re quested Visits Authorized [id number] Closed 08/12/2020 09/11/2021 1 1 Encounter Details Date Type Department Care Team (Late st Contact Info) Description 08/12/2020 10:59 AM HEALTH UNIT CLERK - 08/12/2020 11:59 PM HEALTH UNIT CLERK Hospital Encounter [facility] [address] [place] [id number] Rad Mcclellan MD [address] [place] [address] July Eric NP [address] [place] [address] Severe persistent asthma with acute exacerbation Discharge Disposition: Discharge to home or self [...] on file Legal Sex Female 8:20 AM HEALTH UNIT CLERK Gender Identity Not on file Sexual [...] with water after use. Do not swallow. cholecalciferol (VITAMIN D-3) 14976 unit tabletIndications: Vitamin D Deficiency Take 1 [...] tablet by mouth daily 60 each 08/03/2020 inhalational spacing device (Aerochamber with Flowsignal) spacer Use as directed with inhalers 1 each 05/13/2020 05/13/20 21 albuterol 2.5 mg /3 mL (0.083 %) nebulizer solution Take 3 mL (2.5 mg total) by nebulization every 6 (six) hours as needed for wheezing 75 mL 07/29/2020 08/20/19 21 ascorbate calcium, vitamin C, 500 mg tablet Take 1 tablet by mouth daily 60 each 1 08/03/2020 09/24/19 21 azithromycin (Zithromax Z-Dipesh) 250 mg tablet Take 2 tablets the first day, then 1 tablet daily for 4 days. 6 tablet 08/12/2020 08/20/19 21 benzonatate (TESSALON) 200 mg capsuleIndications [...] 40 mg by mouth daily 08/20/19 21 promethazine (PHENERGAN) 1.25 mg/mL syrup Take 10 mL (12.5 mg total) by mouth 4 (four) times a day as needed (cough) 300 mL 1 08/12/2020 08/14/19 21 sertraline (ZOLOFT) 100 mg tablet Take [...] VIEWS Schedule Routine, Read Routine (OP Routine) 08/12/2020 11:11 AM HEALTH UNIT CLERK Severe persistent asthma with acute exacerbation documented in this encounter Results * XR Chest Pa Lateral 2 Views (08/12/2020 11:11 AM HEALTH UNIT CLERK) Anatomical Region Laterality Modality Body, Chest N/A Computed Radiogr aphy 08/12/2020 11:1 8 AM HEALTH UNIT CLERK Impressions 08/12/2020 11:19 AM HEALTH UNIT CLERK No radiographic evidence of acute cardiopulmonary disease. Electronically signed by: Annemarie Dutton D.O. Narrative 08/12/2020 11:19 AM HEALTH UNIT CLERK EXAMINATION: XR CHEST PA LATERAL 2 [...] are acutely grossly stable. Procedure Note Annemarie Dutton DO - 08/12/2020 EXAMINATION: XR CHEST PA LATERAL [...] Diagnoses Diagnosis Severe persistent asthma with acute exacerbation documented in this encounter Care Teams Lighting Specialist Relationship Specialty Start Date End Date July Eric NP PCP - General Family Medicine 05/13/20 06/01/21 documented as of this encounter
--- OUTSIDE RECORDS SUMMARY | 2024-07-17 18:33 | XMS_ITS | Encounter Summary ---
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
--- OUTSIDE RECORDS SUMMARY | 2024-07-17 18:33 | XMS_ITS | Encounter Summary ---
Author Organization [facility] Healthcare Address [address] [place] [address] Care Team Providers Care Manager Strategic Alliances Name Role Phone Unavailable Primary Care Provider Unavailabl e Encounter Details Date Type Department Care Team ([facility] st Contact Info) Description 03/30/2013 3:29 PM CDT - 03/30/2013 5:10 PM CDT Hospital Encounter [facility] Sasha Rivers MD [address] [place] [id number] Asthma with exacerbation Social History Tobacco Use Types Packs/Day Years Used Date Smoking Tobacco: Never Assessed Comments Unknown Sex and Gender Information Value Date Recorded Sex Assigned at Not on file Legal Sex Female 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 Gender Identity Not on file Sexual Orientation Not on file documented as of this encounter Plan of Treatment Not on file documented as of this encounter Procedures Procedure Name Priority Date/Time Associated Diagnosis Comments XR CHEST PA LATERAL 2 VIEWS Routine 03/30/2013 4:42 PM CDT URINE CHORIONIC GONADOTROPIN (HCG) Routine 03/30/2013 4:20 PM CDT DISCHARGE LABORATORY CUMULATIVE REPORT Routine 03/30/2013 12:00 AM CDT documented in this encounter Results * XR Chest Pa Lateral 2 Vw (03/30/2013 4:42 PM CDT) Anatomical Region Laterality Modality Body, Chest N/A Radiographic Marcelina ging 03/30/2013 4:42 PM CDT Narrative 04/01/2013 10:16 AM CDT XR Chest 2 Views ?[id number] ??Acc#: ??[id number] DATE OF EXAM: ??Mar 30 2013 CLINICAL HISTORY: Cough and chest pain. RESULT: PA and lateral projections obtained, compared with 08/04/12. ??Cardiac size and pulmonary vascularity are normal. ??Lungs are free of confluent infiltrates. ??Costophrenic angles are sharp. IMPRESSION: NO ACUTE PULMONARY DISEASE. Interpreting Physician: ??SHAREE MASCORRO M.D. ??Read on: ??Sep ??1 2012 ??8:43A Transcribed by: ??ciro ??On: Sep ??1 2012 ??1:16P Approved Electronically by: ??SHAREE MASCORRO M.D. ??on: ??Sep ??2 2012 10:16A Ordering DR: DR SASHA HAQUE Attending DR: CHARLES RINCON Procedure Note Provider, MD Raghu - 11/29/2016 XR Chest 2 Views [id number] Acc#: [id number] DATE OF EXAM: Mar 30 2013 CLINICAL HISTORY: Cough and chest pain. RESULT: PA and lateral projections obtained, compared with 08/04/12. Cardiac sizeand pulmonary vascularity are normal. Lungs are free of confluentinfiltrates. Costophrenic angles are sharp. IMPRESSION: NO ACUTE PULMONARY DISEASE. Interpreting Physician: SHAREE MASCORRO M.D. Read on: Mar 31 2013 8:43A Transcribed by: ciro On: Mar 31 2013 1:16P Approved Electronically by: SHAREE MASCORRO M.D. on: Apr 01 2013 10:16A Ordering DR: DR SASHA HAQUE Attending DR: CHARLES RINCON us Historical Provider MD RODRIGUES XR PROCEDURES Final R esult * Urine chorionic gonadotropin (HCG) (03/30/2013 4:20 PM CDT) HCG, ur Negative NEGATIVE HISTORICAL RESULTS Urine 03/30/2013 4:20 PM CDT us Radha AIKEN LAB BLOOD ORDERABLES Final Result HISTORICAL RESULTS * Discharge Laboratory Cumulative Report (03/30/2013 12:00 AM CDT) 03/30/2013 Narrative HISTORICAL RESULTS - 03/31/2013 2:25 AM CDT Patient No: [id number] ? [facility] Patient Name: LAILA DEL ANGEL ?[facility] Age: 27 YRS ?: 1985 ?Sex:F ?[address] )[phone] ?? Adm Dt: 03/30/2013 ?[place], [place] ??[address] Created: 03/31/2013 ??0225 ?? Pt. Type: E ? Discharge Dt: 03/30/2013 ? Pathologists: Linda Handy MD Admit Attend Dr: SASHA HAQUE MD ? [facility] ?Collection Date: ?03/30/13 ?Collection Time: ?1620 ? Ref Range: ?? Units: [NEGATIVE] ?U ? NEGATIVE ?? END OF CHART ? Page: ?? 1 us Historical Provider MD LAB BLOOD ORDERABLES Jinny l Result HISTORICAL RESULTS documented in this encounter Visit Diagnoses Diagnosis Asthma with exacerbation Unspecified asthma, with exacerbation documented in this encounter
--- OUTSIDE RECORDS SUMMARY | 2024-07-17 18:33 | XMS_ITS | Encounter Summary ---
Author Organization [facility] Healthcare Address [address] [place] [address] Care Team Providers Care Mattress Packer Name Role Phone Unavailable Primary Care Provider Unavailabl e Encounter Details Date Type Department Care Team (Late st Contact Info) Description 09/21/2011 9:00 AM SENIOR SYSTEMS ANALYST - 09/21/2011 11:59 PM SENIOR SYSTEMS ANALYST Hospital Encounter [facility] Paulette Aceves Social History Tobacco Use Types Packs/Day Years Used Date Smoking Tobacco: Never Assessed Comments Unknown Sex and Gender Information Value Date Recorded Sex Assigned at Not on file Legal Sex Female 8:20 AM SENIOR SYSTEMS ANALYST Gender Identity Not on file Sexual Orientation Not on file documented as of this encounter Plan of Treatment Not on file documented as of this encounter Visit Diagnoses Not on filedocumented in this encounter
--- OUTSIDE RECORDS SUMMARY | 2024-07-17 18:33 | XMS_ITS | Encounter Summary ---
Author Organization [facility] Address [address] [place] [address] Care Team Providers Care Stitching Department Supervisor Name Role Phone Elio Rand Bea BEHAVIORAL INSTRUCTOR Primary Care Provider + Encounter Details Date Type Department Care Team (Late st Contact Info) Description 02/19/2020 11:30 PM CDT Anesthesia Event [facility] [address] [place] [phone] Gladys Moon MD [address] [place] [id number] Sandee Giordano, ROLLER COASTER ENGINEER [address] [place] [address] [place] [address] Anesthesia Record Procedure Summary Procedure Name Responsible Anesthesiologist Anesthesia Start Time Anesthesia Stop Time SECTION (canceled) Gladys Moon MD 02/19/20 2330 02/20/20 0038 Events Date Time Event Comment 02/19/2020 2328 In Room 2330 2330 An Start 2331 An Start Data 2332 An Induction The patient was reevaluated immediately before moderate or deep sedation use and before anesthesia induction. 2332 An Intubation 2332 Proc Start 2333 Anesthesia Ready 2333 Uterine Incision 2334 Left Uterine Displacement 02/20/2020 0020 Proc Fin 0034 An Extubation 0035 Out of Room 0037 an stop data 0037 Handoff to RN I completed my handoff to the receiving nurse during which we: 1. Patient identified 2. Responsible provider identified 3. Pertinent medical history reviewed 4. Procedure type and surgical course discussed 5. Intraoperative anesthetic management and any significant issues discussed 6. Expectations and concerns for postop period discussed 7. Questions solicited from receiving nurse 8. Patient disposition at the time of handoff: No value filed. 0038 An Stop Meds Name Total oxytocin 40 Units phenylephrine 400 mcg ondansetron 4 mg midazolam 2 mg lidocaine 2 % PF 100 mg propofol 200 mg succinylcholine 160 mg fentaNYL 100 mcg morphine (PF) 1 mg/mL 10 mg ketorolac 15 mg/mL 30 mg dexamethasone 10 mg/mL 10 mg * Agents Name O2 Air Sevoflurane Inspired Sevoflurane * Blood Name Total PRBC - UNMATCHED 560 mL Lines, Drains, and Airways Type Details Placement Removal Peripheral IV Placement Date: 02/19/20; Placement Time: 2244; Existing LDA Placed by: EMS; Catheter Size: 18 G; Orientation: Left; Location: Antecubital; Inserted by: EMS; Removal Date: 02/21/20; Removal Time: 0640; Removal Reason: Infiltrated 02/19/20 224 by Ignacia Ramirez RN 02/21/20 0640 by Janel Hoyt RN Peripheral IV Placement Date: 02/19/20; Placement Time: 2244; Existing LDA Placed by: EMS; Catheter Size: 18 G; Orientation: Right; Location: Antecubital; Inserted by: EMS; Removal Date: 02/20/20; Removal Time: 0845 02/19/202244 by Ignacia Ramirez RN 02/20/20 0845 by Liudmila Cormier RN Urethral Catheter Placement Date: 02/19/20; Placement Time: 2330; Inserted by: SANJAY Langley; Type: Latex; Size: 16 Fr.; Balloon Size: 10 mL; Urine Returned: Yes; Removal Date: 02/20/20; Removal Time: 1430; Removal Reason: Therapy complete 02/19/20 2330 by Ignacia Ramirez RN 02/20/[address] documented in this encounter Social History Tobacco Use Types Packs/Day Years Used Date Smoking Tobacco: Never Assessed Comments Yes Sex and Gender Information Value Date Recorded Sex Assigned at Not on file 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 Anesthesia Post Evaluation Patient location during evaluation: floor Patient participation: complete - patient participated Level of consciousness: fully awake Pain score: 0 Pain management: adequate Airway patency: adequate and patent Evidence of recall: no Anesthetic complications: no Cardiovascular status: acceptable and hemodynamically stable Respiratory status: acceptable and nasal cannula Hydration status: acceptable Pt is: normothermic Nausea/Vomiting status: none * Anesthesia Preprocedure Evaluation - Sandee Giordano CRNA - 02/20/2020 12:05 AM CDT Images from the original note were not included. Anesthesia Evaluation Dior Hart is a 34 y.o. female Procedure(s): SECTION * No Diagnosis Codes entered * HISTORY Past Medical History Information obtained from: patient and chart. Neurological Neuro/Psych system: negative Cardiovascular Cardiac system: negative Respiratory Pertinent negatives: non-smoker Respiratory system: negative Hepatic / Heme Hepatic/Heme system: negative Gastrointestinal GI system: negative Renal / Renal/ system: negative Musculoskeletal/Pain Musculoskeletal/Pain system: negative Endocrine / Other Endocrine/Other system: negative Functional Capacity Functional capacity: 4-6 METs Functional capacity limited by a non-cardiovascular, non-pulmonary condition. Day of Surgery assessments + Possibility of assessed - known to be . Review of Systems Pertinent negatives: bleeding problems There is no problem list on file for this patient. No past medical history on file. No past surgical history on file. OB History 1 Para Term AB Living SAB TAB Ectopic Multiple Live Births No Known Allergies Taking? Last Dose Start Date End Date Provider famotidine (PEPCID) 40 mg tablet 02/19/2020 -- -- Historical Provider, Current Facility-Administered Medications: ??? Lactated Ringer's (LR) bolus 500 mL, 500 mL, intravenous, PRN ??? sodium chloride 0.9% flush 0.5-20 mL, 0.5-20 mL, intra-catheter, Q8H DIONI ??? sodium chloride 0.9% flush 0.5-20 mL, 0.5-20 mL, intra-catheter, PRN ??? Saline lock IV, , , Once AND sodium chloride 0.9% flush 0.5-20 mL, 0.5- 20 mL, intra-catheter, Q8H DIONI AND sodium chloride 0.9% flush 0.5-20 mL, 0.5-20 mL, intra-catheter, PRN Facility-Administered Medications Ordered in Other Encounters: ??? fentaNYL (SUBLIMAZE) preservative free injection, , , PRN, 100 mcg at 02/19/20 2331 ??? lidocaine (XYLOCAINE) 20 mg/mL (2 %) preservative free injection, , , PRN, 100 mg at 02/19/202329 ??? midazolam (VERSED) preservative free injection, , , PRN, 2 mg at 02/19/202329 ??? morphine preservative free injection, , , PRN, 5 mg at 02/19/209 ??? oxytocin (PITOCIN) injection, , , PRN, 30 Units at 02/19/20 2347 ??? phenylephrine (ODALIS-SYNEPHRINE) injection, , intravenous, PRN, 200 mcg at 02/20/20 0002 ??? propofoL (DIPRIVAN) IV, , , PRN, 200 mg at 02/19/200 ??? succinylcholine (ANECTINE) injection, , , PRN, 160 mg at 02/19/202 Social History Tobacco Use Smoking Status Not on file Substance and Sexual Activity Alcohol Use Not on file Substance and Sexual Activity Drug Use Not on file No family history on file. There were no vitals filed for this visit. PT: No results found for requested labs within last 720 hours. INR: No results found for requested labs within last 720 hours. APTT: No results found for requested labs within last 720 hours. Hgb A1C: No results found for requested labs within last 720 hours. CBC RBC: 02/19/2020: 2.86 M/cumm* RDW: No results found for requested labs within last 720 hours. MCHC: 02/19/2020: 31.9 g/dL* MCH: 02/19/2020: 28.3 pg MCV: 02/19/2020: 88.8 fL Hct: 02/19/2020: 25.4 %* Hgb: 02/19/2020: 8.1 g/dL* WBC: 02/19/2020: 11.6 K/cumm* MPV: 02/19/2020: 11.6 fL Platelets: 02/19/2020: 263 K/cumm RDW CV: 02/19/2020: 13.2 % RDW Sd: 02/19/2020: 42.8 fL BMP Glucose: No results found for requested labs within last 720 hours. Calcium: No results found for requested labs within last 720 hours. Sodium: No results found for requested labs within last 720 hours. Potassium: No results found for requested labs within last 720 hours. CO2: No results found for requested labs within last 720 hours. Chloride: No results found for requested labs within last 720 hours. BUN: No results found for requested labs within last 720 hours. Creatinine: No results found for requested labs within last 720 hours. DOS Physical Exam Medical history, medications, and allergies reviewed. Attestation: I endorse the findings of the anesthesia pre-evaluation assessment dated: 02/19/2020. Airway Exam: Mallampati: II Cervical ROM: FROM TM distance: normal Jaw ROM: full Cardiovascular Exam: Rate: regular Rhythm: regular Pulmonary Exam: LCTA EENT Exam: trachea midline Dental Exam: Appears intact Skin Exam: Skin is warm and dry. Capillary refill is < 3 seconds. Turgor is normal. Abdominal Exam: Abdomen is soft. Bowel sounds are present. Current state: Patient's current state is cooperative. Anesthesia Plan ASA 2- emergent Planned anesthesia: General Team communication plan: oral ET tube Induction: Induction: intravenous. Postoperative Plan: Postoperative administration opioids intended. Patient's planned disposition post procedure is Floor. Informed Consent: Discussed plan with attending. Anesthesia plan and risks discussed with patient. Consent and Attending signature: I and/or my designee have discussed the anesthesia plan, benefits, possible alternatives, parental presence at time of induction (if indicated), and clinically relevant risks that may include dental injury, unintentional awareness, and/or other complications. The patient and/or parent/legal guardian understand, and agree to proceed. All questions answered. documented in this encounter Plan of Treatment Not on file documented as of this encounter Visit Diagnoses Not on filedocumented in this encounter Administered Medications Inactive Administered Medications - up to 3 most recent administrations Medication Order MAR Action Action Date Dose Rate Site dexAMETHasone (DECADRON) injection solution Administer over 2 Minutes, As needed, Starting on Kelly 02/20/20 at 0022, Anesthesia Intra-op Given 02/20/2020 12:22 AM CDT 10 mg fentaNYL (SUBLIMAZE) preservative free injection As needed, Starting on Mon02/19/20 at 2331, Anesthesia Intra-op Given 02/19/2020 11:31 PM CDT 100 mcg ketorolac (TORADOL) 15 mg/mL injection As needed, Starting on Kelly 02/20/20 at 0022, Anesthesia Intra-op Given 02/20/2020 12:22 AM CDT 30 mg lidocaine (XYLOCAINE) 20 mg/mL (2 %) preservative free injection As needed, Starting on Mon02/19/20 at 2330, Anesthesia Intra-op Given 02/19/2020 11:30 PM CDT 100 mg midazolam (VERSED) preservative free injection Administer over 2 Minutes, As needed, Starting on Mon02/19/20 at 2330, Anesthesia Intra-op Given 02/19/2020 11:30 PM CDT 2 mg morphine preservative free injection Administer over 4 Minutes, As needed, Starting on Mon02/19/20 at 2359, Anesthesia Intra-op Given 02/20/2020 12:25 AM CDT 5 mg Given 02/19/2020 11:59 PM CDT 5 mg ondansetron (ZOFRAN) injection intravenous, Administer over 2 Minutes, As needed, Starting on Kelly 02/20/20 at 0022, Anesthesia Intra-op Given 02/20/2020 12:22 AM CDT 4 mg oxytocin (PITOCIN) injection As needed, Starting on Mon02/19/20 at 2335, Anesthesia Intra-op Given 02/19/2020 11:47 PM CDT 30 Units Given 02/19/2020 11:35 PM CDT 10 Units phenylephrine (ODALIS-SYNEPHRINE) injection intravenous, As needed, Starting on Kelly 02/20/20 at 0002, Anesthesia Intra-op Given 02/20/2020 12:02 AM CDT 200 mc g Given 02/19/2020 11:53 PM CDT 100 mcg Given 02/19/2020 11:44 PM CDT 100 mcg propofoL (DIPRIVAN) IV As needed, Starting on Mon02/19/20 at 2330, Anesthesia Intra-op Given 02/19/2020 11:30 PM CDT 200 mg succinylcholine (ANECTINE) injection As needed, Starting on Mon02/19/20 at 2332, Anesthesia Intra-op Given 02/19/2020 11:32 PM CDT 160 mg Transfuse Unmatched O-Neg RBC Timed New Bag 02/19/2020 11:55 PM CDT Transfuse Unmatched O-Neg RBC Timed New Bag 02/20/2020 12:14 AM CDT documented in this encounter Care Teams Stitching Department Supervisor Relationship Specialty Start Date End Date Rand Ballard NP PCP - General 05/01/17 05/12/20 documented as of this encounter
--- OUTSIDE RECORDS SUMMARY | 2024-07-17 18:33 | XMS_ITS | Encounter Summary ---
Author Organization [facility] Healthcare Address [address] [place] [address] Care Team Providers Care Lumber Scaler Name Role Phone Unavailable Primary Care Provider Unavailabl e Encounter Details Date Type Department Care Team (Late st Contact Info) Description 09/27/2014 8:05 AM REAL ESTATE ACQUISITION ANALYST - 09/27/2014 10:52 AM REAL ESTATE ACQUISITION ANALYST Hospital Encounter [facility] DINA Bi Gomez MD [address] [facility] [address] [place] [address] Acute bronchitis; Herpetic gingivostomatitis; Asthma Social History Tobacco Use Types Packs/Day Years Used Date Smoking Tobacco: Never Assessed Comments Unknown Sex and Gender Information Value Date Recorded Sex Assigned at Not on file Legal Sex Female 8:20 AM REAL ESTATE ACQUISITION ANALYST Gender Identity Not on file Sexual Orientation Not on file documented as of this encounter Plan of Treatment Not on file documented as of this encounter Procedures Procedure Name Priority Date/Time Associated Diagnosis Comments XR CHEST PA LATERAL 2 VIEWS Routine 09/27/2014 10:22 AM REAL ESTATE ACQUISITION ANALYST URINE CHORIONIC GONADOTROPIN (HCG) Routine 09/27/2014 9:38 AM REAL ESTATE ACQUISITION ANALYST DISCHARGE LABORATORY CUMULATIVE REPORT Routine 09/27/2014 12:00 AM REAL ESTATE ACQUISITION ANALYST documented in this encounter Results * XR Chest Pa Lateral 2 Vw (09/27/2014 10:22 AM REAL ESTATE ACQUISITION ANALYST) Anatomical Region Laterality Modality Body, Chest N/A Radiographic Marcelina ging 09/27/2014 10:2 2 AM REAL ESTATE ACQUISITION ANALYST Narrative 09/29/2014 8:59 AM REAL ESTATE ACQUISITION ANALYST vm XR Chest 2 Views ?[id number] ??Acc#: ??[id number] DATE OF EXAM: ??Sep 27 2014 CLINICAL HISTORY: Persistent cough. RESULT: PA and lateral projections obtained. ??Compared with 03/30/13. ??Cardiac size and pulmonary vascularity within the range of normal. ??Lungs are free of confluent infiltrates. ??Costophrenic angles are sharp. ??Minimal spurring thoracic spine. ??A small area of opacity is seen left midlung field. IMPRESSION: 1. SMALL AREA OF OPACITY LEFT MIDLUNG FIELD. ??POSSIBLE CONFLUENCE OF SHADOWS. ??THIS MAY REPRESENT A SMALL AMOUNT OF INFILTRATE OR ATELECTASIS. ??ILL DEFINED NODULE CONSIDERED UNLIKELY ALTHOUGH DIFFICULT TO DEFINITELY EXCLUDE. ??SHORT INTERVAL FOLLOW UP MAY BE MOST BENEFICIAL.Preliminary report faxed Rand Elio 09/28/14 at 9:49am Interpreting Physician: ??SHAREE MASCORRO M.D. ??Read on: ??Sep 27 2014 12:24P Transcribed by: ??va ??On: Sep ??1 2014 ??9:49A Approved Electronically by: ??SHAREE MASCORRO M.D. ??on: ??Mar ??2014 ??8:59A Attending: ??DR BI GOMEZ Requesting: ??DR BI GOMEZ Requesting Fax: ??-- Attending Fax: ??-- Attending ID: ??[id number] Requesting ID: ??[id number] Report To 1 ID: ??[id number] Report To 1 Name: ??DR BI GOMEZ Report To 1 FAX: ??-- NextGen Order #: Procedure Note Provider, MD Raghu - 11/29/2016 vm XR Chest 2 Views [id number] Acc#: [id number] DATE OF EXAM: Sep 27 2014 CLINICAL HISTORY: Persistent cough. RESULT: PA and lateral projections obtained. Compared with 03/30/13. Cardiacsize and pulmonary vascularity within the range of normal. Lungs are freeof confluent infiltrates. Costophrenic angles are sharp. Minimalspurring thoracic spine. A small area of opacity is seen left midlungfield. IMPRESSION: 1. SMALL AREA OF OPACITY LEFT MIDLUNG FIELD. POSSIBLE CONFLUENCE OFSHADOWS. THIS MAY REPRESENT A SMALL AMOUNT OF INFILTRATE OR ATELECTASIS.ILL DEFINED NODULE CONSIDERED UNLIKELY ALTHOUGH DIFFICULT TO DEFINITELYEXCLUDE. SHORT INTERVAL FOLLOW UP MAY BE MOST BENEFICIAL.Preliminaryreport faxed Rand Ballard 09/28/14 at 9:49am Interpreting Physician: SHAREE MASCORRO M.D. Read on: Sep 27 2014 12:24P Transcribed by: ciro On: Sep 28 2014 9:49A Approved Electronically by: SHAREE MASCORRO M.D. on: Sep 29 2014 8:59A Attending: DR BI GOMEZ Requesting: DR BI GOMEZ Requesting Fax: -- Attending Fax: -- Attending ID: [id number] Requesting ID: [id number] Report To 1 ID: [id number] Report To 1 Name: DR BI GOMEZ Report To 1 FAX: -- NextGen Order #: us Historical Provider IMG XR PROCEDURES Final R esult * Urine chorionic gonadotropin (HCG) (09/27/2014 9:38 AM REAL ESTATE ACQUISITION ANALYST) HCG, ur Negative NEGATIVE HISTORICAL RESULTS Urine 09/27/2014 9:38 AM REAL ESTATE ACQUISITION ANALYST Bi Gomez MD LAB BLOOD ORDERABLES Final Result HISTORICAL RESULTS * Discharge Laboratory Cumulative Report (09/27/2014 12:00 AM REAL ESTATE ACQUISITION ANALYST) 09/27/2014 Narrative HISTORICAL RESULTS - 09/28/2014 2:42 AM REAL ESTATE ACQUISITION ANALYST Patient No: [id number] ? [facility] Patient Name: LAILA DEL ANGEL ?[facility] Age: 29 YRS ?: 1985 ?Sex:F ?[address] )[id number] ?? Adm Dt: 09/27/2014 ?[place], [place] ??[address] Created: 09/28/2014 ??0242 ?? Pt. Type: E ? Discharge Dt: 09/27/2014 ? Pathologists: Linda Handy MD Admit Attend Dr: BI GOMEZ MD ? HORMONES ?Collection Date: ?09/27/14 ?Collection Time: ?0938 ? Ref Range: ?? Units: [NEGATIVE] ?U ? NEGATIVE ?? END OF CHART ? Page: ?? 1 us Historical Provider LAB BLOOD ORDERABLES Jinny l Result HISTORICAL RESULTS documented in this encounter Visit Diagnoses Diagnosis Acute bronchitis Herpetic gingivostomatitis Asthma Unspecified asthma documented in this encounter
--- OUTSIDE RECORDS SUMMARY | 2024-07-17 18:33 | XMS_ITS | Encounter Summary ---
Author Organization [facility] Healthcare Address [address] [place] [address] Care Team Providers Care Embedded Hardware Engineer Name Role Phone Unavailable Primary Care Provider Unavailabl e Encounter Details Date Type Department Care Team (Late st Contact Info) Description 08/04/2012 12:06 PM AIRCRAFT MACHINIST - 08/04/2012 3:45 PM AIRCRAFT MACHINIST Hospital Encounter [facility] Adam Allison MD [facility] [place] [address] Other specified sites of sprains and strains; Accident; Cough; Tobacco use disorder Social History Tobacco Use Types Packs/Day Years Used Date Smoking Tobacco: Never Assessed Comments Unknown Sex and Gender Information Value Date Recorded Sex Assigned at Not on file Legal Sex Female 8:20 AM AIRCRAFT MACHINIST Gender Identity Not on file Sexual Orientation Not on file documented as of this encounter Plan of Treatment Not on file documented as of this encounter Procedures Procedure Name Priority Date/Time Associated Diagnosis Comments XR CHEST PA LATERAL 2 VIEWS Routine 08/04/2012 2:39 PM AIRCRAFT MACHINIST documented in this encounter Results * XR Chest Pa Lateral 2 Vw (08/04/2012 2:39 PM AIRCRAFT MACHINIST) Anatomical Region Laterality Modality Body, Chest N/A Radiographic Marcelina ging 08/04/2012 2:39 PM AIRCRAFT MACHINIST Narrative 08/06/2012 6:09 AM AIRCRAFT MACHINIST vm XR Chest 2 Views ?[id number] ??Acc#: ??[id number] DATE OF EXAM: ??Jul ??2012 CLINICAL HISTORY: Chest pain, cough. RESULT: Two views of the chest demonstrate clear lungs bilaterally with no focal infiltrates. ??The heart size and pulmonary vascularity are normal. IMPRESSION: NO ACTIVE DISEASE. Interpreting Physician: ??DR GUERO COLLADO M.D. ??Read on: ??Korey ??2012 12:06P Transcribed by: ??ciro ??On: Jul ??6 2012 12:29P Approved Electronically by: ??TOBIAS Sterling, DR JACK ??on: ??Korey ??7 2012 6:09A Ordering DR: DR ADAM HUNG Attending DR: DR LORETTA JOHNSON Procedure Note Provider, Raghu, - 11/29/2016 XR Chest 2 Views [id number] Acc#: [id number] DATE OF EXAM: Aug 04 2012 CLINICAL HISTORY: Chest pain, cough. RESULT: Two views of the chest demonstrate clear lungs bilaterally with no focalinfiltrates. The heart size and pulmonary vascularity are normal. IMPRESSION: NO ACTIVE DISEASE. Interpreting Physician: DR GUERO COLLADO M.D. Read on: Aug 05 201212:06P Transcribed by: ciro On: Aug 05 2012 12:29P Approved Electronically by: TOBIAS Sterling, DR JACK on: Aug 06 81957:09A Ordering DR: DR ADAM HUNG Attending DR: DR LORETTA JOHNSON Historical Provider IMG XR PROCEDURES Final R esult documented in this encounter Visit Diagnoses Diagnosis Other specified sites of sprains and strains Accident Unspecified accident Cough Tobacco use disorder documented in this encounter
--- OUTSIDE RECORDS SUMMARY | 2024-07-17 18:33 | XMS_ITS | Encounter Summary ---
Author Organization [facility] Healthcare Address [address] [place] [address] Care Team Providers Care Welding Manager Name Role Phone Unavailable Primary Care Provider Unavailabl e Encounter Details Date Type Department Care Team (Late st Contact Info) Description 09/30/2015 4:53 PM DEVELOPMENT WRITER - 09/30/2015 6:15 PM DEVELOPMENT WRITER Hospital Encounter [facility] Mitch Cedeño MD [address] [facility] [address] MARTI [address] [place] [id number] Closed nondisplaced fracture of proximal phalanx of left great toe; Striking against other stationary object, initial encounter; Unspecified place or not applicable; External cause status; Cigarette nicotine dependence, uncomplicated; Uncomplicated asthma; 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 Social History Tobacco Use Types Packs/Day Years Used Date Smoking Tobacco: Never Assessed Comments Unknown Sex and Gender Information Value Date Recorded Sex Assigned at Not on file Legal Sex Female 8:20 AM DEVELOPMENT WRITER Gender Identity Not on file Sexual Orientation Not on file documented as of this encounter Plan of Treatment Not on file documented as of this encounter Procedures Procedure Name Priority Date/Time Associated Diagnosis Comments XR FOOT 3+ VW Routine 09/30/2015 5:30 PM DEVELOPMENT WRITER documented in this encounter Results * XR Foot 3+ Vw (09/30/2015 5:30 PM DEVELOPMENT WRITER) Anatomical Region Laterality Modality N/A Radiographic Marcelina ging 09/30/2015 5:30 PM DEVELOPMENT WRITER Narrative 10/01/2015 1:33 PM DEVELOPMENT WRITER XR Foot Min 3 Views L ??[id number] ??Acc#: ??[id number] DATE OF EXAM: ??Sep ??2015 CLINICAL HISTORY: Door hit foot today. Pain 1st metatarsal and great toe with bruising. RESULT: Three views of the left foot demonstrate a nondisplaced oblique fracture through the proximal phalanx of the great toe. Fracture line extends to the distal medial-anterior surface. On lateral view there is question of fracture line extending into the articular surface. No other fracture, dislocation or bone destruction is seen. No significant degenerative changes. IMPRESSION: NONDISPLACED PROXIMAL PHALANX FRACTURE OF THE LEFT GREAT TOE WITH POSSIBLY EXTENSION TO ARTICULAR SURFACE AT THE INTERPHALANGEAL JOINT. Interpreting Physician: ??DR DAX COTTON M.D. ??Read on: ??Sep ??2015 11:47P Transcribed by: ??TXD ??On: Sep ??3 2015 ??9:27A Approved Electronically by: ??YURY Sterling, DR VERDUZCO ??on: ??Sep ??3 2015 1:33P Attending: ??MITCH PORTER Requesting: ??WANDA LEE)GEO Requesting Fax: ??-- Attending Fax: ??-- Attending ID: ??[id number] Requesting ID: ??[id number] Report To 1 ID: ??[id number] Report To 1 Name: ??MITCH PORTER Report To 1 FAX: ??-- NextGen Order #: Procedure Note Provider, MD Raghu - 11/29/2016 XR Foot Min 3 Views L [id number] Acc#: [id number] DATE OF EXAM: Sep 30 2015 CLINICAL HISTORY: Door hit foot today. Pain 1st metatarsal and great toe with bruising. RESULT: Three views of the left foot demonstrate a nondisplaced oblique fracturethrough the proximal phalanx of the great toe. Fracture line extends tothe distal medial- anterior surface. On lateral view there is question offracture line extending into the articular surface. No other fracture,dislocation or bone destruction is seen. No significant degenerativechanges. IMPRESSION: NONDISPLACED PROXIMAL PHALANX FRACTURE OF THE LEFT GREAT TOE WITHPOSSIBLY EXTENSION TO ARTICULAR SURFACE AT THE INTERPHALANGEAL JOINT. Interpreting Physician: DR DAX COTTON M.D. Read on: Sep 30 201511:47P Transcribed by: REJI On: Oct 01 2015 9:27A Approved Electronically by: YURY Sterling, DR VERDUZCO on: Oct 01 20151:33P Attending: MITCH PORTER Requesting: WANDA LEE)GEO Requesting Fax: -- Attending Fax: -- Attending ID: [id number] Requesting ID: [id number] Report To 1 ID: [id number] Report To 1 Name: MITCH PORTER Report To 1 FAX: -- NextGen Order #: us Historical Provider MD RODRIGUES XR PROCEDURES Final R esult documented in this encounter Visit Diagnoses Diagnosis Closed nondisplaced fracture of proximal phalanx of left great toe Striking against other stationary object, initial encounter Unspecified place or not applicable External cause status Cigarette nicotine dependence, uncomplicated Uncomplicated asthma 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
--- OUTSIDE RECORDS SUMMARY | 2024-07-17 18:33 | XMS_ITS | Encounter Summary ---
Author Organization [facility] Healthcare Address [address] [place] [address] Care Team Providers Care Automotive Drivability Technician Name Role Phone Unavailable Primary Care Provider Unavailabl e Encounter Details Date Type Department Care Team ([facility] st Contact Info) Description 02/11/2013 3:41 PM CDT - 02/11/2013 11:59 PM CDT Hospital Encounter [facility] Krista Rossi MD [address] [facility] [address] [place] [address] examination or test, unconfirmed Social History Tobacco Use Types Packs/Day Years Used Date Smoking Tobacco: Never Assessed Comments Unknown Sex and Gender Information Value Date Recorded Sex Assigned at Not on file Legal Sex Female 8:20 AM DATA ENTRY MANAGER Gender Identity Not on file Sexual Orientation Not on file documented as of this encounter Plan of Treatment Not on file documented as of this encounter Procedures Procedure Name Priority Date/Time Associated Diagnosis Comments SERUM CHORIONIC GONADOTROPIN (HCG), QUANTITATIVE Routine 02/11/2013 11:15 AM CDT DISCHARGE LABORATORY CUMULATIVE REPORT Routine 02/11/2013 12:00 AM CDT documented in this encounter Results * (ABNORMAL) Serum chorionic gonadotropin (HCG), quantitative (02/11/2013 11:15 AM CDT) HCG, quant <5.0(A) IUnits/L HISTORICA L RESULTS Serum 02/11/2013 11:1 5 AM CDT Narrative HISTORICAL RESULTS - 02/11/2013 11:59 AM CDT NEGATIVE: ??0-5 MIU/ML BORDERLINE: ??5-25 MIU/ML POSITIVE: ??GREATER THAN 25 MIU/ML APPROX GEST AGE ?APPROX HCG CONCENTRATION ?3-4 WEEKS ?9-130 ?4-5 WEEKS ? 75-2600 ?5-6 WEEKS ?850-20,800 ?6-7 WEEKS ? 4000-100,200 ?7-12 WEEKS ? 00852-373,000 ?? 12-16 WEEKS ? 25282-392,000 ?? 16-29 WEEKS ?1400-53,000 ?? 29-41 WEEKS ? 900-60,000 us Krista Vivar MD LAB BLOOD ORDERABLES Fin al Result HISTORICAL RESULTS * Discharge Laboratory Cumulative Report (02/11/2013 12:00 AM CDT) 02/11/2013 Narrative HISTORICAL RESULTS - 02/13/2013 12:25 AM CDT Patient No: [id number] ? [facility] Patient Name: LAILA DEL ANGEL ?[facility] Age: 27 YRS ?: 1985 ?Sex:F ?[address] )[id number] ?? Adm Dt: 02/11/2013 ?[place], [place] ??[address] Created: 02/13/2013 ??0025 ?? Pt. Type: R ? Discharge Dt: 02/11/2013 ? Pathologists: Linda Handy MD Admit Attend Dr: KRISTA VIVAR ??L ? H[facility]MONES ?Collection Date: ?02/11/13 ?Collection Time: ?1615 ? Ref Range: ?? Units: ? mIU/ml ? BETA HCG QUANT ?<5.0 *f Footnotes and Symbols: * = Abnormal, f = Footnote BETA HCG QUANT (Initial -- Current) NEGATIVE: ??0-5 MIU/ML BORDERLINE: ??5-25 MIU/ML POSITIVE: ??GREATER THAN 25 MIU/ML APPROX GEST AGE ?APPROX HCG CONCENTRATION ?3-4 WEEKS ?9-130 ?4-5 WEEKS ? 75-2600 ?5-6 WEEKS ?850-20,800 ?6-7 WEEKS ? 4000-100,200 ?7-12 WEEKS ? 10059-238,000 ?? 12-16 WEEKS ? 31652-671,000 ?? 16-29 WEEKS ?1400-53,000 ?? 29-41 WEEKS ? 900-60,000 ?? END OF CHART ? Page: ?? 1 us Historical Provider LAB BLOOD ORDERABLES Jinny morales Result HISTORICAL RESULTS documented in this encounter Visit Diagnoses Diagnosis examination or test, unconfirmed documented in this encounter
--- OUTSIDE RECORDS SUMMARY | 2024-07-17 18:33 | XMS_ITS | Encounter Summary ---
Author Organization [facility] Healthcare Address [address] [place] [address] Care Team Providers Care Aircraft Electronics Technical Officer Name Role Phone Unavailable Primary Care Provider Unavailabl e Encounter Details Date Type Department Care Team (Late st Contact Info) Description 09/03/2008 7:37 AM DIRECTOR IMAGING - 09/03/2008 11:59 PM DIRECTOR IMAGING Hospital Encounter [facility] Social History Tobacco Use Types Packs/Day Years Used Date Smoking Tobacco: Never Assessed Comments Unknown Sex and Gender Information Value Date Recorded Sex Assigned at Not on file Legal Sex Female 8:20 AM DIRECTOR IMAGING Gender Identity Not on file Sexual Orientation Not on file documented as of this encounter Plan of Treatment Not on file documented as of this encounter Visit Diagnoses Not on filedocumented in this encounter
--- OUTSIDE RECORDS SUMMARY | 2024-07-17 18:33 | XMS_ITS | Encounter Summary ---
Author Organization [facility] Healthcare Address [address] [place] [address] Care Team Providers Care Financial Foundations Associate Name Role Phone Unavailable Primary Care Provider Unavailabl e Encounter Details Date Type Department Care Team (Late st Contact Info) Description 09/28/2007 8:17 PM SLAG DUMPER - 09/28/2007 11:59 PM SLAG DUMPER Hospital Encounter [facility] Social History Tobacco Use Types Packs/Day Years Used Date Smoking Tobacco: Never Assessed Comments Unknown Sex and Gender Information Value Date Recorded Sex Assigned at Not on file Legal Sex Female 8:20 AM SLAG DUMPER Gender Identity Not on file Sexual Orientation Not on file documented as of this encounter Plan of Treatment Not on file documented as of this encounter Visit Diagnoses Not on filedocumented in this encounter
--- OUTSIDE RECORDS SUMMARY | 2024-07-17 18:33 | XMS_ITS | Encounter Summary ---
Author Organization [facility] Healthcare Address [address] [place] [address] Care Team Providers Care Tie Puller Name Role Phone Rand Ballard RAG BALER Primary Care Provider + Reason for Visit * Reason Comments Vaginal Bleeding Encounter Details Date Type Department Care Team (Latest Contact Info) Description 02/19/2020 11:06 PM CDT - 02/21/2020 1:35 PM CDT Hospital Encounter [address] [id number] Gladys Moon MD [address] [place] [id number] Placenta previa in third trimester Discharge Disposition: Discharge to home or self care Social History Tobacco Use Types Packs/Day Years Used Date Smoking Tobacco: Every Day Cigarettes Tobacco Cessation:Ready to Q uit: No; Counseling Given: No Alcohol Use Standard Drinks/Week Comments Not Currently 0 (1 standard drink = 0.6 oz pur e alcohol) Comments No Sex and Gender Information Value Date Recorded Sex Assigned at Not on file 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 Gender Identity Not on file Sexual Orientation Not on file documented as of this encounter Last Filed Vital Signs Vital Sign Reading Time Taken Comments Blood Pressure 121/69 02/21/2020 8:05 AM CDT Pulse 92 02/21/2020 8:05 AM CDT Temperature 36.5 ??C (97.7 ??F) 02/21/2020 8:05 AM CD T Respiratory Rate 18 02/21/2020 8:05 AM CDT Oxygen Saturation 100% 02/21/2020 12:00 AM CDT Inhaled Oxygen Concentration - - Weight 84.8 kg (187 lb) 02/20/2020 6:16 PM CDT Height 170.2 cm (5' 7 ) 02/20/2020 6:16 PM CDT Body Mass Index 29.29 02/20/2020 6:16 PM CDT documented in this encounter Discharge Diagnoses Diagnosis Complete placenta previa with hemorrhage, third trimester - COMPLETE PLACENTA PREVIA WITH HEMORRHAGE, THIRD TRIMESTER labor third trimester with delivery third trimester, not applicable or unspecified - LABOR THIRD TRIMESTER WITH DELIVERY THIRD TRIMESTER, NOT APPLICABLE OR UNSPECIFIED Acute posthemorrhagic anemia - ACUTE POSTHEMORRHAGIC ANEMIA Single live - SINGLE LIVE 35 weeks gestation of - 35 WEEKS GESTATION OF Anemia complicating childbirth - ANEMIA COMPLICATING CHILDBIRTH Diseases of the respiratory system complicating childbirth - DISEASES OF THE RESPIRATORY SYSTEM COMPLICATING CHILDBIRTH Maternal care for low transverse scar from previous delivery - MATERNAL CARE FOR LOW TRANSVERSE SCAR FROM PREVIOUS DELIVERY Maternal care for vertical scar from previous delivery - MATERNAL CARE FOR VERTICAL SCAR FROM PREVIOUS DELIVERY Smoking (tobacco) complicating childbirth - SMOKING (TOBACCO) COMPLICATING CHILDBIRTH Iron deficiency anemia, unspecified - IRON DEFICIENCY ANEMIA, UNSPECIFIED Unspecified asthma, uncomplicated - UNSPECIFIED ASTHMA, UNCOMPLICATED Nicotine dependence, cigarettes, uncomplicated - NICOTINE DEPENDENCE, CIGARETTES, UNCOMPLICATED documented in this encounter Discharge Instructions * Attachments The following attachments cannot be sent through Care Everywhere. * Ibuprofen (By mouth) (Hungarian) * Hydrocodone/Acetaminophen (By mouth) (Hungarian) * Laxative, Stool Softeners (By mouth) (Hungarian) * (Discharge Care) (Hungarian) documented in this encounter Medications at Time of Discharge pantoprazole DR (PROTONIX) 40 mg EC tablet TK 1 T PO QD UTD 01/23/2020 albuterol HFA (PROVENTIL HFA,VENTOLIN HFA,PROAIR HFA) 90 mcg/actuation inhaler Inhale 2 puffs every 6 (six) hours as needed 07/28/2020 docusate sodium (COLACE) 100 mg capsuleIndication s:constipation,St ool Softener Take 1 capsule (100 mg total) by mouth 2 (two) times a day 60 capsule 02/21/2020 05/13/2020 famotidine (PEPCID) 40 mg tablet Take 40 mg by mouth daily 08/20/2020 HYDROcodone-aceta minophen (NORCO) 5-325 mg per tabletIndications :Pain Take 1 tablet by mouth every 4 (four) hours as needed for pain 28 tablet 02/21/2020 05/13/2020 ibuprofen (ADVIL,MOTRIN) 600 mg tabletIndications :Pain Take 1 tablet (600 mg total) by mouth every 6 (six) hours as needed for pain 60 tablet 02/21/2020 05/13/2020 vit-iron fum-folic ac 28 mg iron- 800 mcg tablet Take 1 tablet by mouth daily 05/13/2020 documented as of this encounter Ordered Prescriptions Prescription Sig Dispense Quantity Refills Last Filled Start Date End Date ibuprofen (ADVIL,MOTRIN) 600 mg tabletIndications: Pain Take 1 tablet (600 mg total) by mouth every 6 (six) hours as needed for pain 60 tablet 02/21/2020 0 HYDROcodone-acetam inophen (NORCO) 5-325 mg per tabletIndications: Pain Take 1 tablet by mouth every 4 (four) hours as needed for pain 28 tablet 02/21/2020 0 docusate sodium (COLACE) 100 mg capsuleIndications :constipation,Stoo l Softener Take 1 capsule (100 mg total) by mouth 2 (two) times a day 60 capsule 02/21/2020 0 documented in this encounter Discharge Disposition Disposition Code Departure Means Destination Discharge to home or self care documented in this encounter Progress Notes * Gladys Moon MD - 02/21/2020 10:38 AM CDT PROGRESS NOTE Subjective: Has been largely in bed today. Not yet ambulated hallways, but getting up and moved around room to use restroom. Tolerating regular diet. Voiding. Pain controlled. Some blood clots from vagina when gets up, but not excessively heavy. Objective: BP 121/69 (BP Location: Right arm, Patient Position: Sitting) Pulse 92 Temp 97.7 ??F (Temporal) Resp 18 Ht 170.2 cm (5' 7 ) Wt 187 lb (84.8 kg) LMP 06/15/2019 SpO2 100% Yes BMI 29.29 kg/m?? Temp: [97.7 ??F-98 ??F] 97.7 ??F Pulse: [72-92] 92 Resp: [17-18] 18 BP: (110-136)/(62-71) 121/69 Gen: lying in bed sleeping, NAD Abdomen: soft, appropriately tender Fundus: firm, non-tender Incision: dry, healing, intact Extremities: non-tender Results for DIOR DEL ANGEL ( ) as of 02/21/2020 10:45 Ref. Range 02/19/2020 23:21 02/20/2020 10:43 02/21/2020 06:32 WBC Latest Ref Range: 3.8 - 9.9 K/cumm 11.6 (H) 19.3 (H) 13.5 (H) Hgb Latest Ref Range: 11.9 - 15.5 g/dL 8.1 (L) 8.0 (L) 6.6 (L) Hct Latest Ref Range: 35.6 - 45.5 % 25.4 (L) 24.4 (L) 20.4 (L) Plt Latest Ref Range: 150 - 400 K/cumm 263 222 176 Assessment: POD#2: Meeting milestones other than not ambulating much yet. Acute on chronic anemia: Hgb 8.1 > 8.0 > 6.6 today. However VSS, benign abdominal exam, good UOP. Likely just now stabilizing out to her fortunato. Previously likely element of hemoconcentration from dehydration. Plan: - Repeat CBC at noon. - Get up and ambulate hallways. Repeat vitals after. - If hgb stable and asymptomatic and vitals stable after ambulation, ok for discharge home later today. - If discharged, follow up in two weeks, then six weeks. Pelvic rest. No heavy lifting. * Gladys Moon MD - 02/20/2020 12:36 PM CDT PROGRESS NOTE Subjective: Much more alert and awake today than on presentation. Reports more prior history. Reports was being seen by a high risk manager sourcing/physician who was concerned that the prior uterine incision might be weakening and had recommended early delivery at 36wks. Therefore US was scheduled for this coming Monday. She was also on procardia for contractions, but stopped taking them by her own choice 2 days ago. She was not feeling contractions while on it, so thought so could stop. Last night, she was noting a couple contractions, but nothing severe or consistent. She picked up her son and put him to bed. Was then sitting on sofa and felt the bleeding from vagina. Was home alone at that time, so called over mother. Upon mom's arrival, mom was very worried about the extent of bleeding she saw. They called EMS for transport. Patient has very vague memory of anything after EMS arrival, as she felt very dizzy and whoozy. Today afternoon she reports she feels much better. Currently eating lunch. Denies any nausea/emesis. Mccarty still in place and not yet ambulated. Pain well controlled. Anxious to go see baby in [facility] NICU as soon as she can. Objective: BP 122/74 Pulse 65 Temp 97.7 ??F (Tympanic) Resp 18 LMP 06/15/2019 SpO2 97% Unknown Temp: [97.7 ??F-98.2 ??F] 97.7 ??F Pulse: [65-75] 65 Resp: [18] 18 BP: (106-142)/(54-84) 122/74 Gen: NAD HEENT: no longer with pallor- red color to cheeks. Abdomen: soft, appropriately tender for POD#1 Fundus: firm, non-tender Incision: pfannensteil with dermabond in place- dry, intact, no bruising, healing Extremities: non-tender Recent Labs Lab Units 02/19/ 1043 02/19/20 2321 WBC K/cumm 19.3* 11.6* HEMOGLOBIN g/dL 8.0* 8.1* HEMATOCRIT % 24.4* 25.4* PLATELETS K/cumm 222 263 Lab Results Component Value Date ABORH O Positive 02/19/2020 Assessment: POD#1: About 12 hrs since emergent C/S under anesthesia. Meeting early milestones, no concerns. Uterine T-incision: Very possible that given further information by patient today that she had prior incision on uterus that had partially ruptured already upon her arrival to L&D. Though unsure at exact time of uterine extension (spontaneously prior to or during ), patient notified that she now definitely had T shaped incision on C/S last night and is NOT candidate for labor/TOLAC infuture. Undesired fertility: Patient desires BTL. Had discussed with her primary physician. Explained that given emergent nature of C/S last night and no available records, BTL was not possible. Should follow up with primary worldwide chief creative officer for laparoscopic tubal starting 6 wks . Acute on chronic anemia: Already with iron-deficiency anemia in care. Exacerbated by acuteblood loss from placental previa hemorrhaging. S/p 2 uPRBC on arrival to L&D. Hgb pre to post transfusion and C/S stable from 8.1>8.0. Vitals normal and patient asymptomatic. Urine output now normal. Will continue to monitor vitals and bleeding. Iron supplementation on discharge. Baby: Transferred to [facility] NICU shortly after delivery. Patient breast pumping with good success. Plan: Continue care. Mccarty out and ambulate today after lunch. 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 Encourage PO hydration. Discussed events of L&D arrival and C/S with patient at depth. All questions answered. Repeat CBC tomorrow AM. Possible discharge tomorrow. Patient has good motivation to progress so she may go see baby in [facility]. Will need 2 wk follow up with primary OB for incision check, and then 4 wks for care. Discuss BTL further with primary worldwide chief creative officer. documented in this encounter H&P Notes * Gladys Moon MD - 02/20/2020 12:42 AM CDT OB Admission History and Physical Subjective: Dior Del Angel is a 34 y.o. at 35w4d by [facility] ZEKE who presented by EMS for known placenta previa and active heavy bleeding while at home spontaneously. Patient reports bleeding started about 25-30 minutes prior to calling EMS and she lost large amount and almost passed out at home. Care with Dr Simpson and plan was for repeat section this coming Monday. Reports prior x1 for breech presentation in G2, and reports that possibility of hysterectomy was also discussed with her, but on most recent US there was felt to be low risk of accreta. Does report that she had one prior bleed this that was able to be stopped. This current bleed started spontaneously, and patient denies any excessive force/trauma. Denies any abdominal painwhen bleeding started. Just felt like I was peeing on myself all of a sudden. On arrival, noted to have large amount active bleeding from vagina, bright red. heart tones by doppler present. Likely coming off prolonged deceleration when first placed on monitor, but recovered spontaneously to baseline 150 bpm with moderate variability. Mother appeared pale and drowsy. Dry mucus membranes. Blood pressure 90s/40s. Orders given for immediate transfusion of 2u uncrossed pRBCs and type and cross for 4 additional units in case of need. Based on patient-reported previa and active bleeding in 35wk+ gestation, recommendation made to proceed with immediate . - 2305 arrival to L&D by EMS - 2307 Patient placed on monitor. I was called and notified of patient, I was already in-house and presented within minutes - Evaluation as per HPI above, and preparation for emergent C/S - 2331 C/S incision time - 2333 baby delivery OBHx: G1- at term; G2- C/S for breech with fetus high in uterus and required a transverse incision with vertical extension on at least the abdomen (unsure of uterus); G3- current, and patient reports uncomplicated except for anemia and not on iron and previa with one prior bleed this that was able to be stopped PMH: asthma and HSV+, denies others Surgical Hx: C/S x1, denies others Prior to Admission medications Medication Sig Start Date End Date Taking? Authorizing Provider famotidine (PEPCID) 40 mg tablet Take 40 mg by mouth daily Yes Historical Provider, No Known Allergies FH: non-contributory SH: +tobacco use (cigarettes). Denies alcohol, drug use. ROS: Negative except as per HPI. Denies any symptoms prior to onset of spontaneous vaginal bleeding. Objective: BP 90s/40s Physical Exam: HEENT: Atraumatic, palor, dry mucus membranes and lips Abdomen: soft, gravid, non-tender Cervix: deferred. : blood stained on thighs and perineum. Active red bleeding. Ext: non-tender Recent Labs Lab Units 02/19/20 2321 WBC K/cumm 11.6* HEMOGLOBIN g/dL 8.1* HEMATOCRIT % 25.4* PLATELETS K/cumm 263 FHTs: 150s, no accels, moderate variability, likely one prolonged decel that was caught at tail-endwhen first arrived, otherwise no decels Novinger: contractions approx every 3-4 minutes apart Assessment: Patient is a 34 y.o. at 35w4d by stated ZEKE with PNC with Dr. Simpson. No records available. Emergent history as obtained by patient. Known placenta previa, now with active vaginal bleeding. Hypotensive likely indicative of large volume blood loss at home, but patient responsive and appropriate. Plan: Proceed with emergent repeat section, possible hysterectomy. 2u uncrossed pRBC stat,and type and cross for 4 more units in case of need. 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 I have discussed benefits, risks and alternatives. Risks of bleeding, infection, anesthesia, injury to surrounding structures discussed. Patient wishes to proceed. documented in this encounter Nursing Notes * Janel Hoyt RN - 02/21/2020 1:35 PM CDT Patient discharged ambulatory in stable condition 02/21/2020 Janel Hoyt RN * Janel Hoyt RN - 02/21/2020 12:55 PM CDT Discharge instructions given to patient; patient verbalized understanding 02/21/2020 Janel Hoyt RN documented in this encounter Miscellaneous Notes * Plan of Care - Isis Judd RN - 02/21/2020 4:41 AM CDT Goals: Clinical Goals for the Shift: vss, pain controlled Summary: Problem: Activity: Goal: Ability to tolerate increased activity will improve Outcome: Progressing Problem: Bowel/Gastric: Goal: Gastrointestinal status for postoperative course will improve Outcome: Progressing Problem: Lack of Knowledge: Goal: Knowledge of Section Care will improve Outcome: Progressing Problem: Life Cycle: Goal: Chance of risk for complications during the period will decrease Outcome: Progressing Problem: Physical Regulation: Goal: Postoperative complications will be avoided or minimized Outcome: Progressing Problem: Respiratory: Goal: Ability to maintain adequate ventilation will improve Outcome: Progressing Problem: Role Relationship: Goal: Ability to demonstrate positive interaction with the child will improve Outcome: Progressing Problem: Sensory: Goal: Pain level will decrease Outcome: Progressing Goal: Satisfaction with pain management regimen will improve Outcome: Progressing Problem: Skin Integrity: Goal: Demonstration of wound healing without infection will improve Outcome: Progressing Goal: Ability to participate in self-care as condition permits will improve Outcome: Progressing Problem: Urinary Elimination: Goal: Ability to reestablish a normal urinary elimination pattern will improve Outcome: Progressing Problem: Activity: Goal: Mobility will improve Outcome: Progressing Problem: Lack of Knowledge: Goal: Understanding of ways to prevent future skin breakdown will improve Outcome: Progressing Goal: Ability to identify appropriate dietary choices will improve Outcome: Progressing Problem: Nutritional: Goal: Dietary intake will improve Outcome: Progressing Goal: Ability to maintain a balanced intake and output will improve Outcome: Progressing Problem: Skin Integrity: Goal: Risk for impaired skin integrity will decrease Outcome: Progressing Goal: Ability to demonstrate warm and dry skin will improve Outcome: Progressing Goal: Circulation will improve to fullest extent possible Outcome: Progressing * Plan of Care - Liudmila Comrier RN - 02/20/2020 5:26 PM CDT Goals: Clinical Goals for the Shift: VSS adequate I&O. pain tolerable Summary: vss adequate I&O, pain tolerable * Plan of Care - Ignacia Ramirez RN - 02/20/2020 4:28 AM CDT Problem: Activity: Goal: Ability to tolerate increased activity will improve Outcome: Progressing Problem: Bowel/Gastric: Goal: Gastrointestinal status for postoperative course will improve Outcome: Progressing Problem: Lack of Knowledge: Goal: Knowledge of Section Care will improve Outcome: Progressing Problem: Life Cycle: Goal: Chance of risk for complications during the period will decrease Outcome: Progressing Problem: Physical Regulation: Goal: Postoperative complications will be avoided or minimized Outcome: Progressing Problem: Respiratory: Goal: Ability to maintain adequate ventilation will improve Outcome: Progressing Problem: Role Relationship: Goal: Ability to demonstrate positive interaction with the child will improve Outcome: Progressing Problem: Sensory: Goal: Pain level will decrease Outcome: Progressing Goal: Satisfaction with pain management regimen will improve Outcome: Progressing Problem: Skin Integrity: Goal: Demonstration of wound healing without infection will improve Outcome: Progressing Goal: Ability to participate in self-care as condition permits will improve Outcome: Progressing Problem: Urinary Elimination: Goal: Ability to reestablish a normal urinary elimination pattern will improve Outcome: Progressing Goals: Summary: arrived in OB per ambulance, stated that had episode of bleeding at home, large amount, passed out on toilet, patient appeared pale and in pain, attached to monitor and notified to come to OB, decision was made for emergency CS, surgery performed under general anesthesia, patient recovered in room, is now awake and alert and has [facility] to [facility] (was transferred) * Op Note - Gladys Moon MD - 02/20/2020 12:49 AM CDT Section Procedure Note Indications: placenta previa, active hemorrhaging Pre-operative Diagnosis: 35 week 4 day . Placenta previa, with active vaginal bleeding. Prior C/S x1. T-shaped skin incision from prior delivery (low transverse with midline vertical extension). Post-operative Diagnosis: same with T-shaped uterine incision. NOT CANDIDATE for TOLAC. Surgeon: Gladys Moon MD Anesthesia: General endotracheal anesthesia Procedure Details The patient was seen in the Holding Room. The risks, benefits, complications, treatment options, and expected outcomes were discussed with the patient. The patient concurred with the proposed plan, giving informed consent. The site of surgery properly noted/marked. The patient was taken to Operating Room, identified as Dior Del Angel and the procedure verified as Delivery. A Time Out was held and the above information confirmed. After induction of anesthesia, the patient was draped and prepped in emergent sterile manner by splashing with betadine. A Pfannenstiel incision was made and carried down through the subcutaneous tissue to the fascia. Fascial incision was made and extended transversely. The fascia was from the underlying rectus tissue superiorly and inferiorly. The peritoneum was identified and entered.Peritoneal incision was extended longitudinally. The utero-vesical peritoneal reflection was identified. A low transverse uterine incision was made. Fetus noted to be in cephalic presentation, however no engagement. Large amount amniotic fluid. Attempted to deliver head from uterus, but difficulty e ngaging head due to ballotable. Kiwi vacuum device placed on scalp and traction applied to engage head into incision. One pop off occurred. Remainder of delivery completed by hand alone. Delivered from cephalic presentation was a female with scores of 2 at one minute and 2 at five minutes, then 4, 5, and 5 every 5 minutes thereafter. Fetus was immediately passed to peds on standby for resuscitation. Cord gases were obtained. The placenta was removed intact and with ease- no evidence on accreta was present. The uterine outline, tubes and ovaries appeared normal. The uterine incision was examined and noted to have a large vertical midline extension towards fundus. This was possibly created at some time during delivery vs was already present. I did not actively create the vertical extension. End result was large T-shaped hysterotomy. This was closed with running locked sutures of 0 Vicryl x 3. Hemostasis was observed. Lavage was carried out until clear. All surgical surfaces were noted to be hemostatic. The fascia was then reapproximated with running sutures of 0 Vicryl. The skin was reapproximated with 4-0 monocryl and dermabond. Instrument, sponge, and needle counts were correct prior the abdominal closure and at the conclusion of the case. Findings: Prior abdominal skin incision with low transverse scar with midline vertical extension. Upon delivery of current gestation, T shaped uterine incision noted. Baby girl, viable. Apgars 2/2/4/5/5 Estimated Blood Loss: 500 mL Drains: mccarty Fluids: 2uPRBC (560 cc) Specimens: placenta to pathology, cord gases Implants: none Complications: None; patient tolerated the procedure well. Disposition: PACU - hemodynamically stable. Condition: stable documented in this encounter Plan of Treatment Scheduled Orders Name Type Priority Associated Diagnoses Order Schedule Surgical pathology Pathology and Cytology Timed Placenta previa in third trimester Release Upon Ordering for 1 Occurrences starting 02/20/2020 documented as of this encounter Procedures Procedure Name Priority Date/Time Associated Diagnosis Comments CBC WITHOUT DIFFERENTIAL Timed 02/21/2020 11:51 AM CDT CBC WITHOUT DIFFERENTIAL Routine 02/21/2020 6:32 AM CDT DIFFERENTIAL AUTO STAT 02/20/2020 10: 43 AM CDT CBC WITH AUTO DIFFERENTIAL STAT 02/20/2020 10:43 AM CDT B ABO / RH CONFIRMATION TESTING Routine 02/20/2020 10:42 AM CDT SURGICAL PATHOLOGY Routine 02/20/2020 10 :07 AM CDT PREPARE RBC Timed 02/20/2020 7:41 AM CDT PREPARE RBC STAT 02/20/2020 7:40 AM CDT FENTANYL CONFIRMATION, URINE STAT 02/20/2020 3:50 AM CDT DRUG SCREEN, URINE L AND D WITH REFLEX CONFIRMATION STAT 02/20/2020 3:50 AM CDT OPIATES, URINE, CONFIRMATION STAT 02/20/2020 3:50 AM CDT URINALYSIS AND REFLEX TO MICROSCOPIC AND CULTURE STAT 02/20/2020 3:50 AM CDT BENZODIAZEPINE, URINE, CONFIRMATION STAT 02/20/2020 3:50 AM CDT URINALYSIS, MICROSCOPIC ONLY STAT 02/20/2020 3:50 AM CDT URINE CULTURE STAT 02/20/2020 3:50 AM CDT TRANSFUSE UNMATCHED RBC Timed 02/20/2020 12:14 AM CDT TRANSFUSE UNMATCHED RBC Timed 02/19/2020 11:55 PM CDT BLOOD GAS, CORD VENOUS STAT 02/19/2020 11:54 PM CDT BLOOD GAS, CORD ARTERIAL STAT 02/19/2020 11:54 PM CDT DIFFERENTIAL AUTO STAT 02/19/2020 11: 21 PM CDT CBC WITH AUTO DIFFERENTIAL STAT 02/19/2020 11:21 PM CDT ABO/RH STAT 02/19/2020 11:21 PM CDT CROSSMATCH Routine 02/19/2020 11:21 PM CDT ANTIBODY SCREEN STAT 02/19/2020 11:21 PM CDT TYPE AND SCREEN STAT 02/19/2020 11:21 PM CDT CLINICAL PATHOLOGY REPORT Routine 02/19/2020 8:57 AM CDT documented in this encounter Results * (ABNORMAL) CBC without differential (02/21/2020 11:51 AM CDT) WBC 15.2(H) 3.8 - 9.9 K/cumm [facility] ([facility]) Hgb 7.3(L) 11.9 - 15.5 g/dL [facility] ([facility] Hct 21.9(L) 35.6 - 45.5 % [facility] ([facility]) Plt 198 150 - 400 K/cumm [facility] ([facility]) MPV 10.8 9.1 - 12.3 fL [facility] ([facility]) RBC 2.51(L) 3.90 - 5.20 M/cumm [facility] ([facility]) MCV 87.3 81.3 - 96.4 fL [facility] ([facility]) MCH 29.1 27.1 - 33.3 pg [facility] ([facility]) MCHC 33.3 32.3 - 35.7 g/dL [facility] ([facility]) RDW CV 14.1 11.1 - 14.9 % [facility] ([facility] RDW SD 44.5 35.7 - 48.1 fL [facility] ([facility] NRBC abs 0.00 0.00 - 0.01 K/cumm [facility] (GARRY) Blood specimen (specimen) 02/21/2020 11:51 AM CDT 02/21/2020 11:54 AM CDT us Gladys Moon MD LAB BLOOD ORDERABLES Final Res ult [facility] (GARRY) 1 [facility] Department [place] [address] * (ABNORMAL) CBC without differential (02/21/2020 6:32 AM CDT) WBC 13.5(H) 3.8 - 9.9 K/cumm [facility] (GARRY) Hgb 6.6(L) 11.9 - 15.5 g/dL [facility] (GARRY) Hct 20.4(L) 35.6 - 45.5 % [facility] (GARRY) Plt 176 150 - 400 K/cumm [facility] (GARRY) MPV 10.8 9.1 - 12.3 fL [facility] (GARR[facility]) RBC 2.33(L) 3.90 - 5.20 M/cumm [facility] (GARR[facility]) MCV 87.6 81.3 - 96.4 fL [facility] (GARR[facility]) MCH 28.3 27.1 - 33.3 pg [facility] (GARR[facility]) MCHC 32.4 32.3 - 35.7 g/dL [facility] (GARR[facility]) RDW CV 14.1 11.1 - 14.9 % [facility] (GARR[facility]) RDW SD 44.1 35.7 - 48.1 fL [facility] (GARR[facility]) NRBC abs 0.00 0.00 - 0.01 K/cumm [facility] (GARR[facility]) Blood specimen (specimen) 02/21/2020 6:32 AM CDT 02/21/2020 6:46 AM CDT us Gladys Moon MD LAB BLOOD ORDERABLES Final Res ult OLGA JARRELL (EL CAJON) 1 [facility] Department [place] [address] * (ABNORMAL) Differential, auto (02/20/2020 10:43 AM CDT) Neutrophil abs 17.4(H) 1.7 - 6.5 K/cumm [facility] (GARR[facility]) Imm gran abs 0.1 0.0 - 0.1 K/cumm [facility] (GARR[facility]) Lymphocyte abs 0.9 0.8 - 3.3 K/cumm [facility] (GARR[facility]) Monocyte abs 0.9(H) 0.2 - 0.8 K/cumm [facility] (GARR[facility]) Eosinophil abs 0.0 0.0 - 0.5 K/cumm [facility] (GARR[facility]) Basophil abs 0.0 0.0 - 0.1 K/cumm [facility] (GARR[facility]) Neutrophil pct 89.8 % [facility] (GARRY) Comment: Interpretive Data Percent cell count reference ranges are not reported, since discordance with absolute values may lead to misinterpretation of CBC data. Current Interpretive Data was last revised on 2017. Imm gran pct 0.6 % [facility] (GARRY) Comment: Interpretive Data Percent cell count reference ranges are not reported, since discordance with absolute values may lead to misinterpretation of CBC data. Current Interpretive Data was last revised on 2017. Lymphocyte pct 4.9 % [facility] (GARR[facility]) Comment: Interpretive Data Percent cell count reference ranges are not reported, since discordance with absolute values may lead to misinterpretation of CBC data. Current Interpretive Data was last revised on 2017. Monocyte pct 4.6 % [facility] (GARR[facility]) Comment: Interpretive Data Percent cell count reference ranges are not reported, since discordance with absolute values may lead to misinterpretation of CBC data. Current Interpretive Data was last revised on 2017. Eosinophil pct 0.0 % [facility] (GARRY) Comment: Interpretive Data Percent cell count reference ranges are not reported, since discordance with absolute values may lead to misinterpretation of CBC data. Current Interpretive Data was last revised on 2017. Basophil pct 0.1 % [facility] (GARRY) Comment: Interpretive Data Percent cell count reference ranges are not reported, since discordance with absolute values may lead to misinterpretation of CBC data. Current Interpretive Data was last revised on 2017. Blood specimen (specimen) 02/20/2020 10:43 AM CDT 02/20/2020 10:46 AM CDT us Gladys Moon MD LAB BLOOD ORDERABLES Final Res ult [facility] (GARRY) 1 [facility] Department [place] [address] * (ABNORMAL) CBC with auto differential (02/20/2020 10:43 AM CDT) WBC 19.3(H) 3.8 - 9.9 K/cumm [facility] (GARR[facility]) Hgb 8.0(L) 11.9 - 15.5 g/dL [facility] (GARR[facility]) Hct 24.4(L) 35.6 - 45.5 % [facility] (GARR[facility]) Plt 222 150 - 400 K/cumm [facility] (GARR[facility]) MPV 10.9 9.1 - 12.3 fL [facility] (GARR[facility]) RBC 2.80(L) 3.90 - 5.20 M/cumm [facility] (GARR[facility]) MCV 87.1 81.3 - 96.4 fL [facility] (GARR[facility]) MCH 28.6 27.1 - 33.3 pg [facility] (GARR[facility]) MCHC 32.8 32.3 - 35.7 g/dL [facility] (GARR[facility]) RDW CV 13.7 11.1 - 14.9 % [facility] (GARR[facility]) RDW SD 43.5 35.7 - 48.1 fL [facility] (GARR[facility]) NRBC abs 0.00 0.00 - 0.01 K/cumm [facility] (GARR[facility]) Blood specimen (specimen) 02/20/2020 10:43 AM CDT 02/20/2020 10:46 AM CDT us Gladys Moon MD LAB BLOOD ORDERABLES Final Res ult Performing Organization Address City/[facility]/ZIP Co de Phone Number OLGA JARRELL (EL CAJON) 1 [facility] [place] [address] * ABO / Rh Confirmation Testing (02/20/2020 10:42 AM CDT) ABO/Rh Confirmation O Positive OLGA JARRELL (EL CA[place]ON) Blood specimen (specimen) 02/20/2020 10:42 AM CDT 02/20/2020 10:54 AM CDT us Gladys Moon MD LAB BLOOD ORDERABLES Final Res ult Performing Organization Address [facility] [place]/[facility] Co de Phone Number OLGA JARRELL (EL CAJON) 1 [facility] Department [place] [address] * Surgical pathology (02/20/2020 10:07 AM CDT) 02/20/2020 10:0 7 AM CDT 02/21/2020 10:07 AM CDT Narrative 02/26/2020 2:00 PM CDT EPIC results best viewed via link to PDF [facility] Department of Pathology [address] [place] [id number] Final Report Patient Name: ??DIOR DEL ANGEL Address: ??[address] [place] [address], ??[place], [place] [address] Gender: ??F : ??1985 (Age: 34) Service: ??Obstetrics Location: ??[facility] Hospital #: ??[id number] Patient Type: ??[facility] IP Accession # ?[id number] Taken: ??02/20/2020 Received: ??02/21/2020 Accessioned: ??02/21/2020 Reported: ??02/26/2020 Physician(s):Gladys Moon M.D. Diagnosis: Placenta, section: ? - Infarcts - thrombotic vasculopathy - Chorioangiosis, mild Linda Rozina, M.D. Report Electronically Reviewed and Signed Out By ??Linda Handy M.D. ??02/26/2020 14:00:26 Specimen(s) Received: A: Placenta third trimester Microscopic Description: Cross sections from the umbilical cord and membrane roll reveal no abnormal inflammation or other significant pathology. ??The microscopic appearance of the chorionic villi and the placental weight suggest this is a term or near term gestation although no specific correlative clinical history has been provided. ??Within the placental parenchyma there is at 2 infarcts and mild chorangiosis is also noted. 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 Clinical History: Placenta previa in third trimester. ?? section. ?? Gross Description: The specimen is submitted in a single container labeled Dior ParadaAme Del Angel and placenta . ??Submitted is a discoid schaefer placenta with attached membranes and umbilical cord. ??The trimmed placenta weighs 588 grams and measures 30 x 15 x 3.5 cm. The surface is shiny and blue-daniels in color. ??The maternal surface appears to be complete with a linear defect at one end and superficial tears. ??Serial cross sections show an area of kohler consolidation at the defect that measures 5 x 5 cm. ??A second wedge shaped consolidation is present centrally measuring 9 mm. ??The membranes are torn 2.0 cm from the placental margin. ??They are smooth, glistening and translucent. ??The cord inserts 5.0 cm from the closest edge of the placenta. ??It measures 5.0 cm in length, 1.3 cm in diameter and contains three blood vessels. ??Six Pack Loader Operator sections are submitted in five cassettes. ??Jose Madsen MD/Pardeep Mariee PAmeA. REPORT IMAGES AND SCANNED DOCUMENTS, IF INCLUDED, ONLY VIEWABLE IN PDF VERSION OF REPORT The performance characteristics of some immunohistochemical stains, fluorescence in-situ hybridization tests and immunophenotyping by flow cytometry cited in this report (if any) were determined by the Surgical Pathology Department at [facility] as part of an ongoing manufacturing quality manager program and in compliance with federally mandated regulations drawn from the Clinical Laboratory Improvement Act of 1988 (CLIA '88). ??Some of these tests rely on the use of analyte specific reagents and are subject to specific labeling requirements by the US Food and Drug Administration. ??Such diagnostic tests may only be performed in a facility that is certified by the Department of Health and Human Services as a high complexity laboratory under CLIA '88. The FDA has determined that such clearance or approval is not necessary. ??This test is used for clinical purposes. ??It should not be regarded as investigational or for research. ??Nevertheless, federal rules concerning the medical use of analyte specific reagents require that the following disclaimer be attached to the report: This test was developed and its performance characteristics determined by the Surgical Pathology Department [facility]. ??It has not been cleared or approved by the U. S. Food and Drug Administration. Gladys Moon MD LAB PATHOLOGY ORDERABLES Final Result * Prepare RBC: 1 Units (02/20/2020 7:41 AM CDT) Units requested 1 [facility] (GARR[facility]) Units requested Ready [facility] (G[facility]) Blood specimen (specimen) 02/20/2020 7:41 AM CDT 02/20/2020 7:41 AM CDT Narrative [facility] (GARRY) - 02/20/2020 2:34 PM CDT Are special requirements needed? (all products are leukoreduced)->No Donor Source->Allogeneic Gladys Moon MD BLOOD BANK PRODUCT ORDERABLES Final Result [facility] (GARRY) 1 [facility] Department [place] [address] * Prepare RBC: 4 Units (02/20/2020 7:40 AM CDT) Units requested 4 [facility] (GARRY) Units requested Ready [facility] (GARR[facility]) Blood specimen (specimen) 02/20/2020 7:40 AM CDT 02/20/2020 7:40 AM CDT Narrative [facility] (GARRY) - 02/20/2020 7:41 AM CDT Are special requirements needed? (all products are leukoreduced)->No Gladys Moon MD BLOOD BANK PRODUCT ORDERABLES Final Result OLGA PALMER) 1 [facility] Department [place] [address] * Opiates, Urine, Confirmation (02/20/2020 3:50 AM CDT) Pain mgt Codeine, Ur Negative Cutoff: 25 ng/mL [facility] (GARR[facility]) Dihydrocodeine, ur Negative Cutoff: 25 ng/mL [facility] (GARR[facility]) Pain mgt Hydrocodone, Ur Negative Cutoff: 25 ng/mL [facility] (GARR[facility]) Norhydrocodone Negative Cutoff: 25 ng/mL [facility] (GARR[facility]) Pain mgt Hydromorphone, Ur Negative Cutoff: 25 ng/mL [facility] (GARR[facility]) Pain mgt Oxycodone, Ur Negative Cutoff: 25 ng/mL [facility] (GARR[facility]) Noroxycodone Negative Cutoff: 25 ng/mL [facility] (GARR[facility]) Pain mgt Oxymorphone, Ur Negative Cutoff: 25 ng/mL [facility] (GARR[facility]) Noroxymorphone, ur Negative Cutoff: 25 ng/mL [facility] (GARRY) Pain mgt Naloxone, ur Negative Cutoff: 25 ng/mL [facility] (GARRY) Pain mgt Morphine, Ur 9149 Cutoff: 25 ng/mL [facility] (GARRY) Comment: If heroin use suspected, test ID [id number], 6-monoacetylmorphine (6-JORGE) Confirmation, Urine, can be added at an additional charge. Opiates ur interpretation Positive. [facility] (AGRRY) Comment: ADDITIONAL INFORMATION This report is intended for use in clinical monitoring and management of patients. ??It is not intended for use in employment-related testing. This test was developed and its performance characteristics determined by [facility] in a manner consistent with CLIA requirements. This test has not been cleared or approved by the U.S. Food and Drug Administration. Test Performed by: [facility] [place] [address] Line Haul Truck Driver: Petey Watkins M.D. Ph.D.; CLIA# [id number] Urine 02/20/2020 3:50 AM CDT 02/20/2020 4:25 AM CDT Gladys Moon MD LAB BLOOD ORDERABLES Final Res ult Performing Organization Address [facility] [place]/[facility] Co de Phone Number OLGA JARRELL (GARRY) 1 [facility] [employer] [place] [address] * Fentanyl Confirmation, Urine (02/20/2020 3:50 AM CDT) Pathologist [facility] Fentanyl confirm 0.9 Cutoff: 0.2 ng/mL [facility] (EL CAJON) Norfentanyl confirm 10.9 Cutoff: 1.0 ng/mL OLGA JARRELL (EL CAJON) Fentanyl Ur Interp Positive. Paresh JARRELL (EL CAJON) Comment: ADDITIONAL INFORMATION This test was developed and its performance characteristics determined by [facility] in a manner consistent with CLIA requirements. This test has not been cleared or approved by the U.S. Food and Drug Administration. Test Performed by: [facility] [place] [address] [employer] Driver: Petey Watkins M.D. Ph.D.; CLIA# [id number] Urine 02/20/2020 3:50 AM CDT 02/20/2020 4:25 AM CDT Gladys Moon MD LAB URINE ORDERABLES Final Res ult Performing Organization Address [facility] [place]/[facility] Co de Phone Number LOGA JARRELL (GARRY) 1 [facility] [employer] [place] [address] * Benzodiazepine, urine, confirmation (02/20/2020 3:50 AM CDT) Nordiazepam, ur Negative Cutoff: 100 ng/mL [facility] (GARR[facility]) Oxazepam, ur Negative Cutoff: 100 ng/mL [facility] (G[facility]) Lorazepam, ur Negative Cutoff: 100 ng/mL [facility] (GARR[facility]) Temazepam, ur Negative Cutoff: 100 ng/mL [facility] (GARRY) 2-hydroxy ethyl flurazepam, ur Negative Cutoff: 100 ng/mL [facility] (GARR[facility]) 7-aminoclonazepam, ur Negative Cutoff: 100 ng/mL [facility] (GARRY) Comment: Testing performed at a x2 dilution; limit of quantitation is elevated. Alpha-hydroxyalpraz olam, ur Negative Cutoff: 100 ng/mL [facility] (GARRY) 7-aminoflunitrazepa m, ur Negative Cutoff: 50 ng/mL [facility] (GARRY) Alpha-hydroxy triazolam, ur Negative Cutoff: 100 ng/mL [facility] (GARRY) Benzo interp, ur Negative. [facility] (GARRY) Comment: ADDITIONAL INFORMATION This report is intended for use in clinical monitoring and management of patients. ??It is not intended for use in employment-related testing. This test was developed and its performance characteristics determined by [facility] in a manner consistent with CLIA requirements. This test has not been cleared or approved by the U.S. Food and Drug Administration. Test Performed by: [facility] - [address] [address] Line Haul Truck Driver: Petey Watkins M.D. Ph.D.; CLIA# [id number] Urine 02/20/2020 3:50 AM CDT 02/20/2020 4:25 AM CDT us Gladys Moon MD LAB URINE ORDERABLES Final Res ult OLGA JARRELL (GARRY) 1 [facility] Department of Laboratories [place], [place] [id number] * Urine culture Urine, indwelling catheter (02/20/2020 3:50 AM CDT) Report Final Report: Less than 100,000 colonies/mL (clinically insignificant growth based on current clinical standards) OLGA JARRELL (GARRY) Comment:Testing performed by : [facility], [address] [place]., [address] Organism (CLINICALLY INSIGNIFICANT GROWTH OLGA JARRELL (GARRY) Urine, indwelling catheter 02/20/2020 3:50 AM CDT 02/20/2020 7:52 AM CDT Narrative OLGA JARRELL (GARRY) - 02/22/2020 2:31 PM CDT Urine culture reflexed based upon urinalysis results. Testing performed by [facility] ([phone]) us Gladys Moon MD LAB MICROBIOLOGY - GENERAL ORD ERABLES Final Result Performing Organization Address [facility] [place]/[facility]/ZIP Co de Phone Number OLGA JARRELL (GARRY) 1 [facility] Department [place] [address] * (ABNORMAL) Urinalysis, microscopic only (02/20/2020 3:50 AM CDT) WBC, ur 11-20(A) 0 - 5 /HPF [facility] (GARRY) RBC, ur 6-10(A) 0 - 2 /HPF [facility] (GARRY) Epithelial cells, squamous, ur 6-10(A) 0 - 5 /HPF [facility] (GARRY) Bacteria, ur Trace(A) [facility] (GARRY) Mucous, ur Present(A) CERNER A (GARRY) Hyaline casts, ur 11-20(A) 0 - 10 /LPF [facility] (GARRY) Culture Reflex Comment Reflex to urine culture will be performed. OLGA JARRELL (GARRY) Urine, indwelling catheter 02/20/2020 3:50 AM CDT 02/20/2020 3:55 AM CDT us Gladys Moon MD LAB URINE ORDERABLES Final Res ult OLGA JARRELL (GARRY) 1 [facility] Department [place] [address] * (ABNORMAL) Urinalysis reflex to microscopic and culture Urine, indwelling catheter (02/20/2020 3:50AM CDT) Color, ur Yellow Yellow [facility] (GARR[facility]) Clarity, ur Cloudy(A) Clear [facility] (GARRY) Specific gravity, ur 1.025 1.010 - 1.025 [facility] (GARRY) pH, urine 6.5 [facility] (GARRY) Protein, ur ql 2+(A) Negative [facility] (GARR[facility]) Glucose, ur ql 1+(A) Negative [facility] (GARR[facility]) Ketones, ur Negative Negative [facility] (GARRY) Bilirubin, ur Negative Negative [facility] (GARRY) Blood, ur 1+(A) Negative [facility] (GARR[facility]) Urobilinogen, ur <2.0 <2.0 mg/dL [facility] (GARRY) Nitrite, ur Negative Negative [facility] (GARRY) Leukocyte esterase, ur Negative Negative [facility] (GARRY) UA reflex comment Reflex to microscopic UA will be performed. [facility] (GARRY) Urine, indwelling catheter 02/20/2020 3:50 AM CDT 02/20/2020 3:55 AM CDT Narrative [facility] (GARRY) - 02/20/2020 4:13 AM CDT ?? Urine pH is affected by diet, medications, systemic acid-base disturbances, and renal tubular function. ??pH may affect urinary stone formation. ??For example, urine pH below 6.0 may help reduce the tendency for calcium phosphate stones and pH greater than 6.0 may reduce the tendency for uric acid stone formation. Source: [facility] [employer]. Last revised 08-10-2017 us Gladys Moon MD LAB MICROBIOLOGY - GENERAL ORD ERABLES Final Result OLGA JARRELL (GARRY) 1 [facility] Department [place] [address] * (ABNORMAL) Drug Screen, Urine L and D with Reflex Confirmation (02/20/2020 3:50 AM CDT) [facility] Amphetamine, ur Not Detected CutOff 500ng/mL [facility] (GARRY) Comment: Interpretive Data - Amphetamines: ??Samples containing greater than 500 ng/mL d-methamphetamine ??or other cross-reacting amphetamine compounds are reported as positive. ??Amphetamine immunoassays are subject to significant false positive rates due to cross-reactivity of non-amphetamine drugs. Current Interpretive Data was last reviewed 2018. Barbiturates, ur Not Detected CutOff 200ng/mL [facility] (GARRY) Comment: Interpretive Data - Barbiturates: ??Samples containing greater than 200 ng/mL secobarbital or other cross-reacting barbiturate compounds are reported as positive. ??False positive and false negative results are possible. Current Interpretive Data was last reviewed 2018. Benzodiazepines, ur Detected(A) CutOff 100ng/mL [facility] (GARRY) Comment: Interpretive Data - Benzodiazepines: ??Samples containing greater than 100 ng/mL nordiazepam or other cross-reacting compounds are reported as positive. ?? False positive and false negative results are possible. ?? Current Interpretive Data was last reviewed 2018. Cannabinoids, ur Not Detected CutOff 50 ng/mL [facility] (GARRY) Comment: Interpretive Data - Cannabinoids: ??Samples containing greater than 50 ng/mL delta-9 THC -COOH or other cross-reacting compounds are reported as positive. ??False positive and false negative results are possible. ?? Current Interpretive Data was last reviewed 2018. Cocaine, ur Not Detected CutOff 150ng/mL [facility] (GARRY) Comment: Interpretive Data - Cocaine: ??Samples containing greater than 150 ng/mL benzoylecgonine or other cross-reacting compounds are reported as positive. False positive and false negative results are possible. Current Interpretive Data was last reviewed 2018. Fentanyl, Ur Detected(A) Cutoff 1 ng/mL [facility] (GARRY) Comment: Interpretive Data - Fentanyls: ??Samples containing greater than 1 ng/mL fentanyl or other cross-reacting fentanyl compounds are reported as detected. ??False positive and false negative results are possible. Current Interpretive Data was last reviewed 2019. Methadone, ur Not Detected CutOff 300ng/mL OLGA JARRELL (GARRY) Comment: Interpretive Data - Methadone: ??Samples containing greater than 300 ng/mL d,l-methadone or other cross-reacting compounds are reported as positive. ??False positive and false negative results are possible. Current Interpretive Data was last reviewed 2018. Opiates, ur Detected(A) CutOff 300ng/mL OLGA JARRELL (GARRY) Comment: Interpretive Data - Opiates: ??Samples containing greater than 300 ng/mL morphine or other cross-reacting compounds are reported as positive. ??False positive and false negative results are possible. Current Interpretive Data was last reviewed 2018. Oxycodone, ur Not Detected CutOff 100ng/mL OLGA JARRELL (GARRY) Comment: Interpretive Data - Oxycodone: ??Samples containing greater than 100 ng/mL oxycodone or other cross-reacting compounds are reported as positive. ??False positive and false negative results are possible. ?? Current Interpretive Data was last reviewed 2018. Phencyclidine, ur Not Detected CutOff 25 ng/mL OLGA JARRELL (GARRY) Comment: Interpretive Data - Phencyclidine: ??Samples containing greater than 25 ng/mL phencyclidine or other cross-reacting compounds are reported as positive. ??False positive and false negative results are possible. ?? Current Interpretive Data was last reviewed 2018. Urine Creatinine 230 mg/dL SANJU JARRELL (GARRY) Comment: Interpretive Data Urine Creatinine: < 10 mg/dL is extremely dilute = or > 10 but < 20 mg/dL is dilute = or > 20 mg/dL is normal Current Interpretive Data was last revised on 2017. Urine 02/20/2020 3:50 AM CDT 02/20/2020 3:55 AM CDT Narrative OLGA JARRELL (GARRY) - 02/20/2020 4:25 AM CDT Drug of Abuse screening is performed by immunoassay for medical purposes only. ??This is not to be used for Pain Management purposes. ??If Detected, confirmation testing will be performed for Amphetamines, Barbiturates, Benzodiazepines, Cannabinoids, Cocaine, Fentanyl, Methadone, Opiates, Oxycodone or Phencyclidine. us Gladys N. Moon MD LAB URINE ORDERABLES Final Res ult OLGA JARRELL (EL CAJON) 1 [facility] [place] [employer] [place] [address] * Transfuse Unmatched O-Neg RBC (02/20/2020 12:15 AM CDT) us Gladys Moon MD BLOOD TRANSFUSION ORDERABLES F inal Result Performing Organization Address City/[facility]/ZIP Co de Phone Number OLGA JARRELL (EL CAJON) 1 [facility] [place] [employer] [place] [address] * Transfuse Unmatched O-Neg RBC (02/19/2020 11:55 PM CDT) us Gladys Moon MD BLOOD TRANSFUSION ORDERABLES F inal Result Performing Organization Address [facility] [place]/[facility] Co de Phone Number OLGA JARRELL (EL CAJON) 1 [facility] [place] [place] [address] * (ABNORMAL) Blood Gas, Cord Arterial (02/19/2020 11:54 PM CDT) pH Cord Art 7.04(C) OLGA Riggs (EL CAJON) Comment:Critical result call ed to and read back by Teresa Christina (LDR_) on _02/20/2020 00:05:56 CDT to _Eli Mejia. pCO2 Cord Art 80(C) mmHg OLGA JARRELL (EL CAJON) Comment:Critical result call ed to and read back by Teresa Christina (LDR_) on _02/20/2020 00:06:21 CDT to _Eli Mejia. pO2 Cord Art 13 mmHg OLGA JARRELL (GARRY) Base Excess Cord Art -11 mmol/L CERVINEET JARRELL (GARRY) HCO3 Cord Art (Calc) 21 mmol/L OLGA JARRELL (GARRY) O2 Sat Cord Art (Maira) 12 % OLGA JARRELL (GARRY) Comment: Interpretive Data No Reference Ranges Established Current Interpretive Data was last revised on 2018 Cord blood 02/19/2020 11:5 4 PM CDT 02/19/2020 11:57 PM CDT Gladys Moon MD LAB BLOOD ORDERABLES Final Res ult Performing Organization Address [facility] [place]/[facility]/ZIP Co de Phone Number OLGA JARRELL (EL CAJON) 1 [facility] [employer] [place] [address] * (ABNORMAL) Blood Gas, Cord Venous (02/19/2020 11:54 PM CDT) pH Cord Elio 7.09(C) OLGA BARBA (EL CAJON) Comment:Critical result call ed to and read back by Teresa Christina (LDR_) on _02/20/2020 00:06:58 CDT to _Eli Mejia. pCO2 Cord Elio 73 mmHg [facility] (GARRY) pO2 Cord Elio 9 mmHg [facility] (GARRY) Base Excess Cord Elio -10 mmol/L [facility] (GARRY) HCO3 Cord Elio (Calc) 21 mmol/L [facility] (GARRY) O2 Sat Cord Elio (Maira) 8 % [facility] (GARRY) Comment: Interpretive Data No Reference Ranges Established Current Interpretive Data was last revised on 2018 Cord blood 02/19/2020 11:5 4 PM CDT 02/19/2020 11:57 PM CDT us Gladys Moon MD LAB BLOOD ORDERABLES Final Res ult Performing Organization Address [facility] [place]/[facility] Co de Phone Number OLGA JARRELL (EL CAJON) 1 [facility] of [employer] [place] [address] * Crossmatch (02/19/2020 11:21 PM CDT) Crossmatch Compatible OLGA BARBA (EL CAJON) Unit number for crossmatch [id number] OLGA JARRELL (EL CAJON) Crossmatch Compatible OLGA BARBA (EL CAJON) Unit number for crossmatch [id number] OLGA JARRELL (EL CAJON) Blood specimen (specimen) 02/19/2020 11:21 PM CDT 02/20/2020 7:42 AM CDT Gladys Moon MD LAB BLOOD BANK TEST ORDERABLES Final Result OLGA JARRELL (EL CAJON) 1 [facility] Department [place] [address] * (ABNORMAL) Differential, auto (02/19/2020 11:21 PM CDT) Neutrophil abs 8.4(H) 1.7 - 6.5 K/cumm [facility] (GARRY) Imm gran abs 0.1 0.0 - 0.1 K/cumm [facility] (GARR[facility]) Lymphocyte abs 2.0 0.8 - 3.3 K/cumm [facility] (GARRY) Monocyte abs 0.9(H) 0.2 - 0.8 K/cumm [facility] (GARR[facility]) Eosinophil abs 0.2 0.0 - 0.5 K/cumm [facility] (GARRY) Basophil abs 0.0 0.0 - 0.1 K/cumm [facility] (GARRY) Neutrophil pct 72.6 % [facility] (EL CAJON) Comment: Interpretive Data Percent cell count reference ranges are not reported, since discordance with absolute values may lead to misinterpretation of CBC data. Current Interpretive Data was last revised on 2017. Imm gran pct 0.9 % [facility] (GARRY) Comment: Interpretive Data Percent cell count reference ranges are not reported, since discordance with absolute values may lead to misinterpretation of CBC data. Current Interpretive Data was last revised on 2017. Lymphocyte pct 17.3 % [facility] (GARRY) Comment: Interpretive Data Percent cell count reference ranges are not reported, since discordance with absolute values may lead to misinterpretation of CBC data. Current Interpretive Data was last revised on 2017. Monocyte pct 7.8 % [facility] (GARRY) Comment: Interpretive Data Percent cell count reference ranges are not reported, since discordance with absolute values may lead to misinterpretation of CBC data. Current Interpretive Data was last revised on 2017. Eosinophil pct 1.3 % [facility] (GARRY) Comment: Interpretive Data Percent cell count reference ranges are not reported, since discordance with absolute values may lead to misinterpretation of CBC data. Current Interpretive Data was last revised on 2017. Basophil pct 0.1 % OLGA JARRELL (GARRY) Comment: Interpretive Data Percent cell count reference ranges are not reported, since discordance with absolute values may lead to misinterpretation of CBC data. Current Interpretive Data was last revised on 2017. Blood specimen (specimen) 02/19/2020 11:21 PM CDT 02/19/2020 11:26 PM CDT us Gladys Moon MD LAB BLOOD ORDERABLES Final Res ult OLGA CHRYSTAL (GARRY) 1 [facility] [employer] [place] [address] * Antibody screen (02/19/2020 11:21 PM CDT) Miranda, indirect, Gel Interpretation Negative ABSC OLGA JARRELL (GARRY) Blood specimen (specimen) 02/19/2020 11:21 PM CDT 02/19/2020 11:26 PM CDT Narrative OLGA JARRELL (GARRY) - 02/20/2020 12:45 AM CDT Has the patient had Daratumumab or Isatuximab in the past 6 months?->Unknown us Gladys Moon MD LAB BLOOD BANK TEST ORDERABLES Final Result OLGA JARRELL (GARRY) 1 [facility] [employer] [place] [address] * ABO/Rh (02/19/2020 11:21 PM CDT) ABO/Rh O Positive OLGA LERNER [facility] (GARRY) Blood specimen (specimen) 02/19/2020 11:21 PM CDT 02/19/2020 11:26 PM CDT Narrative OLGA JARRELL (GARRY) - 02/20/2020 12:45 AM CDT Has the patient had Daratumumab or Isatuximab in the past 6 months?->Unknown us Gladys N. Moon MD LAB BLOOD BANK TEST ORDERABLES Final Result [facility] (GARRY) 1 [facility] [place] [address] * (ABNORMAL) CBC with auto differential (02/19/2020 11:21 PM CDT) WBC 11.6(H) 3.8 - 9.9 K/cumm [facility] (GARR[facility]) Hgb 8.1(L) 11.9 - 15.5 g/dL [facility] (GARR[facility]) Hct 25.4(L) 35.6 - 45.5 % [facility] (GARRY) Plt 263 150 - 400 K/cumm [facility] (GARR[facility]) MPV 11.6 9.1 - 12.3 fL [facility] ([facility]ARR[facility]) RBC 2.86(L) 3.90 - 5.20 M/cumm [facility] ([facility]) MCV 88.8 81.3 - 96.4 fL [facility] (GARR[facility]) MCH 28.3 27.1 - 33.3 pg [facility] (GARR[facility]) MCHC 31.9(L) 32.3 - 35.7 g/dL [facility] (GARR[facility]) RDW CV 13.2 11.1 - 14.9 % [facility] (GARR[facility]) RDW SD 42.8 35.7 - 48.1 fL [facility] (GARR[facility]) NRBC abs 0.00 0.00 - 0.01 K/cumm [facility] (GARRY) Blood specimen (specimen) 02/19/2020 11:21 PM CDT 02/19/2020 11:26 PM CDT us Gladys Moon MD LAB BLOOD ORDERABLES Final Res ult OLGA JARRELL (GARRY) 1 [facility] [employer] of [employer] [place] [address] * Clinical pathology report (02/19/2020 8:57 AM CDT) 02/19/2020 8:57 AM CDT 02/20/2020 8:57 AM CDT Narrative 02/20/2020 10:55 AM CDT [facility] results best viewed via link to PDF [facility] Department of Pathology [address] [place] [address] Final Report Patient Name: ? DEL ANGELHECTORKeely Villarreal Address: ??[address] [place] [address] ??6 Gender: ??F : ??1985 (Age: 34) Service: ??Obstetrics Location: ??[facility] Hospital #: ??[id number] Patient Type: ??[facility] IP Taken: ??02/19/2020 Received: ?? 02/20/2020 Accessioned: ??02/20/2020 Physician(s): ??Gladys Moon M.D. Specimen(s) Received A: Blood Emergency Release of Blood and Blood Components Reported: 02/20/2020 Unit Number ?Product ?ABO/Rh [id number] ? PRBC ? O Neg [id number] ? PRBC ? O Neg Incomplete Patient Testing O neg red blood cells (no current patient type) Post Transfusion Testing: ABO/Rh ? AB Screen ? Unit Number Transfused ? Crossmatch O Pos ?Neg ?[id number] ?Compatible IS/AHG O Pos ?Neg ?[id number] ?Compatible IS/AHG ? Date/Time: ? 02/19/2020, 23:32 ?Form Prepared by: ? Shannon Ace Requesting physician: ? Dr. Gladys Moon Indication for transfusion: ? Active hemorrhaging from placenta previa. Interpretation: The listed units were transfused and subsequently found to be crossmatch compatible. All common, clinically significant red cell alloantibodies were ruled out. ?? Linda Handy M.D. ??Report Electronically Reviewed and Signed Out By ??Linda Handy M.D. ??02/20/2020 10:52:35 ? The performance characteristics of some immunohistochemical stains, fluorescence in-situ hybridization tests and immunophenotyping by flow cytometry cited in this report (if any) were determined by the Surgical Pathology Department at [facility] as part of an ongoing manufacturing quality manager program and in compliance with federally mandated regulations drawn from the Clinical Laboratory Improvement Act of 1988 (CLIA '88). ??Some of these tests rely on the use of analyte specific reagents and are subject to specific labeling requirements by the US Food and Drug Administration. ??Such diagnostic tests may only be performed in a facility that is certified by the Department of Health and Human Services as a high complexity laboratory under CLIA '88. The FDA has determined that such clearance or approval is not necessary. ??This test is used for clinical purposes. ??It should not be regarded as investigational or for research. ??Nevertheless, federal rules concerning the medical use of analyte specific reagents require that the following disclaimer be attached to the report: This test was developed and its performance characteristics determined by the Surgical Pathology Department [facility]. ??It has not been cleared or approved by the U. S. Food and Drug Administration. REPORT IMAGES AND SCANNED DOCUMENTS, IF INCLUDED, ONLY VIEWABLE IN PDF VERSION OF REPORT Gladys Moon MD LAB PATHOLOGY ORDERABLES Final Result documented in this encounter Visit Diagnoses Diagnosis Placenta previa with hemorrhage in third trimester- Primary Placenta previa in third trimester HSV (herpes simplex virus) infection Herpes simplex without mention of complication Uncomplicated asthma infant of 35 completed weeks of gestation documented in this encounter Administered Medications Inactive Administered Medications - up to 3 most recent administrations Medication Order MAR Action Action Date Dose Rate Site albuterol 2.5 mg /3 mL (0.083 %) nebulizer solution 2.5 mg 2.5 mg, nebulization, Every 6 hours PRN (geothermal technician), wheezing, Starting on Kelly 02/20/20 at 1009, This therapy was substituted for albuterol hfa per protocol. ceFAZolin (ANCEF) 1 gram/10 mL in sterile water (premix) 2,000 mg 2,000 mg, intravenous, at 400 mL/hr, Administer over 3 Minutes, Once, On Kelly 02/20/20 at 0230, For 1 dose, Indications: Prophylaxis, SurgicalIndications:Prophyl axis, Surgical New Bag 02/20/2020 2:06 AM CDT 2,000 mg 400 mL/hr dextrose 5% and Lactated Ringer's infusion 125 mL/hr, intravenous, Continuous, Starting on Kelly 02/20/20 at 0600, Until regular diet. New Bag 02/20/2020 2:06 AM CDT 125 mL/hr 125 mL/hr docusate sodium (COLACE) capsule 100 mg 100 mg, oral, 2 times daily, First dose on Kelly 02/20/20 at 0900, Hold if diarrhea., Indications: constipation, Stool SoftenerIndications:constip ation,Stool Softener Given 02/21/2020 8:03 AM CDT 100 mg Given 02/20/2020 10:09 PM CDT 100 mg Given 02/20/2020 10:36 AM CDT 100 mg famotidine (PEPCID) tablet 20 mg 20 mg, oral, Daily, First dose on Kelly 02/20/20 at 1045 Given 02/21/2020 8:04 AM CDT 20 mg Given 02/20/2020 10:36 AM CDT 20 mg HYDROcodone-acetaminophen (NORCO) 5-325 mg per tablet 1 tablet 1 tablet, oral, Every 4 hours PRN, 2nd line for pain, moderate to severe pain, Starting on Kelly 02/20/20 at 1202, Indications: PainIndications:Pain Given 02/21/2020 11:53 AM CDT 1 tablet Given 02/21/2020 8:02 AM CDT 1 tablet Given 02/20/2020 10:09 PM CDT 1 tablet ibuprofen (ADVIL,MOTRIN) tablet 600 mg 600 mg, oral, Every 6 hours PRN, 1st line for pain, Starting on Kelly 02/20/20 at 1203, Indications: PainIndications:Pain Given 02/21/2020 6:33 AM CDT 600 mg Given 02/20/2020 7:20 PM CDT 600 mg Given 02/20/2020 1:01 PM CDT 600 mg ketorolac (TORADOL) injection 30 mg 30 mg, intravenous, Every 6 hours scheduled, First dose on Kelly 02/20/20 at 0200, For 24 hours, Max 4 doses. 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 WORKER dose: 1 mg, FIBER OPTIC ASSEMBLY WORKER lockout: 10 Minutes, 1 hour limit: 6 mg, intravenous, Continuous, Starting on Kelly 02/20/20 at 0200, Until Kelly 02/20/20 at 1202, 50 mL, Indications: Pain, RoutineIndications:Pain New Syringe/Cartridge 02/20/2020 2:50 AM CDT [address] (PROTONIX) extended release tablet 40 mg 40 mg, oral, Daily, First dose on Kelly 02/20/20 at 1045, Do not crush, chew, cut, dissolve, open or otherwise manipulate tablet/capsule., Indications: Treatment of Non-Bleeding Gastric DisorderIndications:Treatment of Non-Bleeding Gastric Disorder Given 02/21/2020 8:03 AM CDT 40 mg Given 02/20/2020 10:36 AM CDT 40 mg vit-iron fum-folic ac tablet 1 tablet 1 tablet, oral, Daily, First dose on Kelly 02/20/20 at 0900, Begin when normal bowel activity resumes., Indications: Vitamin Deficiency PreventionIndications:Vitamin Deficiency Prevention Given 02/21/2020 8:03 AM CDT 1 tablet Given 02/20/2020 10:36 AM CDT 1 tablet documented in this encounter Discontinued Medications Medication Sig Discontinue Reason Start Date End Da te NIFEdipine (PROCARDIA) 20 mg capsule TK 1 C PO Q 4 H Duplicate order 02/10/2020 02/20/2020 albuterol HFA (PROVENTIL HFA,VENTOLIN HFA,PROAIR HFA) 90 mcg/actuation inhaler INL 2 PFS PO Q 4 TO 6 H PRN Stop Taking at Discharge 02/11/2020 02/21/2020 NIFEdipine (PROCARDIA) 20 mg capsule Take 20 mg by mouth every 4 (four) hours as needed Stop Taking at Discharge 02/21/2020 documented as of this encounter Historical Medications * This list may reflect changes made after this encounter. pantoprazole DR (PROTONIX) 40 mg EC tablet TK 1 T PO QD UTD 01/23/2020 vit-iron fum-folic ac 28 mg iron- 800 mcg tablet Take 1 tablet by mouth daily 05/13/2020 NIFEdipine (PROCARDIA) 20 mg capsule TK 1 C PO Q 4 H 02/10/2020 02/20/2020 NIFEdipine (PROCARDIA) 20 mg capsule Take 20 mg by mouth every 4 (four) hours as needed 02/21/2020 albuterol HFA (PROVENTIL HFA,VENTOLIN HFA,PROAIR HFA) 90 mcg/actuation inhaler INL 2 PFS PO Q 4 TO 6 H PRN 02/11/2020 02/21/2020 albuterol HFA (PROVENTIL HFA,VENTOLIN HFA,PROAIR HFA) 90 mcg/actuation inhaler Inhale 2 puffs every 6 (six) hours as needed 07/28/2020 famotidine (PEPCID) 40 mg tablet Take 40 mg by mouth daily 08/20/2020 added in this encounter Active and Recently Administered Medications Times are shown in CDT. Scheduled Medication Order 02/19/2020 02/20/2020 02/21/2020 ceFAZolin (ANCEF) 1 gram/10 mL in sterile water (premix) 2,000 mg (COMPLETED) 2,000 mg, intravenous, at 400 mL/hr, Administer over 3 Minutes, Once, On Kelly 02/20/20 at 0230, For 1 dose, Indications: Prophylaxis, Surgical 0206 (New Bag - Provider: Ignacia Ramirez RN) docusate sodium (COLACE) capsule 100 mg 100 mg, oral, 2 times daily, First dose on Kelly 02/20/20 at 0900, Hold if diarrhea., Indications: constipation, Stool Softener 1036 (Given - Provider: Liudmila Cormier, RN)2209 (Given - Provider: Isis Judd, SANJAY) 0803 (Given - Provider: Janel Hoyt RN) famotidine (PEPCID) tablet 20 mg 20 mg, oral, Daily, First dose on Kelly 02/20/20 at 1045 1036 (Given - Provider: Liudmila Cormier RN) 0804 (Given - Provider: Janel Hoyt, SANJAY) ketorolac (TORADOL) injection 30 mg (CANCELED) 30 mg, intravenous, Every 6 hours scheduled, First dose on Kelly 02/20/20 at 0200, For 24 hours, Max 4 doses. Anesthesia orders for the first 24 hours ., Indications: Pain 0157 (Not Given - Provider: Ignacia Ramirez RN - Reason: Contraindicated)0706 (Given - Provider: Liudmila Cormier RN)1200 (Due) pantoprazole DR (PROTONIX) extended release tablet 40 mg 40 mg, oral, Daily, First dose on Kelly 02/20/20 at 1045, Do not crush, chew, cut, dissolve, open or otherwise manipulate tablet/capsule., Indications: Treatment of Non-Bleeding Gastric Disorder 1036 (Given - Provider: Liudmila Cormier RN) 0803 (Given - Provider: Janel Hoyt, SANJAY) vit-iron fum-folic ac tablet 1 tablet 1 tablet, oral, Daily, First dose on Kelly 02/20/20 at 0900, Begin when normal bowel activity resumes., Indications: Vitamin Deficiency Prevention 1036 (Given - Provider: Liudmila Cormier RN) 0803 (Given - Provider: Janel Hoyt, RN) sodium chloride 0.9% flush 0.5-20 mL 0.5-20 mL, intra-catheter, Every 8 hours scheduled, First dose on Kelly 02/20/20 at 0600, Flush volume based on line type and size. , Indications: Flushing 0600 (Due)1400 (Due)2200 (Due) 0600 (Due) Continuous Medication Order 02/19/2020 02/20/2020 02/21/2020 dextrose 5% and Lactated Ringer's infusion (CANCELED)(Linked Group 1) 125 mL/hr, intravenous, Continuous, Starting on Kelly 02/20/20 at 0600, Until regular diet. 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 HYDROcodone-acetaminophen (NORCO) 5-325 mg per tablet 1 tablet 1 tablet, oral, Every 4 hours PRN, 2nd line for pain, moderate to severe pain, Starting on Kelly 02/20/20 at 1202, Indications: Pain 2209 (Given - Provider: Isis Judd RN) 0802 (Given - Provider: Janel Hoyt, SANJAY)1153 (Given - Provider: Janel Hoyt, SANJAY) ibuprofen (ADVIL,MOTRIN) tablet 600 mg 600 mg, oral, Every 6 hours PRN, 1st line for pain, Starting on Kelly 02/20/20 at 1203, Indications: Pain 1301 (Given - Provider: Liudmila Cormier RN)1920 (Given - Provider: Isis Judd RN) 0633 (Given - Provider: Janel Hoyt, SANJAY) sodium chloride 0.9% flush 0.5-20 mL 0.5-20 mL, intra-catheter, As needed, line care, Starting on Kelly 02/20/20 at 0128, Flush volume based on line type and size. Flush before and after each use. , Indications: Flushing Linked Groups Order Group 1: oxytocin 30 unit/500 mL (0.06 unit/mL) in sodium chloride 0.9% (premix) solution (CANCELED) 95-334 milliunits/min (95-334 mL/hr), 0.06 units/mL, intravenous, Titrated, Starting on Kelly 02/20/20 at 0200, Until Kelly 02/20/20 at 0559, Indications: Hemorrhage Prevention, 334 jaci-units/minutes for 30 minutes then decrease infusion to 95 jaci-units/min for 3.5 hours. , Routine Followed by dextrose 5% and Lactated Ringer's infusion (CANCELED)Jump to med 125 mL/hr, intravenous, Continuous, Starting on Kelly 02/20/20 at 0600, Until regular diet. documented in this encounter Orders Medications Ordered That Krishan ht Not Have Been Administered Count Last Ordered Date First Ordered Date albuterol 2.5 mg /3 mL (0.08 3 %) nebulizer solution 2.5 mg 1 02/20/2020 albuterol HFA (PROVENTIL HFA ,VENTOLIN HFA,PROAIR HFA) 90 mcg/actuation inhaler 2 puff 1 02/20/2020 diphenhydrAMINE (BENADRYL) injection 25 mg 1 02/20/2020 famotidine (PEPCID) tablet 20 mg 1 02/20/20 20 HYDROmorphone (DILAUDID) 2 m g/mL injection - ADS Override Pull 02/20/2020 zpmonne-gyjpv-vqcbcka (MMR) 1,000-12,500 TCID50/0.5 mL vaccine 0.5 mL 02/20/2020 nalbuphine (NUBAIN) injection 5 mg 1 2019 naloxone (NARCAN) 0.4 mg/mL injection 0.04-0.4 mg 2 02/20/2020 ondansetron (ZOFRAN) injection 4 mg 2 02/19 oxyCODONE-acetaminophen (PER COCET) 5-325 mg per tablet 1 tablet 1 02/20/2020 oxytocin 30 unit/500 mL (0.0 6 unit/mL) in sodium chloride 0.9% (premix) solution 2 02/20/2020 prochlorperazine (COMPAZINE) injection 10 mg 1 02/20/2020 sodium chloride 0.9% flush 0.5-20 mL 01/2902/19/2020 Lactated Ringer's (LR) bolus 500 mL 1 02/18 Diet Count Last Ordered Date First Orde red Date ADULT DISCHARGE DIET 1 02/21/2020 Nursing Count Last Ordered Date First Orde red Date DISCHARGE ACTIVITY 1 02/21/2020 Transfer Count Last Ordered Date First Orde red Date TRANSFER PATIENT 1 02/20/2020 CORE MEASURES Count Last Ordered Date First Ord ered Date REASON FOR NO VTE PROPHYLAXI S - HOSPITAL ADMISSION - MEDICATIONS 02/20/2020 documented in this encounter Care Teams Tie Puller Relationship Specialty Start Date End Date Rand Ballard NP PCP - General 05/01/17 05/12/20 documented as of this encounter
--- OUTSIDE RECORDS SUMMARY | 2024-07-17 18:33 | XMS_ITS | Encounter Summary ---
Author Organization [facility] Healthcare Address [address] [place] [id number] Care Team Providers Care Airveyor Operator Name Role Phone Unavailable Primary Care Provider Unavailabl e Encounter Details Date Type Department Care Team ([facility] st Contact Info) Description 02/02/2013 12:42 PM CDT - 02/02/2013 2:25 PM CDT Hospital Encounter [facility] Sasha Rivers MD [address] [place] [id number] Observation and evaluation for other specified suspected conditions; Tobacco use disorder Social History Tobacco Use Types Packs/Day Years Used Date Smoking Tobacco: Never Assessed Comments Unknown Sex and Gender Information Value Date Recorded Sex Assigned at Not on file 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 Gender Identity Not on file Sexual Orientation Not on file documented as of this encounter Plan of Treatment Not on file documented as of this encounter Procedures Procedure Name Priority Date/Time Associated Diagnosis Comments URINE CHORIONIC GONADOTROPIN (HCG) Routine 02/02/2013 2:00 PM CDT DISCHARGE LABORATORY CUMULATIVE REPORT Routine 02/02/2013 12:00 AM CDT documented in this encounter Results * Urine chorionic gonadotropin (HCG) (02/02/2013 2:00 PM CDT) HCG, ur Negative NEGATIVE HISTORICAL RESULTS Urine 02/02/2013 2:00 PM CDT Nydia AIKEN LAB BLOOD ORDERABLES Fi nal Result HISTORICAL RESULTS * Discharge Laboratory Cumulative Report (02/02/2013 12:00 AM CDT) 02/02/2013 Narrative HISTORICAL RESULTS - 02/04/2013 12:22 AM CDT Patient No: [id number] ? [facility] Patient Name: LAILA DEL ANGEL ?[facility] Age: 27 YRS ?: 1985 ?Sex:F ?[address] )[phone] ?? Adm Dt: 02/02/2013 ?[place], [place] ??[address] Created: 02/04/2013 ??0022 ?? Pt. Type: E ? Discharge Dt: 02/02/2013 ? Pathologists: Linda Handy MD Admit Attend : SASHA HAQUE MD ? HORMONES ?Collection Date: ?02/02/13 ?Collection Time: ?1400 ? Ref Range: ?? Units: [NEGATIVE] ?U ? NEGATIVE ?? END OF CHART ? Page: ?? 1 us Historical Provider MD LAB BLOOD ORDERABLES Jinny l Result HISTORICAL RESULTS documented in this encounter Visit Diagnoses Diagnosis Observation and evaluation for other specified suspected conditions Tobacco use disorder documented in this encounter
--- OUTSIDE RECORDS SUMMARY | 2024-07-17 18:33 | XMS_ITS | Encounter Summary ---
Author Organization [facility] Healthcare Address [address] [place] [address] Care Team Providers Care Healthcare Economics Consultant Name Role Phone Unavailable Primary Care Provider Unavailabl e Encounter Details Date Type Department Care Team (Late st Contact Info) Description 03/25/2015 11:54 AM CDT - 03/25/2015 2:12 PM CDT Hospital Encounter [facility] Sasha Rivers MD [address] [place] [address] Closed fracture of one rib; Pain in joint, lower leg; Fall from other slipping, tripping, or stumbling; Place of occurrence, home; Other external cause of injury or poisoning; Tobacco use disorder Social History Tobacco Use Types Packs/Day Years Used Date Smoking Tobacco: Never Assessed Comments Unknown Sex and Gender Information Value Date Recorded Sex Assigned at Not on file 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 Gender Identity Not on file Sexual Orientation Not on file documented as of this encounter Plan of Treatment Not on file documented as of this encounter Procedures Procedure Name Priority Date/Time Associated Diagnosis Comments XR KNEE 4+ VW Routine 03/25/2015 1:44 PM CDT XR RIBS + PA CHEST 3V Routine 03/25/2015 1:44 PM CDT documented in this encounter Results * XR Knee 4+ VW (03/25/2015 1:44 PM CDT) Anatomical Region Laterality Modality N/A Radiographic Marcelina ging 03/25/2015 1:44 PM CDT Narrative 03/25/2015 6:07 PM CDT XR Knee Min 4 Views L ??[id number] ??Acc#: ??[id number] DATE OF EXAM: ??Mar 25 2015 CLINICAL HISTORY: Anterior knee pain, status post fall. RESULT: Four views of the left knee demonstrates no acute site of fracture, dislocation or joint effusion. There is a small area of cortical thickening along the lateral distal shaft of the femur likely sequelae of a benign cortical osseous defect. IMPRESSION: 1. NO ACUTE FRACTURE, DISLOCATION OR EFFUSION. Interpreting Physician: ??JC SUAREZ M.D. ??Read on: ??Mar 25 2015 ??3:25P Transcribed by: ??ciro ??On: Mar 25 2015 ??5:20P Approved Electronically by: ??JC SUAREZ M.D. ??on: ??Mar 25 2015 ??6:07P Attending: ??SASHA HAQUE Requesting: ??MUÑOZ ([place]), GEO Requesting Fax: ??-- Attending Fax: ??-- Attending ID: ??[id number] Requesting ID: ??[id number] Report To 1 ID: ??[id number] Report To 1 Name: ??SASHA HAQUE Report To 1 FAX: ??-- NextGen Order #: Procedure Note Provider, MD Raghu - 11/29/2016 XR Knee Min 4 Views L [id number] Acc#: [id number] DATE OF EXAM: Mar 25 2015 CLINICAL HISTORY: Anterior knee pain, status post fall. RESULT: Four views of the left knee demonstrates no acute site of fracture,dislocation or joint effusion. There is a small area of corticalthickening along the lateral distal shaft of the femur likely sequelae ofa benign cortical osseous defect. IMPRESSION: 1. NO ACUTE FRACTURE, DISLOCATION OR EFFUSION. Interpreting Physician: JC SUAREZ M.D. Read on: Mar 25 2015 3:25P Transcribed by: ciro On: Mar 25 2015 5:20P Approved Electronically by: JC SUAREZ M.D. on: Mar 25 2015 6:07P Attending: SASHA HAQUE Requesting: GEO MUÑOZ ([place]) Requesting Fax: -- Attending Fax: -- Attending ID: [id number] Requesting ID: [id number] Report To 1 ID: [id number] Report To 1 Name: SASHA HAQUE Report To 1 FAX: -- NextGen Order #: Historical Provider MD RODRIGUES XR PROCEDURES Final R esult * XR Ribs And Pa Chest 3V (03/25/2015 1:44 PM CDT) Anatomical Region Laterality Modality Chest, Rib N/A Radiographic Marcelina ging 03/25/2015 1:44 PM CDT Narrative 03/25/2015 6:07 PM CDT XR Ribs UNI W PA Chest L ??[id number] ??Acc#: ??[id number] DATE OF EXAM: ??Mar 25 2015 CLINICAL HISTORY: Left rib pain, post fall. RESULT: AP and oblique images of the left ribs demonstrates no acute displaced left rib fracture. The accompanying PA chest correlated to the study dated 09/27/14 demonstrates a normal size heart, clear lungs and no pneumothorax. IMPRESSION: 1. NO ACUTE DISPLACED LEFT RIB FRACTURE. 2. PA CHEST: NO ACTIVE DISEASE. 2. PA CHEST: NO ACTIVE DISEASE. Interpreting Physician: ??JC SUAREZ M.D. ??Read on: ??Mar 25 2015 ??3:30P Transcribed by: ??ciro ??On: Mar 25 2015 ??5:21P Approved Electronically by: ??JC SUAREZ M.D. ??on: ??Mar 25 2015 ??6:07P Attending: ??SASHA HAQUE Requesting: ??WANDA ([place])GEO Requesting Fax: ??-- Attending Fax: ??-- Attending ID: ??[id number] Requesting ID: ??[id number] Report To 1 ID: ??[id number] Report To 1 Name: ??SASHA HAQUE Report To 1 FAX: ??-- NextGen Order #: Procedure Note Provider, MD Raghu - 11/29/2016 XR Ribs UNI W PA Chest L [id number] Acc#: [id number] DATE OF EXAM: Mar 25 2015 CLINICAL HISTORY: Left rib pain, post fall. RESULT: AP and oblique images of the left ribs demonstrates no acute displacedleft rib fracture. The accompanying PA chest correlated to the study date09/27/14 demonstrates a normal size heart, clear lungs and nopneumothorax. IMPRESSION: 1. NO ACUTE DISPLACED LEFT RIB FRACTURE. 2. PA CHEST: NO ACTIVE DISEASE. 2. PA CHEST: NO ACTIVE DISEASE. Interpreting Physician: JC SUAREZ M.D. Read on: Mar 25 2015 3:30P Transcribed by: ciro On: Mar 25 2015 5:21P Approved Electronically by: JC SUAREZ M.D. on: Mar 25 2015 6:07P Attending: SASHA HAQUE Requesting: GEO MUÑOZ ([place]) Requesting Fax: -- Attending Fax: -- Attending ID: [id number] Requesting ID: [id number] Report To 1 ID: [id number] Report To 1 Name: SASHA HAQUE Report To 1 FAX: -- NextGen Order #: us Historical Provider MD RODRIGUES XR PROCEDURES Final R esult documented in this encounter Visit Diagnoses Diagnosis Closed fracture of one rib Pain in joint, lower leg Fall from other slipping, tripping, or stumbling Place of occurrence, home Other external cause of injury or poisoning Tobacco use disorder documented in this encounter
--- OUTSIDE RECORDS SUMMARY | 2024-07-17 18:33 | XMS_ITS | Encounter Summary ---
Author Organization [facility] Healthcare Address [address] [place] [address] Care Team Providers Care Baseball Hand Sewer Name Role Phone Unavailable Primary Care Provider Unavailabl e Encounter Details Date Type Department Care Team (Late st Contact Info) Description 09/28/2007 4:50 PM STUDENT NURSE - 09/28/2007 11:59 PM STUDENT NURSE Hospital Encounter [facility] Social History Tobacco Use Types Packs/Day Years Used Date Smoking Tobacco: Never Assessed Comments Unknown Sex and Gender Information Value Date Recorded Sex Assigned at Not on file Legal Sex Female 8:20 AM STUDENT NURSE Gender Identity Not on file Sexual Orientation Not on file documented as of this encounter Plan of Treatment Not on file documented as of this encounter Visit Diagnoses Not on filedocumented in this encounter
--- OUTSIDE RECORDS SUMMARY | 2024-07-17 18:33 | XMS_ITS | Encounter Summary ---
Author Organization [facility] Healthcare Address [address] [place] [address] Care Team Providers Care Trimming Cutter Name Role Phone Unavailable Primary Care Provider Unavailabl e Encounter Details Date Type Department Care Team (Late st Contact Info) Description 07/15/2010 9:05 PM BUMBOATER - 07/15/2010 11:59 PM BUMBOATER Hospital Encounter [facility] Abnormal weight gain Social History Tobacco Use Types Packs/Day Years Used Date Smoking Tobacco: Never Assessed Comments Unknown Sex and Gender Information Value Date Recorded Sex Assigned at Not on file Legal Sex Female 8:20 AM BUMBOATER Gender Identity Not on file Sexual Orientation Not on file documented as of this encounter Plan of Treatment Not on file documented as of this encounter Visit Diagnoses Diagnosis Abnormal weight gain documented in this encounter
--- OUTSIDE RECORDS SUMMARY | 2024-07-17 18:33 | XMS_ITS | Encounter Summary ---
Author Organization [facility] Healthcare Address [address] [place] [address] Care Team Providers Care Machine Fur Cleaner Name Role Phone Unavailable Primary Care Provider Unavailabl e Encounter Details Date Type Department Care Team (Late st Contact Info) Description 06/05/2013 9:[address] DRILL OPERATOR - 06/05/2013 11:[address] DRILL OPERATOR Hospital Encounter [facility] Eder Cardenas MD [address] [address] Rand Ballard NP [address] [facility] [place] [address] Asthma with exacerbation Social History Tobacco Use Types Packs/Day Years Used Date Smoking Tobacco: Never Assessed Comments Unknown Sex and Gender Information Value Date Recorded Sex Assigned at Not on file Legal Sex Female 8:[address] DRILL OPERATOR Gender Identity Not on file Sexual Orientation Not on file documented as of this encounter Plan of Treatment Not on file documented as of this encounter Procedures Procedure Name Priority Date/Time Associated Diagnosis Comments PULMONARY FUNCTION TEST (PFT) 06/05/2013 PULMONARY FUNCTION TEST (PFT) Routine 06/05/2013 12:[address] DRILL OPERATOR documented in this encounter Results * PULMONARY FUNCTION TEST (06/05/2013) Anatomical Region Laterality Modality PFT Narrative 06/05/2013 Ordered by an unspecified provider. us Historical Provider PFT ORDERABLES Final Res ult * Pulmonary function test (06/05/2013 12:[address] DRILL OPERATOR) Anatomical Region Laterality Modality PFT 06/05/2013 Narrative 06/10/2013 12:[address] DRILL OPERATOR ?PULMONARY FUNCTION REPORT Patient: ??LAILA DEL ANGEL Account: ??[id number] ? Room No: : ?1985 ? Patient Type: ?ANC Attend.: ??Eder Pepper M.D. ? Admit Date: ??06/05/2013 Dict.: ?Elias Magdaleno M.D. ?Disch. Date: 06/05/2013 DATE OF PROCEDURE: ??06/05/13 DATE OF DICTATION: ??06/07/13 1. The flow-volume curves show mild airflow obstruction. ??A positive bronchodilator response is demonstrated. 2. The volume study was ??done using plethysmograph. ??This was normal. There was no restriction. 3. Diffusion capacity was normal. 4. Airways resistance was normal. IMPRESSION: ??Very mild airways obstruction with a positive bronchodilator response. Elias Magdaleno M.D. MY/tlt Job #: ??[id number] DD: ??06/07/2013 13:52 TD: ??06/07/2013 15:59 Authenticated by Elias Magdaleno MD On 06/10/2013 11:44:51 AM us Historical Provider MD PFT ORDERABLES Final Res ult documented in this encounter Visit Diagnoses Diagnosis Asthma with exacerbation Unspecified asthma, with exacerbation documented in this encounter
--- OUTSIDE RECORDS SUMMARY | 2024-07-17 18:33 | XMS_ITS | Encounter Summary ---
Author Organization [facility] Healthcare Address [address] [place] [address] Care Team Providers Care Supervisor Metal Furniture Fabrication Name Role Phone Elio Rand Figueredo TRANSFER TABLE OPERATOR HELPER Primary Care Provider + Encounter Details Date Type Department Care Team (Latest Contact Info) Description 02/19/2020 11:36 PM CDT - 02/19/2020 11:59 PM CDT Hospital Encounter [facility] Discharge Disposition: Discharge to home or self care Social History Tobacco Use Types Packs/Day Years Used Date Smoking Tobacco: Never Assessed Comments Yes Sex and Gender Information Value Date Recorded Sex Assigned at Not on file 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 Gender Identity Not on file Sexual Orientation Not on file documented as of this encounter Medications at Time of Discharge pantoprazole DR (PROTONIX) 40 mg EC tablet TK 1 T PO QD UTD 01/23/2020 albuterol HFA (PROVENTIL HFA,VENTOLIN HFA,PROAIR HFA) 90 mcg/actuation inhaler Inhale 2 puffs every 6 (six) hours as needed 07/28/2020 albuterol HFA (PROVENTIL HFA,VENTOLIN HFA,PROAIR HFA) 90 mcg/actuation inhaler INL 2 PFS PO Q 4 TO 6 H PRN 02/11/2020 02/21/2020 docusate sodium (COLACE) 100 mg capsuleIndication s:constipation,St [...] needed for pain 60 tablet 02/21/2020 05/13/2020 NIFEdipine (PROCARDIA) 20 mg capsule Take 20 mg by mouth every 4 (four) hours as needed 02/21/2020 NIFEdipine (PROCARDIA) 20 mg capsule TK 1 C PO Q 4 H 02/10/2020 02/20/2020 vit-iron fum-folic ac 28 mg iron- 800 mcg tablet Take 1 tablet by mouth daily 05/13/2020 documented as of this encounter Discharge Disposition Disposition Code Departure Means Destination Discharge to home or self care documented in this encounter Plan of Treatment Not on file documented as of this encounter Visit Diagnoses Not on filedocumented in this encounter Care Teams Supervisor Metal Furniture Fabrication Relationship Specialty Start Date End Date Rand Ballard NP PCP - General 05/01/17 05/12/20 documented as of this encounter
--- OUTSIDE RECORDS SUMMARY | 2024-07-17 18:33 | XMS_ITS | Encounter Summary ---
Author Organization [facility] Facility Care Team Providers Care Physical Biochemist Name Role Phone Rand Ballard CELL GENETICIST Primary Care Provider + Encounter Details Date Type Department Care Team (Latest Contact Info) Description 02/21/2020 Encounter Social History Tobacco Use Types Packs/Day Years Used Date Smoking Tobacco: Every Day Cigarettes Alcohol Use Standard Drinks/Week Comments Not Currently 0 (1 standard drink = 0.6 oz pur e alcohol) Comments No Sex and Gender Information Value Date Recorded Sex Assigned at Not on file Legal Sex Female 8:20 AM HAM TRIMMER Gender Identity Not on file Sexual Orientation Not on file documented as of this encounter Miscellaneous Notes * Note - Maricarmen Reyes RN - 02/21/2020 5:58 PM CDT This note was copied from a baby's chart. Consult Note Patient name: Ted Hart Date of : 02/19/2020 Today's Date: 02/21/2020 Admission Date: 02/20/2020 2:33 AM This patient has no babies on file. Assessment: Reason for Consult: Initial assessment Nutrition Plans: Breast milk Contraindications: No, May Feed Breastmilk Has mother breastfed before?: Yes Previous Maternal Challenges: Low milk supply class: No Infant to breast within first hour of ?: No Delayed Due to: Infant status Exclusive Pump and Bottle Feed: No WIC Program: No Tools: Lanolin, Pump, Flanges Pump: Manual, Electric, Personal Pump Review/Education: Setup, frequency, and cleaning, Milk storage Initiated by: Phil Reyes Date Initiated: 02/21/20 Consult Status: Complete Current Challenges: Blood loss and transfusion History of low milk supply and problems Delay in initiation greater than 6 hours Comments: Reviewed guide, pump settings, and vouchers. Mom pumping at the bedside for thefirst time in about 24 hours. Mom encouraged to pump every 2- 3 hours around the clock. Reviewed risk factors for a low supply. Mom excited to provide. Mom states she has a personal pump at home that was donated to her but that she is unsure of how to use it. Mom knows to request a personal pump thro ugh her insurance. Mom was given a loaner pump and a contract was signed. Loaner pump setup and settings were explained. Mom states she has no questions or concerns at this time. Thanks. Mom had a positive drug screen obtained after her emergency . MD team was made aware and they are okay with maternal milk being provided. Maricarmen Reyes RN 02/21/2020 5:58 PM documented in this encounter Plan of Treatment Not on file documented as of this encounter Visit Diagnoses Not on filedocumented in this encounter Care Teams Physical Biochemist Relationship Specialty Start Date End Date Rand Ballard NP PCP - General 05/01/17 05/12/20 documented as of this encounter
--- OUTSIDE RECORDS SUMMARY | 2024-07-17 18:33 | XMS_ITS | Encounter Summary ---
Author Organization [facility] Healthcare Address [address] [place] [address] Care Team Providers Care Air Plant Engineer Name Role Phone Unavailable Primary Care Provider Unavailabl e Encounter Details Date Type Department Care Team (Late st Contact Info) Description 03/27/2013 10:49 PM CDT - 03/28/2013 2:00 AM CDT Hospital Encounter [facility] Mitch Cedeño MD 1 [facility] [place] [address] [place] [id number] Asthma Social History Tobacco Use Types Packs/Day Years Used Date Smoking Tobacco: Never Assessed Comments Unknown Sex and Gender Information Value Date Recorded Sex Assigned at Not on file 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
--- OUTSIDE RECORDS SUMMARY | 2024-07-17 18:33 | XMS_ITS | Encounter Summary ---
Author Organization [facility] Address [address] [place] [address] Care Team Providers Care Debt Counselor Name Role Phone July Herron NP Primary Care Provider [phone] Reason for Visit * Reason Comments Asthma Anxiety/Depression Encounter Details Date Type Department Care Team (Late st Contact Info) Description 05/13/2020 4:00 PM CDT Office Visit [facility] [address] [place] [address] July Herron NP [facility] [place] [address] Severe persistent asthma with acute exacerbation (Primary Dx); HSV (herpes simplex virus) infection; Gastroesophageal reflux disease, unspecified whether esophagitis present; Chronic constipation; Moderate episode of recurrent major depressive disorder (CMS/HCC); Anxiety; BMI 29.0-29.9,adult; Myalgia Social History Tobacco Use Types Packs/Day Years [...] on file 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 Gender Identity Not on file Sexual Orientation Not on file documented as of this encounter Last Filed Vital Signs Vital Sign Reading Time Taken Comments Blood Pressure 118/68 05/13/2020 4:12 PM CDT Pulse 77 05/13/2020 4:12 PM CDT Temperature 36.5 ??C (97.7 ??F) 05/13/2020 4:12 PM CD T Respiratory Rate 12 05/13/2020 4:12 PM CDT Oxygen Saturation 98% 05/13/2020 4:12 PM CDT Inhaled Oxygen Concentration - - Weight 80.4 kg (177 lb 3.2 oz) 05/13/2020 4:12 P M CDT Height 170.2 cm (5' 7 ) 05/13/2020 4:12 PM CDT Body Mass Index 27.75 05/13/2020 4:12 PM CDT documented in this encounter Patient Instructions * Patient Instructions* July Herron NP - 05/13/2020 4:00 PM CDT Patient ID: Dior Hart is a 34 y.o. female. Assessment/Plan Diagnoses and all orders for this visit: Severe persistent asthma with acute exacerbation (Primary) Assessment & Plan: HPI: Condition is worsening pt is uncontrolled. Using rescue inhaler 10 times a day and nebulizer about 2-4 times a night. She is taking the symbicort 2 puffs twice daily. A&P: Discussed/ordered labs, encouraged healthy, low carbohydrate lifestyle and at least 150min/week of exercise, pt understands that her asthma is dangerously out of control. Discussed the risksup to and including with patient of the overuse of albuterol. Pt states understanding. We will refer to Dr. Guevara (pulmonology) We will have her continue on symbicort 2 puffs twice daily for maintenance. We will also have her start on spiriva 2 puffs once daily. Encouraged pt to use spacer with inhalers so the medication goes into her lungs instead of the backof her throat. Continue to use the albuterol as needed for rescue only. Discussed with pt that if she is using thealbuterol more than 2xwk, her controller medications are not working well enough. But while she is starting on the new controller meds and awating appointment with pulmonology, if she needs the albuterol more, she may take it to prevent hospitalization. We will give prednisone 40mg daily x 5 days to try to break the cycle of inflammation. Side effectsdiscussed. Go to ER if you are having more difficulty breathing. Orders: - Ambulatory referral to Pulmonology; Future - CBC with auto differential; Future - Comprehensive metabolic panel; Future HSV (herpes simplex virus) infection Assessment & Plan: HPI: Condition is worsening , has current outbreak on lower lip. A&P: Discussed/ordered labs, encouraged healthy, low carbohydrate lifestyle and at least 150min/week of exercise, take valacyclovir 2000mg now and again in 12 hours. You can use this as needed for oral breakouts. Pt denies vaginal outbreak at this time. Gastroesophageal reflux disease, unspecified whether esophagitis present Assessment & Plan: HPI: Condition is improving Continue on current meds-famotidine as needed, encouraged healthy diet and exercise Avoid trigger foods including: carbonated beverages, caffeine, spicy, fried foods, tomatoes, cucumbers, and mint Avoid eating/drinking anything for at least 2 hours before bed. Sleep with bed propped. Chronic constipation Assessment & Plan: For the constipation, push fluids, for the [...] hot drink, can also improve the situation exterminator helper termite. May use docusate as needed. Moderate episode of recurrent major depressive disorder (CMS/HCC) Assessment & Plan: Pt had placenta previa with hemorrhage February 19, 2020. She had a lot of bleeding. Baby lost oxygen. She had a month early. Baby was sent to [facility] and was in a different hospital for 4 days. Then mom was released and they kept pt in [facility] for 14 days. She has a tubal [...] Trial back on melatonin 3mg nightly Anxiety Assessment & Plan: Pt had placenta previa with hemorrhage February 19, 2020. She had a lot of bleeding. Baby lost oxygen. She had a month early. Baby was sent to [facility] and was in a different hospital for 4 days. Then mom was released and they kept pt in [facility] for 14 days. She has a tubal [...] lifestyle and at least 150min/week of exercise Orders: - TSH; Future BMI 29.0-29.9,adult Assessment & Plan: HPI: Condition is improving , pt had [...] in much longer they will become mushy Leonard and/or coconut flour instead of regular flour [...] for recipe ideas. Type in low carb... Orders: - Lipid panel; Future Myalgia - Vitamin D 25 hydroxy; Future Other orders - tiotropium bromide (SPIRIVA RESPIMAT) 2.5 mcg/actuation inhaler; Inhale 2 puffs daily - inhalational spacing device (Aerochamber with Flowsignal) spacer; Use as directed with inhalers - predniSONE (DELTASONE) 20 mg tablet; Take 2 tablets (40 mg) by mouth daily with breakfast for 5 days - valACYclovir (VALTREX) 1 gram tablet; Take 2 tablets (2,000 mg total) by mouth 2 (two) times a day for 1 day - sertraline (ZOLOFT) 100 mg tablet; Take 1 tablet (100 mg total) by mouth daily - docusate sodium (COLACE) 100 mg capsule; Take 1 capsule (100 mg total) by mouth 2 (two) times a day as needed for constipation Follow up 6 Weeks documented in this encounter Ordered Prescriptions Prescription Sig Dispense Quantity Refills Last Filled Start Date End Date docusate sodium (COLACE) 100 mg capsuleIndication s:constipation,St ool Softener Take 1 capsule (100 mg total) by mouth 2 (two) times a day as needed for constipation 60 capsule 3 05/13/2020 tiotropium bromide (SPIRIVA RESPIMAT) 2.5 mcg/actuation inhalerIndication s:Maintenance Therapy for Asthma Inhale 2 puffs daily 1 Inhaler 1 05/13/2020 sertraline (ZOLOFT) 100 mg tablet Take 1 tablet (100 mg total) by mouth daily 90 tablet 05/13/2020 1 valACYclovir (VALTREX) 1 gram tablet Take 2 tablets (2,000 mg total) by mouth 2 (two) times a day for 1 day 4 tablet 6 05/13/2020 0 predniSONE (DELTASONE) 20 mg tablet Take 2 tablets (40 mg) by mouth daily with breakfast for 5 days 10 tablet 05/13/2020 0 inhalational spacing device (Aerochamber with Flowsignal) spacer Use as directed with inhalers 1 each 05/13/2020 1 documented in this encounter Progress Notes * July Herron NP - 05/13/2020 4:00 PM CDT Images from the original note were not included. Subjective/Objective Patient ID: Dior Hart is a 34 y.o. female. Assessment/Plan Diagnoses and all orders for this visit: Severe persistent asthma with acute exacerbation (Primary) Assessment & Plan: HPI: Condition is worsening pt is uncontrolled. Using rescue inhaler 10 times a day and nebulizer about 2-4 times a night. She is taking the symbicort 2 puffs twice daily. A&P: Discussed/ordered labs, encouraged healthy, low carbohydrate lifestyle and at least 150min/week of exercise, pt understands that her asthma is dangerously out of control. Discussed the risksup to and including with patient of the overuse of albuterol. Pt states understanding. We will refer to Dr. Guevara (pulmonology) We will have her continue on symbicort 2 puffs twice daily for maintenance. We will also have her start on spiriva 2 puffs once daily. Encouraged pt to use spacer with inhalers so the medication goes into her lungs instead of the backof her throat. Continue to use the albuterol as needed for rescue only. Discussed with pt that if she is using thealbuterol more than 2xwk, her controller medications are not working well enough. But while she is starting on the new controller meds and awating appointment with pulmonology, if she needs the albuterol more, she may take it to prevent hospitalization. We will give prednisone 40mg daily x 5 days to try to break the cycle of inflammation. Side effectsdiscussed. Go to ER if you are having more difficulty breathing. Orders: - Ambulatory referral to Pulmonology; Future - CBC with auto differential; Future - Comprehensive metabolic panel; Future HSV (herpes simplex virus) infection Assessment & Plan: HPI: Condition is worsening , has current outbreak on lower lip. A&P: Discussed/ordered labs, encouraged healthy, low carbohydrate lifestyle and at least 150min/week of exercise, take valacyclovir 2000mg now and again in 12 hours. You can use this as needed for oral breakouts. Pt denies vaginal outbreak at this time. Gastroesophageal reflux disease, unspecified whether esophagitis present Assessment & Plan: HPI: Condition is improving Continue on current meds-famotidine as needed, encouraged healthy diet and exercise Avoid trigger foods including: carbonated beverages, caffeine, spicy, fried foods, tomatoes, cucumbers, and mint Avoid eating/drinking anything for at least 2 hours before bed. Sleep with bed propped. Chronic constipation Assessment & Plan: For the constipation, push fluids, for the [...] hot drink, can also improve the situation halfway. May use docusate as needed. Moderate episode of recurrent major depressive disorder (CMS/HCC) Assessment & Plan: Pt had placenta previa with hemorrhage February 19, 2020. She had a lot of bleeding. Baby lost oxygen. She had a month early. Baby was sent to [facility] and was in a different hospital for 4 days. Then mom was released and they kept pt in [facility] for 14 days. She has a tubal [...] Trial back on melatonin 3mg nightly Anxiety Assessment & Plan: Pt had placenta previa with hemorrhage February 19, 2020. She had a lot of bleeding. Baby lost oxygen. She had a month early. Baby was sent to [facility] and was in a different hospital for 4 days. Then mom was released and they kept pt in [facility] for 14 days. She has a tubal [...] lifestyle and at least 150min/week of exercise Orders: - TSH; Future BMI 29.0-29.9,adult Assessment & Plan: HPI: Condition is improving , pt had [...] in much longer they will become mushy Leonard and/or coconut flour instead of regular flour [...] ice cream, try the brand [employer] for recipe ideas. Type in low carb... Orders: - Lipid panel; Future Myalgia - Vitamin D 25 hydroxy; Future Other orders - tiotropium bromide (SPIRIVA RESPIMAT) 2.5 mcg/actuation inhaler; Inhale 2 puffs daily - inhalational spacing device (Aerochamber with Flowsignal) spacer; Use as directed with inhalers - predniSONE (DELTASONE) 20 mg tablet; Take 2 tablets (40 mg) by mouth daily with breakfast for 5 days - valACYclovir (VALTREX) 1 gram tablet; Take 2 tablets (2,000 mg total) by mouth 2 (two) times a day for 1 day - sertraline (ZOLOFT) 100 mg tablet; Take 1 tablet (100 mg total) by mouth daily - docusate sodium (COLACE) 100 mg capsule; Take 1 capsule (100 mg total) by mouth 2 (two) times a day as needed for constipation 80Minutes spent with patient with 50% of time spent in counseling and/or coordination of care with patient regarding appropriate medication use, type of medications, side effects, treatment options, referrals for specialty care, potential adverse events from misuse of or mistreatment of her asthma and depression. Follow up 6 Weeks Chief Complaint Asthma and Anxiety/Depression Pt was given buspirone for rescue from anxiety and sertraline the beginning of February 2020 by her ACCREDITATION SPECIALIST. She did not feel like the sertraline has been helping. Her previous PCP then saw her and gave her duloxetine about 6 wks ago. When she followed up with her ACCREDITATION SPECIALIST about Apr 01 and told her to stop the duloxetine and go back on the sertraline. She states she didn't stop the duloxetine in the past.Pt is taking the buspirone 2-4 times a week. She has been on lexapro, celexa, duloxetine and paxil in the past without relief of symptoms. Pt is a current smoker. 3-4 cig/day. Asthma She complains of chest tightness, cough, difficulty breathing (worse for the last month), frequent throat clearing, hoarse voice, shortness of breath (can't tell if it is her asthma or anxiety), sputum production and wheezing. There is no hemoptysis. This is a chronic problem. The current episode started more than 1 month ago. The problem occurs constantly. The problem has been gradually worsening. The cough is productive of sputum, productive and dry. Associated symptoms include chest pain, dyspnea on exertion, heartburn, malaise/fatigue, myalgias, nasal congestion, orthopnea, PND, postnasaldrip, rhinorrhea, sneezing, a sore throat (in the ams) and trouble swallowing (in the midst of asthma attack). Pertinent negatives include no ear congestion, ear pain, fever or headaches. Her symptoms are aggravated by animal exposure, any activity, change in weather, climbing stairs, emotional stress, exercise, exposure to fumes, exposure to smoke, lying down, minimal activity, strenuous activity and URI (she has 5 dogs, but they are outside, dust, if she gets hot). Her symptoms are alleviatedby OTC cough suppressant, beta-agonist and cold air. She reports moderate improvement on treatment.Risk factors for lung disease include smoking/tobacco exposure. Her past medical history is significant for asthma. Depression Visit Type: follow-up Patient presents with the following symptoms: anhedonia, chest pain, choking sensation, decreased concentration, depressed mood, excessive worry, fatigue, feelings of hopelessness, feelings of worthlessness, insomnia, irritability, muscle tension, nervousness/anxiety, palpitations, panic, restlessness and shortness of breath (can't tell if it is her asthma or anxiety). Patient is not experiencing: hypersomnia, suicidal ideas, suicidal planning and thoughts of . Frequency of symptoms: constantly Severity: moderate (moderate/severe) Sleep per night: 4 hours (wakes up hourly from dreams) Sleep quality: poor Nighttime awakenings: several Patient has a history of: asthma Compliance with medications: 76-100% Review of Systems Constitutional: Positive for diaphoresis, fatigue, irritability and malaise/fatigue. Negative for chills and fever. HENT: Positive for hoarse voice, postnasal drip, rhinorrhea, sneezing, sore throat (in the ams) andtrouble swallowing (in the midst of asthma attack). Negative for ear pain. Eyes: Negative for pain, discharge and itching. Respiratory: Positive for cough, sputum production, choking, chest tightness, shortness of breath (can't tell if it is her asthma or anxiety) and wheezing. Negative for hemoptysis. Cardiovascular: Positive for chest pain, dyspnea on exertion, palpitations and PND. Negative for leg swelling. Gastrointestinal: Positive for constipation and heartburn. Negative for abdominal distention and abdominal pain. Endocrine: Negative for cold intolerance and heat intolerance. Genitourinary: Negative for difficulty urinating, dysuria, genital sores, vaginal bleeding and vaginal discharge. Musculoskeletal: Positive for arthralgias, back pain, gait problem (for the first 5-6 steps it hurts to walk. the bottom of her feet hurt. ), myalgias and neck pain. Skin: Negative for rash and wound. Allergic/Immunologic: Positive for environmental allergies. Negative for immunocompromised state. Neurological: Positive for dizziness (off and on). Negative for syncope, speech difficulty and headaches. Hematological: Negative for adenopathy. Does not bruise/bleed easily. Psychiatric/Behavioral: Positive for agitation, decreased concentration, dysphoric mood and sleep disturbance. Negative for hallucinations, self-injury and suicidal ideas. The patient is nervous/anxious and has insomnia. Breast: Negative for breast discharge and lump(s). BP 118/68 (BP Location: Left arm, Patient Position: Sitting) Pulse 77 Temp 36.5 ??C (97.7 ??F) (Tympanic) Resp 12 Ht 170.2 cm (5' 7 ) Wt 80.4 kg (177 lb 3.2 oz) LMP 06/15/2019 SpO2 98% BMI 27.75 kg/m?? Physical Exam Constitutional: General: She is not in acute distress. Appearance: She is well-developed. HENT: Head: Normocephalic. Hair is normal. Jaw: There is normal jaw occlusion. Salivary Glands: Right salivary gland is not tender. Left salivary gland is not tender. Right Ear: Tympanic membrane normal. No middle ear effusion. Tympanic membrane is not erythematous. Left Ear: Tympanic membrane normal. No middle ear effusion. Tympanic membrane is not erythematous. Nose: Nose normal. Right Turbinates: Swollen. Left Turbinates: Swollen. Right Sinus: No maxillary sinus tenderness or frontal sinus tenderness. Left Sinus: No maxillary sinus tenderness or frontal sinus tenderness. Mouth/Throat: Lips: Lesions (across bottom of lip) present. Mouth: Mucous membranes are moist. Oral lesions present. Dentition: Does not have dentures. Dental caries present. Tongue: No lesions. Tongue does not deviate from midline. Palate: No mass and lesions. Pharynx: Oropharynx is clear. Uvula midline. No pharyngeal swelling or posterior oropharyngeal erythema. Eyes: General: Lids are normal. Allergic shiner present. Extraocular Movements: Right eye: Normal extraocular motion and no nystagmus. Left eye: Normal extraocular motion and no nystagmus. Conjunctiva/sclera: Conjunctivae normal. Right eye: Right conjunctiva is not injected. No exudate. Left eye: Left conjunctiva is not injected. No exudate. Pupils: Pupils are equal, round, and reactive to light. Neck: Musculoskeletal: Normal range of motion. No edema, erythema, neck rigidity or torticollis. Thyroid: No thyroid mass. Vascular: No carotid bruit. Trachea: Trachea normal. No tracheal tenderness. Cardiovascular: Rate and Rhythm: Normal rate and regular rhythm. Pulses: Normal pulses. Heart sounds: No murmur. Pulmonary: Effort: Pulmonary effort is normal. No accessory muscle usage or respiratory distress. Breath sounds: Normal breath sounds. No stridor, decreased air movement or transmitted upper airwaysounds. No decreased breath sounds, wheezing, rhonchi or rales. Abdominal: General: Bowel sounds are normal. There is no distension or abdominal bruit. Palpations: Abdomen is soft. There is no shifting dullness, hepatomegaly or splenomegaly. Tenderness: There is no abdominal tenderness. Hernia: No hernia is present. Musculoskeletal: Normal range of motion. Right lower leg: No edema. Left lower leg: No edema. Lymphadenopathy: Head: Right side of head: No submental, submandibular, tonsillar, preauricular, posterior auricular or occipital adenopathy. Left side of head: No submental, submandibular, tonsillar, preauricular, posterior auricular or occipital adenopathy. Cervical: No cervical adenopathy. Right cervical: No superficial, deep or posterior cervical adenopathy. Left cervical: No superficial, deep or posterior cervical adenopathy. Skin: General: Skin is warm and dry. Capillary Refill: Capillary refill takes less than 2 seconds. Coloration: Skin is not ashen, cyanotic, jaundiced, mottled or pale. Findings: No abrasion, abscess, ecchymosis, erythema or laceration. Nails: There is no clubbing. Neurological: Mental Status: She is alert and oriented to person, place, and time. Sensory: Sensation is intact. Motor: Motor function is intact. Coordination: Coordination is intact. Gait: Gait is intact. Psychiatric: Attention and Perception: Attention and perception normal. Mood and Affect: Mood is anxious and depressed. Affect is flat. Speech: Speech normal. Behavior: Behavior normal. Thought Content: Thought content does not include homicidal or suicidal ideation. Cognition and Memory: Cognition normal. Judgment: Judgment normal. July Herron NP Cosigned by Rad Mcclellan MD at 05/18/2020 9:07 PM CDT documented in this encounter Miscellaneous Notes * Assessment & Plan Note - July Herron NP - 05/13/2020 5:33 PM CDTAssociated Problem(s): GERD (gastroesophageal reflux disease) HPI: Condition is improving Continue on current meds-famotidine as needed, encouraged healthy diet and exercise Avoid trigger foods including: carbonated beverages, caffeine, spicy, fried foods, tomatoes, cucumbers, and mint Avoid eating/drinking anything for at least 2 hours before bed. Sleep with bed propped. * Assessment & Plan Note - July Herron NP - 05/13/2020 5:31 PM CDTAssociated Problem(s): Chronic constipation For the constipation, push fluids, for the [...] hot drink, can also improve the situation exterminator helper termite. May use docusate as needed. * Assessment & Plan Note - July Herron NP - 05/13/2020 5:31 PM CDTAssociated Problem(s): Anxiety Pt had placenta previa with hemorrhage February 19, 2020. She had a lot of bleeding. Baby lost oxygen. She had a month early. Baby was sent to [facility] and was in a different hospital for 4 days. Then mom was released and they kept pt in [facility] for 14 days. She has a tubal [...] lifestyle and at least 150min/week of exercise * Assessment & Plan Note - July Herron NP - 05/13/2020 5:24 PM CDTAssociated Problem(s): HSV (herpes simplex virus) infection HPI: Condition is worsening , has current outbreak on lower lip. A&P: Discussed/ordered labs, encouraged healthy, low carbohydrate lifestyle and at least 150min/week of exercise, take valacyclovir 2000mg now and again in 12 hours. You can use this as needed for oral breakouts. Pt denies vaginal outbreak at this time. * Assessment & Plan Note - July Herron NP - 05/13/2020 5:15 PM CDTAssociated Problem(s): Severe persistent asthma with acute exacerbation HPI: Condition is worsening pt is uncontrolled. [...] of the overuse of albuterol. Pt states unde rstanding. We will refer to Dr. Guevara (pulmonology) We will have her continue on symbicort 2 puffs twice daily for maintenance. We will also have her start on spiriva 2 puffs once daily. Encouraged pt to use spacer with inhalers so the medication goes into her lungs instead of the backof her throat. Continue to use the albuterol as needed for rescue only. Discussed with pt that if she is using thealbuterol more than 2xwk, her controller medications are not working well enough. But while she is starting on the new controller meds and awating appointment with pulmonology, if she needs the albuterol more, she may take it to prevent hospitalization. We will give prednisone 40mg daily x 5 days to try to break the cycle of inflammation. Side effectsdiscussed. Go to ER if you are having more difficulty breathing. * Assessment & Plan Note - July Herron NP - 05/13/2020 4:27 PM CDTAssociated Problem(s): Moderate episode of recurrent major depressive disorder (HCC) Pt had placenta previa with hemorrhage February 19, 2020. She had a lot of bleeding. Baby lost oxygen. She had a month early. Baby was sent to [facility] and was in a different hospital for 4 days. Then mom was released and they kept pt in [facility] for 14 days. She has a tubal [...] exercise Trial back on melatonin 3mg nightly * Assessment & Plan Note - July Herron NP - 05/13/2020 7:52 AM CDTAssociated Problem(s): BMI 29.0-29.9,adult HPI: Condition is improving , pt had [...] in much longer they will become mushy Leonard and/or coconut flour instead of regular flour [...] for recipe ideas. Type in low carb... documented in this encounter Plan of Treatment Not on file documented as of this encounter Visit Diagnoses Diagnosis Severe persistent asthma with acute exacerbation- Primary HSV (herpes simplex virus) infection Herpes simplex without mention of complication Gastroesophageal reflux disease, unspecified whether esophagitis present Chronic constipation Unspecified constipation Moderate episode of recurrent major depressive disorder (HCC) Anxiety Anxiety state, unspecified BMI 29.0-29.9,adult Myalgia Unspecified myalgia and myositis documented in this encounter Discontinued Medications Medication Sig Discontinue Reason Start Date End Da te HYDROcodone-acetaminophe n (NORCO) 5-325 mg per tabletIndications:Pain Take 1 tablet by mouth every 4 (four) hours as needed for pain Therapy completed 02/21/2020 05/13/2020 ibuprofen (ADVIL,MOTRIN) 600 mg tabletIndications:Pain Take 1 tablet (600 mg total) by mouth every 6 (six) hours as needed for pain Therapy completed 02/21/2020 05/13/2020 vit-iron fum-folic ac 28 mg iron- 800 mcg tablet Take 1 tablet by mouth daily Therapy completed 05/13/[address] (CYMBALTA) 30 mg capsule Take 30 mg by mouth daily Alternate therapy 05/13/2020 docusate sodium (COLACE) 100 mg capsuleIndications:const ipation,Stool Softener Take 1 capsule (100 mg total) by mouth 2 (two) times a day Reorder 02/21/2020 05/13/2020 sertraline (ZOLOFT) 50 mg tablet Take 50 mg by mouth daily Reorder 05/13/2020 documented as of this encounter Historical Medications * This list may reflect changes made after this encounter. ipratropium-albute roL (DUO-NEB) 0.5-2.5 mg/3 mL nebulizer solutionIndication s:Chronic Obstructive Pulmonary Disease with Bronchospasms Take by nebulization every 6 (six) hours budesonide-formote roL (Symbicort) 160-4.5 mcg/actuation inhaler Inhale 2 puffs 2 (two) times a day Rinse mouth with water after use. Do not swallow. albuterol 2.5 mg /3 mL (0.083 %) nebulizer solution Take 2.5 mg by nebulization every 6 (six) hours as needed for wheezing 07/29/20 20 sertraline (ZOLOFT) 50 mg tablet Take 50 mg by mouth daily 05/13/20 20 busPIRone (BUSPAR) 5 mg tabletIndications: Generalized Anxiety Disorder Take 5 mg by mouth 2 (two) times a day 09/24/[address] (CYMBALTA) 30 mg capsule Take 30 mg by mouth daily 05/13/20 20 added in this encounter Care Teams Debt Counselor Relationship Specialty Start Date End Date July Herron NP PCP - General Family Medicine 05/13/20 06/01/21 documented as of this encounter
--- OUTSIDE RECORDS SUMMARY | 2024-07-17 18:33 | XMS_ITS | Encounter Summary ---
Author Organization [facility] Healthcare Address [address] [place] [address] Care Team Providers Care Senior Software Project Manager Name Role Phone ElioRand márquez Bea GANG SUPERVISOR PIPE LINES Primary Care Provider + Encounter Details Date Type Department Care Team (Late st Contact Info) Description 05/01/2017 11:55 AM CDT - 05/01/2017 3:24 PM CDT [facility] Emergency Department [address] [place] [address] Collins Lees MD [address] [place] [address] Discharge Disposition: Discharge to home or self care Social History Tobacco Use Types Packs/Day Years Used Date Smoking Tobacco: Never Assessed Comments Unknown Sex and Gender Information Value Date Recorded Sex Assigned at Not on file 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 Gender Identity Not on file Sexual Orientation Not on file documented as of this encounter Discharge Disposition Disposition Code Departure Means Destination Discharge to home or self care documented in this encounter Plan of Treatment Not on file documented as of this encounter Procedures Procedure Name Priority Date/Time Associated Diagnosis Comments XR CHEST PA LATERAL 2 VIEWS Routine 05/01/2017 7:33 PM CDT documented in this encounter Results * XR Chest Pa Lateral 2 Views (05/01/2017 7:33 PM CDT) Anatomical Region Laterality Modality Body, Chest N/A Radiographic Marcelina ging 05/01/2017 7:33 PM CDT Narrative 05/01/2017 7:33 PM CDT XR Chest 2 Views ?[id number] ??Acc#: ??[id number] DATE OF EXAM: ??Oct ??2 2017 ?? XR Chest 2 Views ?[id number] HISTORY: Cough. COMPARISON: 03/25/2015 FINDINGS: Heart size is normal. ??Lungs are clear. IMPRESSION: NO ACTIVE DISEASE. Electronically signed by: Jc Restrepo M.D. Interpreting Physician: ??JC RESTREPO M.D. ??Read on: ??Oct ??2 2017 ??2:57P Transcribed by: ??PSC ??On: Oct ??2 2017 ??2:55P Approved Electronically by: ??JC RESTREPO M.D. ??on: ??Oct ??2 2017 ??2:55P Ordering DR: COLLINS LEES Attending DR: COLLINS LEES Attending: ??COLLINS LEES Requesting: ??COLLINS LEES Requesting Fax: ??-- Attending Fax: ??[phone] Attending ID: ??[id number] Requesting ID: ??[id number] Report To 1 ID: ??[id number] Report To 1 Name: ??COLLINS LEES Report To 1 FAX: ??-- NextGen Order #: ?? Procedure Note Miscellaneous, Not In File / Provider, MD Raghu - 05/01/2017 XR Chest 2 Views [id number] Acc#: [id number] DATE OF EXAM: May 01 2017 XR Chest 2 Views [id number] HISTORY: Cough. COMPARISON: 03/25/2015 FINDINGS: Heart size is normal. Lungs are clear. IMPRESSION: NO ACTIVE DISEASE. Electronically signed by: Jc Restrepo M.D. Interpreting Physician: JC RESTREPO M.D. Read on: May 01 2017 2:57P Transcribed by: PSC On: May 01 2017 2:55P Approved Electronically by: JC RESTREPO M.D. on: May 01 2017 2:55P Ordering DR: COLLINS LEES Attending DR: COLLINS LEES Attending: COLLINS LEES Requesting: COLLINS LEES Requesting Fax: -- Attending Attending ID: [id number] Requesting ID: [id number] Report To 1 ID: [id number] Report To 1 Name: COLLINS LEES Report To 1 FAX: -- NextGen Order #: us Not In File Miscellaneous IMG XR PROCEDURES Jinny l Result documented in this encounter Visit Diagnoses Not on filedocumented in this encounter Care Teams Senior Software Project Manager Relationship Specialty Start Date End Date Rand Ballard NP PCP - General 05/01/17 05/12/20 documented as of this encounter
--- OUTSIDE RECORDS SUMMARY | 2024-07-17 18:35 | XMS_ITS ---
Author Organization [facility] Address [address] [place] [address] Care Team Providers Care Slip Bridge Operator Name Role Phone Unavailable Unavailable Unavailable Surgery Details Not on file Complications Check Surgery Details section. Procedure Estimated Blood Loss Check Surgery Details section. Procedure Findings Check Surgery Details section. Procedure Specimens Taken Check Surgery Details section.
--- OUTSIDE RECORDS SUMMARY | 2024-07-17 18:35 | XMS_ITS | CCD ---
Author Organization [facility] Address [address] [place] [address] Care Team Providers Care Parts Counter Representative Name Role Phone Unavailable Primary Care Provider Unavailabl e Social History Tobacco Use Types Packs/Day Years Used Date Smoking Tobacco: Never Assessed Comments Unknown Sex and Gender Information Value Date Recorded Sex Assigned at Not on file Legal Sex Female 1:19 AM PST Gender Identity Not on file Sexual Orientation Not on file Plan of Treatment Not on file
--- OUTSIDE RECORDS SUMMARY | 2024-07-17 18:35 | XMS_ITS | Encounter Summary ---
Author Organization [facility] Address [address] [place] [address] Care Team Providers Care Corporate Logistics Manager Name Role Phone Unavailable Primary Care Provider Unavailabl e Encounter Details Date Type Department Care Team (Late st Contact Info) Description 08/19/2019 Converted [facility] Chart Documents [facility] [address] [place] [address] Social History Tobacco Use Types Packs/Day Years [...]
--- OUTSIDE RECORDS SUMMARY | 2024-07-17 18:35 | XMS_ITS | Encounter Summary ---
Author Organization [facility] Address [address] [place] [address] Care Team Providers Care Project Mgr Name Role Phone Unavailable Primary Care Provider Unavailabl e Prior Encounters Date Type Department Care Team Description 08/19/2019 Converted [facility] Chart Documents [facility] [address] [place] [address] <No scans attached> 08/19/2019 Converted 13x Documents [facility] [address] [place] [address] <No scans attached> Plan of Treatment Not on file Procedures Procedure Name Priority Date/Time Associated Diagnosis Comments COMPREHENSIVE ORAL EVALUATION - NEW OR ESTABLISHED PATIENT Routine 04/02/2019 2:00 AM CDT INTRAORAL - COMPREHENSIVE SERIES OF RADIOGRAPHIC IMAGES Routine 04/02/2019 2:00 AM CDT INTRAORAL PHOTO Routine 04/02/2019 2:00 AM CDT INTRAORAL PHOTO Routine 04/02/2019 2:00 AM CDT INTRAORAL PHOTO Routine 04/02/2019 2:00 AM CDT INTRAORAL PHOTO Routine 04/02/2019 2:00 AM CDT Visit Diagnoses Not on file
--- OUTSIDE RECORDS SUMMARY | 2024-07-17 18:35 | XMS_ITS | Clinical Summary ---
Author Organization [facility] Address [address] [place] [address] Care Team Providers Care Podiatric Medicine Doctor Name Role Phone Unavailable Primary Care Provider [...]
--- OUTSIDE RECORDS SUMMARY | 2024-07-17 18:35 | XMS_ITS | Referral Summary ---
Author Organization [facility] Address [address] [place] [address] Care Team Providers Care Outside Sales Consultant Name Role Phone Unavailable Primary Care [...]
--- OUTSIDE RECORDS SUMMARY | 2024-07-17 18:36 | XMS_ITS | Encounter Summary ---
Author Organization [facility] Address [address] [place] [address] Care Team Providers Care Microelectronics Technician Name Role Phone Unavailable Primary Care Provider Unavailabl e Encounter Details Date Type Department Care Team (Late st Contact Info) Description 08/19/2019 Converted 13x Documents [facility] [address] [place] [id number] Social History Tobacco Use Types Packs/Day [...]
== END 2024-07-13 14:27 | disposition home or self-care (01) ==
PROVIDERS: Emergency Provider Nurse Practitioner Family; PCP Nurse Practitioner Family
DX: J06.9 Acute upper respiratory infection, unspecified (principal); B34.9 Viral infection, unspecified; F17.210 Nicotine dependence, cigarettes, uncomplicated; J45.909 Unspecified asthma, uncomplicated; K21.9 Gastro-esophageal reflux disease without esophagitis
CPT/HCPCS: 99213; G0463

== ENCOUNTER 2024-08-21 17:58 | Emergency (ER) | payer BC, SELFPAY ==
--- OUTSIDE RECORDS SUMMARY | 2024-08-23 03:29 | XMS_ITS | Data Portability ---
Author Organization DARRYL Ana Maria LIN Address [address] [place] [address] Assessment No assessment recorded. Plan of Treatment Reminders Order Date Submit Date Provider Last Modified By Organization Details Last Modified Time Details Appointments None recorded . Lab animal allergen panel, serum 2014 015 dbogue [facility], [address], [address], [place], [address], 16:47:31 grass allergen panel, serum 2014 015 dbogue [facility], [address], [address], [place], [address], 16:47:31 mold allergen panel, serum 2014 015 dbogue [facility], [address] [facility] [address], [address], [place], [address], 16:47:31 tree allergen panel, serum 2014 015 dbogue [facility], [address] [facility] [address], [address], [place], [address], 16:47:31 dog dander ige, serum 2014 015 dbogue [facility], [address], [address], [place], [address], 16:47:31 dog fennel ige, serum 2014 015 [employer] [facility], [address] [facility], [address], [place], [address], 5 16:47:31 core respirat ory allergen s panel, serum 2014 015 dbogue [facility], [address] [facility], [address], [place], [address], 5 16:47:31 Referral orthoped ic referral - has apt monday10/05/[address] Gould 2015 Precious dyer Not available 6 10:45:06 Procedures None recorded . Surgeries None recorded . Imaging x-ray, finger(s ) - RIght hand 5th finger. [place] pop 1 week ago when dog leash wrapped around finger and pulled. 2014 Manolo dyer Not available 5 09:48:17 Medication Orders Ventolin HFA 90 mcg/actu ation aerosol inhaler 2014 015 karuna [facility][id number], [address] [place], [address], 5 16:47:31 hydrocod one 7.5 mg-aceta minophen 325 mg tablet 2014 Manolo [email or web address] [facility][id number], [address] [place], [address], 6 16:44:44 Zithroma x Z-Dipesh 250 mg tablet 2015 016 [employer] [facility], [address] [place], [address], 6 16:27:05 prometha zine 6.25 mg-codei ne 10 mg/5 mL syrup 2015 016 [email or web address] [facility]68[facility], [address] [place], [address], 6 16:27:05 Bactrim DS 800 mg-160 mg tablet 2015 016 [email or web address] [facility], [address] [place], [address], 6 15:35:54 hydrocod one 7.5 mg-aceta minophen 325 mg tablet 2015 016 [email or web address] [facility], [address] [place], [address], 6 15:35:54 acyclovi r 800 mg tablet 2015 016 dbogue [facility]68[facility], [address] [place], [address], 6 16:10:50 acyclovi r 400 mg tablet 2015 016 dbogue [facility], [address] [place], [address], 6 16:10:50 Patient TargetsNo targets recorded. Patient Instructions Encounter Date Encounter Id Patient Instructions Last Modified By Organization Details Last Modified Time 05/29/2015 [id number] wheezing or bronchoconstricti on: care instructions dbogue Not available 05/29/2015 16:47:31 08/04/2015 [id number] controlling your asthma: care instructions dbogue Not available 08/04/2015 17:23:35 learning about asthma dbogue Not available 08/04/2015 17:23:35 carpal tunnel syndrome: care instructions dbogue Not available 08/04/2015 17:23:35 carpal tunnel syndrome: exercises dbogue Not available 08/04/2015 17:23:35 upper respirator y infection (cold): care instructions [email or web address] Not available 08/05/2015 09:43:59 cough: care instructions dbogue Not available 08/04/2015 17:23:34 Reason for Referral Orthopedic Referral for Frac ture of great toe Left great toe fracture has apt monday10/05/[address] Gould Referring Physician: Rand Ballard, Family Medicine, Encounter Date: 10/01/2015 Problems Name Problem SNOMED Code Status Onset Date Resolution Date Notes Provider Name and Address Organization Details Recorded Time Gingivostomati tis 15909479 Active Rand Ball[place] null, [place] - [facility] 5 16:48:50 Standard chest X-ray abnormal 676103770 Active [place] [facility] 5 10:41:07 Bronchitis 69760938 Active Rand Elio [place] [facility] 5 10:28:37 Pediculosis capitis 65569850 Active [place] [facility] 5 13:53:01 Fracture of rib 21593564 Active [place] [facility] 5 17:38:23 Contusion 430896364 Active [place] Elio [place] [facility] 5 17:38:23 Asthma 774676555 Active [place] [facility] 6 17:23:34 Pain in finger 13724519 Active [place] [facility] 5 16:47:31 Wheezing 48780103 Active [place] [facility] 5 16:47:31 Carpal tunnel syndrome 47188631 Active [place] [facility] 6 17:23:34 Abscess 212929200 Active Eder Pepper [place] [facility] 6 17:07:56 Fracture of great toe 379398870 Active [place] [facility] 6 16:12:08 On examination - herpes labialis-cold sore Active Rand [place] [facility] 6 16:10:50 Complaining of - cough Active Rand [place] [facility] 6 17:23:34 Tobacco user 348222944 Active [place] [facility] 6 16:20:43 Acute exacerbation of chronic asthmatic bronchitis 026138663 Active Rand henderson [facility] 5 16:36:18 Acute asthma 073271696 Active Rand henderson, [facility] 5 10:28:37 Upper respiratory infection 47026509 Active Rand henderson, [facility] 6 17:23:34 Problem Notes None recorded. Procedures Surgical History Date Name Laterality Status Provider Name and Address Organization Details Recorded Time 09/16/2015 I&D completed Eder Pepper [facility] 17:04:01 Imaging Results None recorded. Procedure [...] Address Organization Details Last Updated DateTime 5 32654.0 10375 g 98 % 98 % 170.18 cm 22 kg/m2 97.8 [degF] 104 /min 108 mm[Hg] 70 mm[Hg] Mallory Hernandez [place] - [facility] 5 16:26:20 Date Recorded Body weight Heart rate Body mass index (BMI) Body height Oxygen saturation Oxygen saturation in Arterial blood by Pulse oximetry Body temperature Systolic blood pressure Diastolic blood pressure Provider Name and Address Organization Details Last Updated DateTime 6 01543.3 96092 g 83 /min 22 kg/m2 170.18 cm 100 % 100 % 97.6 [degF] 100 mm[Hg] 62 mm[Hg] Mallory Hernandez MA [facility] 6 16:44:43 Date Recorded Respiratory rate Heart rate Oxygen saturation Oxygen saturation in Arterial blood by Pulse oximetry Body mass index (BMI) Body height Body temperature Body weight Systolic blood pressure Diastolic blood pressure Provider Name and Address Organization Details Last Updated DateTime 6 16 /min 96 /min 99 % 99 % 21.1 kg/m2 170.18 cm 97.7 [degF] 31001.9 6995 g 100 mm[Hg] 60 mm[Hg] Lindsay crane [place] - [facility] 6 16:27:05 Date Recorded Oxygen saturation Oxygen saturation in Arterial blood by Pulse oximetry Body height Body temperature Body weight Heart rate Body mass index (BMI) Systolic blood pressure Diastolic blood pressure Provider Name and Address Organization Details Last Updated DateTime 6 95 % 95 % 170.18 cm 97.2 [degF] 48297.3 97955 g 117 /min 21.2 kg/m2 100 mm[Hg] 60 mm[Hg] Mallory Hernandez [place] - [facility] 6 15:26:28 Date Recorded Oxygen saturation Oxygen saturation in Arterial blood by Pulse oximetry Heart rate Body mass index (BMI) Body temperature Body height Body weight Systolic blood pressure Diastolic blood pressure Provider Name and Address Organization Details Last Updated DateTime 6 100 % 100 % 113 /min 21.8 kg/m2 98.1 [degF] 170.18 cm 44912.7 61623 g 104 mm[Hg] 60 mm[Hg] Mallory Hernandez MA [facility] 6 15:35:53 Social History Question Answer Notes LastModified by Organizat ion Details LastModified Time Tobacco Smoking Status Current Some Day Smoker Xena Pantoja LPN null, [place] - [facility] 03/26/2015 16:51:33 Do You Have An Advance Directive? No Information not available 03/26/2015 What Is Your Level Of Alcohol Consumption? Occasional 5/6 Shots [email or web address] Information not available 06/20/2014 What Is Your Level Of Caffeine Consumption? Occasional Information not available 03/26/2015 How Much Tobacco Do You Chew? None Information not available 03/26/2015 What Type Of Diet Are You Following? REGULAR [email or web address] Information not available 06/20/2014 Which Illicit Or [...] not available 03/26/2015 General Stress Level High [email or web address] Information not available 06/20/2014 Do You Use Sunscreen Routinely? No Information not available 03/26/2015 Sex: Unknown Functional Status Question Answer Note LastModified by Organization D etails LastModified Time What is your exercise level? None Information not available 06/20/2014 Mental Status None recorded. Family History Relationship Description Onset Age of this Age Resolved Age Notes LastModified by Organization Details LastModified Time Mother History of hypertension [email or web address] Not available 09/2014 16:31:41 Mother Migraine [email or web address] Not available 09/30/2014 16:31:41 Father Alcohol abuse [email or web address] Not available 2014 16:31:41 Father Essential hypertension Not available 09/2014 16:31:41 Father Viral hepatitis C [email or web address] Not available 09/2014 16:31:41 Father Liver finding [email or web address] Not available 2014 16:31:41 Medical History Condition Response Coronary Artery Disease N Other N Atrial Fibrillation N High Blood Pressure N Depression Y COPD N Blood Clots N Anxiety Disorder N Muscle, Joint, or Bone Problems N Acid Reflux (GERD) Y Cancer N Stroke N High Cholesterol N Liver Disease N Headaches N Kidney or Bladder Problems N Thyroid Problems N GI Problems N Skin Problems N Anemia N Heart Attack (NH) N Diabetes N Seizures/Epilepsy N Asthma Y Allergies N Hepatitis N Heart Failure N Osteoporosis N Gynecological History Statement/Question Response Duration of Flow (days) 5 Current Control Method None Flow Moderate LMP Approximate Frequency of Cycle (Q days) 20 Obstetrics History GPAL:G 0 P 0 0 0 0 Past Encounters Encounter ID Performer Location Encounter Start Date Encounter Closed Date Diagnosis/Indication Diagnosis SNOMED-CT Code Diagnosis ICD10 Code Diagnosis Note [id number] Rand Bolton (Adult Med) [address] [place] [address] 06/20/2014 14:24:59 06/20/2014 17:27:06 Acute asthma 759468360 Upper resp iratory infection 59326007 keep hydrated and head covered when out doors. Was hands frequently . 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 Using acyclovir 400 mg BID from hospital and not working well. Using vicodin for pain and just puts her to sleep. Will increase acyclovir to 800 mg 5 times daily. Patient to be off for 3 days. Return on Monday10/04/14. [id number] Rand Bolton (Adult Med) [address] [place] [address] 10/31/2014 14:38:54 10/31/2014 15:54:55 Acute asthma 140906563 Patient is recurrent c/o cough since May 2014. C/O cough for 3 days.Afebr ile,satura ting 97% on room air.Wheezi ng present. Start Qvar 40 mcg 2 puffs bid. Medrol 4 mg dose pack. Advised patient to use otc Mucinex and continue Ventolin as needed. Advised patient to quit smoking. [id number] PASCUAL Harding (Adult Med) [address] [place] [address] 01/01/2015 16:00:46 01/01/2015 17:06:17 Acute exacerbation of chronic asthmatic bronchitis 517357667 Patient did not get the QVAR in october when it was prescribed . Stated that pharmacy told her only ventolin available. Re-sent order for QVAR. Patient is no longer smoking- quit > 1 month ago. Need to follow up regarding poss pulm nodule- xray needing completed. Follow up in 2 weeks regarding asthma. Patient aware to get 4 different scripts from the pharmacy today. [id number] Carlotta Bolton (Adult Med) [address] [place] [address] 03/26/2015 16:23:22 03/27/2015 08:28:33 Fracture of rib 86669164 Patient to be off until Monday03/30/15. Return to work 03/30/15 with restrictio n of no lifting > 20 lbs. Restrictio n to be lifted in 4 weeks, or sooner if patient desires re-evaluat ion. Tramadol not working well. Will give hydrocodon e/apap 5/325 mg po bid prn #30 one time fill only. Contusion 746762950 Left knee. Ice pack 20 min 3 times daily. Continue DEBBIE wrap. [id number] Rand Bolton (Adult Med) [address] [place] [address] 05/29/2015 16:08:03 06/01/2015 09:48:16 Pain in finger 59152245 M79.644 Right hand 5th finger. Will get xray. Wheezing 65703884 R06.2 Continue albuterol inhaler prn. Allergy panel ordered. [id number] Rand Bolton (Adult Med) [address] [place] [address] 08/04/2015 16:31:19 08/05/2015 17:00:04 Complaining of - cough 744145869 R05 Promethazi ne with codeine 5 ml po nightly. Upper resp iratory infection 52130580 J06.9 keep hydrated and head covered when out doors. Was hands frequently . Continue karen. Asthma 119289211 J45.90 9 Continue qvar bid and albuterol inhaler/ne b prn. Continue karen daily. Carpal mary grace nelsy syndrome 91006534 G56.01 No EMG done, but clinical symptoms present for CTS. Encourage DEBBIE wrap to left wrist nightly for 8-10 hours. Remove in the morning. Check circulatio n with DEBBIE wrap. If not getting better, consider PT or hand specialist with EMG. [id number] Eder Bolton (Adult Med) [address] [place] [address] 09/16/2015 15:30:16 09/17/2015 13:54:07 Abscess 306909001 L02.214 Abscess at the supra pubic area. I and D was done. Bactrim ds 1 tab po bid . Ibuprofen otc for the pain as needed. [id number] Rand Bolton (Adult Med) [address] [place] [address] 10/01/2015 15:15:39 10/02/2015 10:45:06 Fracture of great toe 339873611 S92.405A Has apt to see Dr. Gould 10/05/15. Hydrocodon e prn discomfort . [id number] Rand Bolton (Adult Med) [address] [place] [address] 11/10/2015 15:29:20 11/10/2015 16:36:27 On examination - herpes labialis-cold sore 609542998 B00.1 Use acyclovir outbreak 'cold sore' treatment, then switch to suppressio n therapy. Health Concerns Section Related Observation LastModified by Organization Detai ls LastModified Time None Recorded Concern Status LastModified by Organization Details LastModified Time None Recorded Advance Directives Directive N: Payers Encounter Date Sequence Insurance Name Policy Number Policy Le Covered Member ID Le Member ID Guarantor Name 05/29/2015 1 [facility] PRIOR TO 01/28/2021 (MEDICAID REPLACEMENT - HMO) Dior Hart [id number] Dior Hart 08/04/2015 1 [facility] PRIOR TO 01/28/2021 (MEDICAID REPLACEMENT - HMO) Dior Hart [id number] Dior Hart 09/16/2015 1 [facility] PRIOR TO 01/28/2021 (MEDICAID REPLACEMENT - HMO) Dior Hart [id number] Dior Hart 10/01/2015 1 [facility] PRIOR TO 01/28/2021 (MEDICAID REPLACEMENT - HMO) Dior Hart [id number] Dior Hart 11/10/2015 1 [facility] PRIOR TO 01/28/2021 (MEDICAID REPLACEMENT - HMO) Dior Hart [id number] Dior Hart Notes Date Note Type Note [...] asthma flare with recent water/floodingUpper Respiratory SymptomsReported bypatient.Location[facility] Quality:productive cough Onset/Timing:gradual Modifying Factors:OTC medicationNotes:Using nebulizer and inhaler nightly and daily. 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 DARRYL Mclaughlin SILynne 08/04/2015 17:23:46 09/16/2015 text/html Rash/Skin LesionReported bypatient.Location:[facility] Quality:painful;red;lo calized;single Duration:has noted for <1 week Onset/Timing:abrupt onset Eder Pepper DARRYL henderson SILynne 09/16/2015 17:08:08 10/01/2015 text/html Patient wasn't w [...] patient up vomiting from it. DARRYL Mclaughlin SILynne 10/01/2015 16:12:19 11/10/2015 text/html Several cold sor es for past 6 weeks. when one goes away, the next comes. 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 Vivar. Was on acyclovir in the past, but believed it was causing hair to fall out, so patient eventually stopped it. Has tried otc options but nothing working well to prevent cold sores. Painful. Ugly. and embarrasing. DARRYL Mclaughlin SILynne 11/10/2015 16:11:00 OBGyn Episode No OBEpisode recorded.
--- OUTSIDE RECORDS SUMMARY | 2024-08-23 03:29 | XMS_ITS | Data Portability ---
Author Organization [place] [facility] [email or web address], Main Office Address [address] [place] [address] Care Team Providers Care Bus Transportation Manager Name Role Phone RAND RINCON Primary Care Provider RAND RINCON Referring Provider [phone] FILEMON BENSON Database Security Administrator Assessment Encounter Date Assessment Date Assessment LastModified by Organization Details LastModified Time 03/30/2023 03/30/2023 D/w pt about her findings and further plan of care. Will do x-ray. Pt declined for HCG. Meds as directed. Ice pack as directed prn. RICE explained in detail. Advised to avoid any strenuous activities/lifti ng-pushing until cleared. Educated pt about alarming symptoms to monitor at home and call us back or get checked in ED. F/u as directed. [email or web address] Not available 03/30/2023 16:33:01 04/04/2023 04/04/2023 The [...] via phone call to discuss the following: [email or web address] Not available 04/04/2023 14:39:46 04/25/2023 04/25/2023 D/w pt about her findings and further plan of care. Paperwork filled out and given to pt. Pt doesn't want any paperwork to be filled for her 03/30/23 visit. F/u with PCP as directed. Not available 04/25/2023 14:47:39 11/01/2023 11/01/2023 38 [...] like she can, as she works at [employer] and has to lift at least 50 [...] recorded. Referral physical therapist referral [address] [facility], [address] [place], [address], 4 16:50:38 Procedures None recorded. Surgeries None recorded. Imaging XR, foot, 3 or more view 2022 023 [email or web address] 56 Not available 3 09:26:08 Medication Orders phentermin e 37.5 mg tablet 2022 023 [email or web address], [address], [place], [place], [id number], 16:27:11 diclofenac sodium 75 mg tablet,del ayed release 2022 023 [facility], [address], [place], [place], [id number], 3 16:27:07 ondansetro n 4 mg disintegra ting tablet [address] [facility]14404, [address], [place], [place], [id number], 3 14:25:58 Paxlovid 300 mg (150 mg x 2)-100 mg tablets in a dose pack 2022 023 [facility], [address], [place], [place], [id number], 3 14:26:00 Medrol (Dipesh) 4 mg tablets in a dose pack [address] [facility]19131, [address], [place], [place], [id number], 3 14:25:50 benzonatat e 200 mg capsule 2022 023 [email or web address] [facility], [address], [place], [place], [id number], 3 14:25:37 Mobic 15 mg tablet 2023 024 [email or web address] [facility] #78661, [address], [place], [place], [id number], 4 13:14:51 Patient TargetsNo targets recorded. Patient Instructions Encounter Date Encounter Id Patient Instructions Last Modified By Organization Details Last Modified Time 04/04/2023 [id number] D/w pt about her findings and further plan of care. Meds as directed. OTC symptomatic Rx explained in detail. Very good liquid intake explained. Proper hand hygiene explained. Educated about alarming symptoms to monitor at home and call us back Or get checked in ED if any concerns. F/u as directed. Not available 04/04/2023 15:18:40 Due to the COVID-19 (Novel Coronavirus) pandemic, it is within this context (and with the understanding that this method of patient encounter is in the patient? s best interest as well as the health and safety of other patients and the public) that ? telehealth? is being provided for this patient encounter rather than a awue-wi-phpv visit. This patient encounter is appropriate at [...] if listed, were provided by the patient. Not available 04/04/2023 14:39:17 Reason for Referral [...] XR, knee No observ ation record ed. [email or web address] Not Available 2023 13:04:42 11/02/19 24 10/23/2023 CT, knee, w/o contr ast No observ ation record ed. [email or web address] Not Available 2023 13:05:18 Result Notes None recorded. Problems Name Problem SNOMED Code Status Onset Date Resolution Date Notes Provider Name and Address Organization Details Recorded Time Chronic back pain 237112929 Active 2018 Not Available [facility] 3 18:03:48 Persisten t insomnia 744041779 Completed 201806/03/2021 Not Available [facility] 3 18:03:48 Insomnia 632860028 Active 2021 Not Available [facility] 3 18:03:48 Insomnia 927911598 Completed 201603/23/2020 Not Available [facility] 3 18:03:48 Asthma 364463134 Active 2016 Not Available [facility] 3 18:03:48 Anxiety disorder 240469964 Completed 201806/03/2021 Not Available [facility] 3 18:03:48 Gastroeso phageal reflux disease 144163008 Active 2016 Not Available [facility] 3 18:03:48 Overweigh t 727104750 Active 2019 Not Available [facility] 3 18:03:48 Allergic contact dermatiti s 486497824 Active 2019 Not Available [facility] 3 18:03:48 Seasonal allergic rhinitis 490621579 Active 2019 Not Available [facility] 3 18:03:48 Migraine 73598364 Active 2021 Not Available [facility] 3 18:03:48 Allergic bronchiti s 280212285 Active 2017 Not Available [facility] 3 18:03:48 Obese 537448984 Active 2021 Not Available [facility] 3 18:03:48 Obesity 029522168 Completed 201803/23/2020 Not Available [facility] 3 18:03:49 Loss of voice 66235172 Active 2019 Not Available [facility] 3 18:03:49 Pain of right knee joint 36212032533 4100 Active 2021 Not Available [facility] 3 18:03:49 Anxiety 72334677 Active 2020 Not Available [facility] 3 18:03:49 Upper respirato ry infection 34089612 Completed 201602/15/2018 Rand Rincon NP [address], [place], [address] , [facility] 3 12:04:06 Postpartu m depressio n 19725058 Active 2019 Not Available [facility] 3 18:03:49 Chronic cough 01143609 Active 2019 Not Available [facility] 3 18:03:49 Exacerbat ion of moderate persisten t asthma 890593278 Active 2021 Not Available [facility] 3 18:03:49 Chronic insomnia 684691048 Active 2019 Not Available [facility] 3 18:03:49 53464510 Completed 201903/23/2020 Not Available [facility] 3 18:03:49 Herpes labialis 0158587 Active 2022 Rand Rincon NP [address], [address], [place], [address] , [facility] 3 11:45:29 Upper respirato ry infection 86077538 Active 2022 Rand Rincon NP [address], [address], [place], [address] , [place] [facility] 3 12:04:06 Acute sinusitis 77688304 Active 2022 Rand Rincon NP [address], [address], [place], [address] , [place] [facility] 3 15:55:56 Allergic rhinitis 79722171 Active 2022 Rand Rincon NP [address], [address], [place], [address] , [place] [facility] 3 14:14:10 Cough 06164201 Active 2022 Rand Rincon NP [address], [address], [place], [address] , [place] [facility] 3 07:53:47 Cigarette smoker 87590708 Active 2022 Alvin Moon MD [address], [place], [address] , [place] [facility] 3 15:06:10 Hyperglyc emia 41830161 Active 2022 Rand Rincon NP [address], [address], [place], [address] , [place] [facility] 3 10:14:21 Nausea and vomiting 29157202 Active 2022 Rand Rincon NP [address], [place], [address] , [place] [facility] 3 10:31:38 Deviated nasal septum 248391296 Active 2022 Roverto Benjamin MD [address], [address], [place], [address] , [place] [facility] 3 11:55:29 Hypertrop hy of nasal turbinate s 98977910 Active 2022 Roverto Benjamin MD [address], [place], [address] , [facility] 3 11:55:38 Vocal cord dysfuncti on 309637720 Active 2022 Perri Gonzalez RN null, [facility] 3 11:55:39 Singers' nodes 04741737 Active 2022 Roverto Benjamin MD [address], [address], [place], [address] , [facility] 3 11:55:49 Chronic sinusitis 52979330 Active 2022 Perri Gonzalez RN null, [facility] 3 17:32:32 Pain in right foot 45568749422 9107 Active 2022 Alvin Moon MD [address], [address], [place], [address] , [facility] 3 16:22:26 Contusion of right foot 42522710509 048670 Active 2022 Alvin Moon MD [address], [address], [place], [address] , [facility] 3 16:33:36 COVID-19 020899479 Active 2022 Alvin Moon MD [address], [place], [address] , [facility] 3 15:17:43 Fatigue 52065850 Active 2022 Alvin Moon MD [address], [place], [address] , [facility] 3 17:09:11 Notes:Medical History: Anxie ty/Depression Rhinitis to cat and dog with postnasal drip Eosinophils 294/uL IgE 523 IU/mL Mild persistent asthma Nicotine dependence Alpha-1 antitrypsin PiMM Obesity ALISON RLS Vit D deficiency Low back pain Problem Notes None recorded. Procedures Surgical History Date Name Laterality Status Provider Name and Address Organization Details Recorded Time 10/08/19 Nebulizer Treatment completed Rand Rincon NP [address] [facility], [facility] [address], [place], [address], [facility] [employer] [facility] 10/07/2022 11:57:53 delivery completed Not Available [facility] 09/28/2022 18:02:50 reduction of nasal turbinate completed Perri Gonzalez RN [facility] [employer] [facility] 03/08/2023 10:30:15 SEPTOPLASTY (SURG) completed Perri Gonzalez RN [facility] [employer] [facility] 03/01/2023 13:00:16 Imaging Results Imaging Date Name Status LastModified by Organiz ation Details LastModified Time 10/23/2023 CT, knee, w/o contrast completed [email or web address] Information not available 11/01/2023 13:59:37 10/18/2023 XR, knee completed [email or web address] Information no t available 11/02/2023 13:04:42 10/23/2023 CT, knee, w/o contrast completed [email or web address] Information not available 11/02/2023 13:05:18 Procedure Notes None recorded. Medical Equipment None Reported. Allergies Allergen ID Allergen Name Allergen Category Reaction Reaction Severity Criticality Documentation Date Start Date Code Code System Note Provider Name and Address Organization Details Recorded Time 57348 tramadol medicatio n vomiting Not available Not available 09/28/2022 02761 RxNorm Not Available [facility] 3 18:05:04 13351 acetamino phen / oxycodone medicatio n vomiting Not available Not available 09/28/2022 84172 3 RxNorm Not Available [facility] 3 18:05:05 Medications Name Sig Start Date [...] azelastine 137 mcg (0.1 %) nasal spray [place] 2 sprays twice a day by intranas [...] completed Not Available Not Available Not Available June FE 08/19 (28) 1 mg-20 mcg (21)/75 [...] completed Not Available Not Available Not Available Breronaldtri Aerosphere 160 mcg-9mcg-4 .8mcg/actu ation HFA aerosol inhaler INHALE 2 PUFFS BY MOUTH TWICE DAILY active Not Available Not Available No t Available [facility] Ellipta 200 mcg-62.5 mcg-25 mcg powder for [...] Updated DateTime 3 170.18 cm 30.4 kg/m2 83246.6 2 g 97.3 [degF] 88 /min 16 /min 99 % 99 % 122 mm[Hg] 84 mm[Hg] [employer] [facility] 3 16:19:01 Date Recorded Body height Body mass index (BMI) Body weight Body temperature Heart rate Respiratory rate Oxygen saturation Oxygen saturation in Arterial blood by Pulse oximetry Systolic blood pressure Diastolic blood pressure Provider Name and Address Organization Details Last Updated DateTime 3 170.18 cm 31 kg/m2 01312.6 4 g 97.2 [degF] 86 /min 16 /min 98 % 98 % 126 mm[Hg] 80 mm[Hg] [email or web address] 3 14:31:46 Date Recorded Body height Body mass index (BMI) Body weight Provider Name and Address Organization Details Last Updated DateTime 11/01/2023 170.18 cm 28.8 kg/m2 47375 g KARYNA Daniels [facility] [email or web address] 11/01/2023 11:17:28 Date Recorded Body height Body mass index (BMI) Body weight Provider Name and Address Organization Details Last Updated DateTime 12/27/2023 170.18 cm 27.9 kg/m2 84194.44 g Madhuri Hartmann, A [place] [employer] [facility] [email or web address] 12/27/2023 14:34:22 Social History Question Answer Notes LastModified by Organizat ion Details LastModified Time Tobacco Smoking Status Current Every Day Smoker Rand aLnge RN [facility], [place] [employer] [facility] [email or web address] 01/24/2023 10:05:35 Do You Have An Advance Directive? No MIGRATION.89404 88827 Information not available 09/28/2022 What Is Your Level Of Alcohol Consumption? None MIGRATION.93867 32770 Information not available 09/28/2022 Do You Wear A Helmet When Biking? No MIGRATION.73033 15464 Information not available 09/28/2022 Is Blood Transfusion Acceptable In An Emergency? Yes Information not available 10/20/2022 What Is Your Level Of Caffeine Consumption? Heavy MIGRATION.54313 04065 Information not available 09/28/2022 What Is Your Code Status? Full Code Information not available 10/20/2022 In The 14 Days Before Symptom Onset, Have You Had Close Contact With A Laboratory-confi rmed COVID-19 While That Case Was Ill? No MIGRATION.91481 66766 Information not available 09/28/2022 In The 14 Days Before Symptom Onset, Have You Had Close Contact With A Person Who Is Under Investigation For COVID-19 While That Person Was Ill? No MIGRATION.03687 66235 Information not available 09/28/2022 Are You Currently Employed? Yes Information not available 10/20/2022 What Type Of Diet Are You Following? REGULAR MIGRATION.73197 88131 Information not available 09/28/2022 What Is The Highest Grade Or Level Of School You Have Completed Or The Highest Degree You Have Received? GN05122-0 MIGRATION.15726 11901 Information not available 09/28/2022 What Is Your Occupation? [employer] Information not available 10/20/2022 Have There Been Any Changes To Your Family Or Social Situation? No MIGRATION.55952 97603 Information not available 09/28/2022 What Is The Fluoride Status Of Your Home? Unknown MIGRATION.37376 60049 Information not available 09/28/2022 Do You Use Insect Repellent Routinely? No MIGRATION.52975 40019 Information not available 09/28/2022 Where Do You Live? [facility] MIGRATION.55617 90709 Information not available 09/28/2022 Do You Have A Medical Power Of Newsc[employer] Producer? No MIGRATION.11305 20954 Information not available 09/28/2022 What Was The Date Of Your Most Recent Tobacco Screening? 11/01/2023 Information not available 11/01/2023 How Many Children Do You Have? 3 Information not available 10/20/2022 Do You Have Any Pets? Yes Dogs MIGRATION.71953 85317 Information not available 09/28/2022 What Is Your Relationship Status? Single MIGRATION.94556 54819 Information not available 09/28/2022 Do You Use Your Seat Belt Or Car Seat Routinely? Yes MIGRATION.81043 85027 Information not available 09/28/2022 Do You Have Smoke And Carbon Monoxide Detectors In Your Home? Yes MIGRATION.18229 89975 Information not available 09/28/2022 At What Age Did You Start Smoking Tobacco? 16 MIGRATION.36337 95944 Information not available 09/28/2022 Are You Passively Exposed To Smoke? No MIGRATION.58704 21007 Information not available 09/28/2022 Are There Any Smokers In Your House? No MIGRATION.56499 59430 Information not available 09/28/2022 How Much Tobacco Do You Smoke? 0.5 PPD Information not available 01/24/2023 Do You Participate In Social Media? Yes MIGRATION.64281 13074 Information not available 09/28/2022 Do You Feel Stressed (tense, Restless, Nervous, Or Anxious, Or Unable To Sleep At Night)? [id number] MIGRATION.13022 64754 Information not available 09/28/2022 Do You Use Any Illicit Or Recreational Drugs? No MIGRATION.87322 11938 Information not available 09/28/2022 Do You Use Sunscreen Routinely? No MIGRATION.66655 65183 Information not available 09/28/2022 How Many Years Have You Smoked Tobacco? 20 MIGRATION.67272 52199 Information not available 09/28/2022 Have You Recently Traveled Abroad? No MIGRATION.94881 69382 Information not available 09/28/2022 Do You Have Any Dietary Restrictions? No MIGRATION.64723 55413 Information not available 09/28/2022 Do You Or Have You Ever Used Any Other Forms Of Tobacco Or Nicotine? No MIGRATION.38281 87730 Information not available 09/28/2022 Sex: Female Functional [...] Condition Response BLINDNESS N RHEUMATIC FEVER N KIDNEY STONES N BLADDER PROBLEMS N MRSA N OTHER # 1 Y POLIO N LUNG DISEASE/DISORDER N HISTORY OF DRUG ABUSE N COPD N RADIATION / CHEMOTHERAPY N Other # 2 N BLOOD DISEASES N SURGERY N EAR OR HEARING PROBLEMS N MUMPS N SHINGLES N FEMALE PROBLEMS / INFECTIONS N DEPRESSION (INCLUDING POST ) N BOWEL PROBLEMS N STROKE/TIA N THYROID DISEASE N ULCERS N BENIGN PROSTATIC HYPERPLASIA N MEASLES N CERVICALGIA N HYPOTENSION N TB SKIN TEST N MYOCARDIAL INFARCTION N OBESITY N PARAPELGIA N GERD/NAUSEA N ANEURYSM N URINARY/BLADDER/KIDNEY PROBLEMS [...] HAVE YOU BEEN HOSPITALIZED OR SEEN IN THE MEDICAL CENTER IN THE PAST YEAR ? N ATHEROSCLEROSIS [...] Recorded Time Tdap 07/31/2014 completed Not Available [facility] 09/28/2022 18:05:01 Influenza, split virus, quadrivalent, PF 05/24/2022 completed Not Available [facility] 18:05:01 Past Encounters Encounter ID Performer Location Encounter Start Date Encounter Closed Date Diagnosis/Indication Diagnosis SNOMED-CT Code Diagnosis ICD10 Code Diagnosis Note [id number] [facility] [address] [place] [address] 03/24/2021 00:00:00 03/24/2021 12:23:45 [id number] [facility] [address] [place] [address] 05/20/2021 00:00:00 05/20/2021 16:32:35 [id number] [facility] [address] [address] 06/07/2021 00:00:00 06/07/2021 14:54:54 [id number] [facility] [address] [address] 09/09/2021 00:00:00 09/09/2021 17:27:56 [id number] [facility] [place] [address] [place] [address] 09/17/2021 00:00:00 09/17/2021 10:47:41 [id number] [facility] [place] [address] [place] [address] 10/20/2021 00:00:00 10/20/2021 12:55:52 [id number] [facility] [place] [address] [place] [address] 11/24/2021 00:00:00 11/24/2021 11:17:03 [id number] [facility] [place] [address] [place] [address] 02/24/2022 00:00:00 02/24/2022 17:24:58 [id number] [facility] [place] [address] [place] [address] 05/24/2022 00:00:00 05/24/2022 14:36:30 [id number] [facility] [place] [address] [place] [address] 06/21/2022 00:00:00 06/21/2022 11:11:36 [id number] [facility] [place] [address] [place] [address] 06/29/2022 00:00:00 06/29/2022 18:11:23 [id number] [facility] [address] [address] 11/04/2021 00:00:00 11/04/2021 18:12:52 [id number] [facility] [address] [address] 12/02/2021 00:00:00 12/02/2021 10:27:08 [id number] [facility] [address] [facility] [address] [address] 01/10/2022 00:00:00 01/10/2022 14:17:19 [id number] [facility] [address] [facility] [address] [address] 03/29/2022 00:00:00 03/29/2022 11:16:07 [id number] Rand Rincon NP [address] [address] 10/07/2022 11:12:38 10/07/2022 12:20:34 Asthma 596747194 J45.909 Trelegy sample given to use daily and rinse mouth after use. Dulera works, but breo, adviar failed.Whe n better, reschedule PFT.Duoneb solution ordered.Du oneb given in office. Herpes labialis 6698780 B00.1 Acyclovir 400 mg po tid for 10 days. Upper resp iratory infection 75482878 J06.9 Finish all doxy and steroid from urgent care. [id number] Rand Rincon NP [facility] [address] 10/20/2022 15:23:50 10/20/2022 16:04:56 Acute sinusitis 87244969 J01.90 Zpak as directed, vit c for immune support. Stay hydrated and rested. Exacerbati on of moderate persistent asthma 171077045 J45.41 November 14, 2022 has pulmonolog ist appt. [id number] Rand Rincon NP S_[address] [address] 01/24/2023 09:48:04 01/24/2023 10:46:07 Hyperglycemia 50702721 R73.9 BMP, A1C, lipid ordered. Nausea and vomiting 1693 1999 R11.2 Forms completed for abscense 01/11/23- and return on 01/15/23 [id number] Roverto Benjamin MD [facility] [place] [address] [place] [address] 01/24/2023 11:06:10 01/24/2023 12:06:45 Deviated nasal septum 459178635 J34.2 Hypertroph y of nasal turbinates 73839820 J34.3 Singers' nodes 23012013 J38.2 [id number] Roverto Benjamin MD [facility] [place] [address] [place] [address] 03/09/2023 10:56:46 03/09/2023 15:25:05 Deviated nasal septum 772432140 J34.2 [id number] Alvin Moon MD [address] [address] 03/30/2023 16:11:45 03/30/2023 16:34:21 Pain in right foot 1001453787 37354 M79.671 Obese 761826628 E66.9 Contusion of right foot 2054999414 1313629 S90.31XA [id number] Alvin Moon MD [address] [address] 04/04/2023 14:37:30 04/04/2023 17:14:20 COVID-19 506220775 U07.1 Nausea and vomiting 1693 2000 R11.2 Cough 78135951 R05.9 Fatigue 62145065 R53.83 [id number] Alvin Moon MD [address] [address] 04/25/2023 14:24:16 04/25/2023 14:51:49 History of SARS-CoV-2 1162900609 31494217 Z86.16 Obese 416095376 E66.9 Seasonal a llergic rhinitis 225107105 J30.2 Chronic back pain 177809 002 G89.29 [id number] Brenda Loredo NP [facility] [place] [address] [place] [address] 11/01/2023 10:56:15 11/01/2023 11:42:16 Pain of right knee joint 7148298177 99695 M25.688 [id number] Aly Santana MD [facility] [place] [address] [facility] [address] [place] [address] 12/27/2023 14:22:46 12/27/2023 14:51:41 Pain of right knee joint 8987243660 00716 M25.561 Health Concerns Section Related Observation LastModified by Organization Detai ls LastModified Time None Recorded Concern Status LastModified by Organization Details LastModified Time None Recorded Advance Directives Directive N: Payers Encounter Date Sequence Insurance Name Policy Number Policy Le Covered Member ID Le Member ID Guarantor Name 03/30/2023 1 [place] [id number] Dior Hart [id number] Dior Hart 04/04/2023 1 [place] [id number] Dior Hart [id number] Dior Hart 04/25/2023 1 [place] [id number] Dior Hart [id number] Dior Hart 11/01/2023 1 [place] [id number] Dior Hart [id number] Dior Hart 12/27/2023 1 [place] [id number] Dior Hart [id number] Dior Hart Notes Date Note Type Note [...] Denies any other injury/fall. Pt works at [employer] and he needs to do constant standing, walking and lifting upto 50 lbs boxes all day. So she is requesting couple days off work note. No other area pain. Pt is needing refill on Phentermine. Pt denies any problem with it. Alvin Moon MD [address] [place] [address], [facility] [address], [address], [facility] [email or web address] 03/30/2023 16:34:00 04/04/2023 text/html Telephone visit.ACV. C/o [...] off note. Alvin Moon MD [address], [facility] [address], [place], [address], [employer] [facility] [email or web address] 04/04/2023 17:11:51 04/25/2023 text/html ACV: Pt has [...] 04/10/23. Alvin Moon MD [address], [facility] [address], [place], [address], [employer] [facility] [email or web address] 04/25/2023 14:49:22 OBGyn Episode No OBEpisode recorded.
== END 2024-08-21 18:18 | disposition left against medical advice (07) ==
LOC: EXPBETH 18:01
PROVIDERS: Emergency Provider Nurse Practitioner; PCP Nurse Practitioner Family
DX: Z53.21 Procedure and treatment not carried out due to patient leaving prior to being seen by health care provider (principal)
CPT/HCPCS: 99199

== ENCOUNTER 2025-06-17 15:22 | Emergency (ER) | payer MEDICAID, SELFPAY ==
--- OUTSIDE RECORDS SUMMARY | 2024-07-02 11:30 | XMS_ITS ---
Author Organization [facility] ([address]) Address [address] [place] [address] Care Team Providers Care Supervisor [employer] Name Role Phone Rand Brasher Primary Care Provider Brittany taylerilaRosa Harman Unavailable [phone] Mary Mcgrath Unavailable Unavailable REASON FOR VISIT DUPIXENT Social History Sex Assigned At : Social History Observation Description Sex Assigned At Female Encounters Encounter Location Date Provider Diagnosis [facility] [address] [place] [address] 07/02/2024 Rosa Dorsey Plan Of Treatment No Information Progress Notes * Jessica DEL ANGELaDOB: 6 (39 yo F)Acc No.[id number]:07/02/2024 DUPIXENT in-office dosing Patient: Dior WHITE Provider: Yaya Dorsey MD :1985 A ge:38 Y S ex:Female Date:07/02/2024 Address:[address] [place], [place] [id number] Pcp:TICO Caballero Subjective: * Chief Complaints: * 1 . DUPIXENT. * Medical History: Objective: * Vitals: Assessment: Plan: * Treatment: * Billing Information: * Visit Code: * Procedure Codes: * Electronic signature of Cyn Dorsey MD on 06/18/2025 at 02:59 AM INCIDENT ANALYST Sign off status: Pending * Provider: Yaay Dorsey MD Date: 09/02/2023 Generated for Kole miranda/Van/Vladislav on: 08/18/2024 02:59 AM INCIDENT ANALYST
--- OUTSIDE RECORDS SUMMARY | 2024-08-07 11:30 | XMS_ITS ---
Author Organization [facility] [employer] [place] ([address]) Address [address] [facility] [address] [place] [address] Care Team Providers Care Car Top Bolter Name Role Phone Rand Brasher Primary Care Provider Rosa Díaz Unavailable [phone] Mary Mcgrath Unavailable Unavailable REASON FOR VISIT [facility] follow-up Medications Medication SIG (Take, Route, Frequency, Duration) Notes Start Date End Date Status Zolpidem Tartrate 10 MG TAKE 1 TABLET BY MOUTH AT BEDTIME Oral; Duration: 90 Days Not-Taking Triamcinolone Acetonide 0.1 % 1 application Externally Two times a Week; Duration: 30 days 05/29/2024 Active Zolpidem Tartrate 10 MG Oral; Duration: 90 Days Not-Taking Dupixent 300 MG/2ML as directed Subcutaneous 05/23/2024 Active Zolpidem Tartrate 10 MG Oral; Duration: 90 Days Active Breztri Aerosphere 160-9-4.8 MCG/ACT 2 puffs Inhalation Twice a day; Duration: 30 days Active ZyrTEC Allergy 10 MG 1 tablet Orally Onc e a day Active Albuterol Sulfate HFA 108 (90 Base) MCG/ACT 2 puffs as needed Inhalation every 4 hrs; Duration: 30 days Active Vitamin D3 1.25 MG (53395 UT) TAKE 1 CAPSULE BY MOUTH ONCE WEEKLY Oral; Duration: 84 Days Active buPROPion HCl ER (SR) 150 MG Oral; Duration: 30 Days Acti ve Singulair 10 MG 1 tablet Orally Once a day; Duration: 90 days Active Social History Sex Assigned At : Social History Observation Description Sex Assigned At Female Encounters Encounter Location Date Provider Diagnosis [facility] [address] [place] [address] 08/07/2024 Rosa Dorsey Plan Of Treatment No Information Progress Notes * Jessica DEL ANGELaDOB: 6 (39 yo F)Acc No.[id number]:08/07/2024 Progress Notes Patient: Dior WHITE Provider: Yaya Dorsey MD :1985 A ge:38 Y S ex:Female Date:08/07/2024 Address:[address] [place], [place] [id number] Pcp:DARIUS Caballero Subjective: * Chief Complaints: * 1 . [facility] follow-up. * Medical History: * Medications: T aking Singulair 10 MG Tablet 1 tablet Orally Once a day , Taking ZyrTEC Allergy 10 MG Tablet 1 tablet Orally Once a day , Taking Breztri Aerosphere 160-9-4.8 MCG/ACT Aerosol 2 puffs Inhalation Twice a day , Taking Albuterol Sulfate HFA 108 (90 Base) MCG/ACT Aerosol Solution 2 puffs as needed Inhalation every 4 hrs , Taking buPROPion HCl ER (SR) 150 MG Tablet Extended Release 12 Hour Oral , Taking Vitamin D3 1.25 MG (69173 UT) Capsule TAKE 1 CAPSULE BY MOUTH ONCE WEEKLY Oral , Taking Zolpidem Tartrate 10 MG Tablet Oral , Taking Dupixent 300 MG/2ML Solution Prefilled Syringe as directed Subcutaneous , Taking Triamcinolone Acetonide 0.1 % Cream 1 application Externally Two times a Week , Not-Taking/PRN Zolpidem Tartrate 10 MG Tablet TAKE 1 TABLET BY MOUTH AT BEDTIME Oral , Not-Taking/PRN Zolpidem Tartrate 10 MG Tablet Oral Objective: * Vitals: Assessment: Plan: * Treatment: * Billing Information: * Visit Code: * Procedure Codes: * Electronic signature of Cyn Dorsey MD on 06/18/2025 at 03:00 AM FINANCIAL SECRETARY Sign off status: Pending * Provider: Yaya Dorsey MD Date: 0 08/07/2024 Generated for Kole miranda/Van/Vladislav on: 1 08/18/2024 03:00 AM FINANCIAL SECRETARY
--- OUTSIDE RECORDS SUMMARY | 2024-10-15 11:30 | XMS_ITS ---
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 Name Role Phone Rand Brasher Primary Care Provider Rosa Díaz Unavailable [phone] Mary Mcgrath Unavailable Unavailable REASON FOR VISIT Asthma follow-up - recent flares requiring multiple courses of steroids Medications Medication SIG (Take, Route, Frequency, Duration) Notes Start Date End Date Status ZyrTEC Allergy 10 MG 1 tablet Orally Onc e a day Active Albuterol Sulfate HFA 108 (9 0 Base) MCG/ACT 2 puffs as needed Inhalation every 4 hrs; Duration: 30 days Active Breztri Aerosphere 160-9-4.8 MCG/ACT 2 puffs Inhalation Twice a day; Duration: 30 days Active EPINEPHrine 0.3 MG/0.3ML as directed Inj ection as needed; Duration: 30 days Active methylPREDNISolone 4 MG as directed Oral ly daily; Duration: 6 days Active Triamcinolone Acetonide 0.1 % 1 applicat ion Externally Two times a Week; Duration: 30 days 05/29/2024 Active Zolpidem Tartrate 10 MG Oral; Duration: 90 Days Active Singulair 10 MG 1 tablet Orally Once a day; Duration: 90 days Active Vitamin D3 1.25 MG (73728 UT) TAKE 1 CAP ASH BY MOUTH ONCE WEEKLY Oral; Duration: 84 Days Active Social History Sex Assigned At : Social History Observation Description Sex Assigned At Female Encounters Encounter Location Date Provider Diagnosis [facility] [place] [address] [place] [address] 10/15/2024 Rosa Dorsey Severe persistent asthma, uncomplicated J45.50 ; Severe persistent asthma with (acute) exacerbation J45.51 ; Allergic rhinitis due to pollen J30.1 ; Allergic rhinitis due to animal (cat) (dog) hair and dander J30.81 ; Other allergic rhinitis J30.89 and Other chronic allergic conjunctivitis H10.45 Assessments Encounter Date Diagnosis (ICD Code) Assessment Notes Treatment Notes Treatment Clinical Notes Section Notes 10/15/2024 Severe persistent asthma, uncomplicated (ICD-10 - J45.50) 10/15/2024 Severe persistent asthma with (acute) exacerbation (ICD-10 - J45.51) CXR last month normal per her report. Spirometry shows obstruction with FEV1 62%. Most likely asthma is flaring secondary to influenza diagnosed a few weeks ago. Recommend starting Xolair since no improvement in the past with Tezspire, Nucala and recurrent large local reactions with Dupixent. IgE 318 (2-21-25). For now, start methyolprednisolone since she prefers over prednisone. Continue Breztri and prn nebulizer. Work on insurance approval for Xolair. Extensive forms filled out for work since missed several weeks. She was educated regarding the risks/benefits/alterna tives to Xolair. We also reviewed today 'boxed warning' for anaphylaxis. 10/15/2024 Allergic rhinitis due to pollen (ICD-10 - [...] disease. Plan to start a biologic first 10/15/2024 Allergic rhinitis due to animal (cat) (dog) hair and dander (ICD-10 - J30.81) 10/15/2024 Other allergic rhinitis (ICD-10 - J30.89) 10/15/2024 Other chronic allergic conjunctivitis (ICD-10 - H10.45) Given ocular signs and symptoms I encouraged allergy avoidance measures and meds as above. If symptoms persist, consider adding additional medications including intraocular antihistamine/mast cell stabilizer, PRN 10/15/2024 Other Plan Of Treatment Medication Medication Name Sig Start Date Stop Date Notes ZyrTEC Allergy 10 MG 1 tablet Orally Onc e a day Albuterol Sulfate HFA 108 (9 0 Base) MCG/ACT 2 puffs as needed Inhalation every 4 hrs; Duration: 30 days Breztri Aerosphere 160-9-4.8 MCG/ACT 2 puffs Inhalation Twice a day; Duration: 30 days EPINEPHrine 0.3 MG/0.3ML as directed Inj ection as needed; Duration: 30 days methylPREDNISolone 4 MG as directed Oral ly daily; Duration: 6 days Singulair 10 MG 1 tablet Orally Once a day; Duration: 90 days Treatment Notes Assessment Notes Severe persistent asthma wit h (acute) exacerbation CXR last month normal per her report. Spirometry shows obstruction with FEV1 62%. Most likely asthma is flaring secondary to influenza diagnosed a few weeks ago. Recommend starting Xolair since no improvement in the past with Tezspire, Nucala and recurrent large local reactions with Dupixent. IgE 318 (2-21-25). For now, start methyolprednisolone since she prefers over prednisone. Continue Breztri and prn nebulizer. Work on insurance approval for Xolair. Extensive forms filled out for work since missed several weeks. She was educated regarding the risks/benefits/alternatives to Xolair. We also reviewed today 'boxed warning' for anaphylaxis. Allergic rhinitis due to pollen Dior clearly suffers from atopic disease based upon our skin testing and clinical history. Accordingly, we have introduced a new, aggressive medication regimen, discussed nasal washes and allergy-specific avoidance measures. We also discussed adjunctive therapies including subcutaneous, specific allergen immunotherapy as relates to the treatment and prevention of atopic disease. Plan to start a biologic first Other chronic allergic conjunctivitis Gi adriane ocular signs and symptoms I encouraged allergy avoidance measures and meds as above. If symptoms persist, consider adding additional medications including intraocular antihistamine/mast cell stabilizer, PRN Next Appt Details Follow Up: 4 Weeks, Reason: start Xolair Progress Notes * Jessica DEL ANGELaDOB: 6 (39 yo F)Acc No.[id number]:10/15/2024 Progress Notes Patient: Dior WHITE Provider: Yaya Dorsey MD :1985 A ge:39 Y S ex:Female Date:10/15/2024 Address:[address] [place], [place] [address] Pcp:Rand Ballard, [facility] Subjective: * Chief Complaints: * 1 . Asthma follow-up - recent flares requiring multiple courses of steroids. * HPI: * Introduction: HPI: Itz Del Angel, a 39 year old with allergic rhinitis, asthma/COPD and adverse reaction with Dupxient presenting for evaluation of recent asthma flares.? She is alone for today's visit. She was last evaluated 05-21-2024 S he has been on steroids 3 times in the last month for asthma flares. She was diagnosed with influenza about 4 weeks ago while in urgent care. Per her report CXR normal. She is using DuoNebs and last used this am. She is using albuterol a few times daily for the last month. She is feeling better but continuing to have wheezing and shortness of breath. Decrease in exercise tolerance. She has been off steroids for about 10 days but required 3 courses in August prescribed by her PCP, Pulmonary and urgent care. She was also treated with Azithromycin. She quit smoking 31 days ago.? She continues Breztri 2 puffs BID and using a space D upixent was discontinued in 2023 due to continued l arge local reactions several inches in size. Reaction occurred a few hours after receiving the injection and lasted about 2 weeks. No systemic symptoms. Similar reaction 2 years ago with Dupixent. Itz hamm has a long history of asthma which was diagnosed in her 20s. She is currently taking Breztri. Over the years, she has been treated [...] arm sometimes baseball size. No history of urticaria, respiratory symptoms or angioedema associated with Dupixent. She also tried Tezspire and Nucala for a few months and discontinued because no change in asthma control. ImmunoCAPs in the past showed sensitivity to dust mite, mold, dog and cats. S he has requierd steroids 3-4 times in the last year. She requires ER visits about once a year. No history of hospitalization for asthma. R ecords were reviewed and diagnosed with VCD in the past. S inus surgery was performed in the past for deviated septum. S he has a history of eczema on her hands and follows with Dr. Lorin Ruiz. Improvement in eczema with Dupixent. They discussed starting another biologic but Dior was concerned about side effects. S he works in the [employer] and performs heavy lifting. Dogs are outside the house in the garage. T rosalio, she reports no fevers, chills, night sweats or other constitutional symptoms. * ROS: A LLERGY: runny nose Y es. s cratchy throat Y es. i tchy eyes Y es. e ar fullness Y es. s inus congestion Y es. P ositive p er the HPI and history, otherwise unremarkable. S PECIAL SENSES: Positve for n one. c ataracts N o. g laucoma?No. l oss of hearing Y es. i tching in ears Y es. r inging in ears Y es.?loss of balance N o. l oss of smell N o. d ry eyes N o. e xcessive tearing N o. i tching eyes Y es. l oss of taste N o. c onjunctivitis N o.?ear infections N o. C ONSTITUTIONAL: weight gain Y es. l oss of appetite N o. f ever?Yes,No. w eakness Y es. w eight loss Y es. f atigue Y es. n ight sweats Y es. P ositive for n one. E NT: cold Y es. c ough Y es. e pistaxis N o.?hearing loss Y es. c hange in voice Y es. s ore throat Y es. r inging in ears Y es. s inus pain Y es. P ositive p er the HPI and history, otherwise unremarkable. R ESPIRATORY: shortness of breath Y es. c hest pain Y es. c hest congestion Y es. c ough Y es. P ositive p er the HPI and history, otherwise unremakable. O PHTHALMOLOGY: diminished vision N o. e ye irritation Y es. d rainage from eyes Y es. b lurring of vision Y es. s easonal eye sx Y es. P ositive for p er the HPI and history, otherwise unremarkable. i tching Y es. s ensitivity to light Y es. d ischarge Y es. w atering Y es. s welling of the eyelids Y es. r edness Y es. E NDOCRINOLOGY: fatigue Y es. p olydipsia Y es. p olyuria N o. w eight loss Y es. s leep disturbance Y es. c old intolerance Y es. h eat intolerance Y es. d iabetes N o. P ositive for n one. C ARDIOLOGY: chest pain Y es. p alpitations N o. l eg edema?No. d izziness Y es. s hortness of breath Y es. P ositive for n one.? G ASTROENTEROLOGY: dysphagia N o. a bdominal pain N o. n ausea?No. v omiting N o. c onstipation Y es. d iarrhea N o. b lood in stool?No. i ndigestion Y es. h emorrhoids N o. P ositive for n one. ? U ROLOGY: difficulty urinating N o. b lood in urine N o. f requent urination Y es. u rinary incontinence N o. r ecurrent UTI N o. P ositive for n one. D ERMATOLOGY: rash Y es. m ole Y es. l umps N o. d ry or sensitive skin Y es. h stephen (urticaria) N o. a cne N o. s kin cancer?No. P ositive for p er the HPI and history, otherwise unremakable. N EUROLOGY: headache Y es. t ingling numbness N o. s eizures N o. i nsomnia Y es. m melody loss Y es. d izziness Y es. g ait abnormality N o. P ositive for n one. H EMATOLOGY/LYMPH: Positive for n one. M USCULOSKELETAL: joint swelling N o. j oint pain Y es. l eg cramps Y es. j oint stiffness Y es. s ciatica Y es. o steoporosis N o. f racture Y es. c arpal tunnel N o. g out N o. P ositive for n one. ? P SYCHOLOGY: high stress level Y es. d epression Y es. s leep disturbances Y es. s uicidal ideation N o. e ating disorder N o. m ental or physical abuse N o. a nxiety Y es. P ositive for n one. F EMALE REPRODUCTIVE: heavy periods Y es. h ot flashes Y es. a bnormal vaginal discharge Y es. s exually active N o. i nfertility N o. f requent yeat infections N o. p elvic pain N o. b reast pain Y es. n ipple discharge No. A re you ? N o. A re you planning on a future pregancy? N o. ? A ll other review of systems per the HPI and history, otherwise unremarkable. * Medical History: * Medications: T aking [...] needed Inhalation every 4 hrs , Taking methylPREDNISolone 4 MG Tablet Therapy Pack as directed Orally daily , Taking EPINEPHrine 0.3 MG/0.3ML Solution Auto-injector as directed Injection as needed , Taking Vitamin D3 1.25 MG (54624 UT) Capsule TAKE 1 CAPSULE BY MOUTH ONCE WEEKLY Oral , Taking Zolpidem Tartrate 10 MG Tablet Oral , Taking Triamcinolone Acetonide 0.1 % Cream 1 application Externally Two times a Week Objective: * Vitals: * Examination: G eneral examination: General appearance: p leasant, well-developed, well-nourished. HEENT: c onjunctiva are clear bilaterally, no tenderness to palpation of the sinuses, TM's without evidence of acute infection, turbinates 2+ swollen and pale inferiorly bilaterally, clear rhinorrhea is present, no polyps noted, no septal perforation, posterior oropharynx is clear, no exudates, no tongue swelling, and uvula is midline. Oral cavity: n ormal, no lesions. Neck, thyroid : s upple, non-tender, no anterior cervical lymphadenopathy. Breasts : n ot performed. Heart: R RR, S1-S2, no murmurs, no rubs, no gallops. Lungs: n ormal, clear to auscultation in all lung del real.? Neurologic exam: u nremarkable. Skin: n ormal, no rash, dermatographism, urticaria, angioedema. Peripheral pulses: n ormal (2+) bilaterally. Back: n ormal. Extremities: n ormal ROM, no clubbing, no cyanosis, no edema. Genitalia: n ot performed. Assessment: * Assessment: 1. S evere persistent asthma with (acute) exacerbation - J45.51 (Primary) 2 .?Severe persistent asthma, uncomplicated - J45.50 3 . A llergic rhinitis due to pollen - J30.1 4 . A llergic rhinitis due to animal (cat) (dog) hair and dander - J30.81 5 . O ther allergic rhinitis - J30.89 6 . O ther chronic allergic conjunctivitis - H10.45 Plan: * Treatment: 2. S evere persistent asthma, uncomplicated Continue Singulair Tablet, 10 MG, 1 tablet, Orally, Once a day, 90 days, 90 Tablet, Refills 1; C ontinue ZyrTEC Allergy Tablet, 10 MG, 1 tablet, Orally, Once a day; C ontinue Breztri Aerosphere Aerosol, 160-9-4.8 MCG/ACT, 2 puffs, Inhalation, Twice a day, 30 days, 1, Refills 5; C ontinue Albuterol Sulfate HFA Aerosol Solution, 108 (90 Base) MCG/ACT, 2 puffs as needed, Inhalation, every 4 hrs, 30 days, 1, Refills 5; S tart EPINEPHrine Solution Auto-injector, 0.3 MG/0.3ML, as directed, Injection, as needed, 30 days, 1, Refills 0. 3. A llergic rhinitis due to pollen Notes: Dior clearly suffers from atopic disease based upon our skin testing and clinical history. Accordingly, we have introduced a new, aggressive medication regimen, discussed nasal washes and allergy-specific avoidance measures. We also discussed adjunctive therapies including subcutaneous, specific allergen immunotherapy as relates to the treatment and prevention of atopic disease. Plan to start a biologic first 4. O ther chronic allergic conjunctivitis Notes: Given ocular signs and symptoms I encouraged allergy avoidance measures and meds as above. If symptoms persist, consider adding additional medications including intraocular antihistamine/mast cell stabilizer, PRN * Procedure Codes: 9 6160 PT-FOCUSED HLTH RISK ASSMT, G8427 DOC MEDS VERIFIED W/PT OR RE, A4617 Mouthpiece, [id number] RESPIRATORY FLOW VOLUME LOOP * Preventive Medicine: Counseling: M edication instruction: W atch for side effects of prescribed medications, Nasal steroid/antihistamine instruction: avoid septum. E ducation: G ENERAL EDUCATION: Our staff spent an additional 30 minutes in direct contact with the patient educating them on their current diagnoses and proper treatment and prevention of symptoms and the proper use of medications. E ducation 2: A RC EDUCATION: Our staff discussed the appropriate allergen avoidance measures and medication utilization including upper airway hygiene with daily nasal washes given the patient's clinical status and diagnoses.. P atient education material sent to portal? Y es C are goal follow up plan BMI management provided Y es Above Normal BMI Follow-up D ietary management education, guidance, and counseling * Follow Up: 4 Weeks (Reason: start Xolair) * Billing Information: * Visit Code: 93678 Office Visit, Est Pt., Level 5. Modifiers: 25 * Procedure Codes: 04029 PT-FOCUSED HLTH RISK ASSMT. G8427 DOC MEDS VERIFIED W/PT OR RE. A4617 Mouthpiece. [id number] RESPIRATORY FLOW VOLUME LOOP. * Electronic signature of Cyn Dorsey MD on 06/18/2025 at 02:59 AM CHEMISTRY TECHNOLOGIST Sign off status: Pending * Provider: Yaya Dorsey MD Date: 0 10/15/2024 Generated for Kole miranda/Van/Mukunditting on: 1 08/18/2024 02:59 AM CHEMISTRY TECHNOLOGIST History and Physical Notes * HPI (History of Present Illness) Category Sub-Category Detail Notes Category Not es *Introduction HPI: Dior Del Angel, a 39 year old with allergic rhinitis, asthma/COPD and adverse reaction with Dupxient presenting for evaluation of recent asthma flares. She is alone for today's visit. She was last evaluated 05-21-2024 She has been on steroids 3 times in the last month for asthma flares. She was diagnosed with influenza about 4 weeks ago while in urgent care. Per her report CXR normal. She is using DuoNebs and last used this am. She is using albuterol a few times daily for the last month. She is feeling better but continuing to have wheezing and shortness of breath. Decrease in exercise tolerance. She has been off steroids for about 10 days but required 3 courses in August prescribed by her PCP, Pulmonary and urgent care. She was also treated with Azithromycin. She quit smoking 31 days ago. She continues Breztri 2 puffs BID and using a space Dupixent was discontinued in 2023 due to continued large local reactions several inches in size. Reaction occurred a few hours after receiving the injection and lasted about 2 weeks. No systemic symptoms. Similar reaction 2 years ago with Dupixent. Dior has a long history of asthma which was diagnosed in her 20s. She is currently taking Breztri. Over the years, she has been treated [...] arm sometimes baseball size. No history of urticaria, respiratory symptoms or angioedema associated with Dupixent. She also tried Tezspire and Nucala for a few months and discontinued because no change in asthma control. ImmunoCAPs in the past showed sensitivity to dust mite, mold, dog and cats. She has requierd steroids 3-4 times in the last year. She requires ER visits about once a year. No history of hospitalization for asthma. 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 Sinus surgery was performed in the past for deviated septum. She has a history of eczema on her hands and follows with Dr. Lorin Ruiz. Improvement in eczema with Dupixent. They discussed starting another biologic but Dior was concerned about side effects. She works in the [employer] and performs heavy lifting. Dogs are outside [...]
--- OUTSIDE RECORDS SUMMARY | 2024-11-28 03:30 | XMS_ITS ---
Author Organization [facility] [employer] [place] ([address]) Address [address] [facility] [address] [place] [address] Care Team Providers Care Cable Installation Manager Name Role Phone Rand Brasher Primary Care Provider Rosa Díaz Unavailable [phone] Mary Mcgrath Unavailable Unavailable REASON FOR VISIT Atopic asthma w/o mention of status asthmaticus or acute exacerbation follow-up, Xolair administration scheduled today, CIU follow-up, Xolair administration scheduled today, Needs evaluation for pre-Xolair health questionaire to assess health status and medication review Medications Medication SIG (Take, Route, Frequency, Duration) Notes Start Date End Date Status Albuterol Sulfate HFA 108 (90 Base) MCG/ACT 2 puffs as needed Inhalation every 4 hrs; Duration: 30 days Active Breztri Aerosphere 160-9-4.8 MCG/ACT 2 puffs Inhalation Twice a day; Duration: 30 days Active EPINEPHrine 0.3 MG/0.3ML as directed Inj ection as needed; Duration: 30 days Active Singulair 10 MG 1 tablet Orally Once a day; Duration: 90 days Active ZyrTEC Allergy 10 MG 1 tablet Orally Onc e a day Active predniSONE 20 MG 3 tablets once a day for 3 days, 2 tablets once a day for 3 days, 1 tablet once a day for 3 days Orally Once a day; Duration: 9 days 10/29/2024 Active Zolpidem Tartrate 10 MG Oral; Duration: 90 Days Active Vitamin D3 1.25 MG (27749 UT) TAKE 1 CAPSULE BY MOUTH ONCE WEEKLY Oral; Duration: 84 Days Active Social History Sex Assigned At : Social History Observation Description Sex Assigned At Female Problems Problem Type SNOMED Code ICD Code Onset Dates Problem Status W/U Status Risk Notes Problem Uncomplicated moderate persistent asthma (746928008) Moderate persistent asthma, uncomplicated (J45.40) Active confirmed Encounters Encounter Location Date Provider Diagnosis [facility] [address] [address] 11/28/2024 Rosa Dorsey Moderate persistent asthma, uncomplicated J45.40 ; Severe persistent asthma, uncomplicated J45.50 ; Other Urticaria L50.8 and 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 Assessments Encounter Date Diagnosis (ICD Code) Assessment Notes Treatment Notes Treatment Clinical Notes Section Notes 11/28/2024 Moderate persistent asthma, uncomplicated (ICD-10 - J45.40) 11/28/2024 Severe persistent asthma, uncomplicated (ICD-10 - J45.50) 11/28/2024 Other Urticaria (ICD-10 - L50.8) 11/28/2024 Polyp of nasal cavity (ICD-10 - J33.0) 11/28/2024 Other Plan Of Treatment Next Appt Details Follow Up: As scheduled for Xolair, Reason: Progress Notes * Jessica DEL ANGELYordan: 6 (39 yo F)Acc No.[id number]:11/28/2024 Xolair Only Patient: Dior WHITE Provider: Yaya Dorsey MD :1985 A ge:39 Y S ex:Female Date:11/28/2024 Address:[address] [place], [place] [id number] Pcp:TICO Caballero Subjective: * Chief Complaints: * 1 . Atopic asthma w/o mention of status asthmaticus or acute exacerbation follow- up, Xolair administration scheduled today. 2. CIU follow-up, Xolair administration scheduled today. 3. Needs evaluation for pre-Xolair health questionaire to assess health status and medication review. * HPI: * Introduction: The patient is here for scheduled immunotherapy with Xolair. Please see the attached specialty form regarding the specifics of the administration of this medication. As per our protocol, they must undergo a screening health questionnaire (medication changes, reaction(s) to last immunotherapy dose(s), current health status, ACT (if appropriate), self-injectable epinephrine on patient(?) and peak flow (if appropriate)). Also, the patient must wait in our office under direct observation of physician and staff for 2 hours after the first 3 doses, then 30 minutes after receiving this medication thereafter. Furthermore, every patient must have an epinephrine pen (self-injectable) with them at all times given boxed warning of Xolair. * ROS: A LLERGY: Positive p er the HPI and history, otherwise unremarkable.? S PECIAL SENSES: Positve for p er the HPI and history, otherwise unremarkable. C ONSTITUTIONAL: Positive for p er the HPI and history, otherwise unremakable. E NT: Positive p er the HPI and history, otherwise unremarkable.? R ESPIRATORY: Positive for p er the HPI and history, otherwise unremarkable. O PHTHALMOLOGY: Positive for p er the HPI and history, othewise unremarkable. E NDOCRINOLOGY: Positive for n one. C ARDIOLOGY: Positive for n one. G ASTROENTEROLOGY: Positive for p er the HPI and history, otherwise unremarkable. U ROLOGY: Positive for n one. D ERMATOLOGY: Positive for p er the HPI and history, otherwise unremarkable. N EUROLOGY: Positive for n one. H EMATOLOGY/LYMPH: Positive for n one. M USCULOSKELETAL: Positive for n one. P SYCHOLOGY: Positive for n one. A ll other review of systems per the HPI and history, othwise unremarkable. * Medical History: * Medications: T [...] needed Inhalation every 4 hrs , Taking EPINEPHrine 0.3 MG/0.3ML Solution Auto-injector as directed Injection as needed , Taking predniSONE 20 MG Tablet 3 tablets once a day for 3 days, 2 tablets once a day for 3 days, 1 tablet once a day for 3 days Orally Once a day , Taking Vitamin D3 1.25 MG (44278 UT) Capsule TAKE 1 CAPSULE BY MOUTH ONCE WEEKLY Oral , Taking Zolpidem Tartrate 10 MG Tablet Oral Objective: * Vitals: Assessment: * Assessment: 1. S evere persistent asthma, uncomplicated - J45.50 (Primary) 2 . M oderate persistent asthma, uncomplicated - J45.40 3 . O ther Urticaria - L50.8 ? 4 . P olyp of nasal cavity - J33.0 Plan: * Treatment: * Procedure Codes: 9 6401 CHEMO, ANTI-NEOPL, SQ/IM, 12866 CHEMO, ANTI-NEOPL, SQ/IM, Units: 2.00 , Modifiers: 76 , 06569 THER/PROPH/DIAG INJ, SC/IM, 27066 THER/PROPH/DIAG INJ, SC/IM, Units: 2.00 , Modifiers: 76 , J2357 NOC Xolair (lyophilized vial, 150mg), Units: 90.00 , 97770 MEASURE BLOOD OXYGEN LEVEL, 53106 Additional supplies during Public Health Emergency, S9441 ASTHMA ED NON-MD PROV PER SESSION * Preventive Medicine: R cruziewed boxed warning on prescribed medication: Xolair: anaphylaxis, CV disease, malignancy. After discussing risks/benefits/alternatives, patient has agreed to start/continue Xolair therapy. No new symptoms of cardiac disease, malignancy and no symptoms of anaphylaxis. * Follow Up: A s scheduled for Xolair * Billing Information: * Visit Code: * Procedure Codes: 03975 CHEMO, ANTI-NEOPL, SQ/IM. 24134 CHEMO, ANTI-NEOPL, SQ/IM. Units: 2.00. Modifiers: 76 53019 THER/PROPH/DIAG INJ, SC/IM. 99130 THER/PROPH/DIAG INJ, SC/IM. Units: 2.00. Modifiers: 76 J2357 NOC Xolair (lyophilized vial, 150mg). Units: 90.00. 98525 MEASURE BLOOD OXYGEN LEVEL. 27556 Additional supplies during Public Health Emergency. S9441 ASTHMA ED NON-MD PROV PER SESSION. * Electronic signature of Cyn Dorsey MD on 06/18/2025 at 02:56 AM ORIENTATION AND MOBILITY SPECIALIST Sign off status: Pending * Provider: Yaya Dorsey MD Date: 0 11/28/2024 Generated for Kole miranda/Van/Vladislav on: 1 08/18/2024 02:56 AM ORIENTATION AND MOBILITY SPECIALIST History and Physical Notes * HPI (History of Present Illness) Category Sub-Category Detail Notes Category Not es *Introduction The patient is here for scheduled immunotherapy with Xolair. Please see the attached specialty form regarding the specifics of the administration of this medication. As per our protocol, they must undergo a screening health questionnaire (medication changes, reaction(s) to last immunotherapy dose(s), current health status, ACT (if appropriate), self-injectable epinephrine on patient(?) and peak flow (if appropriate)). Also, the patient must wait in our office under direct observation of physician and staff for 2 hours after the first 3 doses, then 30 minutes after receiving this medication thereafter. Furthermore, every patient must have an epinephrine pen (self-injectable) with them at all times given boxed warning of Xolair.
--- OUTSIDE RECORDS SUMMARY | 2024-12-04 11:30 | XMS_ITS ---
Author Organization [facility] [employer] [place] ([address]) Address [address] [facility] [address] [place] [address] Care Team Providers Care Veterinary Attendant Name Role Phone Rand Brasher Primary Care Provider Rosa Díaz Unavailable [phone] Mary Mcgrath Unavailable Unavailable REASON FOR VISIT Asthma follow-up - continued flares requiring multiple courses of steroids, further paperwork needsto be completed for work Medications Medication SIG (Take, Route, Frequency, Duration) Notes Start Date End Date Status Breztri Aerosphere 160-9-4.8 MCG/ACT 2 puffs Inhalation Twice a day; Duration: 30 days Active ZyrTEC Allergy 10 MG 1 tablet Orally Onc e a day Active Albuterol Sulfate HFA 108 (90 Base) MCG/ACT 2 puffs as needed Inhalation every 4 hrs; Duration: 30 days Active Zolpidem Tartrate 10 MG Oral; Duration: 90 Days Active Vitamin D3 1.25 MG (24427 UT) TAKE 1 CAPSULE BY MOUTH ONCE WEEKLY Oral; Duration: 84 Days Active EPINEPHrine 0.3 MG/0.3ML as directed Inj ection as needed; Duration: 30 days Active predniSONE 20 MG 3 tablets once a day for 3 days, 2 tablets once a day for 3 days, 1 tablet once a day for 3 days Orally Once a day; Duration: 9 days Active Singulair 10 MG 1 tablet Orally Once a day; Duration: 90 days Active Social History Sex Assigned At : Social History Observation Description Sex Assigned At Female Encounters Encounter Location Date Provider Diagnosis [facility] [address] [facility] [address] [place] [address] 12/04/2024 Rosa Dorsey Severe persistent asthma, uncomplicated J45.50 ; Severe persistent asthma with (acute) exacerbation J45.51 ; Allergic rhinitis due to pollen J30.1 ; Allergic rhinitis due to animal (cat) (dog) hair and dander J30.81 ; Other allergic rhinitis J30.89 and Other chronic allergic conjunctivitis H10.45 Assessments Encounter Date Diagnosis (ICD Code) Assessment Notes Treatment Notes Treatment Clinical Notes Section Notes 12/04/2024 Severe persistent asthma, uncomplicated (ICD-10 - J45.50) 12/04/2024 Severe persistent asthma with (acute) exacerbation (ICD-10 - J45.51) ACT 5. Spirometry earlier this month showed obstruction with FEV1 62%. Recommend starting Xolair since no improvement in the past with Tezspire, Nucala and recurrent large local reactions with Dupixent. IgE 318 (2-21-25). Due to current wheezing, start prednisone. Continue Breztri and prn nebulizer. Approval is currently pending on Xolair. Today, I again filled out extensive forms for work since missed several weeks. She is scheduled for f/u with CT Chest December 09 and December 19 f/u with Pulmonary and PFTs 12/04/2024 Allergic rhinitis due to pollen (ICD-10 - [...] disease. Plan to start a biologic first 12/04/2024 Allergic rhinitis due to animal (cat) (dog) hair and dander (ICD-10 - J30.81) 12/04/2024 Other allergic rhinitis (ICD-10 - J30.89) 12/04/2024 Other chronic allergic conjunctivitis (ICD-10 - H10.45) Given ocular signs and symptoms I encouraged allergy avoidance measures and meds as above. If symptoms persist, consider adding additional medications including intraocular antihistamine/mas t cell stabilizer, PRN 12/04/2024 Other Plan Of Treatment Medication Medication Name Sig Start Date Stop Date Notes Breztri Aerosphere 160-9-4.8 MCG/ACT 2 puffs Inhalation Twice a day; Duration: 30 days ZyrTEC Allergy 10 MG 1 tablet Orally Once a day Albuterol Sulfate HFA 108 (9 0 Base) MCG/ACT 2 puffs as needed Inhalation every 4 hrs; Duration: 30 days EPINEPHrine 0.3 MG/0.3ML as directed Inj ection as needed; Duration: 30 days predniSONE 20 MG 3 tablets once a day for 3 days, 2 tablets once a day for 3 days, 1 tablet once a day for 3 days Orally Once a day; Duration: 9 days Singulair 10 MG 1 tablet Orally Once a day; Duration: 90 days Treatment Notes Assessment Notes Severe persistent asthma wit h (acute) exacerbation ACT 5. Spirometry earlier this month showed obstruction with FEV1 62%. Recommend starting Xolair since no improvement in the past with Tezspire, Nucala and recurrent large local reactions with Dupixent. IgE 318 (2--25). Due to current wheezing, start prednisone. Continue Breztri and prn nebulizer. Approval is currently pending on Xolair. Today, I again filled out extensive forms for work since missed several weeks. She is scheduled for f/u with CT Chest December 09 and December 19 f/u with Pulmonary and PFTs Allergic rhinitis due to pollen Dior clearly [...] stabilizer, PRN Next Appt Details Follow Up: 2 Weeks, Reason: start Xolair Progress Notes * Varinder DEL ANGELDestin: 6 (39 yo F)Acc No.[id number]:12/04/2024 XOLAIR 1-3 Patient: Dior WHITE Provider: Yaya Dorsey MD :1985 A ge:39 Y S ex:Female Date:12/04/2024 Address:[address] [place], [place] [id number] [facility] Subjective: * Chief Complaints: * 1 . Asthma follow-up - continued flares requiring multiple courses of steroids. 2. Further paperwork needs to be completed for work. * HPI: * Introduction: HPI: Itz Del Angel, a 39 year old with allergic rhinitis, asthma/COPD and adverse reaction with Dupxient presenting for evaluation of continued asthma flares. She is alone for today's visit. She was last evaluated 10-01-2024. C ontinued shortness of breath and cough. Some improvement in cough with prednisone 2 weeks ago, but not resolved. She now off steroids and also reports wheezing. She is using albuterol multiple times daily. She is using Breztri 2 puffs BID. She is also following with Cindi Mcgrath and scheduled for PFTs and CT chest in November 2024. S he has been on steroids 4 times in the last month for asthma flares. She was diagnosed with influenza while in urgent care. Per her report CXR normal. She is using albuterol a few times daily for the last month. Decrease in exercise tolerance. She required 3 courses in August prescribed by her PCP, Pulmonary and urgent care. She was also treated with Azithromycin. She quit smoking earlier this year. D upixent was discontinued in 2023 due to continued l arge local reactions several inches in size. Reaction occurred a few hours after receiving the injection and lasted about 2 weeks. No systemic symptoms. Similar reaction 2 years ago with Dupixent. Itz hamm has a long history of asthma which was diagnosed in her 20s. Over the years, she has been treated [...] mite, mold, dog and cats. S he requires ER visits about once a year. No history of hospitalization for asthma. R ecords were reviewed and diagnosed with VCD in the past. S inus surgery was performed in the past for deviated septum. S he has a history of eczema on her hands and follows with Dr. Lorin Ruiz. Eczema has recently been flaring on her hands. She works in the [employer] and performs heavy lifting. Dogs are outside [...] day , Taking Vitamin D3 1.25 MG (78601 UT) Capsule TAKE 1 CAPSULE BY MOUTH ONCE WEEKLY Oral , Taking Zolpidem Tartrate 10 MG Tablet Oral Objective: * Vitals: * Examination: G eneral [...] no murmurs, no rubs, no gallops. Lungs: w heezing bilaterally. Neurologic exam: u nremarkable. Skin: n ormal, [...] 4 hrs, 30 days, 1, Refills 5; C ontinue EPINEPHrine Solution Auto-injector, 0.3 MG/0.3ML, as directed, [...] ASSMT, G8427 DOC MEDS VERIFIED W/PT OR RE * Preventive Medicine: Counseling: M edication instruction: [...] education, guidance, and counseling * Follow Up: 2 Weeks (Reason: start Xolair) * Billing Information: * Visit Code: 97457 Office Visit, Est Pt., Level 4. Modifiers: 25 * Procedure Codes: 61054 PT-FOCUSED HLTH RISK ASSMT. G8427 DOC MEDS VERIFIED W/PT OR RE. * Electronic signature of Cyn Dorsey MD on 06/18/2025 at 02:56 AM INHALATION THERAPY AIDES TEACHER Sign off status: Pending * Provider: Yaya Dorsey MD Date: 0 12/04/2024 Generated for Kole miranda/Van/Mukunditting on: 08/18/2024 02:56 AM INHALATION THERAPY AIDES TEACHER History and Physical Notes * HPI (History of Present Illness) Category Sub-Category Detail Notes Category Not es *Introduction HPI: Dior Del Angel, a 39 year old with allergic rhinitis, asthma/COPD and adverse reaction with Dupxient presenting for evaluation of continued asthma flares. She is alone for today's visit. She was last evaluated 10-01-2024. Continued shortness of breath and cough. Some improvement in cough with prednisone 2 weeks ago, but not resolved. She now off steroids and also reports wheezing. She is using albuterol multiple times daily. She is using Breztri 2 puffs BID. She is also following with [facility] Galenee Stegemeier and scheduled for PFTs and CT chest in November 2024. She has been on steroids 4 times in the last month for asthma flares. She was diagnosed with influenza 2-2024 while in urgent care. Per her report CXR normal. She is using albuterol a few times daily for the last month. Decrease in exercise tolerance. She required 3 courses in August prescribed by her PCP, Pulmonary and urgent care. She was also treated with Azithromycin. She quit smoking earlier this year. Dupixent was discontinued in 2023 due to continued large local reactions several inches in size. Reaction occurred a few hours after receiving the injection and lasted about 2 weeks. No systemic symptoms. Similar reaction 2 years ago with Dupixent. Dior has a long history of asthma which was diagnosed in her 20s. Over the years, she has been treated [...] dust mite, mold, dog and cats. She requires ER visits about once a year. No history of hospitalization for asthma. 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 Sinus surgery was performed in the past for deviated septum. She has a history of eczema on her hands and follows with Dr. Lorin Ruiz. Eczema has recently been flaring on her hands. She works in the [employer] and performs heavy lifting. Dogs are outside [...] murmu rs, no rubs, no gallops Lungs: wheezing bilaterally Abdomen: Extremities: normal ROM, no clubb ing, no cyanosis, no edema General appearance: pleasant, well-devel oped, well-nourished Skin: normal, no rash, ben matographism, urticaria, angioedema Neurologic exam: unremarkable Oral cavity: normal, no lesions Breasts : not performed Peripheral pulses: normal (2+) bilatera lly Back: normal Genitalia: not performed
--- OUTSIDE RECORDS SUMMARY | 2025-01-08 02:00 | XMS_ITS ---
Author Organization [facility] [employer] [place] ([address]) Address [address] [facility] [address] [place] [address] Care Team Providers Care School Clerk Name Role Phone Rand Brasher Primary Care Provider Rosa Díaz Unavailable [phone] Mary Mcgrath Unavailable Unavailable REASON FOR VISIT Asthma follow-up - continued flares requiring multiple courses of steroids Medications Medication SIG (Take, Route, Frequency, Duration) Notes Start Date End Date Status Montelukast Sodium 10 MG Oral; Duration: 90 Days Active Xolair 12/11/2024 Active EPINEPHrine 0.3 MG/0.3ML as directed Inj ection as needed; Duration: 30 days Active Zolpidem Tartrate 10 MG Oral; Duration: 90 Days Active predniSONE 20 MG 3 tablets once a day for 3 days, 2 tablets once a day for 3 days, 1 tablet once a day for 3 days Orally Once a day; Duration: 9 days Not-Taking Albuterol Sulfate HFA 108 (90 Base) MCG/ACT 2 puffs as needed Inhalation every 4 hrs; Duration: 30 days Active Breztri Aerosphere 160-9-4.8 MCG/ACT 2 puffs Inhalation Twice a day; Duration: 30 days Active ZyrTEC Allergy 10 MG 1 tablet Orally Onc e a day; Duration: 90 days Active Singulair 10 MG 1 tablet Orally Once a day; Duration: 90 days Active Vitamin D3 1.25 MG (33661 UT) TAKE 1 CAPSULE BY MOUTH ONCE WEEKLY Oral; Duration: 84 Days Active Social History Sex Assigned At : Social History Observation Description Sex Assigned At Female Encounters Encounter Location Date Provider Diagnosis [facility] [address] [address] 01/08/2025 Rosa Dorsey Severe persistent asthma, uncomplicated J45.50 ; Allergic rhinitis due to pollen J30.1 ; Allergic rhinitis due to animal (cat) (dog) hair and dander J30.81 ; Other allergic rhinitis J30.89 and Other chronic allergic conjunctivitis H10.45 Assessments Encounter Date Diagnosis (ICD Code) Assessment Notes Treatment Notes Treatment Clinical Notes Section Notes 01/08/2025 Severe persistent asthma, uncomplicated (ICD-10 - J45.50) ACT 6. Spirometry earlier this month showed obstruction with FEV1 62%. Recommend starting Xolair since no improvement in the past with Tezspire, Nucala and recurrent large local reactions with Dupixent. IgE 318 (09-20-24). She does not feel that she needs steroids at this time. Last received steroids . Continue Breztri and prn nebulizer. Xolair was administered today and tolerated after 2 hours of observation. Continue to carry AIE at all times due to black box warning for anaphylaxis. Malignancy and cardiovascular risks previously discussed. Return in 2 weeks for dosing She is scheduled for f/u with Pulmonary and CT Chest and PFTs 01/08/2025 Allergic rhinitis due to pollen (ICD-10 - [...] disease. Plan to start a biologic first 01/08/2025 Allergic rhinitis due to animal (cat) (dog) hair and dander (ICD-10 - J30.81) 01/08/2025 Other allergic rhinitis (ICD-10 - J30.89) 01/08/2025 Other chronic allergic conjunctivitis (ICD-10 - H10.45) Given ocular signs and symptoms I encouraged allergy avoidance measures and meds as above. If symptoms persist, consider adding additional medications including intraocular antihistamine/mast cell stabilizer, PRN 01/08/2025 Other Plan Of Treatment Medication Medication Name Sig Start Date Stop Date Notes EPINEPHrine 0.3 MG/0.3ML as directed Inj ection as needed; Duration: 30 days Albuterol Sulfate HFA 108 (9 0 Base) MCG/ACT 2 puffs as needed Inhalation every 4 hrs; Duration: 30 days Breztri Aerosphere 160-9-4.8 MCG/ACT 2 puffs Inhalation Twice a day; Duration: 30 days ZyrTEC Allergy 10 MG 1 tablet Orally Onc e a day; Duration: 90 days Singulair 10 MG 1 tablet Orally Once a day; Duration: 90 days Treatment Notes Assessment Notes Severe persistent asthma, uncomplicated ACT 6. Spirometry earlier this month showed obstruction with FEV1 62%. Recommend starting Xolair since no improvement in the past with Tezspire, Nucala and recurrent large local reactions with Dupixent. IgE 318 (09-20-25). She does not feel that she needs steroids at this time. Last received steroids . Continue Breztri and prn nebulizer. Xolair was administered today and tolerated after 2 hours of observation. Continue to carry AIE at all times due to black box warning for anaphylaxis. Malignancy and cardiovascular risks previously discussed. Return in 2 weeks for dosing She is scheduled for f/u with Pulmonary and CT Chest and PFTs Allergic rhinitis due to pollen [...] Appt Details Follow Up: 2 Weeks, Reason: Xolair Progress Notes * Nicole DEL ANGEL: 6 (39 yo F)Acc No.[id number]:01/08/2025 XOLAIR 1-3 Patient: Dior WHITE Provider: Yaya Dorsey MD :1985 A ge:39 Y S ex:Female Date:01/08/2025 Address:[address] [place], [place] [id number] Pcp:TICO Caballero Subjective: * Chief Complaints: * 1 . Asthma follow-up - continued flares requiring multiple courses of steroids. * HPI: * Introduction: HPI: Itz Del Angel, a 39 year old with allergic rhinitis, asthma/COPD and adverse reaction with Dupxient presenting for f/u evaluation of continued asthma flares. She is alone for today's visit. She was last evaluated 10-29-2024. S he has now been off steroids for about 3 weeks and continued shortness of breath and cough. Some improvement in cough with prednisone 2 weeks ago, but not resolved. She is using albuterol multiple times daily. She is using Breztri 2 puffs BID. She is also following with Cindi Mcgrath and planning for PFTs and CT chest in November 2024. S he has been on steroids 4 times in the last 2 months for asthma flares. She was diagnosed with influenza while in urgent care. Per her report CXR normal. D ecrease in exercise tolerance. She required 3 courses [...] he requires ER visits about once a year.? No history of hospitalization for asthma. R ecords were reviewed and diagnosed with VCD in the past. S inus surgery was performed in the past for deviated septum. S he has a history of eczema on her hands and follows with Dr. Lorin Ruiz. She works in the [employer] and performs heavy lifting. Dogs are outside [...] * Medical History: * Medications: T aking Vitamin D3 1.25 MG (89160 UT) Capsule TAKE 1 CAPSULE BY MOUTH ONCE WEEKLY Oral , Taking Zolpidem Tartrate 10 MG Tablet Oral , Taking Montelukast Sodium 10 MG Tablet Oral , Taking Xolair , Taking Singulair 10 MG Tablet 1 tablet [...] Auto-injector as directed Injection as needed , Not-Taking/PRN predniSONE 20 MG Tablet 3 tablets once a day for 3 days, 2 tablets once a day for 3 days, 1 tablet once a day for 3 days Orally Once a day Objective: * Vitals: * Examination: G eneral [...] no murmurs, no rubs, no gallops. Lungs: , clear to auscultation in all lung del real. Neurologic exam: u nremarkable. Skin: n ormal, no rash, dermatographism, urticaria, angioedema. Peripheral pulses: n ormal (2+) bilaterally. Back: n ormal. Extremities: n ormal ROM, no clubbing, no cyanosis, no edema. Genitalia: n ot performed. Assessment: * Assessment: 1. S evere persistent asthma, uncomplicated - J45.50 (Primary) 2 . A llergic rhinitis due to pollen - J30.1 3 . A llergic rhinitis due to animal (cat) (dog) hair and dander - J30.81 4 . O ther allergic rhinitis - J30.89 5. O ther chronic allergic conjunctivitis - H10.45 Plan: * Treatment: 2. A llergic rhinitis due to pollen Notes: Dior clearly suffers from atopic disease based upon our skin testing and clinical history. Accordingly, we have introduced a new, aggressive medication regimen, discussed nasal washes and allergy-specific avoidance measures. We also discussed adjunctive therapies including subcutaneous, specific allergen immunotherapy as relates to the treatment and prevention of atopic disease. Plan to start a biologic first 3. O ther chronic allergic conjunctivitis Notes: Given ocular signs and symptoms I encouraged allergy avoidance measures and meds as above. If symptoms persist, consider adding additional medications including intraocular antihistamine/mast cell stabilizer, PRN * Procedure Codes: 9 6160 PT-FOCUSED HLTH RISK ASSMT, G8427 DOC MEDS VERIFIED W/[place], [address] CHEMO, ANTI-NEOPL, SQ/IM, Units: 2.00 * Preventive Medicine: Counseling: M edication instruction: [...] counseling * Follow Up: 2 Weeks (Reason: Xolair) * Billing Information: * Visit Code: 29519 Office Visit, Est Pt., Level 4. Modifiers: 25 * Procedure Codes: 30732 PT-FOCUSED HLTH RISK ASSMT. G8427 DOC MEDS VERIFIED W/[place]. [address] CHEMO, ANTI-NEOPL, SQ/IM. Units: 2.00. * Electronic signature of Cyn Dorsey MD on 06/18/2025 at 02:55 AM POWER SYSTEMS ENGINEER Sign off status: Pending * Provider: Yaya Dorsey MD Date: 0 01/08/2025 Generated for Kole miranda/Van/Vladislav on: 08/18/2024 02:55 AM POWER SYSTEMS ENGINEER History and Physical Notes * HPI (History of Present Illness) Category Sub-Category Detail Notes Category Not es *Introduction HPI: Dior Del Angel, a 39 year old with allergic rhinitis, asthma/COPD and adverse reaction with Dupxient presenting for f/u evaluation of continued asthma flares. She is alone for today's visit. She was last evaluated 10-29-2024. She has now been off steroids for about 3 weeks and continued shortness of breath and cough. Some improvement in cough with prednisone 2 weeks ago, but not resolved. She is using albuterol multiple times daily. She is using Breztri 2 puffs BID. She is also following with SCHOOL BUS DRIVER/CUSTODIAN Mary Mcgrath and planning for PFTs and CT chest in November 2024. She has been on steroids 4 times in the last 2 months for asthma flares. She was diagnosed with influenza 2-2024 while in urgent care. Per her report CXR normal. Decrease in exercise tolerance. She required 3 [...] hands and follows with Dr. Lorin Ruiz. She works in the [employer] and performs heavy lifting. Dogs are outside [...] murmu rs, no rubs, no gallops Lungs: , clear to auscultat ion in all lung del real Abdomen: Extremities: normal ROM, no clubb ing, no cyanosis, no edema General appearance: pleasant, well-devel oped, well-nourished Skin: normal, no rash, ben matographism, urticaria, angioedema Neurologic exam: unremarkable Oral cavity: normal, no lesions Breasts : not performed Peripheral pulses: normal (2+) bilatera lly Back: normal Genitalia: not performed
--- NOTE | ~2025-06-17 | XR_ITS ---
EXAMINATION: XR foot LT min 3V, 06/17/2025 15:40 SPECIAL SERVICES SUPERVISOR HISTORY: injury to foot base of great left toe x 6 days COMPARISON: No comparisons available. Findings: No acute fracture or malalignment. No significant degenerative changes. Soft tissues unremarkable. Impression: No acute fracture or malalignment. Reviewed, dictated and finalized at location P. IAL SERVICES SUPERVISOR Impression: No acute fracture or malalignment.
[2025-06-17 15:34] VITALS: BP 130/85; PULSE 72; RESP 16; TEMP 36.7; O2SAT 100
--- NOTE | 2025-06-17 15:37 | ED.LOWEXIN ---
HPI - Extremity Injury (Lower) General Chief Complaint: Extremity Injury, Lower Stated Complaint: Fall Injury/Left Foot Time Seen by Provider: 06/17/25 15:37 Source: patient, RN notes reviewed and old records reviewed Mode of arrival: ambulatory Limitations: no limitations History of Present Illness HPI Narrative: 39 year old [facility] complaints of sustaining a fall 6 days ago when she was getting out of bed. She reports that she had got her right foot caught up in blanket and when she stepped on her left foot it was numb and she fell hearing a pop to her foot. Patient as pain to the base of her left great toe with some bruising noted and to the medial aspect of left foot with mild swelling present.. Patient has strong left pedal pulse with foot pink and nail beds having brisk capillary refill. MD complaint: foot injury Onset (ago): day(s) (6) Injury: Left: foot (base of left great toe) Type of Injury: blunt Place: home Severity scale (1-10): 6 Exacerbating factors: weight bearing and movement Associated symptoms: snap/pop sensation, swelling and other (bruising) Related Data Home Medications ?Medication ?Instructions ?Recorded ?Confirmed ?Last Taken ?Type mometasone-formoterol HFA 100 2 puff inhalation Q12H 04/10/25 Unknown History mcg-5 mcg/actuation aerosol inhaler (Dulera) Allergies Allergy/AdvReac Type Severity Reaction Status Date / Time nickel Allergy Mild Rash Verified 06/17/25 15:37 oxycodone AdvReac Intermediate Nausea Verified 06/17/25 15:37 tramadol AdvReac Intermediate Nausea Verified 06/17/25 15:37 Review of Systems Review of Systems: CONSTITUTIONAL: Denies fever, chills, or sweats. EYES: Denies visual changes, redness, or discharge. ENT: Denies rhinorrhea, congestion, sore throat, or otalgia. CARDIOVASCULAR: Denies chest pain, palpitations, or edema. RESPIRATORY: Denies cough or dyspnea. GASTROINTESTINAL: Denies abdominal pain, nausea, vomiting, or diarrhea. GENITOURINARY: Denies dysuria or hematuria. SKIN: Denies rash or itching. MUSCULOSKELETAL: Denies acute back pain, positive for pain to the base of left great toe from fall, or myalgia. NEUROLOGIC: Denies headache, numbness, or weakness. PSYCHIATRIC: Denies anxiety or depression. All systems reviewed & are unremarkable except as noted in HPI and below PMFSH Past Medical History Medical History Eczema Insomnia Depression Anxiety (normal spontaneous vaginal delivery) x 1 Spontaneous x 4 Smoker Chronic GERD Asthma Surgical History Surgical History History of nasal surgery History of X2 H/O tubal ligation Family History Family History Father Alcoholism Cancer Cerebrovascular accident Mother Cancer Hypertension Social History Social History Social History: 09/20/24 very confident with medical forms. Has received assistance with childcare. Smoking packs per day: 0.5 Smoking cigarettes per day: 10.0 Years smoked: 16 Smoking pack-years: 8.00 Smoking status: Former smoker Tobacco type: cigarettes Second hand tobacco smoke exposure: Yes Smoking end date: 09/02/24 Additional smoking assessment comments: 4-6 cigarettes per day Alcohol intake: former Substance use: former Substance use type: marijuana Last use: 2017 Do You Feel Safe in your Home?: Yes Lack of Transportation: No Lack of Food: Never True Current Housing: I Have Housing Concerned About Future Housing: No Difficulty Paying Gas/Electric Bills: No Difficulty Paying for Meds: No Currently Unemployed: No Education: High School Diploma/GED Difficulty w/ Childcare or Family Care: No Living arrangements: with family Occupation/Education: occupation Additional occupation/education comments: [employer] Spiritual care concerns: No Agree to blood products: Yes Comments At time of signature, agree with nursing past medical, surgical, social and family history. There is no relevant family history pertinent to the presenting complaint Exam Narrative: GENERAL: Well-appearing, well-nourished, and in some mild acute distress. HEAD: Normocephalic, atraumatic. EYES: PERRLA and EOMI. ENT: Nares clear, no rhinorrhea or epistaxis. Mucous membranes moist. NECK: Supple.no lymphadenopathy CHEST: Clear to auscultation. No respiratory distress.SAO2 100% on room air HEART: Regular rate and rhythm. No murmur heard. Normal peripheral pulses. ABDOMEN: Soft, nontender, nondistended, normal active bowel sounds. EXTREMITIES: Normal range of motion. No edema.Exception noted to pain swelling and bruising to the base and medial aspect of left great toe from fall.Circulation and sensation is intact increased pain with movmement SKIN: Warm, dry, no rash NEURO: No focal deficits. Alert and oriented x3. Course Course Emergency Course: Patient is aware of diagnosis, understands and agrees to treatment plan.? Anticipatory guidance given.? Patient agrees to follow-up as directed and is aware of reasons to seek care at the emergency department. Portions of this record may have been created with voice recognition software Level of Care: Express Care Visit Vital Signs Vital signs: Vital Signs Temperature 36.7 C 06/17/25 15:34 Pulse Rate 72 06/17/25 15:34 Respiratory Rate 16 06/17/25 15:34 Blood Pressure 130/85 06/17/25 15:34 Pulse Oximetry 100 06/17/25 15:34 Oxygen Delivery Room Air 06/17/25 15:34 Temperature 36.7 C 06/17/25 15:34 Pulse Rate 72 06/17/25 15:34 Respiratory Rate 16 06/17/25 15:34 Blood Pressure 130/85 06/17/25 15:34 Pulse Oximetry 100 06/17/25 15:34 Oxygen Delivery Room Air 06/17/25 15:34 Reviewed MDM - Extremity Injury (Lower) Differential Diagnosis Differential diagnosis: Likely fracture of toe and other (contusion left foot base of great toe, pain to left foot) Medical Records Attestation: I reviewed the patient's medical records. Imaging Data Attestation: I personally reviewed and interpreted this imaging study as follows: My impression: no fracture or malalignment of left foot Radiologist's impression: Express [facility] [employer] [place] [address] XRay Report Signed Patient: Dior Hart : 1985 MR#: [id number] Age: 39 Acct:[id number] Loc: [facility] ADM Date: 06/17/[address]: Ordering Physician: Kacy Payton APRN Date of Service: 06/17/25 Procedure(s): XR foot LT min 3V Accession Number(s): [id number] cc: Rand Ballard APRN; Kacy Payton APRN~ EXAMINATION: XR foot LT min 3V, 06/17/2025 15:40 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 Findings: No acute fracture or malalignment. No significant degenerative changes. Soft tissues unremarkable. Impression: No acute fracture or malalignment. Reviewed, dictated and finalized at location P. NGUAL COUNTER SALES RETAIL Please be advised this is a medical document. It is intended for xauz-rm-oowt communication. It is written in medical language and may contain unfamiliar abbreviations or verbiage. Medical documents are intended to carry relevant information, facts as evident, and the clinical opinion of the practitioner at the time of the encounter. This report may have been done utilizing a voice recognition system. Attempts have been made to correct errors. However, there may be uncorrected grammatical, spelling, and recognition errors present. The file time of this note does not necessarily represent the time of service. Dictated By: Arnulfo Sanchez MD 06/17/25 1546 Signed By: <Electronically signed by Arnulfo Sanchez MD in OV> Critical Care Time Critical Care Time Critical Care Time: No Discharge Plan Discharge Clinical Impression: Contusion of foot, left Qualifiers: Encounter type: initial encounter Qualified Code(s): S90.32XA - Contusion of left foot, initial encounter Patient Disposition: Home Condition: Stable Instructions: Antibiotic Form, Foot Contusion (ED) Additional Instructions: Elastic wrap or orthopedic splint as directed for comfort for the next 5-7 days Tylenol for lesser pain Ibuprofen regularly for the next 2-3 days for the inflammation Follow-up with orthopedic surgeon if any further problems Follow-up with PCP if further problems or concerns Ice to the area 20-30 minutes 4-6 times a day Elevate above heart If your symptoms persist, change or worsen significantly before you can contact your personal physician then please, without delay, go to the emergency department for further evaluation. Follow-up with PCP in 7-10 days or sooner if needed Follow up with PCP soon in regards to your blood pressure which is elevated above threshold for referral. Blood pressure above 120/80 may indicate pre-hypertension.130/85 Patient Language: Northern Irish Prescriptions: No Action albuterol sulfate 90 mcg/actuation HFA aerosol inhaler 2 puff inhalation PRN PRN (Reason: sob) Qty: 8.5 1RF Rx Instructions: as prescribed trazodone 50 mg tablet 50 mg PO QHS PRN (Reason: insomnia) Qty: 30 1RF valacyclovir 1 gram tablet 1,000 mg PO Q12H PRN (Reason: cold sore) Qty: 30 1RF Dulera 100-5 mcg/actuation HFA aerosol inhaler 2 puff inhalation Q12H Follow-up/Referrals: Rand Ballard APRN [Primary Care Provider, [facility]] Time of Disposition: 16:02 Quality [place] Coma Scale Eyes: Open Verbal: Oriented and Alert Motor: Follows Commands [place] Coma Total Score: 15
--- OUTSIDE RECORDS SUMMARY | 2025-06-18 02:52 | XMS_ITS | Clinical Summary ---
Author Organization [facility] [employer] Address [address] [place] [address] Care Team Providers Care Document Control Clerk Name Role Phone Unavailable Primary Care Provider Unavailabl e Source Comments [facility],non-owned Affiliates and Associated Physician Practices is amultiple site organization consisting of ambulatory clinics and hospital sitesin [place], [place], [place] and [place]. This disclosure is being madepursuant to the Care Everywhere program and may not contain all information available regarding this patient. Last updated [email or web address][email or web address] [facility] [employer] [facility] [employer] Allergies Active Allergy Reactions Criticality Noted Date Comments Oxycodone-Acetaminophen Unknown 01/10/2020 Tramadol Unknown 01/10/2020 Medications * Be aware that medications may not be up to date on this document. Alwaysverify current medications with the patient. ondansetron (ZOFRAN) 4 MG tablet Take 4 mg by mouth every 6 hours as needed for Nausea/Vomitin g Active omeprazole (PRILOSEC) 20 MG capsuleIndicati ons:Heartburn Take 20 mg by mouth daily before breakfast Reasons: Heartburn Active Vit-Fe Fumarate-FA ( VITAMIN) 28-0.8 MG tabletIndicatio ns: Take 1 tablet by mouth once daily Reasons: Active albuterol HFA (RELION VENTOLIN) 108 (90 BASE) MCG/ACT inhalerIndicati ons:Asthma Inhale 2 puffs by mouth every 6 hours as needed Reasons: Asthma Active NIFEdipine (PROCARDIA) 20 MG capsuleIndicati ons:Premature Labor Take 20 mg by mouth every [...] 10 millimeters, which is the case for Laila, was associated with a higher rate of [...] should report any vaginal bleeding to her 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 setter 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 beam machine and present to the nearest Hospital with [...] at Not on file Legal Sex Female 9:54 AM CDT Gender Identity Not on file Sexual Orientation Not on file Last Filed Vital Signs Vital Sign Reading Time Taken Comments Blood Pressure 120/75 02/12/2020 11:34 AM CDT Pulse 104 02/12/2020 11:34 AM CDT Temperature 36.6 C (97.9 F) 02/12/2020 11:34 AM CDT Respiratory Rate - - Oxygen Saturation - - Inhaled Oxygen Concentration - - Weight 87.8 kg (193 lb 9.6 oz) 02/12/2020 11:34 AM CDT Height 170.2 cm (5' 7) 01/22/2020 11:19 AM CDT Body Mass Index 30.32 01/22/2020 11:19 AM CDT Plan of Treatment Health Maintenance Due Date Last Done Comments HIV SCREENING 2000 HEPATITIS C SCREENING 08/23/2003 DTAP/TDAP/TD VACCINES (1 - Tdap) 2004 HEPATITIS B VACCINE (1 of 3 - 19+ 3-dose series) 2004 PNEUMOCOCCAL VACCINE (1 of 2 - PCV) 2004 Cervical Cancer Screening 2006 PAP SMEAR 2006 HPV VACCINE (1 - 3-dose SCDM series) 2012 PAP with HPV 2015 DEPRESSION SCREENING 07/31/2024 COVID-19 VACCINE (1 - 2024-2 6 season) 2025 INFLUENZA VACCINE (#1) 2025 ZOSTER VACCINE (1 of 2) 2035 HIB VACCINE Aged Out No longer eligi ble based on patient's age to complete this topic MENINGOCOCCAL (Group B) VACC INE SHARED DECISION-MAKING Aged Out No longer eligibl e based on patient's age to complete this topic MENINGOCOCCAL GROUPS A/C/Y/W VACCINE Aged Out No longer eligible b ased on patient's age to complete this topic Insurance [facility] MEDICA[facility] - [place] [facility] SELF PAY NO INSURANCE Member Subscriber Plan / Payer (Ef fective for All Dates) Name:Laila Hart Member ID:Not on file Relation to Subscriber:Not on file Name:LAILA HART Subscriber ID:Not on file (Home) Address: [address] [place] [id number] Payer ID:Not on file Group ID:Not on file Type:Self Pay Address: [place], [place]
--- OUTSIDE RECORDS SUMMARY | 2025-06-18 02:52 | XMS_ITS | Clinical Summary ---
Author Organization [facility] Address [address] [place] [address] Phone Care Team Providers Care Museum Exhibit Designer Name Role Phone Rand Ballard APRN, ALMA Primary Care Pro vider Social History [...] 19+ 3-dose series) 2004 Pap Smear 2006 Human Papillomavirus (HPV) Immunization (1 - 3-dose SCDM series) 2012 Cervical Cancer Screening (CCS) 2015 HPV/Cotest 2015 Influenza Immunization (#1) 03/31/202505/01, 04/01/2020 SARS-COV-2 Immunization ( season) 2025 08/08/2021, 06/27/2021 Respiratory Syncytial Virus (RSV) Immunization [...] with stressors Behavioral Health Yes Haydee Urbano, PLANNING ENGINEER Insurance MEDICAID [facility] Care Teams Museum Exhibit Designer Relationship Specialty Start Date End Date Rand Ballard APRN, VARIETY PERFORMER [address] [place] [address] PCP - General Certified Nurse Practitioner 04/18/23
--- OUTSIDE RECORDS SUMMARY | 2025-06-18 02:55 | XMS_ITS | Encounter Summary ---
Author Organization [facility] Address [address] [place] [address] Care Team Providers Care Senior Qa Automation Engineer Name Role Phone Unavailable Primary Care Provider Unavailabl e Prior Encounters Date Type Department Care Team Description 08/19/2019 Converted CPS Chart Documents [facility] [address] [place] [phone] <No scans attached> 08/19/2019 Converted 13x Documents [facility] [address] [place] [phone] <No scans attached> Plan of Treatment [...]
--- OUTSIDE RECORDS SUMMARY | 2025-06-18 02:58 | XMS_ITS | Clinical Summary ---
Author Organization [facility] Address [address] [place] [address] Care Team Providers Care Research Laboratory Technician Name Role Phone Unavailable Primary Care [...]
--- OUTSIDE RECORDS SUMMARY | 2025-06-18 02:59 | XMS_ITS | Data Portability ---
Author Organization [place] [facility] [employer], Main Office Address [address] [place] [address] Care Team Providers Care Rigger Up Name Role Phone SERGEY, RAND Primary Care Provider RAND RINCON Referring Provider [phone] FILEMON BENSON Digital Marketing Assistant Assessment Encounter Date Assessment Date Assessment LastModified by Organization Details LastModified Time 04/04/2023 04/04/2023 The patient gave verbal consent [...] via phone call to discuss the following: [email or web address] Not available 04/04/2023 14:39:46 04/25/2023 04/25/2023 D/w [...] like she can, as she works at [employer] and has to lift at least 50 [...] as needed. [email or web address] Not available 12/28/2023 14:26:27 01/16/2025 01/16/2025 The patient has rotator cuff tendonitis ongoing after a rotator cuff strain. She has failed conservative measures so far. We talked about treatment options in detail today we are going to get her set up with a course of physical therapy To teach a home program she can go to a couple of visits and get started with that. She states she could not afford to go 2 to 3 times a week for the next 4-6 weeks. I have encouraged her to do the exercises on her own at home daily. We talked about anti-inflammator y medication ibuprofen has failed her, we will try a course of meloxicam 15 mg daily. She will do a course of oral prednisone 1st. We also talked about a shot of cortisone she wanted proceed therefore under sterile conditions I injected the patient's right shoulder subacromial space in the office with 4 cc of 0.5% bupivacaine and 20 mg of Kenalog. Patient tolerated procedure well. I will see her back in 6 weeks if her symptoms continue an MRI scan may be indicated we will see how she does with medication therapy and the shot of cortisone in time. She voiced understanding agrees above plan she will call for any further problems difficulties or questions. [email or web address] Not available 01/16/2025 16:26:35 Plan of Treatment Reminders Order Date Submit Date Provider Last Modified By Organization Details Last Modified Time Details Appointments None recorded. Lab None recorded. Referral physical therapist referral - Please contact patient to schedule 2024 025 [facility], [address] [place], [address], 5 16:55:19 physical therapist referral 2023 024 [facility], [address] [place], [address], 4 16:50:38 Procedures injection/ aspiration joint/burs a (PROC) 2024 025 [email or web address] In-Office Order, Internal Use Only DO Not Attach Compendium DO Not Attach Compendium, Do Not Delete/merge, [id number] 5 15:21:43 Surgeries None recorded. Imaging XR, shoulder, 2 or more view 2024 025 [email or web address] [facility] [place], [address] [facility] [address], [place], [address], 5 16:24:17 Medication Orders bupivacain e HCl 0.5 % (5 mg/mL) injection solution 2024 025 [email or web address] [facility], [address], [place], [place], [id number], 5 16:12:33 Kenalog 10 mg/mL suspension for injection [address] [facility]30, [address], [place], [place], [id number], 5 16:12:33 prednisone 10 mg tablets in a dose pack [address] [facility]58831, [address], [place], [place], [id number], 5 16:12:33 meloxicam 15 mg tablet [address] [facility]03428, [address], [place], [place], [id number], 5 16:12:33 Mobic 15 mg tablet 2023 024 [email or web address] [facility] #79411, [address], [place], [place], [id number], 5 14:59:47 ondansetro n 4 mg disintegra ting tablet [email or web address] [facility]116, [address], [place], [place], [id number], 3 14:25:58 Paxlovid 300 mg (150 mg x 2)-100 mg tablets in a dose pack [email or web address] [place] [address] [facility]48[facility], [address], [place], [place], [id number], 3 14:26:00 Medrol (Dipesh) 4 mg tablets in a dose pack 2022 023 [email or web address] [facility] #02140, [address], [place], [place], [id number], 14:59:37 benzonatat e 200 mg capsule 2022 023 [email or web address] [facility]37701, [address] , [place], [place], [id number], 14:58:47 Patient TargetsNo targets recorded. Patient Instructions Encounter Date Encounter Id Patient Instructions Last Modified By Organization Details Last Modified Time 04/04/2023 [id number] D/w pt about her findings and further plan of care. Meds as directed. OTC symptomatic Rx explained in detail. Very good liquid intake explained. Proper hand hygiene explained. Educated about alarming symptoms to monitor at home and call us back Or get checked in ED if any concerns. F/u as directed. [email or web address] Not available 04/04/2023 15:18:40 Due to the COVID-19 (Novel Coronavirus) pandemic, it is within this context (and with the understanding that this method of patient encounter is in the patient s best interest as well as the health and safety of other patients and the public) that [facility] is being provided for this patient encounter rather than a [id number] visit. This patient encounter is appropriate at this time. This patient has been advised of the potential risks and limitations of this mode of treatment (including, but not limited to, the absence of in-person examination) and has agreed to be treated in a remote fashion despite these risks. Any and all of the patient s /patient s family s questions on this issue have been answered, and I have made no promises or guarantees to the patient. The patient has also been advised to contact this office for worsening conditions or problems, and seek emergency medical treatment and/or call 911 if the patient deems either necessary. HPI and/or vitals, if listed, were provided by the patient. [email or web address] Not available 04/04/2023 14:39:17 Reason for Referral Physical Therapist Referral for Pain of right knee joint Referring Physician: Brenda Loredo, Orthopedic Surgery, Encounter Date: 11/01/2023 Physical Therapist Referral for Pain of right shoulder region Please teach home program Please contact patient to schedule Referring Physician: Se Estes, Orthopedic Surgery, Encounter Date: 01/16/2025 Results Created Date Observation Date Name Description Value Unit Range Abnormal Flag Note LastModifiedBy Organization Detail LastModifiedTime 11/01/19 24 10/23/2023 CT, knee, w/o contr ast No observ ation record ed. [email or web address] Not Available 09/2023 13:59:37 11/02/19 24 10/18/2023 XR, knee No observ ation record ed. [email or web address] Not Available 2023 13:04:42 11/02/1910/23/2023 CT, knee, w/o contr ast No observ ation record ed. [email or web address] Not Available 2023 13:05:18 01/17/20 XR, shoul ben, 2 or more view No observ ation record ed. [email or web address] [facility] [address] [facility] [address], [place], [address], 01/16/2025 16:24:15 Result Notes None recorded. Problems Name Problem SNOMED Code Status Onset Date Resolution Date Notes Provider Name and Address Organization Details Recorded Time Asthma 970897102 Active 2016 Not Available [facility] 3 18:03:48 Gastroeso phageal reflux disease 153063131 Active 2016 Not Available [facility] 3 18:03:48 Upper respirato ry infection 99615362 Completed 201602/15/2018 Rand Rincon NP [address] [facility] [facility] [address], [place], [address] , [facility] [employer] 3 12:04:06 Insomnia 300950204 Completed 201603/23/2020 Not Available [facility] 3 18:03:48 Allergic bronchiti s 156180529 Active 2017 Not Available [facility] 3 18:03:48 Chronic back pain 282768357 Active 2018 Not Available [facility] 3 18:03:48 Persisten t insomnia 541548890 Completed 201806/03/2021 Not Available [facility] 3 18:03:48 Anxiety disorder 261264242 Completed 201806/03/2021 Not Available [facility] 3 18:03:48 Obesity 070745492 Completed 201803/23/2020 Not Available [facility] 3 18:03:49 Allergic contact dermatiti s 449541070 Active 2019 Not Available [facility] 3 18:03:48 95142662 Completed 201903/23/2020 Not Available [facility] 3 18:03:49 Loss of voice 86140244 Active 2019 Not Available [facility] 3 18:03:49 Chronic cough 62287118 Active 2019 Not Available [facility] 3 18:03:49 Overweigh t 828814620 Active 2019 Not Available [facility] 3 18:03:48 Seasonal allergic rhinitis 969002646 Active 2019 Not Available [facility] 3 18:03:48 Postpartu m depressio n 22171622 Active 2019 Not Available [facility] 3 18:03:49 Chronic insomnia 910665421 Active 2019 Not Available [facility] 3 18:03:49 Anxiety 53350845 Active 2020 Not Available [facility] 3 18:03:49 Obese 010472552 Active 2021 Not Available [facility] 3 18:03:48 Insomnia 228685480 Active 2021 Not Available [facility] 3 18:03:48 Pain of right knee joint 95905148370 4100 Active 2021 Not Available [facility] 3 18:03:49 Exacerbat ion of moderate persisten t asthma 050393056 Active 2021 Not Available [facility] 3 18:03:49 Migraine 13802960 Active 2021 Not Available [facility] 3 18:03:48 Herpes labialis 3206460 Active 2022 Rand Rincon NP [address], [place], [address] , [facility] [place] [facility] 3 11:45:29 Upper respirato ry infection 96916696 Active 2022 Rand Rincon NP [address], [place], [address] , [employer] [place] [facility] [employer] [facility] 3 12:04:06 Acute sinusitis 12128647 Active 2022 Rand Rincon NP [address], [place], [address] , [employer] [place] [facility] [employer] [facility] 3 15:55:56 Allergic rhinitis 58002668 Active 2022 Rand Rincon NP [address], [place], [address] , [employer] [facility] [employer] [facility] 3 14:14:10 Cough 95920943 Active 2022 Rand Rincon NP [address], [place], [address] , [employer] [facility] [employer] [facility] 3 07:53:47 Cigarette smoker 47168537 Active 2022 Alvin Moon MD [address], [place], [address] , [employer] [facility] 3 15:06:10 Hyperglyc emia 35294450 Active 2022 Rand Rincon NP [address], [place], [address] , [employer] [place] [facility] 3 10:14:21 Nausea and vomiting 81943913 Active 2022 Rand Rincon NP [address], [place], [address] , [facility] 3 10:31:38 Deviated nasal septum 662356808 Active 2022 Roverto Benjamin MD [address], [place], [address] , [facility] 3 11:55:29 Hypertrop hy of nasal turbinate s 54075164 Active 2022 Roverto Benjamin MD [address], [place], [address] , [facility] 3 11:55:38 Vocal cord dysfuncti on 708973568 Active 2022 Perri Gonzalez RN null, [place] [facility] 3 11:55:39 Singers' nodes 64608969 Active 2022 Roverto Benjamin MD [address], [place], [address] , [facility] 3 11:55:49 Chronic sinusitis 17511924 Active 2022 Perri Gonzalez RN null, [place] [facility] 3 17:32:32 Pain in right foot 02015571122 9107 Active 2022 Alvin Moon MD [address], [place], [address] , [facility] 3 16:22:26 Contusion of right foot 34422920649 442435 Active 2022 Alvin Moon MD [address], [place], [address] , [facility] 3 16:33:36 COVID-19 745675030 Active 2022 Alvin Moon MD [address], [place], [address] , [facility] 3 15:17:43 Fatigue 26833558 Active 2022 Alvin Moon MD [address], [place], [address] , [facility] [employer] [facility] 3 17:09:11 Pain of right shoulder region Active 2024 WALTER Pierre [facility] 5 14:45:35 Tendiniti s of right rotator cuff 02287907987 320132 Active 2024 NELLI Taylor [address] [facility] [address], [place], [address] , [facility] [employer] [facility] 5 16:26:45 Right rotator cuff strain Active 2024 NELLI Taylor [address] [facility] [address], [place], [address] , [facility] [employer] [facility] 5 16:26:58 Notes:Medical History: Anxie ty/Depression Rhinitis to cat and dog with postnasal drip Eosinophils 294/uL IgE 523 IU/mL Mild persistent asthma Nicotine dependence Alpha-1 antitrypsin PiMM Obesity ALISON RLS Vit D deficiency Low back pain Problem Notes None recorded. Procedures Surgical History Date Name Laterality Status Provider Name and Address Organization Details Recorded Time 3 Nebulizer Treatment completed Rand Rincon NP [address] [facility] [place] [address], [place], [address], [facility] [employer] [facility] 10/07/2022 11:57:53 0 delivery completed Elaine Garcia CNA [facility] 01/16/2025 15:03:37 9 section completed Elaine Garcia CNA [facility] 01/16/2025 15:04:01 reduction of nasal turbinate completed Perri Gonzalez RN [facility] 03/08/2023 10:30:15 Tubal Ligation completed Elaine yuan CNA [facility] 01/16/2025 15:04:26 SEPTOPLASTY (SURG) completed Perri Gonzalez RN [facility] 03/01/2023 13:00:16 Imaging Results None recorded. Procedure Notes None recorded. Medical Equipment None Reported. Allergies Allergen ID Allergen Name Allergen Category Reaction Reaction Severity Criticality Documentation Date Start Date Code Code System Note Provider Name and Address Organization Details Recorded Time 82040 tramadol medicatio n vomiting Not available Not available 09/28/2022 61194 RxNorm Not Available [facility] 3 18:05:04 94641 acetamino phen / oxycodone medicatio n vomiting Not available Not available 09/28/2022 96882 3 RxNorm Not Available [facility] 3 18:05:05 04904 Dupixent medicatio n rash Not available Not available 01/16/2025 04497 02 RxNorm WALTER Pierre [place] [facility] 5 14:58:17 Medications Name Sig Start Date Stop Date [...] Available Not Available Not Available bupropion HCl SR 150 mg tablet,12 hr sustained- release TAKE 1 TABLET BY MOUTH DAILY active Not Available Not Available No t Available prednisone 10 mg tablet TAKE 1 TABLET BY MOUTH THREE TIMES DAILY FOR 3 DAYS TAKE 1 TABLET BY MOUTH TWICE DAILY FOR 2 DAYS TAKE 1 TABLET BY MOUTH EVERY DAILY FOR 1 DAY active Not Available Not Available No t Available ipratropiu m 0.5 mg-albuter ol 3 mg (2.5 mg base)/3 mL nebulizati on soln USE 3 ML VIA NEBULIZE R FOUR TIMES DAILY NEEDED FOR SHORTNES S OF BREATH OR WHEEZING active Not Available Not Available No t Available clindamyci n HCl 300 mg capsule TAKE [...] TO THE AFFECTED AREA TWICE DAILY NEEDED 01/16 completed Not Available Not Available Not Available divalproex 250 mg tablet,del ayed release TAKE 1 TABLET BY MOUTH EVERY DAY AT BEDTIME FOR 14 DAYS 06/29 completed Not Available Not Available Not Available trazodone 50 mg tablet Take 1 tab po qhs as directed . 10/02 completed Not Available Not Available Not Available cetirizine 10 mg tablet TAKE 1 TABLET BY MOUTH DAILY active Not Available Not Available No t Available L-Lysine 500 mg tablet Take 1 tablet twice a day by oral route. 08/26 completed Not Available Not Available Not Available Stool Softener 100 mg capsule TK ONE C PO BID 03/24 completed Not Available Not Available Not Available azithromyc in 250 mg tablet TAKE DIRECTED 01/16 completed Not Available Not Available Not Available nifedipine 20 mg capsule TK 1 C PO Q 4 H 03/23 completed Not Available Not Available Not Available fluconazol e 150 mg tablet active Not Available Not Available Not Available benzonatat e 200 mg capsule TAKE 1 CAPSULE BY MOUTH THREE TIMES DAILY NEEDED FOR COUGH 01/16 completed Not Available Not Available Not Available valacyclov ir 1 gram tablet TAKE 1 TABLET BY MOUTH EVERY 12 HOURS FOR 2 DAYS NEEDED FOR COLD SORE active Not Available Not Available No t Available ranitidine 300 mg tablet TK 1 [...] Not Available Not Available Not Available meloxicam 15 mg tablet TAKE 1 TABLET EVERY DAY BY MOUTH 2024 active Not Available Not Available Not Avai lable metronidaz ole 0.75 % (37.5 mg/5 gram) vaginal gel INSERT 1 APPLICAT ORFUL VAGINALL Y AT BEDTIME FOR 5 DAYS 01/24 completed Not Available Not Available Not Available ondansetro n HCl 4 mg tablet TK 1 T PO Q 6 H PRN 03/23 completed Not Available Not Available Not Available bupivacain e HCl 0.5 % (5 mg/mL) injection solution Take 20 mg by injectio n route. 2024 active Not Available Not Available Not Avai lable prednisone 20 mg tablet TAKE 2 TABLETS BY MOUTH DAILY FOR 5 DAYS THEN TAKE 1 TABLET BY MOUTH DAILY FOR 5 DAYS 01/16 completed Not Available Not Available Not Available Ferrex 150 mg iron capsule 08/26 [...] day by oral route in the morning. 01/16 completed Not Available Not Available Not Available acyclovir 400 mg tablet TAKE 1 TABLET [...] triamcinol one acetonide 0.1 % topical cream APPLY TOPICALL Y TO THE AFFECTED AREA 2 TIMES A WEEK 01/16 completed Not Available Not Available Not Available [...] Available Not Available No t Available prednisone 10 mg tablets in a dose pack Take 1 tab by mouth, 3 times a day for 3 daysTake 1 tab by mouth 2 times a day for 2 daysTake 1 tab by mouth once a day for 1 day 2024 active Not Available Not Available Not Avai lable terconazol e 80 mg vaginal suppositor y INSERT 1 SUPPOSIT ORY INTO VAGINA AT BEDTIME FOR THREE NIGHTS 04/09 completed Not Available Not Available Not Available meloxicam 7.5 mg tablet TK ONE T PO QD PC PRN ONLY 10/02 completed Not Available Not Available Not Available famotidine 20 mg tablet Take 1 tablet twice a day by oral route. 11/24 completed Not Available Not Available Not Available prednisolo ne acetate 1 % eye drops,susp ension active Not Available Not Available Not Available trazodone 100 mg tablet Take 1 tablet(s ) every day by oral route at bedtime for 30 days. 08/26 completed Not Available Not Available Not Available Kenalog 10 mg/mL suspension for injection Take 20 mg by injectio n route. 2024 active [facility]: 0003-04 94-20 Not Available Not Available Not Available benzonatat [...] TABLET BY MOUTH EVERY 4 HOURS NEEDED 01/16 completed Not Available Not Available Not Available cephalexin 500 mg capsule TAKE ONE [...] Not Available oseltamivi r 75 mg capsule TAKE 1 CAPSULE BY MOUTH EVERY 12 HOURS FOR 5 DAYS 01/16 completed Not Available Not Available Not Available nystatin [...] oral route as needed for 15 days. 01/16 completed Not Available Not Available Not Available hydrocorti sone 2.5 % topical cream TAMMY THIN LAYER EXT AA BID active Not Available Not Available No t Available montelukas t 10 mg tablet TAKE 1 TABLET BY MOUTH DAILY active Not Available Not Available No t Available mupirocin 2 % topical ointment APPLY [...] azelastine 137 mcg (0.1 %) nasal spray [place] 2 sprays twice a day by intranas al route. 01/24 completed Not Available Not Available Not Available Cheratussi n AC 10 mg-100 mg/5 mL oral liquid TAKE 10ML BY MOUTH EVERY 6 TO 8 HOURS PRN FOR 10 DAYS 08/23 completed Not Available Not Available Not Available epinephrin e 0.3 mg/0.3 mL injection, auto-injec tor INJECT 1 AUTO-INJ VERONIKA DIRECTED NEEDED active Not Available Not Available No t Available ibuprofen 600 mg tablet TAKE ONE TABLET BY MOUTH TWO TIMES A DAY FOR THREE DAYS 03/23 completed Not Available Not Available Not Available zolpidem 10 mg tablet TAKE 1 TABLET BY MOUTH EVERY DAY AT BEDTIME NEEDED FOR INSOMNIA active Not Available Not Available No t Available methylpred nisolone 4 mg tablets in a dose pack FOLLOW PACKAGE DIRECTIO NS FOR 6 DAYS 01/16 completed Not Available Not Available Not Available albuterol sulfate HFA 90 mcg/actuat ion aerosol inhaler INHALE 2 PUFFS BY MOUTH EVERY 4 HOURS NEEDED active [...] BY MOUTH TWICE DAILY FOR 7 DAYS 01/16 completed Not Available Not Available Not Available amoxicilli n 500 mg-potassi um clavulanat [...] completed Not Available Not Available Not Available Xolair one injectio n twice a month active Not Available Not Available No t Available vareniclin e tartrate 0.5 mg (11)-1 [...] Not Available Not Available No t Available cholecalci ferol (vitamin D3) 1,250 mcg (50,000 unit) capsule TAKE 1 CAPSULE BY MOUTH ONCE WEEKLY active Not Available Not Available No [...] Nucala 100 mg/mL subcutaneo us auto-injec tor 01/16 completed Not Available Not Available Not Available Rinvoq 15 mg tablet,ext ended release 01/16 completed Not Available Not Available Not Available Dupixent 300 mg/2 mL subcutaneo us pen injector 01/16 completed Not Available Not Available Not Available Dupixent [...] mL (110 mg/mL) subcutaneo us pen injector 01/16 completed Not Available Not Available Not Available Vitals Date Recorded Body height Body mass index (BMI) Body weight Pain severity - 0-10 verbal numeric rating [Score] - Reported Provider Name and Address Organization Details Last Updated DateTime 11/01/2023 170.18 cm 28.8 kg/m2 05336 g 6 KARYNA Daniels [employer] 11/01/2023 11:17:53 Date Recorded Body height Body mass index (BMI) Body weight Pain severity - 0-10 verbal numeric rating [Score] - Reported Provider Name and Address Organization Details Last Updated DateTime 12/27/2023 170.18 cm 27.9 kg/m2 45892.44 g 2 KARYNA Daniels [employer] 12/27/2023 14:34:32 Date Recorded Body height Body mass index (BMI) Body weight Provider Name and Address Organization Details Last Updated DateTime 01/16/2025 170.18 cm 26.6 kg/m2 83221.7 g Elaine Garcia CNA [facility] 01/16/2025 14:57:33 Date Recorded Body height Body mass index (BMI) Body weight Body temperature Heart rate Respiratory rate Oxygen saturation Oxygen saturation in Arterial blood by Pulse oximetry Systolic And Diastolic Provider Name and Address Organization Details Last Updated DateTime 170.18 cm 31 kg/m2 05451.6 4 g 97.2 [degF] 86 /min 16 /min 98 % 98 % 126/80 mm[Hg] Keven Solis [facility] 14:31:46 Social History Question Answer Notes LastModified by Organizat ion Details LastModified Time Tobacco Smoking Status Former Smoker Elaine Garcia CNA [employer] [facility] 01/16/2025 15:03:20 Do You Have An Advance Directive? No [id number] Information not available 09/28/2022 Do You Wear A Helmet When Biking? No [id number] Information not available 09/28/2022 Is Blood Transfusion Acceptable In An Emergency? Yes Information not available 10/20/2022 What Is Your Level Of Caffeine Consumption? Heavy [id number] Information not available 09/28/2022 What Is Your Code Status? Full Code [email or web address] Information not available 10/20/2022 In The 14 Days Before Symptom Onset, Have You Had Close Contact With A Laboratory-confir med COVID-19 While That Case Was Ill? No [id number] Information not available 09/28/2022 In The 14 Days Before Symptom Onset, Have You Had Close Contact With A Person Who Is Under Investigation For COVID-19 While That Person Was Ill? No [id number] Information not available 09/28/2022 What Type Of Diet Are You Following? REGULAR [id number] Information not available 09/28/2022 What Is The Highest Grade Or Level Of School You Have Completed Or The Highest Degree You Have Received? [id number] Information not available 09/28/2022 Have There Been Any Changes To Your Family Or Social Situation? No [id number] Information not available 09/28/2022 What Is The Fluoride Status Of Your Home? Unknown MIGRATION.632806 2457 Information not available 09/28/2022 Do You Use Insect Repellent Routinely? No MIGRATION.206240 8311 Information not available 09/28/2022 Where Do You Live? [facility] MIGRATION.149768 2985 Information not available 09/28/2022 Do You Have A Medical Power Of Major Gifts Manager? No MIGRATION.585465 4380 Information not available 09/28/2022 What Was The Date Of Your Most Recent Tobacco Screening? 11/01/2023 Information not available 11/01/2023 How Many Children Do You Have? 3 Information not available 10/20/2022 Do You Have Any Pets? Yes Dogs MIGRATION.[id number] 8497 Information not available 09/28/2022 What Is Your Relationship Status? Single MIGRATION.170071 1360 Information not available 09/28/2022 Do You Use Your Seat Belt Or Car Seat Routinely? Yes MIGRATION.007072 8987 Information not available 09/28/2022 Do You Have Smoke And Carbon Monoxide Detectors In Your Home? Yes MIGRATION.270511 4655 Information not available 09/28/2022 At What Age Did You Start Smoking Tobacco? 16 MIGRATION.799087 0325 Information not available 09/28/2022 Are You Passively Exposed To Smoke? No MIGRATION.510010 0962 Information not available 09/28/2022 Are There Any Smokers In Your House? No MIGRATION.280588 6861 Information not available 09/28/2022 How Much Tobacco Do You Smoke? 0.5 PPD Information not available 01/24/2023 Do You Participate In Social Media? Yes MIGRATION.838922 2504 Information not available 09/28/2022 Do You Use Sunscreen Routinely? No MIGRATION.484528 9391 Information not available 09/28/2022 How Many Years Have You Smoked Tobacco? 20 MIGRATION.414504 8737 Information not available 09/28/2022 Have You Recently Traveled Abroad? No MIGRATION.184230 3118 Information not available 09/28/2022 Do You Have Any Dietary Restrictions? No MIGRATION.923823 6997 Information not available 09/28/2022 Sex: Female Functional Status Question Answer Note LastModified by Organizat ion Details LastModified Time Do you use any illicit or recreational drugs? No MIGRATION.[id number] 026 Information not available 09/28/2022 Do you or have you ever used any other forms of tobacco or nicotine? No MIGRATION.2361999 026 Information not available 09/28/2022 What is your level of alcohol consumption? None MIGRATION.4255840 026 Information not available 09/28/2022 Are you currently employed? Yes Information not available 10/20/2022 What is your occupation? [employer] Information not available 10/20/2022 What is your exercise level? Occasional Asthma Information not available 01/24/2023 Mental Status Question Answer Note LastModified by Organizat ion Details LastModified Time Do you feel stressed (tense, restless, nervous, or anxious, or unable to sleep at night)? [id number] MIGRATION.[id number] 6 Information not available 09/28/2022 Family History Relationship Description Onset Age of this Age Resolved Age Notes LastModified by Organization Details LastModified Time Mother Hypertensive disorder [email or web address] Not available 2024 15:01:30 Father Hypertensive disorder [email or web address] Not available 2024 15:01:30 Father History of thrombosis [email or web address] Not available 01/16 15:01:52 Father History of malignant neoplasm [email or web address] Not available 2024 15:02:06 Father Cerebrovascu lar accident [email or web address] Not available 15:02:22 Maternal Grandfather Heart disease [email or web address] Not available 2024 15:02:50 Notes:both sides of family h ave cancer in the family Medical History Condition Response BLINDNESS N RHEUMATIC FEVER N KIDNEY STONES N BLADDER PROBLEMS N MRSA N OTHER # 1 Y POLIO N LUNG DISEASE/DISORDER Y HISTORY OF DRUG ABUSE N COPD N [...] HAVE YOU BEEN HOSPITALIZED OR SEEN IN [facility] IN THE PAST YEAR ? N ATHEROSCLEROSIS N BREAST PROBLEMS N DIALYSIS N ECZEMA N FIBROMYALGIA N OSTEOPOROSIS N ARTHRITIS Y NO SIGNIFICANT PAST MEDICAL HISTORY N APPENDICITIS [...] Recorded Time Tdap 07/31/2014 completed Not Available [facility] 09/28/2022 18:05:01 Influenza, split virus, quadrivalent, PF 05/24/2022 completed Not Available [facility] 18:05:01 Past Encounters Encounter ID Performer Location Encounter Start Date Encounter Closed Date Diagnosis/Indication Diagnosis SNOMED-CT Code Diagnosis ICD10 Code Diagnosis IMO Codes Diagnosis Note [id number] Alvin Moon MD [facility] [place] [address] [place] [address] 03/24/2021 00:00:00 03/24/2021 12:23:45 [id number] Alvin Moon MD [facility] [address] [place], [place] [address] [place] [address] 05/20/2021 00:00:00 05/20/2021 16:32:35 [id number] Y[facility]iel [facility] [address] [address] 06/07/2021 00:00:00 06/07/2021 14:54:54 [id number] [facility] [address] [address] 09/09/2021 00:00:00 09/09/2021 17:27:56 [id number] Alvin Moon MD [facility] [address] [place] [address] 09/17/2021 00:00:00 09/17/2021 10:47:41 [id number] [facility] [address] [place], [place] [address] [place] [address] 10/20/2021 00:00:00 10/20/2021 12:55:52 [id number] [facility] [address] [place], [place] [address] [place] [address] 11/24/2021 00:00:00 11/24/2021 11:17:03 [id number] [facility] [place] [address] [place], [place] [address] [place] [address] 02/24/2022 00:00:00 02/24/2022 17:24:58 [id number] Rand Rincon NP [facility] [place] [address] [place] [address] 05/24/2022 00:00:00 05/24/2022 14:36:30 [id number] Alvin Moon MD [facility] [place] [address] [place] [address] 06/21/2022 00:00:00 06/21/2022 11:11:36 [id number] Alvin Moon MD [facility] [address] [place] [address] 06/29/2022 00:00:00 06/29/2022 18:11:23 [id number] Tabitha Gallego NP [facility] [address] [address] 11/04/2021 00:00:00 11/04/2021 18:12:52 [id number] Tabitha Galleg[facility] NP [facility] [address] [address] 12/02/2021 00:00:00 12/02/2021 10:27:08 [id number] Tabitha [facility]leg[facility] [address] [address] 01/10/2022 00:00:00 01/10/2022 14:17:19 [id number] Tabitha Gallego NP [facility] [address] [address] 03/29/2022 00:00:00 03/29/2022 11:16:07 [id number] [facility] [place] [place] [address] 10/07/2022 11:12:38 10/07/2022 12:20:34 Asthma 791123951 J45.909 Trelegy sample given to use daily and rinse mouth after use. Dulera works, but breo, adviar failed.Whe n better, reschedule PFT.Duoneb solution ordered.Du oneb given in office. Herpes labialis 7519813 B00.1 Acyclovir 400 mg po tid for 10 days. Upper resp iratory infection 05118307 J06.9 Finish all doxy and steroid from urgent care. [id number] Rand Rincon NP [address] [address] 10/20/2022 15:23:50 10/20/2022 16:04:56 Acute sinusitis 00133417 J01.90 Zpak as directed, vit c for immune support. Stay hydrated and rested. Exacerbati on of moderate persistent asthma 115843896 J45.41 November 14, 2022 has pulmonolog ist appt. [id number] Rand Rincon NP [address] [address] 01/24/2023 09:48:04 01/24/2023 10:46:07 [facility] [id number] R73.9 BMP, A1C, lipid ordered. Nausea and vomiting 1693 1999 R11.2 Forms completed for abscense 01/11/23- and return on 01/15/23 [id number] Roverto Benjamin MD [facility] [place] [address] [place] [address] 01/24/2023 11:06:10 01/24/2023 12:06:45 Deviated nasal septum 499567037 J34.2 Hypertroph y of nasal turbinates 87455899 J34.3 Singers' nodes 83243218 J38.2 [id number] Roverto Benjamin MD [facility] [place] [address] [place] [address] 03/09/2023 10:56:46 03/09/2023 15:25:05 Deviated nasal septum 959570591 J34.2 [id number] Alvin Moon MD [address] [place] [address] 03/30/2023 16:11:45 03/30/2023 16:34:21 Pain in right foot 5312460936 64540 M79.671 Obese 741127744 E66.9 Contusion of right foot 1437638909 0191058 S90.31XA [id number] Alvin Moon MD [address] [address] 04/04/2023 14:37:30 04/04/2023 17:14:20 COVID-19 726076370 U07.1 Nausea and vomiting 1693 2000 R11.2 Cough 61990754 R05.9 Fatigue 38507099 R53.83 [id number] Alvin Moon MD [address] [address] 04/25/2023 14:24:16 04/25/2023 14:51:49 History of SARS-CoV-2 1850259475 19149724 Z86.16 Obese 717794110 E66.9 Seasonal a llergic rhinitis 007511740 J30.2 Chronic back pain 568641 002 G89.29 [id number] Aly Santana MD [facility] [place] [address] [place] [address] 11/01/2023 10:56:15 11/01/2023 11:42:16 Pain of right knee joint 6520433338 90754 M25.663 [id number] Aly Santana MD [facility] [place] [address] [place] [address] 12/27/2023 14:22:46 12/27/2023 14:51:41 Pain of right knee joint 6579407903 51275 M25.427 [id number] Aly Santana MD [facility] [place] [address] [place] [address] 01/16/2025 14:40:28 01/16/2025 15:30:23 Pain of right shoulder region 2062372443 M25.511 94434563 Tendinitis of right rotator cuff 8281662014 7918359 M75.81 76452961 Right rota tor cuff strain 4807524857 3053949 S46.011A [id number] Health Concerns Section Related Observation LastModified by Organization Detai ls LastModified Time None Recorded Concern Status LastModified by Organization Details LastModified Time None Recorded Advance Directives Directive N: Payers Insurance Date Sequence Insurance Name Policy Number Policy Le Covered Member ID Le Member ID Guarantor Name 02/24/2025 1 [place] [id number] Dior Hart [id number] Dior Hart 01/16/2025 1 [place] [id number] Dior Hart [id number] Dior Hart 01/16/2025 1 [place] [id number] Dior Jones [id number] Dior Hart 01/16/2025 [id number] Dior Hart Notes Date Note Type Note Provider Name and Address Organization Details Recorded Time 04/04/2023 text/html Telephone visit.ACV. C/o cough, congestion, [...] work off note. Alvin Moon MD [address] [facility], [place], [address], [facility] [employer] 04/04/2023 17:11:51 04/25/2023 text/html ACV: Pt has [...] RTW from 04/10/23. Alvin Moon MD [address], [place], [address], [employer] 04/25/2023 14:49:22 01/16/2025 text/html the patient is a 39-year-old female who presents with right shoulder pain for a couple of months now. She states this began while she was playing catch she went to throw a baseball he has hard as she could he had immediate pain in the right shoulder and felt a pop at that time. She had aching pain that was radiating into the upper arm somewhat she denies any bruising or weakness after that occurred. She had no deformity of the biceps and no loss of motion but certainly pain with trying to reach out or behind her back. She works at an [employer] does lots of heavy lifting all day long this is aggravating her symptoms as well. She has been taking ibuprofen and Tylenol on a regular basis without significant relief. She continues have pain that limits her daily activities about an 8 on a scale of 1-10. Sometimes it keeps her awake at night despite conservative measures on her own at home her symptoms continue. She has no weakness or loss of motion no radicular pain down the arm no numbness or tingling. She comes in today for initial evaluation treatment of right shoulder pain as described. New past medical history sheet was reviewed and signed on the intake sheet of today's date drug allergies current medications family social history previous surgical history 10 point review of systems was reviewed and discussed in detail today with the patient. NELLI Taylor [address], [facility] [address], [place], [address], [employer] 01/16/2025 16:28:36 OBGyn Episode No OBEpisode recorded.
== END 2025-06-17 16:05 | disposition home or self-care (01) ==
PROVIDERS: Emergency Provider Registered Nurse; PCP Nurse Practitioner Family
DX: S90.32XA Contusion of left foot, initial encounter (principal); W19.XXXA Unspecified fall, initial encounter; Z87.891 Personal history of nicotine dependence; K21.9 Gastro-esophageal reflux disease without esophagitis; J45.909 Unspecified asthma, uncomplicated; F32.A Depression, unspecified
CPT/HCPCS: 73630; 99213; G0463